=== PATIENT | female | born 1960 | race African-American/Black ===

== ENCOUNTER 2020-06-14 15:47 | Emergency (ER) | payer OTHER, SELFPAY ==
[2020-06-14] VITALS (8 sets, daily range): BP systolic 133–153; BP diastolic 82–103; PULSE 84; RESP 18; TEMP 37.2; O2SAT 96–99
--- NOTE | ~2020-06-14 | CT_ITS ---
EXAMINATION: CT abdomen pelvis wo con DATE: 06/14/2020 16:31 INDICATION: Right flank pain. TECHNIQUE: Computed tomography (CT) of the abdomen and pelvis was performed without intravenous contr ast. Automated exposure control and iterative reconstruction technique were employed. The dose-length product was 369.74 mGy-cm. COMPARISON: CT abdomen and pelvis 07/10/2019 FINDINGS: The visualized portions of the lung bases demonstrate minimal atelectasis. No pleural effus ion. The heart size is normal. No pericardial effusion. The liver, gallbladder, spleen, pancreas, and adrenal glands are normal. There are 3 stones in right kidney measuring up to 4 mm. There are 3 ston es in left kidney measuring up to 8 mm. There are no dilated loops of bowel. There is diverticulosis of the colon without evidence of diverticulitis. The appendix is normal. There are no dilated loops o f bowel. There are no pathologically enlarged lymph nodes. There is no free intraperitoneal fluid. Th ere is mild lumbar spondylosis. IMPRESSION: 1. Bilateral nonobstructing kidney stones. Reviewed, dictated and finalized at location A.
[2020-06-14 16:15] LABS: Basophils Percent Auto 0.4 % (0.2-1.2); Eosinophils Percent Auto 0.3 % (0-4.4); Hematocrit 37.6 % (37.0-47.0); Hemoglobin 12.5 g/dL (12.0-15.0); Immature Granulocyte Absolute 0.02 K/mm3 (0.00-0.031); Immature Granulocyte Percent A 0.3 % (0-0.5); Lymphocytes Absolute Auto 2.03 K/mm3 (0.9-3.2); Lymphocytes Percent Auto 29.5 % (18.3-44.2); Mean Corpuscular HGB Conc 33.2 g/dl (32-36); Mean Corpuscular Hemoglobin 23.9 pg (26-34); Mean Platelet Volume 11.6 fl (7.4-10.4); Monocytes Absolute Auto 0.5 K/mm3 (0.1-0.6); Monocytes Percent Auto 7.3 % (2.6-8.5); Neutrophils Absolute Auto 4.3 K/mm3 (1.3-6.7); Neutrophils Percent Auto 62.2 % (45.5-73.1); Platelet Count Result 240 k/mm3 (150-375); Red Blood Count 5.22 M/mm3 (4.2-5.4); Red Cell Distribution Width 17.1 % (11.5-14.5); White Blood Count 6.9 K/mm3 (4.5-10.0)
[2020-06-14 16:27] LABS: Alanine Aminotransferase 23 U/L (4-35); Albumin Level 4.6 g/dL (3.5-5.1); Alkaline Phosphatase 104 U/L (38-126); Anion Gap 6 mmol/L (8-16); Aspartate Amino Transferase 35 U/L (14-36); Bilirubin,Total 0.5 mg/dL (0.2-1.3); Blood Urea Nitrogen 15 mg/dL (7-17); Calcium 9.3 mg/dL (8.4-10.2); Carbon Dioxide 28 mmol/L (22-30); Chloride 104 mmol/L (98-107); Estimated Glomerular Filt Rate > 60; Glucose 92 mg/dL (65-105); Lipase 101 U/L (23-300); Potassium 3.9 mmol/L (3.4-5.0); Sodium 138 mmol/L (137-145)
[2020-06-14 16:29] LABS: Add Urine Microscopic? YES; Appearance Urine Clear (Clear); Bacteria Urine Trace /hpf; Bilirubin Urine Negative (Negative); Blood Urine Negative (Negative); Color Urine Straw (Yellow); Glucose Urine UA Negative (Negative); Ketones Urine Negative (Negative); Leukocyte Esterase Ur 1+ LEU/UL (Negative); Mucus Urine Rare /lpf; Nitrate Urine Negative (Negative); Protein Urine Negative (Negative); RBC Urine 0-2 /hpf (0-2); Specific Grav Ur 1.015 (1.001-1.035); Squamous Epithelial Cell Urine Moderate /hpf (Few); Urobilinogen Urine Negative mg/dL (<2.0)
[2020-06-14] MEDS: KETOROLAC 30 MG/ML VIAL (*BKC) IV PUSH (16:38)
[2020-06-14] MEDS: SODIUM CHLORIDE 0.9% IV 1,000 ML 999 ML IV CONT (16:38)
--- NOTE | 2020-06-14 16:47 | ED.GENADULT ---
HPI - General Adult General Chief complaint: Abdominal Pain Stated complaint: RIGHT FLANK PAIN Time Seen by Provider: 06/14/20 15:49 Source: RN notes reviewed History of Present Illness HPI narrative: Patient presents emergency room from home for right flank pain. Patient states pain began at approximately noon today. Pain is right flank and radiates in the right lower abdomen described as sharp and stabbing. Denies any fevers or chills vomiting diarrhea or any other symptoms. States she took no previous pain medication. States history of kidney stones Related Data Home Medications Medication Instructions Recorded Confirmed Adult Low Dose Aspirin 06/14/20 Vitamin D3 06/14/20 Allergies Allergy/AdvReac Type Severity Reaction Status Date / Time No Known Allergies Allergy Unverified 06/14/20 15:56 Review of Systems Review of Systems: Narrative: Gen.: Denies fevers or chills ENT: Denies congestion Respiratory: Denies shortness of breath or cough CV: Denies chest pain or palpitations GI: Denies abdominal pain nausea, emesis or diarrhea reports flank pain denies burning, urgency, frequency or hematuria Musculoskeletal: Denies back pain or muscle pain Neuro: Denies numbness, tingling, weakness or focal weakness Skin: Denies rash Except as documented, all other systems reviewed and negative [facility] Past Medical History Medical History (Updated 06/14/20 @ 17:51 by Blaise Jorge DO) Kidney stones Family History Family History (Updated 06/09/14 @ 07:13 by DOCTOR UNKNOWN) Mother Family history of arthritis Social History Social History Smoking status: Current every day smoker Alcohol intake: current Gender identity (if verbalized by the patient): Female Exam Narrative: Exam Narrative: APPEARANCE: No acute distress, nontoxic, resting in bed HEENT: Normocephalic, atraumatic, OMM RESPIRATORY: No respiratory distress, clear to auscultation bilaterally with no rhonchi wheezing or rales CARDIOVASCULAR: RRR s murmur ABDOMINAL: Soft, nondistended, tender to palpation in right lower quadrant right upper quadrant, no tenderness left or quadrant left lower quadrant, no rebound or guarding, right flank tenderness MUSCULOSKELETAl: Moves all extremities. No clubbing, cyanosis or edema. NEURO: Awake and alert. Following commands, speech normal, no focal deficits SKIN:: Warm, dry. Normal Color PSYCHIATRIC: Normal affect/mood Course Course Emergency Course: Patient states that they are feeling much better at this time. States abdominal pain has resolved. Repeat abdominal exam shows the patient's abdomen to be soft and nontender. Discussed with patient results of workup and diagnosis. Discussed need for follow-up with primary care physician, reasons to return to the emergency department in proper use of medication. Patient understands and agrees to current treatment plan Vital Signs Vital signs: Vital Signs Temperature 99.0 F 06/14/20 15:55 Pulse Rate 84 06/14/20 15:55 Respiratory Rate 18 06/14/20 15:55 Blood Pressure 150/103 H 06/14/20 15:55 Pulse Oximetry 96 06/14/20 15:55 Temperature 99.0 F 06/14/20 15:55 Pulse Rate 84 06/14/20 15:55 Respiratory Rate 18 06/14/20 15:55 Blood Pressure 133/82 06/14/20 17:16 Pulse Oximetry 98 06/14/20 17:17 Medical Decision Making MDM Narrative Medical decision making narrative: Patient's abdomen is soft without significant pain or signs of surgical abdomen on serial exams. Lab and x-ray evaluations are reviewed and patient is felt to be a reasonable candidate for outpatient management. Patient was instructed as to limitations of x-ray and laboratory evaluation and encouraged to return to ED or primary physician for repeat exam in 12 hours if continued or worsening pain Vital Signs Vital Signs: Vital Signs Temperature 99.0 F 06/14/20 15:55 Pulse Rate 84 06/14/20 15:55 Res
[2020-06-14] MEDS: NITROFURANTOIN MONOHYD MACROCR 100 MG CAP PO (17:59)
== END 2020-06-14 18:17 | disposition home or self-care (01) ==
PROVIDERS: Emergency Provider Emergency Medicine; PCP Internal Medicine
DX: N39.0 Urinary tract infection, site not specified (principal); N20.0 Calculus of kidney; Z87.442 Personal history of urinary calculi; F17.200 Nicotine dependence, unspecified, uncomplicated
CPT/HCPCS: 36415; 74176; 80053; 81001; 81025; 83690; 85025; 99284; A9270; J1885; J7030

== ENCOUNTER 2020-10-24 04:53 | Observation (INO) | payer OTHER, SELFPAY ==
[2020-10-24] VITALS (39 sets, daily range): BP systolic 120–155; BP diastolic 71–102; PULSE 52–94; RESP 12–29; TEMP 36.4–36.5; O2SAT 84–99; BMI 30.1
--- NOTE | ~2020-10-24 | CT_ITS ---
EXAMINATION: CTA chest DATE: 10/24/2020 06:31 INDICATION: Chest pain TECHNIQUE: Computed tomographic angiography (CTA) of the chest was performed with 100 mL Omnipque-350 intravenous contrast. Maximum intensity projection 3D-reconstructions of the aorta and other arterie s were constructed by the technologist on a separate workstation. The dose-length product (DLP) was 3 04.93 mGy-cm. Automated exposure control and iterative reconstruction technique were employed. COMPARISON: None. FINDINGS: The thoracic aorta is normal without aneurysm or dissection. No pulmonary embolism is ident ified. There is mild emphysema. There is mild dependent atelectasis. No pleural effusion or pneumotho rax is identified. No pathologically enlarged thoracic lymph nodes are identified. The heart size is normal. Triangular soft tissue density in the anterior mediastinum likely represents residual thymus. There are metallic soft tissue densities in the left posterior chest wall and left scapula. Nonobstr ucting stones of the kidneys measure up to 8 mm on the left. IMPRESSION: 1. No aortic dissection or aneurysm. 2. No pulmonary embolism. Reviewed, dictated and finalized at location A. ATTORNEY
--- NOTE | 2020-10-24 04:59 | ECG_ITS ---
Measurements Intervals [place] Rate: 66 P: 52 NM: 131 QRS: 17 QRSD: 85 T: 1 QT: 404 QTc: 425 Interpretive Statements SINUS RHYTHM BORDERLINE T WAVE ABNORMALITY- INFERIOR LEADS BORDERLINE ECG Electronically Signed On 10-24-2020 7:15:50 [employer] by Bolivar Cervantes D.O.
--- NOTE | 2020-10-24 05:09 | ED.CHESTPAIN ---
HPI - Chest Pain General Chief Complaint: Chest Pain <Lesly Valles MD - Last Filed: 10/24/20 23:35> Stated Complaint: cp <Lesly Valles MD - Last Filed: 10/24/20 23:35> Time Seen by Provider: 10/24/20 04:54 <Lesly Valles MD - Last Filed: 10/24/20 23:35> Source: patient <Lesly Valles MD - Last Filed: 10/24/20 23:35> Mode of arrival: EMS <Lesly Valles MD - Last Filed: 10/24/20 23:35> Limitations: no limitations <Lesly Valles MD - Last Filed: 10/24/20 23:35> History of Present Illness HPI narrative: This patient is a 60 year old female smoker who presents for evaluation of left chest pain. She reports this pain started suddenly at 2 am this morning. She describes pain has constant, sharp . Pain radiates to her left shoulder. PAin is worse with inspiration. She denies cough, nausea, vomiting, shortness of breath or fever. She denies similar pain. She was given aspirin 324 mg by EMS in route. <Lesly Valles MD - Last Filed: 10/24/20 23:35> Related Data Allergies/Adverse Reactions: Allergies Allergy/AdvReac Type Severity Reaction Status Date / Time No Known Allergies Allergy Unverified 06/14/20 15:56 <Lesly Valles MD - Last Filed: 10/24/20 23:35> Review of Systems Review of Systems: All systems reviewed & are unremarkable except as noted in HPI and below <Lesly Valles MD - Last Filed: 10/24/20 23:35> Cardiovascular: Cardiovascular: Reports chest pain and Reports radiating jaw, neck or arm pain <Lesly Valles MD - Last Filed: 10/24/20 23:35> Respiratory: Respiratory: Denies cough and Reports dyspnea <Lesly Valles MD - Last Filed: 10/24/20 23:35> Gastrointestinal: Gastrointestinal: Denies abdominal pain and Denies nausea <Lesly Valles MD - Last Filed: 10/24/20 23:35> PMFSH Past Medical History Medical History: Medical History (Updated 10/24/20 @ 09:45 by Jaron Kessler MD) Kidney stones <Lesly Valles MD - Last Filed: 10/24/20 23:35> Family History Family History: Family History Mother Family history of arthritis <Lesly Valles MD - Last Filed: 10/24/20 23:35> Social History Social History: Social History Smoking status: Current some day smoker Alcohol intake: never Substance use: never Substance use type: does not use Living arrangements: with family Gender identity (if verbalized by the patient): Female Spiritual care concerns: No <Lesly Valles MD - Last Filed: 10/24/20 23:35> Exam Const: General: alert <Lesly Valles MD - Last Filed: 10/24/20 23:35> Orientation/consciousness: patient oriented x3 <Lesly Valles MD - Last Filed: 10/24/20 23:35> Other: mild dstress due to pain <Lesly Valles MD - Last Filed: 10/24/20 23:35> HENMT: Head: normocephalic and atraumatic <Lesly Valles MD - Last Filed: 10/24/20 23:35> Face and sinus: face symmetric <Lesly Valles MD - Last Filed: 10/24/20 23:35> Mouth: Yes Normal oral and palatal mucosa present, Yes lip normal, Yes oropharynx normal and Yes moist mucous membranes <Lesly Valles MD - Last Filed: 10/24/20 23:35> Eyes: EOM: EOMs intact bilaterally <Lesly Valles MD - Last Filed: 10/24/20 23:35> Chest: Chest palpation & inspection: tenderness costochondral junction <Lesly Valles MD - Last Filed: 10/24/20 23:35> Resp: Effort & Inspection: normal respiratory effort and no retractions <Lesly Valles MD - Last Filed: 10/24/20 23:35> Auscultation: clear to auscultation bilaterally <Lesly Valles MD - Last Filed: 10/24/20 23:35> Cardio: Rate: regular rate <Lesly Valles MD - Last Filed: 10/24/20 23:35> Rhythm: regular rhythm <Lesly Valles MD - Last Filed: 10/24/20 23:35> Heart sounds: no murmurs <MD Radha Ibrahim L
[2020-10-24] MEDS: NITROGLYCERIN SL 0.4 MG TABLET SUBLINGUAL (05:21)
--- NOTE | 2020-10-24 05:22 | PC.NURSE ---
0520 CP 8,/10 BP: 155/100 0525 CP 8/10 BP: 144/91
--- NOTE | 2020-10-24 05:30 | PC.NURSE ---
0530. Pt. CP 02/10. BP 137/88. Pt. refusing third Nitro SL. at this time.
[2020-10-24 05:36] LABS: Basophils Absolute Auto 0.1 K/mm3 (0.0-0.1); Eosinophils Percent Auto 0.3 % (0-4.4); Hematocrit 38.8 % (37.0-47.0); Hemoglobin 13.1 g/dL (12.0-15.0); Immature Granulocyte Absolute 0.01 K/mm3 (0.00-0.031); Immature Granulocyte Percent A 0.2 % (0-0.5); Immature Platelet Fraction Pct 10.3 % (0.9-11.2); Lymphocytes Absolute Auto 1.93 K/mm3 (0.9-3.2); Lymphocytes Percent Auto 32.1 % (18.3-44.2); Mean Corpuscular HGB Conc 33.8 g/dl (32-36); Mean Corpuscular Hemoglobin 25.5 pg (26-34); Mean Corpuscular Volume 75.6 fl (80-100); Mean Platelet Volume 11.5 fl (7.4-10.4); Monocytes Absolute Auto 0.6 K/mm3 (0.1-0.6); Monocytes Percent Auto 10.5 % (2.6-8.5); Neutrophils Absolute Auto 3.4 K/mm3 (1.3-6.7); Neutrophils Percent Auto 55.9 % (45.5-73.1); Platelet Count Result 219 k/mm3 (150-375); Red Blood Count 5.13 M/mm3 (4.2-5.4); Red Cell Distribution Width 15.5 % (11.5-14.5)
[2020-10-24 05:43] LABS: Potassium 4.4 mmol/L (3.4-5.0)
[2020-10-24 05:46] LABS: INR 0.9; Prothrombin Time 13.2 Seconds (11.1-14.7)
[2020-10-24 05:47] LABS: Anion Gap 7 mmol/L (8-16); Blood Urea Nitrogen 23 mg/dL (7-17); Calcium 9.2 mg/dL (8.4-10.2); Carbon Dioxide 27 mmol/L (22-30); Chloride 107 mmol/L (98-107); Estimated Glomerular Filt Rate > 60; Glucose 96 mg/dL (65-105); Partial Thromboplastin Time 30.5 SECONDS (22.3-36.8); Sodium 141 mmol/L (137-145)
[2020-10-24 05:56] LABS: Troponin I < 0.012 ng/mL (0.000-0.034)
[2020-10-24 06:07] LABS: D Dimer 0.27 ug/mL (<0.48)
[2020-10-24] MEDS: ONDANSETRON INJ 4 MG/2 ML VIAL IV PUSH (06:08)
[2020-10-24] MEDS: MORPHINE SULFATE (*CRX) 4 MG/ML INJ IV PUSH (06:09)
[2020-10-24 08:47] LABS: Troponin I < 0.012 ng/mL (0.000-0.034)
--- NOTE | 2020-10-24 09:36 | EST_ITS ---
Patient Info Name: Yarelis Villareal Age: 60 years : 1960 Gender: Female Ht: 59 in Wt: 149 lbs BSA: 1.70 m2 Technical Quality: Good Exam Date: 10/24/2020 11:01 AM Exam Location: [facility] Patient Status: Inpatient Admit Date: 10/24/2020 Staff Ordering Physician: Jaron Hernadez MD (cammie/azra) Taxicab Driver: Brenden Hunter RDCS, RT Attending Provider: dr. hernadez Exercise Technologist: Yen Sanchez RDCS Exam Type: CA stress echo Study Info Indications R07.9 - Chest pain, unspecified Treadmill exercise stress echocardiogram is performed. Summary 1. Patient exercise for 6 minutes and 0 seconds on David protocol achieving 7 METs. Heart rate at rest was 58 bpm, increased to 152 at peak exercise which is 93% of max predicted heart rate. Blood pressure was 120/75 at rest, increased to 177/84 at peak exercise EKG at rest showed normal sinus rhythm. At peak exercise showed sinus tachycardia and no ST/T changes. Occasional PVCs noted at peak exercise. 2D echo at rest showed normal LV systolic function and no regional wall motion changes. At peak exercise LV function became hyperdynamic and LV cavity became smaller. No regional wall motion changes were noted Summary: Negative stress test with no evidence of ischemia by EKG and echocardiogram criteria Mild exercise impairment (6 minutes on David protocol) Rare PVCs noted at peak exercise, otherwise no significant arrhythmia. Protocol: David Stress ECG Details Stage: REST Duration (min): 8 min : 50 sec Speed (mph): 0.0 Grade (%): 0 HR (bpm): 61 SBP (mmHg): 120 DBP (mmHg): 75 METS: --- Stage: REST Duration (min): 12 min : 3 sec Speed (mph): 0.0 Grade (%): 0 HR (bpm): 76 SBP (mmHg): 120 DBP (mmHg): 75 METS: --- Stage: STAGE 1 Duration (min): 1 min : 0 sec Speed (mph): 1.7 Grade (%): 10 HR (bpm): 108 SBP (mmHg): 120 DBP (mmHg): 75 METS: --- Stage: STAGE 1 Duration (min): 2 min : 0 sec Speed (mph): 1.7 Grade (%): 10 HR (bpm): 124 SBP (mmHg): 120 DBP (mmHg): 75 METS: --- Stage: STAGE 1 Duration (min): 3 min : 0 sec Speed (mph): 1.7 Grade (%): 10 HR (bpm): 129 SBP (mmHg): 165 DBP (mmHg): 80 METS: --- Stage: STAGE 2 Duration (min): 1 min : 0 sec Speed (mph): 2.5 Grade (%): 12 HR (bpm): 141 SBP (mmHg): 165 DBP (mmHg): 80 METS: --- Stage: STAGE 2 Duration (min): 2 min : 0 sec Speed (mph): 2.5 Grade (%): 12 HR (bpm): 143 SBP (mmHg): 174 DBP (mmHg): 89 METS: --- Stage: STAGE 2 Duration (min): 3 min : 0 sec Speed (mph): 2.5 Grade (%): 12 HR (bpm): 149 SBP (mmHg): 174 DBP (mmHg): 89 METS: --- Stage: STAGE 3 Duration (min): 0 min : 1 sec Speed (mph): 0.0 Grade (%): 0 HR (bpm): 149 SBP (mmHg): 174 DBP (mmHg): 89 METS: --- Stage: RECOVERY Duration (min): 0 min : 58 sec Speed (mph): 0.0 Grade (%): 0 HR (bpm): 108 SBP (mmHg): 177 DBP (mmHg): 84 METS: -
--- NOTE | 2020-10-24 09:39 | PM.IMHP ---
H&P: HPI History of Present Illness Date/Time: 10/24/20 09:39 Chief Complaint: CHest pain Narrative: 60 y/o female with no significant past medical history except for tobacco abuse who presents with chest pain She woke up this am with left sided chest pain that feels like ache. She drove to work and by then her pain became more severe and radiated to her left arm so she decided to seek medical attention. She received nitro and morphine in ER and her pain resolved now. She denies dyspnea, orthopnea,dizziness, lightheadedness, nausea vomiting or diaphoresis. Her EKG shows normal sinus rhythm with no ST/T changes suggestive of ischemia. Trop negative X2. D Dimer is normal She has no prior cardiac history. She reports being seen by tongue trimmer long time ago for chest pain, was started on anti acids with no recurrence of pain since up until now. Mother alive with no heart disease. She smokes about half pack a day Review of Systems Review of Systems: All systems reviewed & are unremarkable except as noted in HPI and below Constitutional: Constitutional: Denies fatigue and Denies headache(s) Eyes: Eyes: Denies blurry vision ENT: Reports Normal hearing present and Denies headache(s) Cardiovascular: Cardiovascular: Denies chest pain, Denies diaphoresis, Denies pedal edema, Denies leg edema, Denies lightheadedness, Denies palpitations and Denies dyspnea Respiratory: Respiratory: Denies cough and Denies dyspnea Gastrointestinal: Gastrointestinal: Denies abdominal pain Musculoskeletal: Musculoskeletal: Denies back pain Neurologic: Reports Normal hearing present and Denies headache(s) Psychiatric: Psychiatric: Denies anxiety Endocrine: Endocrine: Denies fatigue and Denies palpitations [facility] Past Medical History Medical History (Updated 10/24/20 @ 09:45 by Jaron Kessler MD) Kidney stones Family History Family History (Updated 06/09/14 @ 07:13 by DOCTOR UNKNOWN) Mother Family history of arthritis Social History Social History Smoking status: Current every day smoker Alcohol intake: current Gender identity (if verbalized by the patient): Female Meds Home Medications and Allergies Home Medications Medication Instructions Recorded Confirmed Type Adult Low Dose Aspirin 06/14/20 History Vitamin D3 06/14/20 History ibuprofen [IBU] 600 mg PO Q6H PRN #20 tablet 06/14/20 Rx nitrofurantoin monohyd/m-cryst 100 mg PO Q12H 5 Days #10 cap 06/14/20 Rx [Macrobid] Allergies Allergy/AdvReac Type Severity Reaction Status Date / Time No Known Allergies Allergy Unverified 06/14/20 15:56 Vital Signs Vital Signs - 24 hr 10/24/20 04:53 10/24/20 04:58 10/24/20 04:59 Temperature 36.5 C Pulse Rate 93 68 Respiratory Rate 16 29 H Blood Pressure 145/99 H Pulse Oximetry 99 93 10/24/20 05:00 10/24/20 05:09 10/24/20 05:15 Temperature Pulse Rate 62 73 65 Respiratory Rate 20 21 H 17 Blood Pressure 145/102 H Pulse Oximetry 95 95 10/24/20 05:16 10/24/20 05:26 10/24/20 05:30 Temperature Pulse Rate 70 72 81 Respiratory Rate 21 H 18 15 Blood Pressure 155/100 H 144/91 H 137/88 Pulse Oximetry 97 96 94 10/24/20 05:31 10/24/20 05:32 10/24/20 05:45 Temperature Pulse Rate 81 92 65 Respiratory Rate 18 22 H 20 Blood Pressure 135/91 H 134/85 Pulse Oximetry 94 93 96 10/24/20 05:46 10/24/20 06:45 Temperature Pulse Rate 69 68 Respiratory Rate 18 25 H Blood Pressure 125/82 Pulse Oximetry 95 98 Exam Const: General: no acute distress Eyes: Sclera: sclerae normal Neck: Neck: no JVD Carotids: no bruits Resp: Effort & Inspection: normal respiratory effort Auscultation: clear to auscultation bilaterally Cardio: Rate: regular rate and not tachycardic Rhythm: regular rhythm Heart sounds: no gallops, no murmurs and no rubs GI: GI Palp: Yes Soft to palpation and No Tenderness to palpa
[2020-10-24 11:28] LABS: Troponin I < 0.012 ng/mL (0.000-0.034)
--- NOTE | 2020-10-24 11:28 | PM.DS ---
DS: Admitting Diagnosis Admitting Diagnosis Admitting Diagnosis: Chest pain DS: Discharge Diagnosis Discharge Diagnosis (1) Chest pain: Qualifiers: Chest pain type: unspecified Qualified Code(s): R07.9 - Chest pain, unspecified Code(s): R07.9 - Chest pain, unspecified Status: Acute Assessment and Plan: 60 y/o female with no significant past medical history except for tobacco abuse who presents with chest pain She woke up this am with left sided chest pain that feels like ache. She drove to work and by then her pain became more severe and radiated to her left arm so she decided to seek medical attention. She received nitro and morphine in ER and her pain resolved now. She denies dyspnea, orthopnea,dizziness, lightheadedness, nausea vomiting or diaphoresis. Her EKG shows normal sinus rhythm with no ST/T changes suggestive of ischemia. Trop negative X2. D Dimer is normal She smokes about half pack a day She ruled out for [place] so far with EKG and 2 negative troponin Pain has some anginal features (left sided radiates to the arm,nitro responsiveness) She has risk factors of age and tobacco abuse Will proceed with stress echocardiogram Stress echocardiogram was negative for ischemia (6 minutes on David protocol). Patient is stable for discharge. Will follow up in the office in 2 weeks (2) Tobacco abuse: Code(s): Z72.0 - Tobacco use Status: Acute Assessment and Plan: Smoking cessation counseling DS: Summary Hospital Course Hospital Course: 60 y/o female with no significant past medical history except for tobacco abuse who presents with chest pain Ruled out for [place] with negative trop and EKG Stress echocardiogram negative for ischemia Time Spent with Patient Time attestation: Total time spent providing and/or coordinating discharge services: Exam Const: General: no acute distress Eyes: Sclera: sclerae normal Neck: Neck: no JVD Carotids: no bruits Resp: Effort & Inspection: normal respiratory effort Auscultation: clear to auscultation bilaterally Cardio: Rate: regular rate and not tachycardic Rhythm: regular rhythm Heart sounds: no gallops, no murmurs and no rubs Skin: General skin exam: normal color Neuro: Cranial nerves: Yes Normal hearing present Speech: normal speech Extrem: General: normal to inspection and no edema Psych: Affect: normal affect DS: Data Data Completed and Pending Labs on day of discharge: Labs from last 24 hours 10/24/20 10/24/20 10/24/20 10:55 08:15 05:27 WBC RBC Hgb Hct MCV MCH MCHC RDW Plt Count MPV Immature Gran % (Auto) Neut % (Auto) Lymph % (Auto) [place] % (Auto) Eos % (Auto) Baso % (Auto) Lymph # (Auto) [place] # (Auto) Eos # (Auto) Baso # (Auto) Abs Immat Gran (auto) Absolute Neuts (auto) Absolute Nucleated RBC Nucleated RBC % % Immature Plt Fraction PT INR APTT D-Dimer Sodium 141 Potassium 4.4 Chloride 107 Carbon Dioxide 27 Anion Gap 7 L BUN 23 H Creatinine 0.80 Estim Creat Clear Calc Not Reportable Estimated GFR > 60 Glucose 96 Calcium 9.2 Troponin I Pending < 0.012 < 0.012 10/24/20 10/24/20 05:27 05:27 WBC 6.0 RBC 5.13 Hgb 13.1 Hct 38.8 MCV 75.6 L MCH 25.5 L MCHC 33.8 RDW 15.5 H Plt Count 219 MPV 11.5 H Immature Gran % (Auto) 0.2 Neut % (Auto) 55.9 Lymph % (Auto) 32.1 [place] % (Auto) 10.5 H Eos % (Auto) 0.3 Baso % (Auto) 1.0 Lymph # (Auto) 1.93 [place] # (Auto) 0.6 Eos # (Auto) 0.0 Baso # (Auto) 0.1 Abs Immat Gran (auto) 0.01 Absolute Neuts (auto) 3.4 Absolute Nucleated RBC 0.0 Nucleated RBC % 0.0 % Immature Plt Fraction 10.3 PT 13.2 INR 0.9 APTT 30.5 D-Dimer 0.27 Sodium Potassium Chloride Carbon Dioxide Anion Gap BUN Creatinine Estim Creat Clear Calc Estimated GFR Gluc
== END 2020-10-24 12:16 | disposition home or self-care (01) ==
LOC: ANHED 08:25 → ANHCPC 11:32
PROVIDERS: General Practice; Admitting Provider Specialist; Emergency Provider Emergency Medicine; PCP Internal Medicine; Visit Provider Internal Medicine
DX: R07.9 Chest pain, unspecified (principal); F17.200 Nicotine dependence, unspecified, uncomplicated
CPT/HCPCS: 36415; 71275; 80048; 84484; 85025; 85055; 85380; 85610; 85730; 93005; 93351; 96374; 96375; 99285; A9270; G0378; J2270; J2405; Q9967

== ENCOUNTER 2021-10-10 08:46 | Emergency (ER) | payer OTHER, SELFPAY ==
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
[2021-10-10 08:58] VITALS: BP 137/94; PULSE 98; RESP 16; TEMP 36.1; O2SAT 99
--- NOTE | 2021-10-10 13:31 | ED.GENADULT ---
HPI - General Adult General Chief complaint: Upper Respiratory Infection Stated complaint: UPPER RESP C/O Time Seen by Provider: 10/10/21 09:11 Source: patient Mode of arrival: ambulatory Limitations: no limitations History of Present Illness HPI narrative: Patient is a 61-year-old female who is vaccinated against Covid presented with chief complaint of headache cough and congestion that began on [place]. Patient reports that she had a rapid Covid test a few days ago which was negative but she believes she tested too early. Patient reports that she has been taking Tessalon Perles for cough which has helped. Patient reports that she does feel like her cough is deep, but she denies shortness of breath. Patient denies fevers, chills, nausea, vomiting or diarrhea. Patient denies chest pain. Patient reports she has been try to get her Covid booster but is not sure where to get it from. Related Data Allergies Allergy/AdvReac Type Severity Reaction Status Date / Time No Known Allergies Allergy Unverified 06/14/20 15:56 Review of Systems Review of Systems: CONSTITUTIONAL: Denies fever, chills, or sweats. EYES: Denies visual changes, redness, or discharge. ENT: Reports congestion denies rhinorrhea, sore throat, or otalgia. CARDIOVASCULAR: Denies chest pain, palpitations, or edema. RESPIRATORY: Reports cough denies dyspnea. GASTROINTESTINAL: Denies abdominal pain, nausea, vomiting, or diarrhea. GENITOURINARY: Denies dysuria or hematuria. SKIN: Denies rash or itching. MUSCULOSKELETAL: Denies back pain, joint pain, or myalgia. NEUROLOGIC: Reports headache denies numbness, dizziness, or weakness. PSYCHIATRIC: Denies anxiety or depression. [facility] Past Medical History Medical History (Updated 10/10/21 @ 11:08 by Tameka Castillo PA-C) Kidney stones Family History Family History Mother Family history of arthritis Social History Social History Smoking status: Current some day smoker Alcohol intake: never Substance use: never Substance use type: does not use Gender identity (if verbalized by the patient): Female Spiritual care concerns: No Exam Narrative: GENERAL: Well-appearing, well-nourished, and in no acute distress. Nontoxic in appearance HEAD: Normocephalic, atraumatic. EYES: PERRLA and EOMI. CHEST: Clear to auscultation. No respiratory distress. No wheezes rales or rhonchi. No tachypnea. Deep Cough noted during exam. HEART: Regular rate and rhythm. EXTREMITIES: Normal range of motion. No edema. SKIN: Warm, dry, no rash. NEURO: No focal deficits. Alert and oriented x3. PSYCH: Normal mood and affect. Course Vital Signs Vital signs: Vital Signs Temperature 97 F L 10/10/21 08:58 Pulse Rate 98 10/10/21 08:58 Respiratory Rate 16 10/10/21 08:58 Blood Pressure 137/94 H 10/10/21 08:58 Pulse Oximetry 99 10/10/21 08:58 Temperature 97 F L 10/10/21 08:58 Pulse Rate 98 10/10/21 08:58 Respiratory Rate 16 10/10/21 08:58 Blood Pressure 137/94 H 10/10/21 08:58 Pulse Oximetry 99 10/10/21 08:58 Medical Decision Making MDM Narrative Medical decision making narrative: X-rays negative for infiltrates. Influenza test negative. Patient PCR tested for Covid. Patient vitals are stable. Patient not hypoxic or toxic. Patient tested for Covid and given quarantine instructions and return to ER instructions. Differential Diagnosis Differential Diagnosis: Covid, influenza, pneumonia, viral illness Vital Signs Vital Signs: Vital Signs Temperature 97 F L 10/10/21 08:58 Pulse Rate 98 10/10/21 08:58 Respiratory Rate 16 10/10/21 08:58 Blood Pressure 137/94 H 10/10/21 08:58 Pulse Oximetry 99 10/10/21 08:58 Temperature 97 F L 10/10/21 08:58 Pulse Rate 98 10/10/21 08:58 Respiratory Rate 16 10/10/21 08:58 Blood Pressure 137/94 H 10/10/21 08:58 Pulse O
[2021-10-11 02:21] LABS: SARS-CoV-2 RNA PCR Negative
== END 2021-10-10 11:48 | disposition home or self-care (01) ==
PROVIDERS: Physician Assistant; Emergency Provider Emergency Medicine; PCP Internal Medicine
DX: R51.9 Headache, unspecified (principal); R05.9 Cough, unspecified; Z20.822 Contact with and (suspected) exposure to COVID-19; Z87.442 Personal history of urinary calculi; F17.200 Nicotine dependence, unspecified, uncomplicated
CPT/HCPCS: 71045; 87804; 99283; C9803; U0003; U0005

== ENCOUNTER 2021-11-09 08:51 | Emergency (ER) | payer OTHER, SELFPAY ==
--- NOTE | ~2021-11-09 | XR_ITS ---
XR lumbar spine 2-3V 11/09/2021 09:30 Indication: Chronic right lower back pain Procedure: 3 views lumbar spine Comparison: No prior studies for comparison. Findings: There is grade 1 degenerative spondylolisthesis at L4-5. There is mild facet hypertrophy at L4-5 and L5-S1. Vertebral body heights are maintained. Mild disc narrowing at L5-S1. Mild dextrocurv ature of the lumbar spine. There are left renal stones. No acute fracture or traumatic malalignment. Pedicles intact. Impression: 1: Mild lumbar spondylosis with dextrocurvature. 2: Left nephrolithiasis. Reviewed, dictated and finalized at location B. NTORY CONTROL COORDINATOR Impression: 1: Mild lumbar spondylosis with dextrocurvature. 2: Left nephrolithiasis.
[2021-11-09 08:55] VITALS: BP 135/104; PULSE 55; RESP 18; TEMP 36.7; O2SAT 100
[2021-11-09] MEDS: KETOROLAC 30 MG/ML VIAL (*BKC) IV PUSH (09:23)
[2021-11-09 09:47] VITALS: BP 152/104; PULSE 55; RESP 18; O2SAT 98
[2021-11-09 10:01] LABS: Add Urine Microscopic? YES; Appearance Urine Clear (Clear); Bilirubin Urine Negative (Negative); Blood Urine Negative (Negative); Color Urine Yellow (Yellow); Glucose Urine UA Negative (Negative); Ketones Urine Negative (Negative); Leukocyte Esterase Ur Negative LEU/UL (Negative); Mucus Urine Rare /lpf; Nitrate Urine Negative (Negative); Protein Urine Negative (Negative); RBC Urine 0-2 /hpf (0-2); Squamous Epithelial Cell Urine Occasional /hpf (Few); Urobilinogen Urine Negative mg/dL (<2.0); WBC Urine 0-3 /hpf
--- NOTE | 2021-11-09 10:37 | ED.BACK ---
HPI - Back Pain/Injury General Chief Complaint: Back Pain/Injury Stated Complaint: back pain Time Seen by Provider: 11/09/21 08:57 History of Present Illness HPI Narrative: Patient is a 61-year-old female with history of chronic back pain for the last year who presents ER with worsening back pain. Woke up this morning and any sort of bending and walking and movement caused her pain to worsen. No saddle anesthesia or lower extremity numbness/tingling. No physical weakness in the leg. No recent trauma. Received morphine by EMS which is improved the pain. Reports has history of stones and is not having any nausea or vomiting thinks this is different but was unsure. No dysuria or hematuria. Patient reports she has been fasting all week for scientology. Related Data Allergies Allergy/AdvReac Type Severity Reaction Status Date / Time No Known Allergies Allergy Unverified 06/14/20 15:56 Review of Systems Constitutional: Constitutional: Denies chills, Denies fever(s) and Denies weakness Gastrointestinal: Gastrointestinal: Denies abdominal pain, Denies nausea and Denies vomiting Musculoskeletal: Musculoskeletal: Reports back pain, Denies arthralgias and Denies joint swelling Neurologic: Denies focal weakness and Denies numbness PMFSH Past Medical History Medical History (Updated 11/09/21 @ 10:46 by Cal Gomez MD) Kidney stones Surgical History Surgical History (Updated 11/09/21 @ 10:42 by Cal Gomez MD) No pertinent past surgical history Family History Family History Mother Family history of arthritis Social History Social History Smoking status: Current some day smoker Alcohol intake: never Substance use: never Substance use type: does not use Gender identity (if verbalized by the patient): Female Spiritual care concerns: No Exam Narrative: GENERAL: Well-appearing, well-nourished, and in no acute distress. HEAD: Normocephalic, atraumatic. CHEST: Clear to auscultation. No respiratory distress. HEART: Regular rate and rhythm. Normal peripheral pulses. Back: Tenderness over the paraspinal musculature of the lumbar spine near L4 mild midline discomfort. No bruising or abrasion or swelling. No cellulitis. No thoracic spine tenderness. EXTREMITIES: Normal range of motion. No edema. SKIN: Warm, dry, no rash. NEURO: Alert and oriented x3. PSYCH: Normal mood and affect. Course Course Emergency Course: Pain significant improved with morphine and Toradol. Urine clean. No radicular symptoms or cauda equina symptoms. Discharge home with supportive therapy. Vital Signs Vital signs: Vital Signs Temperature 98.1 F 11/09/21 08:55 Pulse Rate 55 L 11/09/21 08:55 Respiratory Rate 18 11/09/21 08:55 Blood Pressure 135/104 H 11/09/21 08:55 Pulse Oximetry 100 11/09/21 08:55 Temperature 98.1 F 11/09/21 08:55 Pulse Rate 55 L 11/09/21 09:47 Respiratory Rate 18 11/09/21 09:47 Blood Pressure 152/104 H 11/09/21 09:47 Pulse Oximetry 98 11/09/21 09:47 MDM - Back Pain/Injury Lab Data Labs: Lab Results 11/09/21 Range/Units 09:20 Urine Color Yellow (Yellow) Urine Appearance Clear (Clear) Urine pH 6.0 (5.0-9.0) Ur Specific [place] 1.020 (1.001-1.035) Urine Protein Negative (Negative) mg/dL Urine Glucose (UA) Negative (Negative) mg/dL Urine Ketones Negative (Negative) mg/dL Ur Blood (Man) Negative (Negative) Urine Nitrate Negative (Negative) Urine Bilirubin Negative (Negative) Urine Urobilinogen Negative (<2.0) mg/dL Leukocyte Esterase Rfl Negative (Negative) HARSH/UL Urine RBC 0-2 (0-2) /hpf Urine WBC 0-3 /hpf Ur Squamous Epith Cells Occasional (Few) /hpf Urine Mucus Rare /lpf Imaging Data Radiologist's impression: ITS Impressions Lumbar Spine X-Ray 11/09/21 09:38 Impression: 1: Mild lumbar spo
[2021-11-09 11:05] VITALS: BP 146/88; PULSE 69; RESP 18; O2SAT 98
== END 2021-11-09 11:07 | disposition home or self-care (01) ==
PROVIDERS: Emergency Provider Emergency Medicine; PCP Internal Medicine
DX: M54.50 Low back pain, unspecified (principal); G89.29 Other chronic pain; F17.200 Nicotine dependence, unspecified, uncomplicated; N20.0 Calculus of kidney; Z87.442 Personal history of urinary calculi; M47.816 Spondylosis without myelopathy or radiculopathy, lumbar region
CPT/HCPCS: 72100; 81001; 96372; 99284; J1885

== ENCOUNTER 2021-12-13 09:35 | Emergency (ER) | payer OTHER, SELFPAY ==
--- NOTE | ~2021-12-13 | CT_ITS ---
EXAMINATION: CT abdomen pelvis w con EXAM DATE: 12/13/2021 10:39 INDICATION: abdominal pain and vomiting. TECHNIQUE: Spiral CT of the abdomen and pelvis was performed following intravenous injection of 100 m L Omnipaque 350. Axial, coronal and sagittal images of the abdomen and pelvis were reviewed. The do se-length product (DLP) for this examination was 326.41 mGy-cm. The exposure was tailored according to patient size (auto mA exposure control), and iterative reconstruction (ASIR) was used as additiona l dose reduction technique. Comparison is made to prior examination from 06/14/2020. FINDINGS: The right ureter wall is enhancing along with the renal pelvis and there is mild adjacent i nflammation. Pelvic calcifications appear unchanged compared to prior study and are probably phleboli ths, no obstructing stone identified. Probably upper urinary tract infection and possible early pyelo nephritis. There is a 5 mm right inferior calyceal stone and 10 and 4 mm left calyceal stones. The liver, spleen, adrenal glands and pancreas are unremarkable. Gallbladder is unremarkable. No bi liary obstruction. Fibroid uterus. The bladder is unremarkable. There is no retroperitoneal or p elvic lymphadenopathy. There is mild scattered arteriosclerotic disease. The appendix is normal. There is moderate sigmoid and descending colonic diverticulosis. There is no adjacent inflammatory change to suggest diverticulitis. The stomach and small bowel are unremarkable . There is expected amount of colonic stool. No free intraperitoneal gas. The heart is normal in size. There are no pericardial or pleural effusions. The lung bases are unremarkable. There are n o osteoblastic or osteolytic lesions identified. IMPRESSION: 1. Right-sided upper UTI and possible early pyelonephritis. 2. Bilateral calyceal stones. Reviewed, dictated and finalized at location B. EYOR MINE
[2021-12-13 09:36] VITALS: BP 159/99; PULSE 66; RESP 18; TEMP 36.2; O2SAT 99
--- NOTE | 2021-12-13 09:48 | ED.ABDPAIN ---
HPI - Abdominal Pain General Chief Complaint: Abdominal Pain Stated Complaint: abd pain Time Seen by Provider: 12/13/21 09:43 Source: patient Mode of arrival: ambulatory Limitations: no limitations History of Present Illness HPI narrative: 61 year old female presents today with complaints of abdominal pain that started abruptly this morning while she was at work. Patient states it is a cramping pain with some nausea and vomiting this am. Patient with hx of hernia repair and c-sections. Patient states she has a similar episode a few weeks ago. Pain was relieved after she threw up and had a BM. Patient deneis urinary symptoms, fever, chills, or diarrhea. Last BM 2 days ago. Related Data Allergies Allergy/AdvReac Type Severity Reaction Status Date / Time No Known Allergies Allergy Unverified 06/14/20 15:56 Review of Systems Review of Systems: CONSTITUTIONAL: Denies fever, chills, or sweats. EYES: Denies visual changes, redness, or discharge. ENT: Denies rhinorrhea, congestion, sore throat, or otalgia. CARDIOVASCULAR: Denies chest pain, palpitations, or edema. RESPIRATORY: Denies cough or dyspnea. GASTROINTESTINAL: Positive for abdominal pain, nausea, and vomiting x1. Denies diarrhea. GENITOURINARY: Denies dysuria or hematuria. SKIN: Denies rash or itching. MUSCULOSKELETAL: Denies back pain, joint pain, or myalgia. NEUROLOGIC: Denies headache, numbness, dizziness, or weakness. PSYCHIATRIC: Denies anxiety or depression. PMFSH Past Medical History Medical History (Updated 12/13/21 @ 11:42 by Yumiko Smith APRN) Kidney stones Surgical History Surgical History (Updated 12/13/21 @ 09:54 by Yumiko Smith APRN) No pertinent past surgical history Family History Family History Mother Family history of arthritis Social History Social History Smoking status: Current some day smoker Alcohol intake: never Substance use: never Substance use type: does not use Gender identity (if verbalized by the patient): Female Spiritual care concerns: No Exam Narrative: GENERAL: Well-appearing, well-nourished, and in no acute distress. HEAD: Normocephalic, atraumatic. EYES: PERRLA and EOMI. ENT: Nares clear, no rhinorrhea or epistaxis. Mucous membranes moist. Oropharynx without tonsillar hypertrophy exudate or other lesions. NECK: Supple. No adenopathy or masses. No carotid bruits or JVD CHEST: Clear to auscultation. No respiratory distress. No wheezes rales or rhonchi HEART: Regular rate and rhythm. No murmur heard. Normal peripheral pulses. ABDOMEN: Soft, nontender, nondistended, normal active bowel sounds. EXTREMITIES: Normal range of motion. No edema. SKIN: Warm, dry, no rash. NEURO: No focal deficits. Alert and oriented x3. PSYCH: Normal mood and affect. Course Course Emergency Course: HPI as noted. Patient states she is feeling better the pain is less and is intermittent. All results reviewed with patient. Patient is nontoxic, well-appearing. Patient to receive IV antibiotics and discharged home on p.o. antibiotics. With follow-up with primary. Patient in agreement with plan of care. Is aware to return with any new or worsening symptoms including fever, body aches, chills, or increase in pain. Vital Signs Vital signs: Vital Signs Temperature 36.2 C L 12/13/21 09:36 Pulse Rate 66 12/13/21 09:36 Respiratory Rate 18 12/13/21 09:36 Blood Pressure 159/99 H 12/13/21 09:36 Pulse Oximetry 99 12/13/21 09:36 Temperature 36.2 C L 12/13/21 09:36 Pulse Rate 66 12/13/21 09:36 Respiratory Rate 18 12/13/21 09:36 Blood Pressure 159/99 H 12/13/21 09:36 Pulse Oximetry 99 12/13/21 09:36 MDM - Abdominal Pain MDM Narrative Medical decision making narrative: CT shows upper urinary tract infection/pyelonephritis. Patient is well-appearing, nontoxic-appearing, vitals sta
[2021-12-13 10:08] LABS: Basophils Absolute Auto 0.1 K/mm3 (0.0-0.1); Basophils Percent Auto 0.9 % (0.2-1.2); Eosinophils Percent Auto 0.3 % (0-4.4); Hematocrit 35.1 % (37.0-47.0); Hemoglobin 11.7 g/dL (12.0-15.0); Immature Granulocyte Absolute 0.02 K/mm3 (0.00-0.031); Immature Granulocyte Percent A 0.3 % (0-0.5); Lymphocytes Absolute Auto 1.28 K/mm3 (0.9-3.2); Lymphocytes Percent Auto 19.2 % (18.3-44.2); Mean Corpuscular HGB Conc 33.3 g/dl (32-36); Mean Corpuscular Hemoglobin 25.3 pg (26-34); Mean Platelet Volume 10.9 fl (7.4-10.4); Monocytes Absolute Auto 0.4 K/mm3 (0.1-0.6); Monocytes Percent Auto 6.5 % (2.6-8.5); Neutrophils Absolute Auto 4.8 K/mm3 (1.3-6.7); Neutrophils Percent Auto 72.8 % (45.5-73.1); Platelet Count Result 234 k/mm3 (150-375); Red Blood Count 4.62 M/mm3 (4.2-5.4); Red Cell Distribution Width 15.7 % (11.5-14.5); White Blood Count 6.7 K/mm3 (4.5-10.0)
[2021-12-13] MEDS: SODIUM CHLORIDE 0.9% IV 1,000 ML 999 ML IV CONT (10:10)
[2021-12-13] MEDS: DICYCLOMINE HCL INJ 20 MG/2 ML VIAL IM (10:10)
[2021-12-13] MEDS: ONDANSETRON INJ 4 MG/2 ML VIAL IV PUSH (10:11)
[2021-12-13 10:13] LABS: Add Urine Microscopic? YES; Appearance Urine Cloudy (Clear); Bilirubin Urine Negative (Negative); Blood Urine 3+ (Negative); Color Urine Yellow (Yellow); Glucose Urine UA Negative (Negative); Ketones Urine Trace mg/dL (Negative); Leukocyte Esterase Ur Negative LEU/UL (Negative); Mucus Urine Rare /lpf; Nitrate Urine Negative (Negative); Protein Urine Negative (Negative); RBC Urine >75 /hpf (0-2); Specific Grav Ur 1.017 (1.001-1.035); Squamous Epithelial Cell Urine Rare /hpf (Few); Urobilinogen Urine Negative mg/dL (<2.0)
[2021-12-13 10:25] LABS: Alanine Aminotransferase 17 U/L (4-35); Albumin Level 4.3 g/dL (3.5-5.1); Alkaline Phosphatase 75 U/L (38-126); Anion Gap 5 mmol/L (8-16); Aspartate Amino Transferase 28 U/L (14-36); Bilirubin,Total 0.5 mg/dL (0.2-1.3); Blood Urea Nitrogen 15 mg/dL (7-17); Calcium 8.8 mg/dL (8.4-10.2); Carbon Dioxide 27 mmol/L (22-30); Chloride 108 mmol/L (98-107); Estimated Glomerular Filt Rate > 60; Glucose 102 mg/dL (65-110); Lipase 71 U/L (23-300); Potassium 3.8 mmol/L (3.4-5.0); Sodium 140 mmol/L (137-145)
[2021-12-13] MEDS: cefTRIAXone 2 GM in SODIUM CHLORIDE 0.9% IV 100 ML 200 ML IVPB (12:02)
--- NOTE | 2021-12-21 11:32 | PC.NURSE ---
LATE ENTRY This note is being entered to document information to the patient's record. The following information was omitted on [], by [stop time for rocephin 12/13/21 1300].
== END 2021-12-13 12:53 | disposition home or self-care (01) ==
PROVIDERS: Emergency Provider Nurse Practitioner Family; PCP Internal Medicine
DX: N39.0 Urinary tract infection, site not specified (principal); N20.0 Calculus of kidney; Z87.442 Personal history of urinary calculi
CPT/HCPCS: 36415; 74177; 80053; 81001; 83690; 85025; 96361; 96365; 96372; 96375; 99284; J0500; J0696; J2405; J7030; Q9967

== ENCOUNTER 2022-01-19 17:37 | Observation (INO) | payer OTHER, SELFPAY ==
[2022-01-19] VITALS (8 sets, daily range): BP systolic 127–151; BP diastolic 71–97; PULSE 74–102; RESP 16–20; TEMP 36.8–37.1; O2SAT 87–100; BMI 28.9
--- NOTE | ~2022-01-19 | CT_ITS ---
EXAMINATION: CT abdomen pelvis w con DATE: 01/19/2022 18:43 INDICATION: abd pain TECHNIQUE: Computed tomography (CT) of the abdomen and pelvis was performed with 100 mL Omnipaque-350 intravenous contrast. Automated exposure control and iterative reconstruction technique were employe d. The dose-length product was 518.19 mGy-cm. COMPARISON: 12/13/2021. FINDINGS: Lower thorax: Unremarkable. Liver: Normal. Biliary/Gallbladder: Gallbladder is normal. No bile duct dilation. Spleen: Normal. Pancreas: No mass or duct dilation. Adrenals:No mass. Kidneys: Moderate caliectasis and pelviectasis. Perinephric fluid and stranding. 10 mm stone at the l eft UPJ. Bilateral nonobstructive nephroliths. GI tract: No small or large bowel dilation. Normal appendix. Diverticulosis without evidence of diver ticulitis. Mesentery/Peritoneum: No ascites, mass, or free air. Retroperitoneum: No mass. Pelvis: Fibroid uterus. Normal bladder. Ovaries not visualized. Bones/Soft Tissues: Soft tissues and body wall unremarkable. Additional Findings: None. IMPRESSION: 10 mm stone lodged at the left UPJ, causing moderate obstructive uropathy. Reviewed, dictated and finalized at location K.
--- NOTE | ~2022-01-19 | XR_ITS ---
EXAMINATION: XR chest 1V portable EXAM DATE: 01/19/2022 21:50 INDICATION: Hypoxia. TECHNIQUE: Portable AP frontal chest x-ray was obtained. Comparison is made to prior examination from 10/10/2021. FINDINGS: Metallic scattered tiny foreign bodies projecting over left axilla. The lungs are clear. T here are no pleural effusions. Cardiac silhouette is prominent but magnified on this AP technique. There is no pneumothorax suspected. The bones and soft tissues are unremarkable. IMPRESSION: No acute cardiopulmonary findings. Reviewed, dictated and finalized at location A.
--- NOTE | ~2022-01-19 | XR_ITS ---
EXAMINATION: XR abdomen/kub 1V EXAM DATE: 01/20/2022 11:29 INDICATION: Post cystoscopy. TECHNIQUE: Frontal projection(s) of the abdomen for interpretation. Comparison is made to prior exami nation from 01/19/2022. FINDINGS: Interval placement of left-sided double-J ureteral stent overlying expected position. Ther e is bowel gas overlying the renal contour, difficult to confidently identify the sizable left UPJ st one. Possible smaller stone along the proximal aspect of the stent. Moderate amount of colonic stool and gas. Pelvic calcifications, phleboliths. IMPRESSION: Left ureteral stent in position. Moderate colonic stool. Reviewed, dictated and finalized at location A.
--- NOTE | ~2022-01-19 | XR_ITS ---
EXAMINATION: XR retrograde pyelo w/stent LT EXAM DATE: 01/20/2022 07:58 INDICATION: Left Stent/Retro. TECHNIQUE: Fluoroscopy used during XR retrograde pyelo w/stent LT performed by Dr. Michele ward MD, urologist. The radiologist Liborio Rivera M.D. dictating this report of the image(s) availabl e was not present for the procedure. Total fluoroscopic time of 20 seconds. The DAP for this proced ure was 0.2 mGym2. A total of 0.2 images sent to PACS from the exam. FINDINGS: Overlock Waistline Joiner image may demonstrate a 10 mm stone at the left UPJ. Left ureter was cannulated, inje cted. Mild left caliectasis. A double-J ureteral stent was placed. Correlate with procedure note. IMPRESSION: Mild left hydroureteronephrosis, stent in position. Reviewed, dictated and finalized at location A.
--- NOTE | ~2022-01-19 | XR_ITS ---
EXAM: XR abdomen/kub 1V HISTORY: L sided kidney stone, n/v, pt. in extreme distress from pain COMPARISON: CT abdomen and pelvis, same date. FINDINGS: Left UPJ stone remains in similar position. Similar degree of obstructive uropathy on the left. Additional nephroliths are obscured by contrast. Clear lung bases. Normal bowel gas pattern. IMPRESSION: 10-11 mm left UPJ stone causing moderate left obstructive uropathy. Reviewed, dictated and finalized at location K.
[2022-01-19 17:57] LABS: Basophils Absolute Auto 0.1 K/mm3 (0.0-0.1); Eosinophils Percent Auto 0.5 % (0-4.4); Hematocrit 37.1 % (37.0-47.0); Hemoglobin 12.2 g/dL (12.0-15.0); Immature Granulocyte Absolute 0.01 K/mm3 (0.00-0.031); Immature Granulocyte Percent A 0.1 % (0-0.5); Mean Corpuscular HGB Conc 32.9 g/dl (32-36); Mean Corpuscular Hemoglobin 25.2 pg (26-34); Mean Corpuscular Volume 76.7 fl (80-100); Monocytes Absolute Auto 0.7 K/mm3 (0.1-0.6); Monocytes Percent Auto 9.2 % (2.6-8.5); Neutrophils Absolute Auto 3.3 K/mm3 (1.3-6.7); Neutrophils Percent Auto 45.2 % (45.5-73.1); Platelet Count Result 216 k/mm3 (150-375); Red Blood Count 4.84 M/mm3 (4.2-5.4); Red Cell Distribution Width 15.5 % (11.5-14.5); White Blood Count 7.3 K/mm3 (4.5-10.0)
[2022-01-19] MEDS: MORPHINE SULFATE (*CRX) 4 MG/ML INJ IV PUSH ×2 (17:57→21:07)
[2022-01-19] MEDS: ONDANSETRON INJ 4 MG/2 ML VIAL IV PUSH (17:57)
[2022-01-19] MEDS: SODIUM CHLORIDE 0.9% IV 1,000 ML 999 ML IV CONT (17:57)
--- NOTE | 2022-01-19 18:00 | ED.ABDPAIN ---
HPI - Abdominal Pain General Chief Complaint: Abdominal Pain Stated Complaint: severe stomach pain Time Seen by Provider: 01/19/22 17:38 Source: RN notes reviewed History of Present Illness HPI narrative: Patient presents emergency department from home for abdominal pain. Patient states abdominal pain began approximately 1 week ago. The pain is located across the mid abdomen described as sharp and stabbing patient states that she has been throwing up at home and make herself throw up as she feels it helps with her pain she denies any fevers or chills chest pain shortness of breath diarrhea or any other symptoms. States she not take anything for the pain at home today Related Data Allergies Allergy/AdvReac Type Severity Reaction Status Date / Time No Known Allergies Allergy Verified 01/19/22 17:44 Review of Systems Review of Systems: Gen.: Denies fevers or chills ENT: Denies congestion Respiratory: Denies shortness of breath or cough CV: Denies chest pain or palpitations GI: See HPI Musculoskeletal: Denies back pain or muscle pain Neuro: Denies numbness, tingling, weakness or focal weakness Skin: Denies rash Except as documented, all other systems reviewed and negative [facility] Past Medical History Medical History Kidney stones Surgical History Surgical History (Updated 12/13/21 @ 09:54 by Yumiko Smith APRN) No pertinent past surgical history Family History Family History Mother Family history of arthritis Social History Social History Smoking status: Current some day smoker Alcohol intake: never Substance use: never Substance use type: does not use Gender identity (if verbalized by the patient): Female Spiritual care concerns: No Exam Narrative: APPEARANCE: No acute distress, nontoxic, resting in bed EYES: EOMI HEENT: Normocephalic, atraumatic, OMM RESPIRATORY: No respiratory distress Clear to auscultation bilaterally with no rhonchi wheezing or rales. CARDIOVASCULAR: Regular rate and rhythm without murmurs rubs or gallops. ABDOMINAL: Soft, nondistended diffusely tender to palpation no rebound or guarding MUSCULOSKELETAl: Moves all extremities. No clubbing, cyanosis or edema. NEURO: Awake and alert. Following commands, speech normal, no focal deficits SKIN:: Warm, dry. No rashes lesions or abrasions PSYCHIATRIC: Normal affect/mood, Course Course Emergency Course: Discussed with Dr. Castro agrees with consult agrees with plan for Rocephin n.p.o. for stent in a.m. Discussed Dr. Brar agrees with admission Patient was given Dilaudid she continued pain she did have some mild hypoxia following this and was placed on 2 L of oxygen Discussed with patient and family results of workup and diagnosis. Discussed need for admission. Patient and family understand and agree to current treatment plan Vital Signs Vital signs: Vital Signs Temperature 98.2 F 01/19/22 17:39 Pulse Rate 102 H 01/19/22 17:39 Respiratory Rate 20 01/19/22 17:39 Blood Pressure 151/97 H 01/19/22 17:39 Pulse Oximetry 95 01/19/22 17:39 Temperature 98.2 F 01/19/22 17:39 Pulse Rate 79 01/19/22 19:17 Respiratory Rate 16 01/19/22 19:17 Blood Pressure 127/76 01/19/22 19:17 Pulse Oximetry 98 01/19/22 19:38 MDM - Abdominal Pain Lab Data Result diagrams: 01/19/22 17:50 01/19/22 17:50 Labs: Lab Results 01/19/22 01/19/22 01/19/22 Range/Units 17:50 17:50 17:50 WBC 7.3 (4.5-10.0) K/mm3 RBC 4.84 (4.2-5.4) M/mm3 Hgb 12.2 (12.0-15.0) g/dL Hct 37.1 (37.0-47.0) % MCV 76.7 L (80-100) fl MCH 25.2 L (26-34) pg MCHC 32.9 (32-36) g/dl RDW 15.5 H (11.5-14.5) % Plt Count 216 (150-375) k/mm3 MPV 11.0 H (7.4-10.4) fl Immature Gran % (Auto) 0.1 (0-0.5) %
[2022-01-19 18:07] LABS: Alanine Aminotransferase 17 U/L (4-35); Albumin Level 4.4 g/dL (3.5-5.1); Alkaline Phosphatase 70 U/L (38-126); Anion Gap 5 mmol/L (8-16); Aspartate Amino Transferase 29 U/L (14-36); Bilirubin,Total 0.6 mg/dL (0.2-1.3); Blood Urea Nitrogen 18 mg/dL (7-17); Calcium 8.9 mg/dL (8.4-10.2); Carbon Dioxide 28 mmol/L (22-30); Chloride 109 mmol/L (98-107); Estimated Glomerular Filt Rate > 60; Glucose 112 mg/dL (65-110); Lipase 79 U/L (23-300); Potassium 3.7 mmol/L (3.4-5.0); Sodium 142 mmol/L (137-145)
[2022-01-19] MEDS: KETOROLAC 30 MG/ML VIAL (*BKC) IV PUSH (18:48)
[2022-01-19 19:10] LABS: Add Urine Microscopic? YES; Appearance Urine Clear (Clear); Bacteria Urine Trace /hpf; Bilirubin Urine Negative (Negative); Blood Urine 3+ (Negative); Color Urine Yellow (Yellow); Glucose Urine UA Negative (Negative); Ketones Urine Negative (Negative); Leukocyte Esterase Ur 2+ LEU/UL (Negative); Mucus Urine Rare /lpf; Nitrate Urine Negative (Negative); Protein Urine Negative (Negative); RBC Urine 21-50 /hpf (0-2); Specific Grav Ur 1.024 (1.001-1.035); Squamous Epithelial Cell Urine Moderate /hpf (Few); Urobilinogen Urine Negative mg/dL (<2.0)
--- NOTE | 2022-01-19 19:13 | PC.NURSE ---
Assumed care of pt at this time. Pt resting on stretcher per baseline. Pt and family updated on POC.
--- NOTE | 2022-01-19 19:53 | PM.IMHP ---
H&P: HPI History of Present Illness Date/Time: 01/19/22 19:53 Chief Complaint: Abdominal pain Narrative: 61-year-old female with a past medical history of hyperlipidemia, GERD and kidney stones who presented to the ER with 3 weeks of abdominal pain. The patient reports that she was initially having pain in her kidney area that she did not think much of. This pain was intermittent for the last 3 weeks. Over the last week her pain moved to her lower anterior abdomen and to her left lower flank. Has been accompanied by increased urinary frequency, urgency and episodes of urinary incontinence. She denies any hematuria. She denies any dysuria. The pain is colicky in nature and severe. Is worse with movement. Is accompanied by nausea. She felt so nauseated that she has been sticking her finger down her throat to vomit. She has had some blood-streaked emesis due to multiple episodes of vomiting. She also reported about a week ago having some left-sided rib pain and pain in her left arm that would be better with position changes. She does have significant symptoms of heartburn for the last couple of weeks but it was been associated with her nausea. She does have a history of chronic tobacco use. She denies history of COPD. She has had a intermittent cough for the last couple of months. She has had persistent nasal congestion and drainage from the last 3 months. She has been vaccinated against COVID-19 but has not received her booster due to her upper respiratory symptoms. She denies having any fevers or chills. The patient reports that she had an upper urinary tract infection last month. She was seen in the ER on 12/13/2021. She was placed on Cipro. Unfortunately the patient's urine culture did not reflux. She had greater than 75 wbc's with only 4-6 white cells in her urine. I suspect the patient likely had a kidney stone at that time. Review of Systems Review of Systems: 12 systems were reviewed with pertinent positives and negatives per HPI. Except as documented in the HPI, all other systems were reviewed and are negative. 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 She lives alone. She has 4 living children. She smokes about a half a pack of cigarettes per day currently but has smoked as much as 1 pack of cigarettes per day. The patient denied any alcohol use to me but had reported alcohol use to nursing staff. The amount is unknown. Primary care physician: Dr. Mcgarry Code status: Full code Smoking packs per day: 1 Smoking cigarettes per day: 20.0 Years smoked: 40 Smoking pack-years: 40.00 Smoking status: Current every day smoker Tobacco type: cigarettes Alcohol intake: current Substance use: never Substance use type: does not use Gender identity (if verbalized by the patient): Female Spiritual care concerns: No Meds Home Medications and Allergies Home Medications Medication Instructions Recorded Confirmed Type metoclopramide HCl 10 mg PO Q6H PRN #20 tablet 12/13/21 Rx alendronate mg PO 01/19/22 History Allergies Allergy/AdvReac Type Severity Reaction Status Date / Time No Known Allergies Allergy Verified 01/19/22 20:39 Vital Signs Vital Signs - 24 hr 01/19/22 17:39 01/19/22 19:17 01/19/22 19:37 Temperature 98.2 F Pulse Rate
--- NOTE | 2022-01-19 20:16 | PC.NURSE ---
this tech instructed by RN to obtain cultures. This tech attempted to draw from the patient two times and the patient's veins blew before anything was in the bottles. This tech notified RN and was instructed to hold off on attempting again as the patient is due to go upstairs. RN will notify the floor cultures still need drawn.
--- NOTE | 2022-01-19 20:25 | ADMGEN ---
This patient, Yarelis Villareal, was admitted to 2 Medical Room 261-01 @2024. Patient/family oriented to hospital policies and general routines including ID bracelet, bed and alarms, visiting hours, pain management, procedures, bathroom and other care routines, personal items, smoking policy, room service/diet, and visiting hours. Information on how to activate the Rapid Response Team has been discussed. Patient/Family are encouraged to report perceived risks to care and to ask questions if they do not understand what they are told or what they should do.
[2022-01-19] MEDS: SODIUM CHLORIDE 0.9% IV 1,000 ML 125 ML IV CONT (20:42)
--- NOTE | 2022-01-19 20:57 | PC.NURSE ---
Pt is does not know her home medications. She knows she takes a cholesterol pill but does not know the name of it. I asked he what pharmacy does she get her medications from. She stated, I use [facility] She did state that she gets her medicines free from the [facility] she works at. Lives home alone. Unable to reconcile her home medications at this time.
--- NOTE | 2022-01-19 21:22 | ECG_ITS ---
Measurements Intervals Webb Rate: 68 P: 50 GA: 146 QRS: 24 QRSD: 77 T: 3 QT: 399 QTc: 427 Interpretive Statements SINUS RHYTHM NONSPECIFIC T-WAVE ABNORMALITY COMPARED TO ECG 10/24/2020 05:00:45 T-WAVE ABNORMALITY NOW PRESENT Electronically Signed On 01-20-2022 6:58:13 CDT by Elaina Renner M.D.
[2022-01-19] MEDS: PANTOPRAZOLE SODIUM IV 40 MG VIAL IV PUSH (21:41)
[2022-01-19] MEDS: HYDROmorphone HCL INJ (*CRX) 1 MG/ML SYR 0.5 MG IV PUSH (23:55)
[2022-01-20] VITALS (11 sets, daily range): BP systolic 110–140; BP diastolic 65–91; PULSE 56–71; RESP 8–17; TEMP 36.6–36.8; O2SAT 92–100
[2022-01-20] MEDS: SODIUM CHLORIDE 0.9% IV 1,000 ML 125 ML IV CONT (04:02)
[2022-01-20] MEDS: HYDROmorphone HCL INJ (*CRX) 1 MG/ML SYR 0.5 MG IV PUSH ×2 (04:03→07:13)
[2022-01-20 05:27] LABS: Basophils Percent Auto 0.5 % (0.2-1.2); Eosinophils Percent Auto 0.3 % (0-4.4); Hematocrit 32.2 % (37.0-47.0); Hemoglobin 11.1 g/dL (12.0-15.0); Immature Granulocyte Absolute 0.01 K/mm3 (0.00-0.031); Immature Granulocyte Percent A 0.2 % (0-0.5); Lymphocytes Absolute Auto 1.97 K/mm3 (0.9-3.2); Lymphocytes Percent Auto 30.4 % (18.3-44.2); Mean Corpuscular HGB Conc 34.5 g/dl (32-36); Mean Corpuscular Hemoglobin 25.9 pg (26-34); Mean Corpuscular Volume 75.1 fl (80-100); Mean Platelet Volume 11.2 fl (7.4-10.4); Monocytes Percent Auto 15.1 % (2.6-8.5); Neutrophils Absolute Auto 3.5 K/mm3 (1.3-6.7); Neutrophils Percent Auto 53.5 % (45.5-73.1); Platelet Count Result 194 k/mm3 (150-375); Red Blood Count 4.29 M/mm3 (4.2-5.4); Red Cell Distribution Width 15.4 % (11.5-14.5); White Blood Count 6.5 K/mm3 (4.5-10.0)
[2022-01-20 05:38] LABS: Anion Gap 3 mmol/L (8-16); Blood Urea Nitrogen 13 mg/dL (7-17); Calcium 8.1 mg/dL (8.4-10.2); Carbon Dioxide 25 mmol/L (22-30); Chloride 111 mmol/L (98-107); Estimated Glomerular Filt Rate 51; Glucose 97 mg/dL (65-110); Potassium 3.9 mmol/L (3.4-5.0); Sodium 139 mmol/L (137-145)
--- NOTE | 2022-01-20 06:38 | WPDANESEPP ---
Anes - Eval Pre Procedure Date/Time: 01/20/22 06:38 Pre Op Diagnosis: Left Kidney Stone,Hydronephrosis,UTI Patient Data Age: 61 Gender: F Height: 1.5 m Weight: 65 kg Last Vital Signs Temp 36.6 C 01/20/22 04:30 Pulse 71 01/20/22 04:30 Resp 16 01/20/22 04:30 BP 124/65 01/20/22 04:30 Pulse Ox 93 01/20/22 04:30 Allergies Allergy/AdvReac Type Severity Reaction Status Date / Time No Known Allergies Allergy Verified 01/19/22 20:39 Home Medications Medication Instructions Recorded Confirmed Type metoclopramide HCl 10 mg PO Q6H PRN #20 tablet 12/13/21 Rx alendronate mg PO 01/19/22 History Laboratory Tests 01/19/22 01/19/22 01/19/22 17:50 17:50 17:50 WBC 7.3 K/mm3 K/mm3 (4.5-10.0) RBC 4.84 M/mm3 M/mm3 (4.2-5.4) Hgb 12.2 g/dL g/dL (12.0-15.0) Hct 37.1 % % (37.0-47.0) MCV 76.7 fl L fl (80-100) MCH 25.2 pg L pg (26-34) MCHC 32.9 g/dl g/dl (32-36) RDW 15.5 % H % (11.5-14.5) Plt Count 216 k/mm3 k/mm3 (150-375) MPV 11.0 fl H fl (7.4-10.4) Immature Gran % (Auto) 0.1 % % (0-0.5) Neut % (Auto) 45.2 % L % (45.5-73.1) Lymph % (Auto) 44.0 % % (18.3-44.2) [place] % (Auto) 9.2 % H % (2.6-8.5) Eos % (Auto) 0.5 % % (0-4.4) Baso % (Auto) 1.0 % % (0.2-1.2) Lymph # (Auto) 3.20 K/mm3 K/mm3 (0.9-3.2) [place] # (Auto) 0.7 K/mm3 H K/mm3 (0.1-0.6) Eos # (Auto) 0.0 K/mm3 K/mm3 (0-0.3) Baso # (Auto) 0.1 K/mm3 K/mm3 (0.0-0.1) Abs Immat Gran (auto) 0.01 K/mm3 K/mm3 (0.00-0.031) Absolute Neuts (auto) 3.3 K/mm3 K/mm3 (1.3-6.7) Absolute Nucleated RBC 0.0 K/mm3 K/mm3 (0.0-0.012) Nucleated RBC % 0.0 % % (0.0-0.2) Sodium 142 mmol/L mmol/L (137-145) Potassium 3.7 mmol/L mmol/L (3.4-5.0) Chloride 109 mmol/L H mmol/L (98-107) Carbon Dioxide 28 mmol/L mmol/L (22-30) Anion Gap 5 mmol/L L mmol/L (8-16) BUN 18 mg/dL H mg/dL (7-17) Creatinine 1.00 mg/dL mg/dL (0.7-1.0) Estim Creat Clear Calc Not Reportable Estimated GFR > 60 (59 - ) Glucose 112 mg/dL H mg/dL (65-110) Lactic Acid 1.0 mmol/L mmol/L (0.7-2.1) Calcium 8.9 mg/dL mg/dL (8.4-10.2) Total Bilirubin 0.6 mg/dL mg/dL (0.2-1.3) AST 29 U/L U/L (14-36) ALT 17 U/L U/L (4-35) Alkaline Phosphatase 70 U/L U/L (38-126) Total Protein 7.0 g/dL g/dL (6.3-8.2) Albumin 4.4 g/dL g/dL (3.5-5.1) Lipase 79 U/L U/L (23-300) Urine Color Urine Appearance Urine pH Ur Specific [place] Urine Protein Urine Glucose (UA) Urine Ketones Ur Blood (Man) Urine Nitrate Urine Bilirubin Urine Urobilinogen Leukocyte Esterase Rfl Urine RBC Urine WBC Ur Squamous Epith Cells Urine Bacteria Urine Mucus 01/19/22 01/20/22 01/20/22 18:52 04:49 04:49 WBC 6.5 K/mm3 K/mm3 (4.5-10.0) RBC 4.29 M/mm3 M/mm3 (4.2-5.4) Hgb 11.1 g/dL L g/dL (12.0-15.0) Hct 32.2 % L % (37.0-47.0) MCV 75.1 fl L fl (80-100) MCH 25.9 pg L pg (26-34) MCHC 34.5 g/dl g/dl (32-36) RDW 15.4 % H % (11.5-14.5) Plt Count 194 k/mm3 k/mm3 (150-375) MPV 11.2 fl H fl (7.4-10.4) Immature Gran % (Auto) 0.2 % % (0-0.5) Neut % (Auto) 53.5 % % (45.5-73.1) Lymph % (Auto) 30.4 % % (18.3-44.2) [place] % (Auto) 15.1 % H % (2.6-8.5) Eos % (Auto) 0.3 % % (0-4.4) Baso % (Auto) 0.5 % %
--- NOTE | 2022-01-20 07:15 | WPDURCON ---
Assessment and Plan Assessment and plan (1) Obstruction of left ureteropelvic junction due to stone: Code(s): N20.1 - Calculus of ureter Status: Acute Assessment and Plan: Proceed with cystoscopy left retrograde pyelogram left ureteral stent placement. Patient will require outpatient lithotripsy once over acute infection (2) UTI (urinary tract infection): Code(s): N39.0 - Urinary tract infection, site not specified Status: Acute Assessment and Plan: Await urine culture and treat appropriately. Urology Consult Note HPI Date Seen: 01/20/22 Time Seen: 07:15 Requesting Physician: Simin Brar DO Primary Care Provider: Nitin Mcgarry, Consult Narrative Reason for consult: 1 cm left UPJ calculus with hydronephrosis Narrative: Yarelis Villareal is a 61 year old female who presents to the emergency room with a 3 week history of intermittent left flank pain. Pain progressed to the point where she was unable to tolerate yesterday. She presented to the emergency room and underwent a CT scan which reveals a 1 cm left UPJ stone with moderate hydronephrosis. Patient was requiring quite a bit of narcotics was admitted for further management. Patient denied fevers. White count was 7.3 with a creatinine level of 1.0. Urinalysis was leukocyte esterase positive. 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 She lives alone. She has 4 living children. She smokes about a half a pack of cigarettes per day currently but has smoked as much as 1 pack of cigarettes per day. The patient denied any alcohol use to me but had reported alcohol use to nursing staff. The amount is unknown. Primary care physician: Dr. Mcgarry Code status: Full code Smoking packs per day: 1 Smoking cigarettes per day: 20.0 Years smoked: 40 Smoking pack-years: 40.00 Smoking status: Current every day smoker Tobacco type: cigarettes Alcohol intake: current Substance use: never Substance use type: does not use Gender identity (if verbalized by the patient): Female Spiritual care concerns: No Meds Home Medications and Allergies Home Medications Medication Instructions Recorded Confirmed Type metoclopramide HCl 10 mg PO Q6H PRN #20 tablet 12/13/21 Rx alendronate mg PO 01/19/22 History Allergies Allergy/AdvReac Type Severity Reaction Status Date / Time No Known Allergies Allergy Verified 01/19/22 20:39 Vital Signs Vital Signs - 24 hr 01/19/22 17:39 01/19/22 19:17 01/19/22 19:37 Temperature 36.8 C Pulse Rate 102 H 79 Respiratory Rate 20 16 Blood Pressure 151/97 H 127/76 Pulse Oximetry 95 100 87 L 01/19/22 19:38 01/19/22 20:00 01/19/22 20:20 Temperature Pulse Rate 74 Respiratory Rate 16 Blood Pressure 132/80 Pulse Oximetry 98 94 98 01/19/22 20:32 01/19/22 20:33 01/20/22 04:30 Temperature 37.1 C 37.1 C 36.6 C Pulse Rate 83 83 71 Respiratory Rate 17 17 16 Blood Pressure 129/71 129/71 124/65 Pulse Oximetry 93 93 93 Exam Const: General: cooperative Resp: Effort & Inspection: normal respiratory effort Cardio: Rate: regular rate Results Labs CBC & Chem 7
--- NOTE | 2022-01-20 07:18 | WPDHPUPDATE1 ---
History and Physical Update Update Date/Time: 01/20/22 07:18 History and Physical has been reviewed, including an updated exam of the patient. There are NO changes in the patient's condition. Risks, benefits, and alternatives have been discussed and questions answered. Patient agrees to proceed with procedure. Proceed with cystoscopy, left retrograde pyelogram, left ureteral stent placement
--- NOTE | 2022-01-20 07:28 | WPDANESEPPF ---
Anes - Initial Pre Proc Eval Procedure: Operation Date: 01/20/22 07:30 Proposed Procedures p Cysto, RPG, Stone Ext, Stent Placement - Michele Castro MD Date/Time: 01/20/22 07:28 Surgeon: Simin Brar DO Pre Op Diagnosis: Left Kidney Stone,Hydronephrosis,UTI Patient Data Age: 61 Gender: F Height: 1.5 m Weight: 65 kg Last Vital Signs Temp 36.6 C 01/20/22 04:30 Pulse 71 01/20/22 04:30 Resp 16 01/20/22 04:30 BP 124/65 01/20/22 04:30 Pulse Ox 93 01/20/22 04:30 Allergies Allergy/AdvReac Type Severity Reaction Status Date / Time No Known Allergies Allergy Verified 01/19/22 20:39 Home Medications Medication Instructions Recorded Confirmed Type metoclopramide HCl 10 mg PO Q6H PRN #20 tablet 12/13/21 Rx alendronate mg PO 01/19/22 History Laboratory Tests 01/19/22 01/19/22 01/19/22 17:50 17:50 17:50 WBC 7.3 K/mm3 K/mm3 (4.5-10.0) RBC 4.84 M/mm3 M/mm3 (4.2-5.4) Hgb 12.2 g/dL g/dL (12.0-15.0) Hct 37.1 % % (37.0-47.0) MCV 76.7 fl L fl (80-100) MCH 25.2 pg L pg (26-34) MCHC 32.9 g/dl g/dl (32-36) RDW 15.5 % H % (11.5-14.5) Plt Count 216 k/mm3 k/mm3 (150-375) MPV 11.0 fl H fl (7.4-10.4) Immature Gran % (Auto) 0.1 % % (0-0.5) Neut % (Auto) 45.2 % L % (45.5-73.1) Lymph % (Auto) 44.0 % % (18.3-44.2) [place] % (Auto) 9.2 % H % (2.6-8.5) Eos % (Auto) 0.5 % % (0-4.4) Baso % (Auto) 1.0 % % (0.2-1.2) Lymph # (Auto) 3.20 K/mm3 K/mm3 (0.9-3.2) [place] # (Auto) 0.7 K/mm3 H K/mm3 (0.1-0.6) Eos # (Auto) 0.0 K/mm3 K/mm3 (0-0.3) Baso # (Auto) 0.1 K/mm3 K/mm3 (0.0-0.1) Abs Immat Gran (auto) 0.01 K/mm3 K/mm3 (0.00-0.031) Absolute Neuts (auto) 3.3 K/mm3 K/mm3 (1.3-6.7) Absolute Nucleated RBC 0.0 K/mm3 K/mm3 (0.0-0.012) Nucleated RBC % 0.0 % % (0.0-0.2) Sodium 142 mmol/L mmol/L (137-145) Potassium 3.7 mmol/L mmol/L (3.4-5.0) Chloride 109 mmol/L H mmol/L (98-107) Carbon Dioxide 28 mmol/L mmol/L (22-30) Anion Gap 5 mmol/L L mmol/L (8-16) BUN 18 mg/dL H mg/dL (7-17) Creatinine 1.00 mg/dL mg/dL (0.7-1.0) Estim Creat Clear Calc Not Reportable Estimated GFR > 60 (59 - ) Glucose 112 mg/dL H mg/dL (65-110) Lactic Acid 1.0 mmol/L mmol/L (0.7-2.1) Calcium 8.9 mg/dL mg/dL (8.4-10.2) Total Bilirubin 0.6 mg/dL mg/dL (0.2-1.3) AST 29 U/L U/L (14-36) ALT 17 U/L U/L (4-35) Alkaline Phosphatase 70 U/L U/L (38-126) Total Protein 7.0 g/dL g/dL (6.3-8.2) Albumin 4.4 g/dL g/dL (3.5-5.1) Lipase 79 U/L U/L (23-300) Urine Color Urine Appearance Urine pH Ur Specific [place] Urine Protein Urine Glucose (UA) Urine Ketones Ur Blood (Man) Urine Nitrate Urine Bilirubin Urine Urobilinogen Leukocyte Esterase Rfl Urine RBC Urine WBC Ur Squamous Epith Cells Urine Bacteria Urine Mucus 01/19/22 01/20/22 01/20/22 18:52 04:49 04:49 WBC 6.5 K/mm3 K/mm3 (4.5-10.0) RBC 4.29 M/mm3 M/mm3 (4.2-5.4) Hgb 11.1 g/dL L g/dL (12.0-15.0) Hct 32.2 % L % (37.0-47.0) MCV 75.1 fl L fl (80-100) MCH 25.9 pg L pg (26-34) MCHC 34.5 g/dl g/dl (32-36) RDW 15.4 % H % (11.5-14.5) Plt Count 194 k/mm3 k/mm3 (150-375) MPV 11.2 fl H fl (7.4-10.4) Immature Gran % (Auto) 0.2 % % (0-0.5) Neut % (Auto) 53.5 % %
[2022-01-20] MEDS: LIDOCAINE HCL 2% GEL UROJET 10 ML PKG MUCOUS MEM (07:45)
--- NOTE | 2022-01-20 07:53 | W.PM.PROC2 ---
Procedure Note - Detailed Date of Procedure 01/20/22 Pre-op Diagnosis Left Kidney Stone,Hydronephrosis,UTI Post-op Diagnosis Same Procedure Performed Cystoscopy, left retrograde pyelogram, left ureteral stent placement 6 [place] contour Surgeon Michele Castro MD Anesthesia General Description of Procedure Patient is taken the operative suite correctly identified. Once anesthesia was obtained she was placed in dorsal lithotomy position and prepped and draped usual sterile fashion. Nineteen [place] scope was inserted in the bladder. There were no tumors noted. Left ureteral orifice was cannulated with a guidewire. [place] was inserted and with this stone was pushed back into the kidney. Pyelogram was then performed to confirm placement of the stent. Six [place] contour stent was placed with the proximal end coiled in the renal pelvis and the distal in the bladder. Bladder was drained. 2% viscous lidocaine was inserted urethra patient is taken recovery stable condition. Will plan on lithotripsy of the stone later point time when she gets over her acute infection Urine Output 600 Drains Yes Packing No Pathology None sent Complications No immediate complications Condition Stable Disposition PACU
[2022-01-20] MEDS: LACTATED RINGERS 1,000 ML 30 ML IV CONT (07:55)
--- NOTE | 2022-01-20 07:55 | WPDUROPN2 ---
Progress Note: A&P Assessment and Plan (1) Kidney stone on left side: Code(s): N20.0 - Calculus of kidney Status: Acute Assessment and Plan: Left ureteral stent placed this morning. From a urologic standpoint if patient is tolerating pain and diet she can be discharged home. Will plan on outpatient lithotripsy in the next week or 2. Patient is to call office for further recommendations and appointment time Subjective Subjective Date/Time Seen: 01/20/22 07:55 Principal diagnosis: Obstructing left UPJ calculus. Interval history: Patient is status post cystoscopy, left retrograde pyelogram left ureteral stent placement. Objective Data Vital Signs Vital Signs: Vital Signs - 24 hr 01/19/22 17:39 01/19/22 19:17 01/19/22 19:37 Temperature 36.8 C Pulse Rate 102 H 79 Respiratory Rate 20 16 Blood Pressure 151/97 H 127/76 Pulse Oximetry 95 100 87 L 01/19/22 19:38 01/19/22 20:00 01/19/22 20:20 Temperature Pulse Rate 74 Respiratory Rate 16 Blood Pressure 132/80 Pulse Oximetry 98 94 98 01/19/22 20:32 01/19/22 20:33 01/20/22 04:30 Temperature 37.1 C 37.1 C 36.6 C Pulse Rate 83 83 71 Respiratory Rate 17 17 16 Blood Pressure 129/71 129/71 124/65 Pulse Oximetry 93 93 93 01/20/22 07:20 Temperature Pulse Rate Respiratory Rate Blood Pressure Pulse Oximetry 95 Intake/Output Intake/Output: Intake & Output 01/17/22 01/18/22 01/19/22 01/20/22 23:59 23:59 23:59 23:59 Intake Total 1250 1300 Output Total 400 1200 Balance 850 100 Meds/Results Medications: Active Medications Generic Name Dose Route Start Last Admin Trade Name Freq PRN Reason Stop Dose Admin Hydrocodone Bitart/Acetaminophen 1 tab 01/19/22 21:17 Hydrocodone/Acetaminophen (*Crx) 5-325 Mg Tablet PO Q4H PRN Pain Rated 4-6 Hydromorphone HCl 0.5 mg 01/19/22 21:17 01/20/22 07:13 Hydromorphone Hcl Inj (*Crx) 1 Mg/Ml Syr IV PUSH 0.5 mg Q3H PRN Administration Pain Rated 7-10 Ceftriaxone Sodium/Dextrose 1 gm in 50 mls @ 100 mls/hr 01/20/22 18:00 Rocephin 1 Gm/D5w 50 Ml IVPB Q24H [facility] Sodium Chloride 1,000 mls @ 125 mls/hr 01/19/22 19:40 01/20/22 04:02 Normal Saline Iv IV CONT 125 mls/hr .Q8H KASSIE Administration Ondansetron HCl 4 mg 01/19/22 19:40 Ondansetron Inj 4 Mg/2 Ml Vial IV PUSH Q4H PRN Nausea Pantoprazole Sodium 40 mg 01/20/22 09:00 Pantoprazole Sodium Iv 40 Mg Vial IV PUSH QAM [facility] Radiology Results: ITS Impressions Abdomen/Pelvis CT 01/19/22 18:48 IMPRESSION: 10 mm stone lodged at the left UPJ, causing moderate obstructive uropathy. Abdomen X-Ray 01/19/22 20:19 IMPRESSION: 10-11 mm left UPJ stone causing moderate left obstructive uropathy. Chest X-Ray 01/20/22 07:49 IMPRESSION: No acute cardiopulmonary findings. Labs Labs: Laboratory Results - last 24 hr 01/19/22 01/19/22 01/19/22 17:50 17:50 17:50 WBC 7.3 RBC 4.84 Hgb 12.2 Hct 37.1 MCV 76.7 L MCH 25.2 L MCHC 32.9 RDW 15.5 H Plt Count 216 MPV 11.0 H Immature Gran % (Auto) 0.1 Neut % (Auto) 45.2 L Lymph % (Auto) 44.0 Iron % (Auto) 9.2 H Eos % (Auto) 0.5 Baso % (Auto) 1.0 Lymph # (Auto) 3.20 Iron # (Auto) 0.7 H Eos # (Auto) 0.0 Baso # (Auto) 0.1 Abs Immat Gran (auto) 0.01 Absolute Neuts (auto) 3.3 Absolute Nucleated RBC 0.0 Nucleated RBC % 0.0 Sodium 142 Potassium 3.7 Chloride 109 H Carbon Dioxide 28 Anion Gap 5 L BUN 18 H Creatinine 1.00 Estim Creat Clear Calc Not Reportable Estimated GFR > 60 Glucose 112 H Lactic Acid 1.0 Calcium 8.9 Total Bilirubin 0.6 AST 29 ALT 17 Alkaline Phosphatase 70 Total Protein 7.0 Albumin 4.4 Lipase 79 Urine Color Urine Appearance Urine pH Ur Specific [place] Urine Protein Urine Glucose (UA) Urine Ketones Ur Blo
[2022-01-20] MEDS: PANTOPRAZOLE SODIUM IV 40 MG VIAL IV PUSH (09:13)
--- NOTE | 2022-01-20 10:11 | PM.DS ---
DS: Admitting Diagnosis Discharge Date January 20, 2022 Admitting Diagnosis Urolithiasis with UTI DS: Discharge Diagnosis Discharge Diagnosis (1) Obstruction of left ureteropelvic junction due to stone: Code(s): N20.1 - Calculus of ureter Status: Acute Assessment and Plan: Status post stent placement. Feeling much better, pain managed. Patient wants to go home. Oral antibiotics on discharge, follow up with Urology (2) Bacteriuria with pyuria: Code(s): R82.71 - Bacteriuria; R82.81 - Pyuria Status: Acute Assessment and Plan: Antibiotics on discharge for 7 days. (3) Hypoxia: Code(s): R09.02 - Hypoxemia Status: Acute Assessment and Plan: Resolved -not an issue on this hospitalization (4) Chest pain: Qualifiers: Chest pain type: unspecified Qualified Code(s): R07.9 - Chest pain, unspecified Code(s): R07.9 - Chest pain, unspecified Status: Acute Assessment and Plan: Resolved -not an issue on this hospitalization (5) GERD (gastroesophageal reflux disease): Code(s): K21.9 - Gastro-esophageal reflux disease without esophagitis Status: Acute Assessment and Plan: No issues DS: Summary Hospital Course Hospital Course: See plan and diagnoses Time Spent with Patient Time attestation: Total time spent providing and/or coordinating discharge services: Greater than 30 min Exam Narrative: PHYSICAL EXAM: WEIGHT 63.9 kg BMI 28.5 General: Restless writhing around in bed, height weight proportionate, appears older than stated age HEENT: Fair dentition, mucous membranes are moist, no oral pharyngeal erythema, no scleral icterus, pupils are equal and react Respiratory: Clear to auscultation bilaterally, no increased work of breathing Cardiovascular: Regular rate, regular rhythm, no murmur, 2+ bilateral radial pedal pulses Gastrointestinal: Right lower flank tenderness is reproducible to percussion, no CVA tenderness, no reproducible anterior abdominal tenderness to palpation, midline abdominal scar noted, abdomen is soft, nondistended, normoactive bowel sounds Skin: No pallor, non jaundice Musculoskeletal: No clubbing, cyanosis or edema Neurological: Alert and oriented, speech is clear, no facial asymmetry Psychiatric: Anxious, irritable, cooperative : Deferred Hematologic/lymphatic: No anterior cervical lymphadenopathy, no petechiae, no active bleeding DS: Data Data Completed and Pending Labs on day of discharge: Labs from last 24 hours 01/20/22 01/20/22 01/19/22 04:49 04:49 18:52 WBC 6.5 RBC 4.29 Hgb 11.1 L Hct 32.2 L MCV 75.1 L MCH 25.9 L MCHC 34.5 RDW 15.4 H Plt Count 194 MPV 11.2 H Immature Gran % (Auto) 0.2 Neut % (Auto) 53.5 Lymph % (Auto) 30.4 [place] % (Auto) 15.1 H Eos % (Auto) 0.3 Baso % (Auto) 0.5 Lymph # (Auto) 1.97 [place] # (Auto) 1.0 H Eos # (Auto) 0.0 Baso # (Auto) 0.0 Abs Immat Gran (auto) 0.01 Absolute Neuts (auto) 3.5 Absolute Nucleated RBC 0.0 Nucleated RBC % 0.0 Sodium 139 Potassium 3.9 Chloride 111 H Carbon Dioxide 25 Anion Gap 3 L BUN 13 D Creatinine 1.30 H Estim Creat Clear Calc Not Reportable Estimated GFR 51 L Glucose 97 Lactic Acid Calcium 8.1 L Total Bilirubin AST ALT Alkaline Phosphatase Total Protein Albumin Lipase Urine Color Yellow Urine Appearance Clear Urine pH 7.0 Ur Specific [place] 1.024 Urine Protein Negative Urine Glucose (UA) Negative Urine Ketones Negative Ur Blood (Man) 3+ H Urine Nitrate Negative Urine Bilirubin Negative Urine Urobilinogen Negative Leukocyte Esterase Rfl 2+ H Urine RBC 21-50 H Urine WBC 10-15 H Ur Squamous Epith Cells Moderate H Urine Bacteria Trace Urine Mucus Rare 01/19/22 01/19/22 01/19/22 17:50 17:50 17:50 WBC 7.3 RBC 4.84 Hgb 12.
== END 2022-01-20 13:00 | disposition home or self-care (01) ==
LOC: ANHED 19:48 → ANH2MED 01-20 10:11
PROVIDERS: Urology; Admitting Provider Internal Medicine; Emergency Provider Emergency Medicine; PCP Internal Medicine; Visit Provider Chiropractor
PROC: (CPT 52352; principal; 2022-01-20 07:30)
DX: N13.2 Hydronephrosis with renal and ureteral calculous obstruction (principal); N39.0 Urinary tract infection, site not specified; R09.02 Hypoxemia; R07.9 Chest pain, unspecified; E78.5 Hyperlipidemia, unspecified; K21.9 Gastro-esophageal reflux disease without esophagitis; M81.0 Age-related osteoporosis without current pathological fracture; L30.9 Dermatitis, unspecified; F17.210 Nicotine dependence, cigarettes, uncomplicated
CPT/HCPCS: 52332; 36415; 51701; 71045; 74018; 74177; 74420; 80048; 80053; 81001; 81025; 83605; 83690; 85025; 87040; 87086; 93005; 96361; 96365; 96374; 96375; 96376; 99285; A9270; C1758; C1769; C2617; C9113; G0378; J0696; J1100; J1170; J1885; J2270; J2405; J2704; J7030; J7120; Q9966; Q9967

== ENCOUNTER 2022-01-24 09:35 | Outpatient (CLI) | payer OTHER, SELFPAY ==
--- NOTE | ~2022-01-24 | CT_ITS ---
EXAMINATION: CT abdomen pelvis wo con DATE: 01/24/2022 10:06 INDICATION: Renal stone TECHNIQUE: Computed tomography (CT) of the abdomen and pelvis was performed without intravenous contr ast. The dose-length product (DLP) was 174.98 mGy-cm. Automated exposure control and iterative recons truction technique were employed. COMPARISON: 01/19/2022 FINDINGS: Minimal dependent atelectasis is present in the lung bases. The heart size is normal. The l iver, spleen, pancreas, gallbladder, and adrenal glands are normal. A left internal ureteral stent piper s been inserted into expected position. There is a 10 mm stone left ureteropelvic junction adjacent t o the coiled upper portion of the stent. There is a 4 mm nonobstructing stone of the left kidney. The re is a 5 mm nonobstructing stone of the right kidney. No pathologically enlarged abdominal or pelvic lymph nodes are identified. There is no free intraperitoneal gas or evidence of bowel obstruction. T here is a small fat-containing umbilical hernia. IMPRESSION: 1. Left internal ureteral stent inserted into expected position with persistent 10 mm stone at the le ft ureteropelvic junction. 2. Bilateral nephrolithiasis. Reviewed, dictated and finalized at location A. IMPRESSION: 1. Left internal ureteral stent inserted into expected position with persistent 10 mm stone at the left ureteropelvic junction. 2. Bilateral nephrolithiasis.
--- NOTE | ~2022-01-24 | XR_ITS ---
EXAMINATION: XR abdomen/kub 1V INDICATION: Left kidney stone TECHNIQUE: Supine views of the abdomen were obtained on 2 radiographs. COMPARISON: 01/20/2022 FINDINGS: A left internal ureteral stent is in expected position. A 10 mm stone is seen adjacent to t he proximal coiled aspect of the stent. A 4 mm stone is noted in the right kidney. Bowel contents obs cure visualization of additional stone seen on today's CT. There are phleboliths of the pelvis. There are no dilated loops of bowel. Mild osteoarthritis is noted in the hips. IMPRESSION: 1. Left internal ureteral stent in expected position with 10 mm stone adjacent to the proximal aspect of the stent at the ureteropelvic junction. 2. Right nephrolithiasis. Reviewed, dictated and finalized at location A.
== END 2022-01-24 09:36 | disposition home or self-care (01) ==
LOC: ANHIMG 09:36
PROVIDERS: PCP Internal Medicine; Visit Provider Urology
DX: N20.0 Calculus of kidney (principal); Z96.0 Presence of urogenital implants
CPT/HCPCS: 74018; 74176

== ENCOUNTER 2022-02-01 01:15 | Day surgery (SDC) | payer OTHER, SELFPAY ==
[2022-01-25 09:10] VITALS: BMI 28.5
--- NOTE | 2022-01-25 09:21 | PC.NURSE ---
Report to the Outpatient Waiting Room, entrance under the green pavilion located off [facility], at time 0730 on date 02/01/22. OR Time: 0930. - You and your visitor will be asked a series of questions to screen for COVID 19 for your protection. - A mask is required within the hospital. One visitor will be allowed to accompany the patient into the hospital. Patients visitor will be instructed to remain with patient at all times or leave the building. We will allow the visitor to come back to the postoperative area when patient is ready. Preoperative COVID Testing Requirements: No COVID Test needed if: (proof is required; if not received patient will have Rapid Test prior to entry) - Patient has received COVID Vaccine at least 14 days prior to procedure date or - Patient has positive COVID test result within last 90 days of surgery date. COVID Test needed if above criteria is not met Patients may have clear liquids (water, carbonated beverages, clear teas, apple juice) until 3 hours prior to surgery with a maximum of 20 ounces. - No food from midnight until time of surgery Take the following medications with a SIP of water the morning of surgery: ANTIBIOTIC Medications to discontinue per physician: VITAMINS/SUPPLEMENTS Date to take last dose: 01/28/22 STOP ASPIRIN 01/[address] SHEPHERD Please no make-up, nail sa[place], hairspray, perfume, deodorant, or body powder the day of surgery. No jewelry (including any body piercings) or valuables the day of surgery, leave them at home. Please take a shower or bath the night before, or the morning of, surgery with an antibacterial soap. Wear comfortable, loose fitting clothing. - Jewelry must be removed prior to entering the operating room. Rings and piercings that are not removed may be cut off. - The hospital will not accept responsibility for valuables. - Please leave all valuables, including medications, at home the day of surgery. If you are going home after surgery, a licensed pile driver operator must drive you home. - NO public transportation without another adult. - We recommend that an adult stay with you for 24 hours following discharge. - We also recommend that you do not drive, make important decision, drink alcoholic beverages, or take any drugs that were not prescribed by your health care provider for at least 24 hours after your discharge time. Follow any additional instructions given to you from your surgeon. Telephone instructions given to FRANSISCO BAUTISTA and asked if any additional questions and then verbalized understanding. Patient advised to call surgeon office or pre surgery nurse liaison [phone] if any additional questions.
--- NOTE | 2022-01-31 13:34 | WPDANESEPPF ---
Anes - Initial Pre Proc Eval Procedure: Operation Date: 02/01/22 08:30 Proposed Procedures p Left Renal / Ureteral Extracorporeal Shock Wave Lithotripsy - Michele Castro MD s Possible Left Ureteroscopy - Michele Castro MD s Possible Holmium Laser Procedure - Michele Castro MD Date/Time: 01/31/22 13:34 Surgeon: Michele Castro MD Pre Op Diagnosis: Left Renal Kidney Stone Patient Data Age: 61 Gender: F Height: 1.5 m Weight: 63.96 kg Allergies Allergy/AdvReac Type Severity Reaction Status Date / Time No Known Allergies Allergy Verified 01/25/22 09:07 Home Medications Medication Instructions Recorded Confirmed Type alendronate 70 mg PO WEEKLY 01/19/22 01/25/22 History cefdinir 300 mg PO Q12H 7 Days #14 cap 01/20/22 01/25/22 Rx aspirin [Baby Aspirin] 81 mg PO DAILY 01/25/22 01/25/22 History cholecalciferol (vitamin D3) 125 mcg PO DAILY 01/25/22 01/25/22 History [Vitamin D3] Patient hx anesthesia problems: none Family hx anesthesia problems: none Results Review: All pre-operative results and documents have been reviewed as part of the pre-operative evaluation. [facility] Past Medical History Medical History (Updated 01/31/22 @ 13:34 by Ryan Martino DO) Eczema Hyperlipidemia Kidney stones Normal cardiac stress test PASCUAL (obstructive sleep apnea) undiagnosed Osteoporosis Tobacco abuse Surgical History Surgical History (System 01/22/22 @ 11:08 by Hamzah Del Rio) History of section History of colonoscopy with polypectomy (02/2018) History of ventral hernia repair (11/2015) Family History Family History Mother Family history of arthritis Social History Social History (System 01/22/22 @ 11:08 by Hamzah Del Rio) Social History: 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 She lives alone. She has 4 living children. She smokes about a half a pack of cigarettes per day currently but has smoked as much as 1 pack of cigarettes per day. The patient denied any alcohol use to me but had reported alcohol use to nursing staff. The amount is unknown. Primary care physician: Dr. Mcgarry Code status: Full code Smoking packs per day: 0.75 Smoking cigarettes per day: 15.0 Years smoked: 25 Smoking pack-years: 18.75 Smoking status: Current every day smoker Tobacco type: cigarettes Alcohol intake: former Substance use: current Substance use type: marijuana Living arrangements: with roommate(s) Gender identity (if verbalized by the patient): Female Spiritual care concerns: No Anes - Eval Final PreProcedure Day of Procedure 01/31/22 13:34 Patient weight: overweight Heart: regular rate and rhythm Lungs: clear to auscultation and normal air movement Airway: Mallampati scale class II Neurological: alert and oriented Last oral intake: >/= 8 hours ASA classification: III Emergent: no Anesthetic plan: proceed Anesthesia type and monitoring: general LMA and standard monitoring Results Review: All pre-operative results and documents have been reviewed as part of the pre-operative evaluation. Informed Consent: The patient's anesthetic plan and its attendant risks and benefits were discussed with the patient/family/POA. Questions were solicited and answers provided to the satisfaction of the patient/family/POA.
[2022-02-01] VITALS (8 sets, daily range): BP systolic 114–132; BP diastolic 69–85; PULSE 64–86; RESP 12–16; TEMP 36–36.5; O2SAT 93–100
--- NOTE | ~2022-02-01 | XR_ITS ---
EXAMINATION: XR abdomen/kub 1V EXAM DATE: 02/01/2022 06:11 INDICATION: ESWL TECHNIQUE: Frontal projection(s) of the abdomen for interpretation. Comparison is made to prior exami nation from 01/24/2022. FINDINGS: Sizable left renal pelvic stone again identified in the proximal ureteral stent. Multiple d ensities projecting over the pelvis, likely phleboliths. There is 4 mm right inferior calyceal stone. Left superior calyceal 5 mm stone seen on CT not well-visualized due to bowel gas. Nonobstructive maryana wel gas pattern. There are no osseous abnormalities identified. IMPRESSION: Bilateral nephrolithiasis. Stent in position. Reviewed, dictated and finalized at location A.
[2022-02-01] MEDS: LACTATED RINGERS 1,000 ML 30 ML IV CONT ×2 (07:00→09:50)
--- NOTE | 2022-02-01 07:28 | WPDHPUPDATE1 ---
History and Physical Update Update Date/Time: 02/01/22 07:28 History and Physical has been reviewed, including an updated exam of the patient. There are NO changes in the patient's condition. Risks, benefits, and alternatives have been discussed and questions answered. Patient agrees to proceed with procedure. Proceed with left renal eswl
[2022-02-01 07:41] LABS: Prothrombin Time 13.1 Seconds (11.1-14.7)
[2022-02-01 07:42] LABS: Partial Thromboplastin Time 33.9 SECONDS (22.3-36.8)
[2022-02-01] MEDS: ceFAZolin 2 GM/D5W 50 ML 2 GM/50 ML BAG IVPB (08:40)
--- NOTE | 2022-02-01 09:08 | W.PM.PROC2 ---
Procedure Note - Detailed Date of Procedure 02/01/22 Pre-op Diagnosis Left Renal Kidney Stone Post-op Diagnosis Same Procedure Performed Lithotripsy of left renal calculus Surgeon Michele Castro MD Anesthesia General Description of Procedure Patient is taken to the operative suite and correctly identified. Once anesthesia was obtained the stone was localized in both planes. Two thousand five hundred shocks were given the stone. There appeared to be good fragmentation. Patient is taken recovery stable condition. She will follow up in approximately a week's time with a KUB and possible stent removal Drains Yes Packing No Pathology None sent Complications No immediate complications Condition Stable Disposition PACU
[2022-02-01] MEDS: fentaNYL CITRATE INJ (*CRX) 100 MCG/2 ML VIAL 25 MCG IV PUSH ×4 (09:48→10:12)
[2022-02-01] MEDS: ONDANSETRON INJ 4 MG/2 ML VIAL IV PUSH (09:48)
[2022-02-01] MEDS: oxyCODONE HCL (*CRX) 5 MG TAB IR PO (11:05)
== END 2022-02-01 11:35 | disposition home or self-care (01) ==
PROVIDERS: PCP Internal Medicine; Visit Provider Urology
PROC: (CPT 50590; principal; 2022-02-01 08:30)
DX: N20.0 Calculus of kidney (principal); E78.5 Hyperlipidemia, unspecified; G47.33 Obstructive sleep apnea (adult) (pediatric); M81.0 Age-related osteoporosis without current pathological fracture; F17.210 Nicotine dependence, cigarettes, uncomplicated; F12.90 Cannabis use, unspecified, uncomplicated
CPT/HCPCS: 50590; 36415; 74018; 85610; 85730; A9270; J0690; J1100; J2405; J2704; J3010; J7030; J7120

== ENCOUNTER 2022-02-14 12:18 | Outpatient (CLI) | payer OTHER, SELFPAY ==
--- NOTE | ~2022-02-14 | XR_ITS ---
EXAMINATION: XR abdomen/kub 1V INDICATION: History of renal stones and stent placement TECHNIQUE: Supine views of the abdomen were obtained on 2 radiographs. COMPARISON: 02/01/2022 FINDINGS: A left internal ureteral stent is in expected position. The previously described stone proj ecting in the left renal pelvis is no longer evident. There appears to be a small stone fragment eneida g the distal aspect of the left internal ureteral stent. A stable stone is noted in the lower pole of the right kidney. There are multiple phleboliths of the pelvis. IMPRESSION: 1. Interval lithotripsy of the previously described left kidney stone with likely small stone fragmen t seen along the distal aspect of the left internal ureteral stent. 2. Right nephrolithiasis. Reviewed, dictated and finalized at location B. IMPRESSION: 1. Interval lithotripsy of the previously described left kidney stone with like ly small stone fragment seen along the distal aspect of the left internal urete ral stent. 2. Right nephrolithiasis.
== END 2022-02-14 12:19 | disposition home or self-care (01) ==
PROVIDERS: PCP Internal Medicine; Visit Provider Urology
DX: N20.0 Calculus of kidney (principal)
CPT/HCPCS: 74018

== ENCOUNTER 2022-04-21 04:21 | Emergency (ER) | payer OTHER, SELFPAY ==
--- NOTE | ~2022-04-21 | CT_ITS ---
EXAMINATION: CT abdomen pelvis wo con DATE: 04/21/2022 04:50 INDICATION: 2 days of right flank pain. Nephrolithiasis. TECHNIQUE: Computed tomography (CT) of the abdomen and pelvis was performed without intravenous contr ast. Automated exposure control and iterative reconstruction technique were employed. The dose-length product was 161.68 mGy-cm. COMPARISON: None FINDINGS: Lung bases are clear. Heart size is normal. No pericardial or pleural effusion. Couple tiny hepatic a nd splenic calcifications consistent with old granulomatous disease. Gallbladder and bilateral adrena l glands are normal. Bilateral nephrolithiasis with 2 stones in the right kidney measuring up to 4 mm and 3 stones in the left kidney measuring up to 3 mm. No stones seen along the ureters and no hydron ephrosis. Normal appendix. There is moderate colonic diverticulosis with a sigmoid predominance. The re is no adjacent inflammatory change to suggest diverticulitis. No bowel obstruction. Tiny fat-conta ining umbilical hernia. Bladder, anteverted uterus and bilateral adnexa are unremarkable. Multiple ph leboliths in the pelvis. No free intraperitoneal gas or fluid. No pathologically enlarged abdominal o r pelvic lymphadenopathy. Mild lumbar spondylosis with 102 mm anterolisthesis L4 on L5 and associated severe bilateral facet osteoarthritis. IMPRESSION: 1. Bilateral nonobstructing nephrolithiasis. 2. Normal appendix. No acute intra-abdominal/pelvic process. 3. Diverticulosis. Reviewed, dictated and finalized at location A.
[2022-04-21 04:22] VITALS: BP 133/84; PULSE 89; RESP 20; TEMP 36.3; O2SAT 100
--- NOTE | 2022-04-21 04:32 | ED.BACK ---
HPI - Back Pain/Injury General Chief Complaint: Back Pain/Injury <Cody Silverio MD - Last Filed: 04/21/22 19:21> Stated Complaint: Right flank pain <Cody Silverio MD - Last Filed: 04/21/22 19:21> Time Seen by Provider: 04/21/22 04:28 <Cody Silverio MD - Last Filed: 04/21/22 19:21> Source: patient <Cody Silverio MD - Last Filed: 04/21/22 19:21> History of Present Illness HPI Narrative: Patient presents with right flank pain. For symptoms started proximally 2 days ago have waxed and waned in intensity however tonight they were more severe so she came to the ER for evaluation. Pain is crampy, constant, radiates to her abdomen and everything makes her pain worse. Patient has prior history of stone requiring lithotripsy and stent last episode was in January she recovered well and then had issues since until this event. Reports this feels like her prior stones denies any urinary symptoms focal numbness or weakness. <Cody Silverio MD - Last Filed: 04/21/22 19:21> Related Data Home Medications: Home Medications Medication Instructions Recorded Confirmed alendronate 70 mg tablet 70 mg PO WEEKLY 01/19/22 02/01/22 aspirin 81 mg chewable tablet 81 mg PO DAILY 01/25/22 02/01/22 cholecalciferol (vitamin D3) 125 125 mcg PO DAILY 01/25/22 02/01/22 mcg (5,000 unit) tablet (Vitamin D3) estradiol 0.01% (0.1 mg/gram) applic vaginal 04/21/22 vaginal cream <Cody Silverio MD - Last Filed: 04/21/22 19:21> Allergies/Adverse Reactions: Allergies Allergy/AdvReac Type Severity Reaction Status Date / Time No Known Allergies Allergy Verified 04/21/22 04:58 <Cody Silverio MD - Last Filed: 04/21/22 19:21> Review of Systems Review of Systems: CONSTITUTIONAL: Denies fever, chills, or sweats. EYES: Denies visual changes, redness, or discharge. ENT: Denies rhinorrhea, congestion, sore throat, or otalgia. CARDIOVASCULAR: Denies chest pain, palpitations, or edema. RESPIRATORY: Denies cough or dyspnea. GASTROINTESTINAL: Denies nausea, vomiting, or diarrhea. GENITOURINARY: Denies dysuria or hematuria. SKIN: Denies rash or itching. MUSCULOSKELETAL: Denies joint pain, or myalgia. NEUROLOGIC: Denies headache, numbness, dizziness, or weakness. PSYCHIATRIC: Denies anxiety or depression. <Cody Silverio MD - Last Filed: 04/21/22 19:21> All systems reviewed & are unremarkable except as noted in HPI and below <Cody Silverio MD - Last Filed: 04/21/22 19:21> PMFSH Past Medical History Medical History: Medical History Eczema Hyperlipidemia Kidney stones Normal cardiac stress test PASCUAL (obstructive sleep apnea) undiagnosed Osteoporosis Tobacco abuse <Cody Silverio MD - Last Filed: 04/21/22 19:21> Surgical History Surgical History: Surgical History History of section History of colonoscopy with polypectomy (02/2018) History of ventral hernia repair (11/2015) <Cody Silverio MD - Last Filed: 04/21/22 19:21> Family History Family History: Family History Mother Family history of arthritis <Cody Silverio MD - Last Filed: 04/21/22 19:21> Social History Social History: Social History Social History: 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 She has 4 living children. She smokes about a half a pack of cigarettes per day currently but has smoked as much as 1 pack of cigarettes per day. The patient denied any alcohol use to me but had reported alcohol use to nursing staff. The amount is unknown. Primary care physician: Dr. Mcgarry Code status: Full code Smoking packs per day: 0.75 Smoking cigarettes per day: 15.0 Years smoked: 25 Smoking pack-years: 18.75 Smoki
[2022-04-21 04:41] LABS: Basophils Percent Auto 0.6 % (0.2-1.2); Eosinophils Percent Auto 0.6 % (0-4.4); Hematocrit 36.3 % (37.0-47.0); Hemoglobin 11.9 g/dL (12.0-15.0); Immature Granulocyte Absolute 0.01 K/mm3 (0.00-0.031); Immature Granulocyte Percent A 0.2 % (0-0.5); Lymphocytes Percent Auto 31.6 % (18.3-44.2); Mean Corpuscular HGB Conc 32.8 g/dl (32-36); Mean Corpuscular Hemoglobin 24.6 pg (26-34); Mean Corpuscular Volume 75.2 fl (80-100); Mean Platelet Volume 10.6 fl (7.4-10.4); Monocytes Absolute Auto 0.7 K/mm3 (0.1-0.6); Monocytes Percent Auto 10.2 % (2.6-8.5); Neutrophils Absolute Auto 3.8 K/mm3 (1.3-6.7); Neutrophils Percent Auto 56.8 % (45.5-73.1); Platelet Count Result 205 k/mm3 (150-375); Red Blood Count 4.83 M/mm3 (4.2-5.4); Red Cell Distribution Width 15.9 % (11.5-14.5); White Blood Count 6.6 K/mm3 (4.5-10.0)
[2022-04-21] MEDS: MORPHINE SULFATE (*CRX) 4 MG/ML INJ IV PUSH (04:50)
[2022-04-21] MEDS: SODIUM CHLORIDE 0.9% IV 1,000 ML 999 ML IV CONT (04:50)
[2022-04-21 04:52] LABS: Alanine Aminotransferase 19 U/L (6-35); Albumin Level 4.2 g/dL (3.5-5.1); Alkaline Phosphatase 79 U/L (38-126); Anion Gap 3 mmol/L (8-16); Aspartate Amino Transferase 22 U/L (14-36); Bilirubin,Total 0.4 mg/dL (0.2-1.3); Blood Urea Nitrogen 16 mg/dL (7-17); Calcium 8.7 mg/dL (8.4-10.2); Carbon Dioxide 26 mmol/L (22-30); Chloride 110 mmol/L (98-107); Estimated Glomerular Filt Rate > 60; Glucose 107 mg/dL (65-110); Sodium 139 mmol/L (137-145)
[2022-04-21 04:57] VITALS: BP 132/87; PULSE 73; RESP 16; O2SAT 94
[2022-04-21 06:01] VITALS: BP 128/79; RESP 18; O2SAT 95
[2022-04-21 06:05] LABS: Appearance Urine Clear (Clear); Bilirubin Urine Negative (Negative); Blood Urine Negative (Negative); Color Urine Yellow (Yellow); Glucose Urine UA Negative (Negative); Ketones Urine Negative (Negative); Leukocyte Esterase Ur Negative LEU/UL (Negative); Nitrate Urine Negative (Negative); Protein Urine Negative (Negative); Urobilinogen Urine 0.2 mg/dL (<2.0)
[2022-04-21 06:06] LABS: Add Urine Microscopic? NO
[2022-04-21 07:01] VITALS: BP 124/81
[2022-04-21] MEDS: MORPHINE SULFATE (*CRX) 2 MG/ML INJ 4 MG (07:43)
[2022-04-21 08:01] VITALS: BP 122/76
== END 2022-04-21 08:43 | disposition home or self-care (01) ==
PROVIDERS: Emergency Medicine; Emergency Provider Emergency Medicine; PCP Internal Medicine
DX: M54.50 Low back pain, unspecified (principal); M62.830 Muscle spasm of back; E78.5 Hyperlipidemia, unspecified; M81.0 Age-related osteoporosis without current pathological fracture; F17.210 Nicotine dependence, cigarettes, uncomplicated; Z87.442 Personal history of urinary calculi; N20.0 Calculus of kidney; K57.90 Diverticulosis of intestine, part unspecified, without perforation or abscess without bleeding
CPT/HCPCS: 36415; 74176; 80053; 81003; 85025; 96361; 96374; 96375; 96376; 99284; J0131; J2270; J7030

== ENCOUNTER 2022-07-22 10:11 | Outpatient (CLI) | payer OTHER, SELFPAY ==
--- NOTE | ~2022-07-22 | XR_ITS ---
EXAM: XR hip RT 2V w AP pelvis DATE: 07/22/2022 10:28 HISTORY: worsening PAIN IN RT HIP JOINT; no injury . COMPARISON: None available. FINDINGS: Normal mineralization. No fracture or dislocation. No lytic or blastic lesion. Degenerativ e changes in the lower lumbar spine. Mild bilateral superior hip joint space narrowing. Multiple pelv ic phleboliths. No erosion or periosteal change. Soft tissues within normal limits. IMPRESSION: Mild bilateral hip osteoarthritis. Reviewed, dictated and finalized at location K.
== END 2022-07-22 10:12 | disposition home or self-care (01) ==
PROVIDERS: PCP Internal Medicine; Visit Provider Internal Medicine
DX: Z78.0 Asymptomatic menopausal state (principal); M16.0 Bilateral primary osteoarthritis of hip
CPT/HCPCS: 73502

== ENCOUNTER 2022-09-25 12:35 | Outpatient (CLI) | payer OTHER, SELFPAY ==
--- NOTE | ~2022-09-25 | DEXA_ITS ---
Bone Density Report Name: FRANSISCO BAUTISTA Age: 62 Sex: Female Ethnicity: Black Date of : 1960 Indication: postmenopausal; screening for osteoporosis; Referring Provider: LISSETTE, MARLYS Starr Study: Bone densitometry was performed. Exam Date: September 25, 2022 Accession number: [id number] Bone Density: Region BMD T-score Z-score Classification AP Spine(L1-L4) 0.700 -3.2 -2.5 Osteoporosis Femoral Neck (Left) 0.654 -1.8 -1.0 Osteopenia Total Hip (Left) 0.792 -1.2 -0.8 Osteopenia Femoral Neck (Right) 0.703 -1.3 -0.7 Osteopenia Total Hip (Right) 0.800 -1.2 -0.7 Osteopenia Total Hip Mean 0.796 -1.2 -0.8 Osteopenia World Health Organization criteria for BMD impression classify patients as: Normal (T-score at or above -1.0), Osteopenia (T-score between -1.0 and -2.5), or Osteoporosis (T-score at or below -2.5). 10-year Fracture Risk: FRAX not reported because: Some T-score for Spine Total or Hip Total or Femoral Neck at or below -2.5 Clinical Information Provided by Patient: Smokes Has used the following medications: Vitamin D Patient maximum height was 59 Menopause Age: 57 No regular weight bearing exercise Does not regularly consume dairy products Onset of menses at age 13 Number of children 5 Impression: The patient has osteoporosis, based on the Total Spine T-score. The patient has risk factors, including: smoking. Discussion: HIGH RISK OF FRACTURE. BONE DENSITY IS UNDESIRABLY LOW AT ONE OR MORE SKELETAL SITES, CONSISTENT WITH OSTEOPOROSIS. ALSO, BONE DENSITY IS LOWER THAN EXPECTED FOR AGE AND SEX AT ONE OR MORE SKELETAL SITES; RECOMMEND A DILIGENT SEARCH FOR SECONDARY CAUSES OF BONE LOSS. This patient's lowest T-score meets the World Health Organization's (WHO) criteria for osteoporosis at one or more sites (T-score -2.5 or below). In untreated patients, the risk of osteoporotic fracture increases approximately two-fold for each 1.0 SD decrease in T-score. Low bone density is not the only risk factor for fracture; also consider factors such as patient's age, frailty or poor health, risk of falling, risk of injury, previous osteoporotic fracture, family history of osteoporosis, cigarette smoking, low body weight, etc. Not everyone with low bone mineral density has osteoporosis; osteomalacia and other metabolic bone disorders should also be considered. Patients who have osteoporosis should be evaluated for specific diseases and conditions (secondary causes) that may cause or contribute to bone loss. The [place] Association [employer] Clinical Endocrinologists (AACE) and National Osteoporosis Foundation (NOF) recommend pharmacologic intervention for all postmenopausal women whose T-score is in this range. Also, this patient's bone mineral density is below the range considered normal for healthy age
== END 2022-09-25 12:36 | disposition home or self-care (01) ==
LOC: ANHIMG 12:36
PROVIDERS: PCP Internal Medicine; Visit Provider Internal Medicine
DX: M25.551 Pain in right hip (principal); Z78.0 Asymptomatic menopausal state; M85.852 Other specified disorders of bone density and structure, left thigh; M85.851 Other specified disorders of bone density and structure, right thigh
CPT/HCPCS: 77080

== ENCOUNTER 2022-10-15 08:25 | Emergency (ER) | payer OTHER, SELFPAY ==
[2022-10-15 08:29] VITALS: BP 125/88; PULSE 102; RESP 18; TEMP 36.3; O2SAT 100
[2022-10-15 09:04] LABS: Add Urine Microscopic? YES; Appearance Urine Clear (Clear); Bilirubin Urine Negative (Negative); Blood Urine Negative (Negative); Color Urine Yellow (Yellow); Glucose Urine UA Negative (Negative); Ketones Urine 2+ mg/dL (Negative); Leukocyte Esterase Ur Negative LEU/UL (Negative); Nitrate Urine Negative (Negative); Protein Urine Negative (Negative); Specific Grav Ur 1.025 (1.001-1.035); Urobilinogen Urine 0.2 mg/dL (<2.0)
[2022-10-15 10:00] LABS: Mucus Urine Few /lpf; RBC Urine 0-2 /hpf (0-2); Squamous Epithelial Cell Urine Moderate /hpf (Few); WBC Urine 0-3 /hpf
--- NOTE | 2022-10-15 10:54 | PC.NURSE ---
doesn't want to wait; advised of risks including . Voiced understanding. Skin and breathing wnl.
== END 2022-10-15 10:54 | disposition left against medical advice (07) ==
PROVIDERS: Emergency Provider Emergency Medicine; PCP Internal Medicine
DX: R10.32 Left lower quadrant pain (principal)
CPT/HCPCS: 81001; 99199

== ENCOUNTER 2022-10-16 07:42 | Emergency (ER) | payer OTHER, SELFPAY ==
--- NOTE | ~2022-10-16 | CT_ITS ---
EXAMINATION: CT abdomen pelvis w con DATE: 10/16/2022 09:53 INDICATION: Right lower quadrant abdominal pain for 3 days TECHNIQUE: Computed tomography (CT) of the abdomen and pelvis was performed with 100 CC Omnipaque 350 intravenous contrast. Automated exposure control and iterative reconstruction technique were employe d. Exam dose: 263.89 mGy-cm total exam DLP. COMPARISON: 04/21/2022 CT abdomen pelvis FINDINGS: The lung bases are clear. Normal heart size. No pericardial or pleural effusion. Small sliding hiatal hernia. The liver, spleen, pancreas, adrenal glands, gallbladder, bile ducts and pancreatic duct and adrenal glands are unremarkable. Approximately 9 mm upper pole right renal cyst. 5 mm upper pole right renal cyst. Approximately 4.8 nonobstructing right renal calculus. 5.8 mm nonobstructing left renal calculus. No ureteral calculus or hydroureteronephrosis is detected. The urinary bladder is unremarkable. Approximately 2.4 cm right-sided uterine fibroid. The uterus, adnexal areas and urinary bladder are o therwise unremarkable. Normal caliber of the abdominal aorta. No intraperitoneal or retroperitoneal or pelvic mass lesion or adenopathy or ascites. Normal appendix. There are numerous diverticula of the sigmoid and descending colon and to a lesser extent ascending c olon; no evidence of diverticulitis. There is thickening of the wall and mucosal enhancement of the distal and terminal ileum, suggesting infectious or inflammatory ileitis, possible regional enteritis. No bowel obstruction or intraperiton eal free air is detected Small fat-containing umbilical hernia. Included skeletal structures are unremarkable. IMPRESSION: Bowel wall thickening and mucosal enhancement of the distal and terminal ileum, suggesti ng infectious or inflammatory process. Regional enteritis (Crohn's disease) is a consideration Normal appendix Small sliding hiatal hernia Bilateral nonobstructive nephrolithiasis Right renal cysts Reviewed, dictated and finalized at [facility]. Reviewed, dictated and finalized at [facility]. D CHEF IMPRESSION: Bowel wall thickening and mucosal enhancement of the distal and te rminal ileum, suggesting infectious or inflammatory process. Regional enteritis (Crohn's disease) is a consideration Normal appendix Small sliding hiatal hernia Bilateral nonobstructive nephrolithiasis Right renal cysts
[2022-10-16 07:42] VITALS: BP 141/58; PULSE 113; RESP 18; TEMP 36.6; O2SAT 96
[2022-10-16 08:29] LABS: Basophils Percent Auto 0.7 % (0.2-1.2); Eosinophils Percent Auto 0.7 % (0-4.4); Hematocrit 37.4 % (37.0-47.0); Hemoglobin 12.4 g/dL (12.0-15.0); Immature Granulocyte Absolute 0.01 K/mm3 (0.00-0.031); Immature Granulocyte Percent A 0.2 % (0-0.5); Lymphocytes Absolute Auto 1.88 K/mm3 (0.9-3.2); Lymphocytes Percent Auto 34.4 % (18.3-44.2); Mean Corpuscular HGB Conc 33.2 g/dl (32-36); Mean Corpuscular Hemoglobin 25.5 pg (26-34); Mean Platelet Volume 11.5 fl (7.4-10.4); Monocytes Percent Auto 18.1 % (2.6-8.5); Neutrophils Absolute Auto 2.5 K/mm3 (1.3-6.7); Neutrophils Percent Auto 45.9 % (45.5-73.1); Platelet Count Result 208 k/mm3 (150-375); Red Blood Count 4.86 M/mm3 (4.2-5.4); Red Cell Distribution Width 15.8 % (11.5-14.5); White Blood Count 5.5 K/mm3 (4.5-10.0)
[2022-10-16 08:30] LABS: Alanine Aminotransferase 24 U/L (6-35); Albumin Level 4.3 g/dL (3.5-5.1); Alkaline Phosphatase 76 U/L (38-126); Anion Gap 7 mmol/L (8-16); Aspartate Amino Transferase 31 U/L (14-36); Bilirubin,Total 0.9 mg/dL (0.2-1.3); Blood Urea Nitrogen 13 mg/dL (7-17); Calcium 8.4 mg/dL (8.4-10.2); Carbon Dioxide 26 mmol/L (22-30); Chloride 107 mmol/L (98-107); Estimated CRCL calculation 51 ml/min; Estimated Glomerular Filt Rate > 60; Glucose 121 mg/dL (65-110); Lipase 56 U/L (23-300); Potassium 3.9 mmol/L (3.4-5.0); Sodium 140 mmol/L (137-145)
[2022-10-16] MEDS: MORPHINE SULFATE (*CRX) 4 MG/ML INJ IV PUSH (10:20)
[2022-10-16] MEDS: SODIUM CHLORIDE 0.9% IV 1,000 ML 999 ML IV CONT (10:21)
[2022-10-16 10:26] VITALS: BP 119/77; PULSE 67; RESP 18; O2SAT 100
[2022-10-16 10:34] LABS: Add Urine Microscopic? YES; Appearance Urine Clear (Clear); Bilirubin Urine Negative (Negative); Blood Urine Negative (Negative); Color Urine Yellow (Yellow); Glucose Urine UA Negative (Negative); Ketones Urine Trace mg/dL (Negative); Leukocyte Esterase Ur Negative LEU/UL (Negative); Nitrate Urine Negative (Negative); Protein Urine Negative (Negative); Specific Grav Ur 1.025 (1.001-1.035); Urobilinogen Urine 0.2 mg/dL (<2.0); pH Urine 5.5 (5.0-9.0)
[2022-10-16 10:46] LABS: Bacteria Urine Trace /hpf; Mucus Urine Few /lpf; RBC Urine 0-2 /hpf (0-2); Squamous Epithelial Cell Urine Occasional /hpf (Few); WBC Urine 0-3 /hpf
--- NOTE | 2022-10-16 13:23 | ED.ABDPAIN ---
HPI - Abdominal Pain General Chief Complaint: Abdominal Pain Stated Complaint: abd pain Time Seen by Provider: 10/16/22 07:51 History of Present Illness HPI narrative: Patient is a 62-year-old female who presents ER with abdominal pain for the last 2 to 3 days. Its been diffuse and cramping but localized in the right lower quadrant today. Associate with diarrhea. No nausea or vomiting. Has not found any alleviating factors. Related Data Home Medications Medication Instructions Recorded Confirmed alendronate 70 mg tablet 70 mg PO WEEKLY 01/19/22 02/01/22 aspirin 81 mg chewable tablet 81 mg PO DAILY 01/25/22 02/01/22 cholecalciferol (vitamin D3) 125 125 mcg PO DAILY 01/25/22 02/01/22 mcg (5,000 unit) tablet (Vitamin D3) estradiol 0.01% (0.1 mg/gram) applic vaginal 04/21/22 vaginal cream Allergies Allergy/AdvReac Type Severity Reaction Status Date / Time No Known Allergies Allergy Verified 10/16/22 07:47 Review of Systems Review of Systems: All systems reviewed & are unremarkable except as noted in HPI and below Constitutional: Constitutional: Denies chills, Denies fatigue and Denies fever(s) ENT: Denies nasal congestion and Denies sore throat Cardiovascular: Cardiovascular: Denies chest pain and Denies rapid heart rate Respiratory: Respiratory: Reports no additional respiratory complaints Gastrointestinal: Gastrointestinal: Reports abdominal pain, Reports diarrhea, Denies nausea and Denies vomiting PMFSH Past Medical History Medical History Eczema Hyperlipidemia Kidney stones Normal cardiac stress test PASCUAL (obstructive sleep apnea) undiagnosed Osteoporosis Tobacco abuse Surgical History Surgical History History of section History of colonoscopy with polypectomy (02/2018) History of ventral hernia repair (11/2015) Family History Family History Mother Family history of arthritis Social History Social History Social History: 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 She has 4 living children. She smokes about a half a pack of cigarettes per day currently but has smoked as much as 1 pack of cigarettes per day. The patient denied any alcohol use to me but had reported alcohol use to nursing staff. The amount is unknown. Primary care physician: Dr. Mcgarry Code status: Full code Smoking packs per day: 0.75 Smoking cigarettes per day: 15.0 Years smoked: 25 Smoking pack-years: 18.75 Smoking status: Current every day smoker Tobacco type: cigarettes Alcohol intake: former Substance use: current Substance use type: marijuana Gender identity (if verbalized by the patient): Female Sexual Orientation (if Verbalized by the Patient): Straight or Heterosexual Spiritual care concerns: No Exam Narrative: GENERAL: Uncomfortable-appearing, well-nourished, and in no acute distress. HEAD: Normocephalic, atraumatic. EYES: PERRL and EOMI. ENT: Mucous membranes moist. CHEST: Clear to auscultation. No respiratory distress. HEART: Tachycardic and regular. Normal peripheral pulses. ABDOMEN: Soft, TTP RLQ with guarding, nondistended. EXTREMITIES: Normal range of motion. No edema. SKIN: Warm, dry, no rash. NEURO: Alert and oriented x3. PSYCH: Normal mood and affect. Course Course Emergency Course: Patient resting comfortably. Pain improved after morphine. Informed of lab results and imaging results. Patient will be discharged with supportive medication. Patient felt to have viral enteritis causing her symptoms. Patient has no history of inflammatory bowel disease. Vital Signs Vital signs: Vital Signs Temperature 97.8 F 10/16/22 07:42 Pulse Rate 113 H 10/16/22 07:42 Respiratory Rate 18
[2022-10-16 14:14] VITALS: BP 126/85; PULSE 74; RESP 14; O2SAT 98
== END 2022-10-16 14:15 | disposition home or self-care (01) ==
PROVIDERS: Emergency Provider Emergency Medicine; PCP Internal Medicine
DX: K52.9 Noninfective gastroenteritis and colitis, unspecified (principal); E78.5 Hyperlipidemia, unspecified; G47.33 Obstructive sleep apnea (adult) (pediatric); M81.0 Age-related osteoporosis without current pathological fracture; F17.210 Nicotine dependence, cigarettes, uncomplicated; Z87.442 Personal history of urinary calculi; Z79.82 Long term (current) use of aspirin; K44.9 Diaphragmatic hernia without obstruction or gangrene; N20.0 Calculus of kidney; N28.1 Cyst of kidney, acquired
CPT/HCPCS: 36415; 74177; 80053; 81001; 83690; 85025; 96361; 96374; 99284; J2270; J7030; Q9967

== ENCOUNTER 2022-10-24 14:39 | Outpatient (CLI) | payer OTHER, SELFPAY ==
--- NOTE | ~2022-10-24 | MM_ITS ---
EXAMINATION: MM screening eduardo BI w stew HISTORY: Screening TECHNIQUE: Craniocaudal and mediolateral oblique 3-D tomosynthesis images were obtained and synthetic 2-D images were generated. CAD analysis was submitted and interpreted. COMPARISON: 08/16/2016 BREAST PARENCHYMAL COMPOSITION: There are scattered areas of fibroglandular density. FINDINGS: There are new clustered indeterminate calcifications in the upper inner quadrant of the rig ht breast anteriorly. The left breast is stable without evidence for malignancy. IMPRESSION: 1. New clustered indeterminate right breast calcifications upper inner quadrant anteriorly. 2. Magnification views are recommended. BI-RADS Category 0: Incomplete: Needs additional imaging evaluation. Reviewed, dictated and finalized at location [facility]. 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
== END 2022-10-24 14:40 | disposition home or self-care (01) ==
PROVIDERS: PCP Internal Medicine; Visit Provider Nurse Practitioner Family
DX: Z12.31 Encounter for screening mammogram for malignant neoplasm of breast (principal); R92.8 Other abnormal and inconclusive findings on diagnostic imaging of breast
CPT/HCPCS: 77063; 77067

== ENCOUNTER 2022-11-14 12:17 | Outpatient (CLI) | payer OTHER, SELFPAY ==
--- NOTE | ~2022-11-14 | MMUS_ITS ---
EXAMINATION: MM diagnostic eduardo RT w stew, US breast RT limited HISTORY: Follow-up right breast calcifications TECHNIQUE: Additional 3-D tomosynthesis images of the right breast were performed and synthetic 2-D i mages were generated. CAD analysis was submitted and interpreted. High resolution Limited right breas t ultrasound was performed. COMPARISON: 10/24/2022 BREAST PARENCHYMAL COMPOSITION: Breast composed of scattered areas of fibroglandular density FINDINGS: MAMMOGRAPHIC FINDINGS: There are punctate monomorphic calcifications in the upper inner quadrant of the right breast. No nanda picious masses or architectural distortion. ULTRASOUND: Limited right breast ultrasound: Normal heterogeneous echotexture without focal solid or cystic mass. IMPRESSION: 1. No evidence for malignancy in the right breast. Benign findings. 2. Routine yearly screening mammogram and regular clinical breast examination are recommended. BI-RADS Category 2: Benign finding(s). Reviewed, dictated and finalized at location [facility]. 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 No evidence for malignancy in the right breast. Benign findings. 2. Routine yearly screening mammogram and regular clinical breast examination a re recommended. BI-RADS Category 2: Benign finding(s).
== END 2022-11-14 12:18 | disposition home or self-care (01) ==
PROVIDERS: PCP Internal Medicine; Visit Provider Nurse Practitioner Family
DX: R92.8 Other abnormal and inconclusive findings on diagnostic imaging of breast (principal)
CPT/HCPCS: 76642; 77061; 77065; G0279

== ENCOUNTER 2023-03-26 08:00 | Outpatient (CLI) | payer OTHER, SELFPAY ==
--- NOTE | ~2023-03-26 | MR_ITS ---
EXAMINATION: MR lumbar spine wo con DATE: 03/27/2023 09:02 INDICATION: Low back pain. TECHNIQUE: Magnetic resonance imaging (MRI) of the lumbar spine was performed without intravenous con trast. Sequences included sagittal T2-weighted FSE, sagittal T2-weighted FS FSE, sagittal T1-weighted FSE, and axial T2-weighted FSE. COMPARISON: None FINDINGS: There is 3 mm anterolisthesis of L4 on L5. Vertebral body heights are normal. There is mild ly decreased disc height at L4-L5. The distal spinal cord signal intensity is normal. The conus medul gladis is at T12-L1. The following disc levels are specifically discussed: L1-L2: The disc does not extend beyond the endplate margin. There is no facet joint osteoarthritis. T here is no neural foraminal stenosis. There is no central canal stenosis. L2-L3: The disc does not extend beyond the endplate margin. There is no facet joint osteoarthritis. T here is no neural foraminal stenosis. There is no central canal stenosis. L3-L4: The disc does not extend beyond the endplate margin. There is moderate bilateral facet joint o steoarthritis. There is no neural foraminal stenosis. There is no central canal stenosis. L4-L5: The disc does not extend beyond the endplate margin. There is severe bilateral facet joint ost eoarthritis. There is mild left neural foraminal stenosis. There is no central canal stenosis. L5-S1: There is a central protrusion. There is moderate bilateral facet joint osteoarthritis. There i s mild bilateral neural foraminal stenosis. There is mild central canal stenosis. IMPRESSION: 1. Mild lumbar spondylosis. Reviewed, dictated and finalized at [facility]. IMPRESSION: 1. Mild lumbar spondylosis.
--- NOTE | ~2023-03-26 | CT_ITS ---
EXAMINATION: CT lung screening DATE: 03/26/2023 22:30 INDICATION: History of tobacco dependence TECHNIQUE: Computed tomography (CT) of the chest was performed without intravenous contrast. The dose -length product was 49.43 mGy-cm. Automated exposure control and iterative reconstruction technique w ere employed. COMPARISON: CT dated 10/24/2020 FINDINGS: No significant pleural or pericardial effusion. No thoracic lymphadenopathy. Heart size nor mal. No endobronchial lesions. No pneumothorax. No focal airspace consolidation. Calcified granuloma left upper lobe. Calcified mediastinal lymph nodes, consistent with chronic granulomatous disease. No endobronchial lesions. No pneumothorax. Dependent atelectasis. Mild thoracic spondylosis. No acute o sseous abnormality. IMPRESSION: 1. Lung-RADS category 1: Negative. Continue annual screening with noncontrast low-dose chest CT in 12 months. Reviewed, dictated and finalized at location [facility]. IMPRESSION: 1. Lung-RADS category 1: Negative. Continue annual screening with noncontrast l ow-dose chest CT in 12 months.
== END 2023-03-26 08:01 | disposition home or self-care (01) ==
LOC: ANHIMG 21:13
PROVIDERS: PCP Internal Medicine; Visit Provider Internal Medicine
DX: Z12.2 Encounter for screening for malignant neoplasm of respiratory organs (principal); Z87.891 Personal history of nicotine dependence; M47.896 Other spondylosis, lumbar region
CPT/HCPCS: 36415; 71271; 72148; 80053; 80061; 85025

== ENCOUNTER 2023-03-26 16:49 | Outpatient (CLI) | payer OTHER, SELFPAY ==
[2023-03-27 12:41] LABS: Alanine Aminotransferase 22 U/L (6-35); Albumin Level 4.2 g/dL (3.5-5.1); Alkaline Phosphatase 68 U/L (38-126); Anion Gap 6 mmol/L (8-16); Aspartate Amino Transferase 27 U/L (14-36); Bilirubin,Total 0.6 mg/dL (0.2-1.3); Blood Urea Nitrogen 17 mg/dL (7-17); Calcium 8.8 mg/dL (8.4-10.2); Carbon Dioxide 30 mmol/L (22-30); Chloride 105 mmol/L (98-107); Cholesterol 153 mg/dL (0-200); Estimated Glomerular Filt Rate > 60; Glucose 78 mg/dL (65-110); HDL Direct 61 mg/dL; LDL Cholesterol Direct 66 mg/dL; Potassium 3.8 mmol/L (3.4-5.0); Sodium 141 mmol/L (137-145); Triglycerides 116 mg/dL (<150)
[2023-03-27 12:42] LABS: Anisocytosis 1+ (NORMAL); Basophils Absolute Auto 0.1 K/mm3 (0.0-0.1); Basophils Percent Auto 0.9 % (0.2-1.2); Eosinophils Absolute Auto 0.1 K/mm3 (0-0.3); Hematocrit 34.8 % (37.0-47.0); Hemoglobin 11.7 g/dL (12.0-15.0); Immature Granulocyte Absolute 0.01 K/mm3 (0.00-0.031); Immature Granulocyte Percent A 0.2 % (0-0.5); Lymphocytes Absolute Auto 2.46 K/mm3 (0.9-3.2); Lymphocytes Percent Auto 42.7 % (18.3-44.2); Mean Corpuscular HGB Conc 33.6 g/dl (32-36); Mean Corpuscular Hemoglobin 24.9 pg (26-34); Mean Platelet Volume 10.9 fl (7.4-10.4); Monocytes Absolute Auto 0.6 K/mm3 (0.1-0.6); Monocytes Percent Auto 10.8 % (2.6-8.5); Neutrophils Absolute Auto 2.6 K/mm3 (1.3-6.7); Neutrophils Percent Auto 44.4 % (45.5-73.1); Platelet Count Result 237 k/mm3 (150-375); Platelet Estimate Adequate (Adequate); Red Cell Distribution Width 16.2 % (11.5-14.5); Schistocytes None Seen (NORMAL); White Blood Count 5.8 K/mm3 (4.5-10.0)
== END 2023-03-26 16:50 | disposition home or self-care (01) ==
LOC: ANHLAB 16:51
PROVIDERS: PCP Internal Medicine; Visit Provider Internal Medicine
DX: K21.9 Gastro-esophageal reflux disease without esophagitis (principal); E78.5 Hyperlipidemia, unspecified
CPT/HCPCS: 36415; 80053; 80061; 85025

== ENCOUNTER 2023-08-01 08:01 | Emergency (ER) | payer OTHER, SELFPAY ==
--- NOTE | ~2023-08-01 | US_ITS ---
US venous doppler LE RT DATE: 08/01/2023 09:13 INDICATION: Right leg injury one week ago. Right lower extremity pain. TECHNIQUE: Real-time and color flow imaging and Doppler analysis of the veins of the right lower extr emity COMPARISON: None FINDINGS: The right greater saphenous vein is patent. There is spontaneous and phasic flow and normal augmentation and color flow signal and normal compression of the deep veins of the right lower extre mity. IMPRESSION: Negative examination Reviewed, dictated and finalized at [facility]. Reviewed, dictated and finalized at [facility]. IMPRESSION: Negative examination
--- NOTE | ~2023-08-01 | XR_ITS ---
XR tibia fibula RT 2V DATE: 08/01/2023 08:59 INDICATION: Anterior mid to lower swelling TECHNIQUE: AP and lateral views COMPARISON: None FINDINGS: No fracture or dislocation, periosteal reaction or bone destruction. Normal alignment at th e knee and ankle joints. No radiopaque soft tissue foreign body or subcutaneous emphysema. IMPRESSION: Negative Reviewed, dictated and finalized at [facility]. IMPRESSION: Negative
--- NOTE | 2023-08-01 08:49 | ED.GENADULT ---
HPI - General Adult General Chief complaint: Extremity Injury, Lower Stated complaint: right leg injury Time Seen by Provider: 08/01/23 08:26 History of Present Illness HPI narrative: 63-year-old female present to the emergency department for evaluation of an injury to her right leg. Patient states last week she was carrying a box and dropped it on the medial aspect of her right lower leg. Patient states since then she has had increased right lower leg swelling ecchymosis and discomfort. Patient states symptoms are not resolving. Upon arrival to the ED patient does have ecchymosis of the right lower leg with a hematoma. Patient also has ecchymosis down into the foot. Patient takes aspirin but denies being on any other blood thinners. Related Data Home Medications Medication Instructions Recorded Confirmed alendronate 70 mg tablet 70 mg PO WEEKLY 01/19/22 02/01/22 aspirin 81 mg chewable tablet 81 mg PO DAILY 01/25/22 02/01/22 cholecalciferol (vitamin D3) 125 125 mcg PO DAILY 01/25/22 02/01/22 mcg (5,000 unit) tablet (Vitamin D3) estradiol 0.01% (0.1 mg/gram) applic vaginal 04/21/22 vaginal cream Allergies Allergy/AdvReac Type Severity Reaction Status Date / Time No Known Allergies Allergy Verified 10/16/22 07:47 Review of Systems Review of Systems: All systems reviewed & are unremarkable except as noted in HPI and below PMFSH Past Medical History Medical History Eczema Hyperlipidemia Kidney stones Normal cardiac stress test PASCUAL (obstructive sleep apnea) undiagnosed Osteoporosis Tobacco abuse Surgical History Surgical History History of section History of colonoscopy with polypectomy (02/2018) History of ventral hernia repair (11/2015) Family History Family History Mother Family history of arthritis Social History Social History Social History: 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 She lives alone. She has 4 living children. She smokes about a half a pack of cigarettes per day currently but has smoked as much as 1 pack of cigarettes per day. The patient denied any alcohol use to me but had reported alcohol use to nursing staff. The amount is unknown. Primary care physician: Dr. Mcgarry Code status: Full code Smoking packs per day: 0.75 Smoking cigarettes per day: 15.0 Years smoked: 25 Smoking pack-years: 18.75 Smoking status: Current every day smoker Tobacco type: cigarettes Alcohol intake: former Substance use: current Substance use type: marijuana Living arrangements: with roommate(s) Gender identity (if verbalized by the patient): Female Sexual Orientation (if Verbalized by the Patient): Straight or Heterosexual Spiritual care concerns: No Exam Narrative: APPEARANCE: Well appearing, no pain, no distress, well-nourished. HEAD: normocephalic, atraumatic. EYES: PERRLA/EOMI, conjunctivae clear. NOSE: Normal no drainage NECK: Supple. No adenopathy, no masses. RESPIRATORY: Airway patent, respirations nonlabored. Clear to auscultation bilaterally, no rales, rhonchi, wheezing. CARDIOVASCULAR: Regular rate and rhythm without murmurs rubs or gallops. ABDOMINAL: Soft, nontender, nondistended, normal bowel sounds MUSCULOSKELETAL: Ecchymosis initiating and mid right tristan tracking down to the foot. No tenderness to palpation of knee ankle or foot. Patient does have tenderness to tib-fib. NEURO: Alert. Cranial nerves II through XII intact. Good gait. Good coordination SKIN: Warm, dry. Normal Color Course Course Emergency Course: 63-year-old female presented the emergency department for evaluation of right leg swelling and discomfort after an injury. X-rays were negative for acute fractures. Ultrasound w
[2023-08-01 10:06] VITALS: BP 130/90; PULSE 65; RESP 18; TEMP 36.6; O2SAT 100
[2023-08-01 10:07] VITALS: BP 132/89; PULSE 60; RESP 18; O2SAT 100
== END 2023-08-01 10:08 | disposition home or self-care (01) ==
PROVIDERS: Emergency Provider Emergency Medicine; PCP Internal Medicine
DX: S80.11XA Contusion of right lower leg, initial encounter (principal); M79.89 Other specified soft tissue disorders; W20.8XXA Other cause of strike by thrown, projected or falling object, initial encounter; E78.5 Hyperlipidemia, unspecified; G47.33 Obstructive sleep apnea (adult) (pediatric); M81.0 Age-related osteoporosis without current pathological fracture; F17.210 Nicotine dependence, cigarettes, uncomplicated; F12.90 Cannabis use, unspecified, uncomplicated; Z79.82 Long term (current) use of aspirin
CPT/HCPCS: 73590; 93971; 99284

== ENCOUNTER 2023-08-26 05:28 | Emergency (ER) | payer OTHER, SELFPAY ==
[2023-08-26] VITALS (23 sets, daily range): BP systolic 125–144; BP diastolic 74–95; PULSE 54–94; RESP 10–18; TEMP 36.6; O2SAT 99–100
--- NOTE | ~2023-08-26 | CT_ITS ---
CT of the Abdomen and Pelvis: Indication: Abdominal pain Technique: 2.5 mm axial scans were obtained through the abdomen and pelvis following intravenous adm inistration of 100 cc of Omnipaque 350. Dose reduction technique was used on this scan by utilizing a utomated exposure control and iterative reconstruction technique. The dose-length product (DLP) was 3 24.27 mGy-cm. COMPARISON: 10/16/2022 Findings: Scans through the lung bases are unremarkable. The liver, spleen, pancreas, gallbladder, and adrenal glands are within normal limits. Bilateral nono bstructing renal stones are present, measuring up to 5 and 6 mm in maximum diameter. No evidence of a ortic aneurysm. No lymphadenopathy. No bowel obstruction. Possible mild wall thickening of the distal ileum, similar to prior exam. There is no evidence to suggest acute appendicitis. Sigmoid diverticulosis noted. Images through the pelvis were performed. Urinary bladder unremarkable. Probable small uterine fibroi ds present. No other adnexal mass seen. No ascites. Impression: Possible mild wall thickening of distal ileum, similar to prior exam. Correlate for infectious/inflam matory enteritis. Bilateral nonobstructing nephrolithiasis. Small uterine fibroids. Reviewed, dictated and finalized at [facility]. CHANGER Impression: Possible mild wall thickening of distal ileum, similar to prior exam. Correlate for infectious/inflammatory enteritis. Bilateral nonobstructing nephrolithiasis. Small uterine fibroids.
[2023-08-26] MEDS: ONDANSETRON INJ 4 MG/2 ML VIAL IV PUSH (06:59)
[2023-08-26] MEDS: MORPHINE SULFATE (*CRX) 4 MG/ML INJ IV PUSH (07:00)
[2023-08-26 07:08] LABS: Basophils Percent Auto 0.7 % (0.2-1.2); Eosinophils Percent Auto 0.7 % (0-4.4); Hematocrit 34.7 % (37.0-47.0); Hemoglobin 11.7 g/dL (12.0-15.0); Immature Granulocyte Absolute 0.01 K/mm3 (0.00-0.031); Immature Granulocyte Percent A 0.2 % (0-0.5); Lymphocytes Absolute Auto 1.72 K/mm3 (0.9-3.2); Lymphocytes Percent Auto 37.8 % (18.3-44.2); Mean Corpuscular HGB Conc 33.7 g/dl (32-36); Mean Corpuscular Hemoglobin 25.8 pg (26-34); Mean Corpuscular Volume 76.4 fl (80-100); Mean Platelet Volume 10.9 fl (7.4-10.4); Monocytes Absolute Auto 0.8 K/mm3 (0.1-0.6); Monocytes Percent Auto 16.7 % (2.6-8.5); Neutrophils Percent Auto 43.9 % (45.5-73.1); Platelet Count Result 202 k/mm3 (150-375); Red Blood Count 4.54 M/mm3 (4.2-5.4); Red Cell Distribution Width 15.2 % (11.5-14.5); White Blood Count 4.6 K/mm3 (4.5-10.0)
[2023-08-26 07:16] LABS: Alanine Aminotransferase 17 U/L (6-35); Albumin Level 4.1 g/dL (3.5-5.1); Alkaline Phosphatase 64 U/L (38-126); Anion Gap 10 mmol/L (8-16); Aspartate Amino Transferase 24 U/L (14-36); Bilirubin,Total 0.8 mg/dL (0.2-1.3); Blood Urea Nitrogen 13 mg/dL (7-17); Calcium 8.9 mg/dL (8.4-10.2); Carbon Dioxide 25 mmol/L (22-30); Chloride 105 mmol/L (98-107); Estimated Glomerular Filt Rate > 60; Glucose 92 mg/dL (65-110); Lipase 107 U/L (23-300); Sodium 140 mmol/L (137-145)
--- NOTE | 2023-08-26 07:53 | ED.ABDPAIN ---
HPI - Abdominal Pain General Chief Complaint: Abdominal Pain Stated Complaint: abd pain Time Seen by Provider: 08/26/23 07:05 Source: patient Limitations: no limitations History of Present Illness HPI narrative: Patient is a 63-year-old female present to the emergency department complaining of abdominal pain. Patient states the pain started gradually on Friday and has been progressively getting worse, comes and goes, has not noticed anything bring on the pain or making it go away, seems to be getting more frequent as the days go on, describes it as a cramping pain, nonradiating. Patient is to history of this pain in the remote past but does not know what was going on at that time. Patient denies nausea, vomiting, fever, diarrhea, melena, dysuria, hematuria, urinary frequency, urinary urgency. Patient denies any recent injuries or recent illness. Patient has tried [id number] analgesics without any significant relief of the pain. Related Data Home Medications Medication Instructions Recorded Confirmed alendronate 70 mg tablet 70 mg PO WEEKLY 01/19/22 02/01/22 aspirin 81 mg chewable tablet 81 mg PO DAILY 01/25/22 02/01/22 cholecalciferol (vitamin D3) 125 125 mcg PO DAILY 01/25/22 02/01/22 mcg (5,000 unit) tablet (Vitamin D3) estradiol 0.01% (0.1 mg/gram) applic vaginal 04/21/22 vaginal cream Allergies Allergy/AdvReac Type Severity Reaction Status Date / Time No Known Allergies Allergy Verified 08/26/23 05:33 Review of Systems Review of Systems: A 10 system review of systems was completed on the patient and is negative except for what is stated in the HPI. Nursing and ancillary documentation was reviewed. 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 She lives alone. She has 4 living children. She smokes about a half a pack of cigarettes per day currently but has smoked as much as 1 pack of cigarettes per day. The patient denied any alcohol use to me but had reported alcohol use to nursing staff. The amount is unknown. Primary care physician: Dr. Mcgarry Code status: Full code Smoking packs per day: 0.75 Smoking cigarettes per day: 15.0 Years smoked: 25 Smoking pack-years: 18.75 Smoking status: Current every day smoker Tobacco type: cigarettes Alcohol intake: former Substance use: current Substance use type: marijuana Living arrangements: with roommate(s) Gender identity (if verbalized by the patient): Female Sexual Orientation (if Verbalized by the Patient): Straight or Heterosexual Spiritual care concerns: No Comments At time of signature, I have reviewed and agree with nursing past medical, surgical, social and family history unless otherwise noted. Please see the nursing chart for further information. There is no relevant family history pertinent to the presenting complaint. Exam Narrative: CONST: No acute distress. Well nourished. HENMT: Head is normocephalic and atraumatic. Moist mucous membranes. No posterior oropharynx erythema. EYES: No conjunctival icterus, injection, or pallor. PERRL. NECK: No meningeal signs. RESP: Able to speak in full sentences. Normal respiratory effort. CTAB. CARDIO: Regular rate. Regular rhythm. 2+ DP and radial pulses bilaterally. GI: Non
[2023-08-26] MEDS: SODIUM CHLORIDE 0.9% IV 1,000 ML 999 ML IV CONT (08:33)
[2023-08-26 08:49] LABS: Lactic Acid Reflex 0.6 mmol/L (0.7-2.0)
[2023-08-26 09:30] LABS: Appearance Urine Clear (Clear); Bilirubin Urine Negative (Negative); Blood Urine Negative (Negative); Color Urine Yellow (Yellow); Glucose Urine UA Negative (Negative); Ketones Urine Negative (Negative); Leukocyte Esterase Ur Negative LEU/UL (Negative); Nitrate Urine Negative (Negative); Protein Urine Negative (Negative)
[2023-08-26 09:39] LABS: Specific Grav Ur 1.073 (1.001-1.035)
[2023-08-26 09:41] LABS: Add Urine Microscopic? NO
[2023-08-26] MEDS: HYDROcodone/acetaminophen (*CRX) 5-325 MG TABLET 1 TAB PO (10:35)
== END 2023-08-26 10:45 | disposition home or self-care (01) ==
PROVIDERS: Emergency Medicine; Emergency Provider Student in an Organized Health Care Education/Training Program; PCP Internal Medicine
DX: K52.9 Noninfective gastroenteritis and colitis, unspecified (principal); E78.5 Hyperlipidemia, unspecified; F17.210 Nicotine dependence, cigarettes, uncomplicated
CPT/HCPCS: 36415; 74177; 80053; 81003; 83605; 83690; 85025; 96361; 96374; 96375; 99284; A9270; J2270; J2405; J7030; Q9967

== ENCOUNTER 2023-10-17 07:59 | Outpatient (CLI) | payer OTHER, SELFPAY ==
--- NOTE | 2023-10-17 | EST_ITS ---
Patient Info Name: Yarelis Villareal Age: 63 years : 1960 Gender: Female Ht: 59 in Wt: 142 lbs BSA: 1.66 m2 Exam Date: 10/17/2023 8:59 AM Exam Location: Echo Lab Patient Status: Outpatient Admit Date: 10/17/2023 Staff Ordering Physician: Syed, Bambi Coates APRN Rehabilitation Consultant: Yenni Rob RDCS Attending Provider: SANJUANITA JULIAN DO Referring Physician: Syed ELDER; Exercise Technologist: Yen Sanchez RDCS Exercise Physician: Sanjuanita Julian DO Exam Type: CA stress echo Study Info Indications R07.9 - Chest pain, unspecified R06.00 - Dyspnea, unspecified Summary 1. 1. Negative David exercise stress test for ischemic ST changes by ECG criteria. 2. 2. Reduced functional capacity, achieving 7 METs of workload. 3. 3. Appropriate HR response to exercise. 4. 4. Appropriate HR recovery at 1 minute post exercise. 5. 5. Negative stress echocardiogram for ischemia by wall motion analysis. 6. 6. Patient informed of the above results. Stress Echo Findings Left Ventricle Appropriate increase in LV endocardial thickening with systole. Appropriate augmentation of contractility with systole. No wall motion abnormality. Left Ventricle Normal LV systolic function, no wall motion abnormality. Protocol: David Stress ECG Details Stage: REST Duration (min): 0 min : 46 sec Speed (mph): 0.0 Grade (%): 0 HR (bpm): 62 SBP (mmHg): 120 DBP (mmHg): 90 METS: --- Stage: REST Duration (min): 20 min : 22 sec Speed (mph): 1.0 Grade (%): 0 HR (bpm): 73 SBP (mmHg): 120 DBP (mmHg): 90 METS: --- Stage: STAGE 1 Duration (min): 1 min : 0 sec Speed (mph): 1.7 Grade (%): 10 HR (bpm): 104 SBP (mmHg): 120 DBP (mmHg): 90 METS: --- Stage: STAGE 1 Duration (min): 2 min : 0 sec Speed (mph): 1.7 Grade (%): 10 HR (bpm): 111 SBP (mmHg): 120 DBP (mmHg): 90 METS: --- Stage: STAGE 1 Duration (min): 3 min : 0 sec Speed (mph): 1.7 Grade (%): 10 HR (bpm): 113 SBP (mmHg): 168 DBP (mmHg): 88 METS: --- Stage: STAGE 2 Duration (min): 1 min : 0 sec Speed (mph): 2.5 Grade (%): 12 HR (bpm): 129 SBP (mmHg): 168 DBP (mmHg): 88 METS: --- Stage: STAGE 2 Duration (min): 1 min : 58 sec Speed (mph): 0.0 Grade (%): 0 HR (bpm): 135 SBP (mmHg): 168 DBP (mmHg): 88 METS: --- Stage: RECOVERY Duration (min): 0 min : 1 sec Speed (mph): 0.0 Grade (%): 0 HR (bpm): 135 SBP (mmHg): 168 DBP (mmHg): 88 METS: --- Stage: RECOVERY Duration (min): 1 min : 1 sec Speed (mph): 0.0 Grade (%): 0 HR (bpm): 91 SBP (mmHg): 168 DBP (mmHg): 88 METS: --- Stage: RECOVERY Duration (min): 2 min : 1 sec Speed (mph): 0.0 Grade (%): 0 HR (bpm): 75 SBP (mmHg): 166 DBP (mmHg): 80 METS: --- Stage: RECOVERY Duration (min): 3 min : 1 sec Speed (mph): 0.0 Grade (%): 0 HR (bpm): 78 SBP (mmHg): 159 DBP (mmHg): 87 METS: --- Stage: RECOVERY Duration (min): 4 min : 1 sec Speed (mph):
--- NOTE | 2023-10-17 15:35 | WPDPFTINT ---
PFT Procedure Performed PFT Procedure Performed Plethysmography (Lung Vol) Diffusing Cap (DLCO) Flow Vol Loop Spirometry w/o Bronchodil PFT Interpretation This is a pulmonary function test with spirometry, plethysmography and diffusing capacity. The test was performed and results interpreted in accordance with the 2019 and 2005 ATS/ERS Task Force guidelines respectively using the Global Lung Function Initiative-2012 reference equations. Patient demonstrated good effort and cooperation. Reproducibility criteria were met. The quality of the spirometry maneuver was Grade A. Findings: Spirometry: The contour the inspiratory and expiratory flow tracing are normal. The FVC is 2.18 L, 97% predicted. The FEV1 is 1.75 L, 97% predicted. The FEV1: FVC ratio is 80%. Plethysmography: The total lung capacity is 3.47 L, 92% predicted. The functional residual capacity is 1.77, 82% predicted. The residual volume is 1.29 L, 79% predicted. Diffusing capacity: The diffusing capacity unadjusted for hemoglobin and carboxyhemoglobin is 13.2, 68% predicted. The diffusing capacity adjusted for alveolar volume is 4.35, 93% predicted. Impression: The spirometry is normal without evidence of an obstructive abnormality. The lung volumes are normal. The diffusing capacity is normal. There are no prior studies for comparison
== END 2023-10-17 08:00 | disposition home or self-care (01) ==
PROVIDERS: Visit Provider Nurse Practitioner Adult Health
DX: R06.00 Dyspnea, unspecified (principal); Z72.0 Tobacco use
CPT/HCPCS: 93351; 94375; 94726; 94729

== ENCOUNTER 2023-10-26 08:02 | Emergency (ER) | payer OTHER, SELFPAY ==
--- NOTE | ~2023-10-26 | CT_ITS ---
EXAMINATION: CT abdomen pelvis w con INDICATION: Lower abdominal pain TECHNIQUE: Computed tomographic images of the abdomen and pelvis were obtained after the administrati on of 100 cc of Omnipaque 350 intravenous contrast. The dose-length product (DLP) was 343.54 mGy-cm. Automated exposure control and iterative reconstruction technique were employed. COMPARISON: 08/26/2023 FINDINGS: Minimal dependent atelectasis is present in the lung bases. The heart size is normal. The l iver, spleen, pancreas, gallbladder, and adrenal glands are normal. 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 There is a 6 mm nonobstructing stone of the right kidney. There is a 6 mm nonobstr ucting stone of the left kidney. No stones are identified in the ureters or bladder. No hydronephrosi s or hydroureter. There are phleboliths of the pelvis. No pathologically enlarged abdominal or pelvic lymph nodes are identified. No free intraperitoneal gas or evidence of bowel obstruction. There is c olonic diverticulosis. There is fat stranding surrounding a diverticulum of the sigmoid colon. No abs cess or perforation are identified. The appendix is normal. There is mild lumbar spondylosis. There i s a tiny umbilical hernia containing fat. IMPRESSION: 1. Uncomplicated sigmoid diverticulitis. 2. Bilateral nephrolithiasis. Reviewed, dictated and finalized at location F. STYLIST
[2023-10-26 08:03] VITALS: BP 139/85; PULSE 87; RESP 18; TEMP 37; O2SAT 100
[2023-10-26 08:16] VITALS: BP 98/75; PULSE 84; RESP 20; O2SAT 100
--- NOTE | 2023-10-26 08:31 | ED.ABDPAIN ---
HPI - Abdominal Pain General Chief Complaint: Abdominal Pain Stated Complaint: abd pain Time Seen by Provider: 10/26/23 08:06 History of Present Illness HPI narrative: 63-year-old female presenting to the emergency department for evaluation of lower abdominal pain. Patient reports the pain started last night. Patient denies any associated nausea or vomiting. Patient denies any change in bowel habits. Patient denies any pain with urination. Patient states she does have a prior history of kidney stones but states this does not feel similar to her previous kidney stones. Patient states she has had pain like this previously and was evaluated but does not remember the diagnosis. Related Data Home Medications Medication Instructions Recorded Confirmed alendronate 70 mg tablet 70 mg PO WEEKLY 01/19/22 02/01/22 aspirin 81 mg chewable tablet 81 mg PO DAILY 01/25/22 02/01/22 cholecalciferol (vitamin D3) 125 125 mcg PO DAILY 01/25/22 02/01/22 mcg (5,000 unit) tablet (Vitamin D3) estradiol 0.01% (0.1 mg/gram) applic vaginal 04/21/22 vaginal cream Allergies Allergy/AdvReac Type Severity Reaction Status Date / Time No Known Allergies Allergy Verified 10/26/23 08:17 Review of Systems Review of Systems: All systems reviewed & are unremarkable except as noted in HPI and below PMFSH Past Medical History Medical History Eczema Hyperlipidemia Kidney stones Normal cardiac stress test PASCUAL (obstructive sleep apnea) undiagnosed Osteoporosis Tobacco abuse Surgical History Surgical History History of section History of colonoscopy with polypectomy (02/2018) History of ventral hernia repair (11/2015) Family History Family History Mother Family history of arthritis Social History Social History Social History: 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 She lives alone. She has 4 living children. She smokes about a half a pack of cigarettes per day currently but has smoked as much as 1 pack of cigarettes per day. The patient denied any alcohol use to me but had reported alcohol use to nursing staff. The amount is unknown. Primary care physician: Dr. Mcgarry Code status: Full code Smoking packs per day: 0.75 Smoking cigarettes per day: 15.0 Years smoked: 25 Smoking pack-years: 18.75 Smoking status: Current every day smoker Tobacco type: cigarettes Alcohol intake: former Substance use: current Substance use type: marijuana Living arrangements: with roommate(s) Gender identity (if verbalized by the patient): Female Sexual Orientation (if Verbalized by the Patient): Straight or Heterosexual Spiritual care concerns: No Exam Narrative: APPEARANCE: Well appearing, no pain, no distress, well-nourished. HEAD: normocephalic, atraumatic. EYES: PERRLA/EOMI, conjunctivae clear. NOSE: Normal no drainage EARS:TMS clear with good light reflex. THROAT: Pharynx clear, no exudate. NECK: Supple. No adenopathy, no masses. RESPIRATORY: Airway patent, respirations nonlabored. Clear to auscultation bilaterally, no rales, rhonchi, wheezing. CARDIOVASCULAR: Regular rate and rhythm without murmurs rubs or gallops. ABDOMINAL: Some suprapubic and right upper quadrant tenderness to palpation, no CVA tenderness to palpation, no right upper quadrant tenderness. MUSCULOSKELETAL: Moves all extremities. Strength/ROM intact, No edema, No calf tenderness. NEURO: Alert. Cranial nerves II through XII intact. Grossly intact SKIN: Warm, dry. Normal Color Course Course Emergency Course: 63-year-old female present to the emergency department for evaluation of lower abdominal pain. Patient is afebrile with no leukocytosis and a stable hemoglobin. No acute abnorma
[2023-10-26] MEDS: HYDROmorphone HCL INJ (*CRX) 1 MG/ML SYR 0.5 MG IV PUSH (08:37)
[2023-10-26 08:42] LABS: Basophils Percent Auto 0.5 % (0.2-1.2); Eosinophils Percent Auto 0.1 % (0-4.4); Hemoglobin 12.5 g/dL (12.0-15.0); Immature Granulocyte Absolute 0.01 K/mm3 (0.00-0.031); Immature Granulocyte Percent A 0.1 % (0-0.5); Lymphocytes Absolute Auto 1.77 K/mm3 (0.9-3.2); Lymphocytes Percent Auto 22.3 % (18.3-44.2); Mean Corpuscular HGB Conc 33.8 g/dl (32-36); Mean Corpuscular Hemoglobin 25.4 pg (26-34); Mean Corpuscular Volume 75.1 fl (80-100); Mean Platelet Volume 11.6 fl (7.4-10.4); Monocytes Absolute Auto 0.9 K/mm3 (0.1-0.6); Monocytes Percent Auto 11.4 % (2.6-8.5); Neutrophils Absolute Auto 5.2 K/mm3 (1.3-6.7); Neutrophils Percent Auto 65.6 % (45.5-73.1); Platelet Count Result 203 k/mm3 (150-375); Red Blood Count 4.93 M/mm3 (4.2-5.4); Red Cell Distribution Width 14.9 % (11.5-14.5)
[2023-10-26 08:55] LABS: Lactic Acid Reflex 1.2 mmol/L (0.7-2.0)
[2023-10-26 08:56] LABS: Alanine Aminotransferase 18 U/L (6-35); Albumin Level 4.3 g/dL (3.5-5.1); Alkaline Phosphatase 83 U/L (38-126); Anion Gap 7 mmol/L (8-16); Aspartate Amino Transferase 24 U/L (14-36); Bilirubin,Total 1.1 mg/dL (0.2-1.3); Blood Urea Nitrogen 11 mg/dL (7-17); Calcium 9.3 mg/dL (8.4-10.2); Carbon Dioxide 29 mmol/L (22-30); Chloride 104 mmol/L (98-107); Estimated Glomerular Filt Rate > 60; Glucose 101 mg/dL (65-110); Lipase 48 U/L (23-300); Potassium 3.7 mmol/L (3.4-5.0); Sodium 140 mmol/L (137-145)
[2023-10-26 09:08] LABS: Appearance Urine Clear (Clear); Bacteria Urine None Seen /hpf; Bilirubin Urine Negative (Negative); Blood Urine 2+ (Negative); Color Urine Yellow (Yellow); Glucose Urine UA Negative (Negative); Ketones Urine Trace mg/dL (Negative); Leukocyte Esterase Ur 1+ LEU/UL (Negative); Need Manual Microscopic Reviewed; Nitrate Urine Negative (Negative); Non Pathogenic Casts 0-2; Protein Urine Negative (Negative); RBC Urine 21-50 /hpf (0-2); Squamous Epithelial Cell Urine Occasional /hpf (Few); Urobilinogen Urine 0.2 mg/dL (<2.0); WBC Urine 0-5 /hpf; pH Urine 5.5 (5.0-9.0)
[2023-10-26 09:09] LABS: Add Urine Microscopic? YES
[2023-10-26 09:48] LABS: INR 1.1; Partial Thromboplastin Time 33.7 SECONDS (22.3-36.8); Prothrombin Time 14.6 Seconds (11.1-14.7)
[2023-10-26 10:44] VITALS: BP 116/76; PULSE 89; RESP 20; O2SAT 98
[2023-10-26] MEDS: AMOXICILLIN/CLAVULANATE K 875-125 MG TAB 1 TABLET PO (10:46)
== END 2023-10-26 10:56 | disposition home or self-care (01) ==
PROVIDERS: Emergency Provider Emergency Medicine
DX: K57.32 Diverticulitis of large intestine without perforation or abscess without bleeding (principal); E78.5 Hyperlipidemia, unspecified; M81.0 Age-related osteoporosis without current pathological fracture; F17.210 Nicotine dependence, cigarettes, uncomplicated; Z87.442 Personal history of urinary calculi; N20.0 Calculus of kidney
CPT/HCPCS: 36415; 74177; 80053; 81001; 83605; 83690; 85025; 85610; 85730; 96374; 99284; A9270; J1170; Q9967

== ENCOUNTER 2024-02-04 07:55 | Emergency (ER) | payer OTHER, SELFPAY ==
--- NOTE | ~2024-02-04 | US_ITS ---
EXAMINATION:US venous doppler LE RT INDICATION:Right lower extremity pain TECHNIQUE: Multiple grayscale, color flow and Doppler images of the right lower extremity deep venous systems were obtained and reviewed. COMPARISON:08/01/2023 FINDINGS: The common femoral, superficial femoral and popliteal veins demonstrate normal respiratory variation, augmentation and compressibility. Color flow is also seen within the posterior tibial, pe roneal, greater saphenous and profunda veins. IMPRESSION: 1: No lower extremity deep venous thrombosis. Reviewed, dictated and finalized at location B.
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
[2024-02-04 07:55] VITALS: BP 142/90; PULSE 64; RESP 16; TEMP 36.4; O2SAT 99
--- NOTE | 2024-02-04 10:05 | ED.EXTPRO ---
HPI - Extremity Problem General Chief complaint: Extremity Problem,Nontraumatic Stated complaint: arm pain Time Seen by Provider: 02/04/24 10:03 Source: patient Mode of arrival: ambulatory Limitations: no limitations History of Present Illness HPI Narrative: 63-year-old female presents with complaint of left arm pain that started at approximately 4:30 a.m. this morning. She points to her mid humerus. Denies any chest pain. Denies any elbow or shoulder pain. She does have a mammogram scheduled for tomorrow and was going to come and be seen for this as well as her right foot/calf pain but decided to come today. Appointment in February with her PCP Asya. she will occasionally take 800 mg p.r.n. of ibuprofen for her arthritis ( unknown if rheumatoid arthritis or osteoarthritis) but did not do so today. she is right-hand dominant and works in a [employer] where she does performed repetitive arm with her right hand, but denies any such movements with her left. No known trauma. Related Data Home Medications Medication Instructions Recorded Confirmed alendronate 70 mg tablet 70 mg PO WEEKLY 01/19/22 02/01/22 aspirin 81 mg chewable tablet 81 mg PO DAILY 01/25/22 02/01/22 cholecalciferol (vitamin D3) 125 125 mcg PO DAILY 01/25/22 02/01/22 mcg (5,000 unit) tablet (Vitamin D3) estradiol 0.01% (0.1 mg/gram) applic vaginal 04/21/22 vaginal cream Allergies Allergy/AdvReac Type Severity Reaction Status Date / Time No Known Allergies Allergy Verified 10/26/23 08:17 [facility] Past Medical History Medical History (Updated 02/05/24 @ 06:23 by Emerita Hurt MD) Arthritis Eczema Hyperlipidemia Kidney stones Normal cardiac stress test PASCUAL (obstructive sleep apnea) undiagnosed Osteoporosis Tobacco abuse Surgical History Surgical History History of section History of colonoscopy with polypectomy (02/2018) History of ventral hernia repair (11/2015) Family History Family History Mother Family history of arthritis Social History Social History (Updated 02/05/24 @ 06:23 by Emerita Hurt MD) Social History: She works at a [employer]. She lives alone. She has 4 living children. She smokes about a half a pack of cigarettes per day currently but has smoked as much as 1 pack of cigarettes per day. The patient denied any alcohol use to me but had reported alcohol use to nursing staff. The amount is unknown. Primary care physician: Dr. Mcgarry Code status: Full code Smoking packs per day: 0.75 Smoking cigarettes per day: 15.0 Years smoked: 25 Smoking pack-years: 18.75 Smoking status: Current every day smoker Tobacco type: cigarettes Alcohol intake: former Substance use: current Substance use type: marijuana Living arrangements: with roommate(s) Gender identity (if verbalized by the patient): Female Sexual Orientation (if Verbalized by the Patient): Straight or Heterosexual Spiritual care concerns: No Exam Narrative: GENERAL: Well-appearing, well-nourished, and in no acute distress. HEAD: Normocephalic, atraumatic. EYES: Non injected, non icteric ENT: Nares clear, no rhinorrhea or epistaxis. NECK: Supple. CHEST: Speaking in full sentences. No respiratory distress. HEART: Regular rate and rhythm. . ABDOMEN: Soft, nondistended. EXTREMITIES: Normal range of motion. No edema. 5/5 strength with elbow flexion extension bilaterally, shoulder abduction. patient is able to demonstrate pronation and supination of forearms with arms extended and flexed. No tenderness to palpation of shoulder girdle. Tenderness to palpation at left mid humerus, particularly along triceps. No ecchymosis or swelling. SKIN: Warm, dry, no rash. NEURO: No focal deficits. Alert and oriented x3. PSYCH: Normal mood and affect. Course Vital Signs Vital signs: Vital Signs
[2024-02-04] MEDS: ACETAMINOPHEN 500 MG TABLET 1000 MG PO (10:43)
[2024-02-04 11:30] VITALS: BP 131/82; PULSE 68; RESP 16; O2SAT 100
[2024-02-04 11:35] LABS: CRP < 0.5 mg/dL (<1.0)
[2024-02-04 11:59] LABS: Erythrocyte Sedimentation Rate 15 mm/hr (0-20)
[2024-02-04 12:40] VITALS: BP 141/94; PULSE 60; RESP 16; O2SAT 100
== END 2024-02-04 13:25 | disposition home or self-care (01) ==
PROVIDERS: Emergency Provider Student in an Organized Health Care Education/Training Program
DX: M79.622 Pain in left upper arm (principal); M79.661 Pain in right lower leg; E78.5 Hyperlipidemia, unspecified; M19.90 Unspecified osteoarthritis, unspecified site; M81.0 Age-related osteoporosis without current pathological fracture; F17.210 Nicotine dependence, cigarettes, uncomplicated; Z87.442 Personal history of urinary calculi; Z79.82 Long term (current) use of aspirin
CPT/HCPCS: 36415; 73060; 85652; 86140; 93971; 99284; A9270

== ENCOUNTER 2024-02-05 09:28 | Outpatient (CLI) | payer OTHER, SELFPAY ==
--- NOTE | ~2024-02-05 | MM_ITS ---
EXAMINATION: MM screening eduardo BI w stew HISTORY: Screening mammogram TECHNIQUE: Craniocaudal and mediolateral oblique 3-D tomosynthesis images were obtained and synthetic 2-D images were generated. CAD analysis was submitted and interpreted. COMPARISON: November 2022 diagnostic right mammogram and limited right breast ultrasound examination October 24, 2022, August 24, 2021 bilateral screening mammogram examinations BREAST PARENCHYMAL COMPOSITION: There are scattered areas of fibroglandular density. Okay I think it FINDINGS: There is no evidence of suspicious mass, calcification, or architectural distortion to sugg est malignancy in either breast. There has been no suspicious interval change. IMPRESSION: 1. No mammographic evidence of malignancy. 2. Recommend routine screening mammography in one year. BIRADS Category 1: Negative Reviewed, dictated and finalized at location C.
== END 2024-02-05 09:29 | disposition home or self-care (01) ==
LOC: ANHIMG 09:30
PROVIDERS: PCP Internal Medicine; Visit Provider Nurse Practitioner Adult Health
DX: Z12.31 Encounter for screening mammogram for malignant neoplasm of breast (principal)
CPT/HCPCS: 77063; 77067

== ENCOUNTER 2024-04-02 23:47 | Emergency (ER) | payer OTHER, SELFPAY ==
--- NOTE | ~2024-04-02 | CT_ITS ---
EXAMINATION: CT abdomen pelvis w con DATE: 04/03/2024 02:02 INDICATION: Lower abdominal pain for one day TECHNIQUE: Computed tomography (CT) of the abdomen and pelvis was performed with 100 CC Omnipaque 350 intravenous contrast. Automated exposure control and iterative reconstruction technique were employe d. Exam dose: 286.95 mGy-cm total exam DLP. COMPARISON: 10/26/2023 CT abdomen pelvis 10/16/2022 CT abdomen pelvis 12/26/2021 CT abdomen pelvis FINDINGS: The lung bases are clear infiltrate or consolidation. No pericardial or pleural effusion. H eart size is within normal limits. No gallbladder wall thickening or pericholecystic fluid or fat stranding. No bile duct or pancreatic duct dilatation. No hepatic, splenic, pancreatic, adrenal space-occupying mass lesion. Small angiomyolipoma of the medial upper pole of the right kidney. Nonspecific approximately 6 x 9 mm hypoenhancing lesion of the upper aspect of the right kidney, not severely change since 12/13/2021, likely a benign cyst. 6 mm nonobstructing lower pole right renal calculus. 6.9 mm nonobstructing mid left renal calculus. No ureteral calculus or hydroureteronephrosis. The urinary bladder is relatively evacuated, unremarka ble. Probable fibroid uterus. There is thickening of the wall of the sigmoid colon and adjacent fat stranding. There are multiple d iverticula of the sigmoid colon. Mild uncomplicated acute sigmoid diverticulitis is suspected. No bowel obstruction or intraperitoneal free air is evident. Small fat-containing umbilical hernia. No intraperitoneal or retroperitoneal or pelvic mass lesion or adenopathy or ascites. There is minima l apical scarring calcification of the abdominal aorta no abdominal aortic aneurysm. Grade 1 anterolisthesis at L4-5 due to degenerative change at the apophyseal joints. No suspicious osteolytic or osteoblastic lesion is noted. IMPRESSION: Acute sigmoid diverticulitis without evidence of abscess Bilateral nonobstructive nephrolithiasis Small right renal angiomyolipoma Stable upper pole probable right renal subcentimeter cyst Reviewed, dictated and finalized at Location A. Reviewed, dictated and finalized at location A.
[2024-04-02 23:54] VITALS: BP 122/85; PULSE 88; RESP 20; TEMP 36.6; O2SAT 99
[2024-04-03 01:28] VITALS: BP 142/98; PULSE 66; RESP 19; O2SAT 98
--- NOTE | 2024-04-03 01:37 | ED.ABDPAIN ---
HPI - Abdominal Pain General Chief Complaint: Abdominal Pain Stated Complaint: Lower abd pain Time Seen by Provider: 04/03/24 01:29 History of Present Illness HPI narrative: 63-year-old female with a history of GERD and kidney stone presents to the emergency department for lower abdominal pain that started One day ago. Patient is reporting pain to his suprapubic region. she is endorsing urinary frequency and urgency as well as dysuria. She denies hematuria, fever, nausea or vomiting, flank pain. Last bowel movement was 2 days ago and normal. She does state that she has been having some intermittent diarrhea. Related Data Home Medications Medication Instructions Recorded Confirmed alendronate 70 mg tablet 70 mg PO WEEKLY 01/19/22 02/01/22 aspirin 81 mg chewable tablet 81 mg PO DAILY 01/25/22 02/01/22 cholecalciferol (vitamin D3) 125 125 mcg PO DAILY 01/25/22 02/01/22 mcg (5,000 unit) tablet (Vitamin D3) estradiol 0.01% (0.1 mg/gram) applic vaginal 04/21/22 vaginal cream Allergies Allergy/AdvReac Type Severity Reaction Status Date / Time No Known Allergies Allergy Verified 04/02/24 23:58 Review of Systems Review of Systems: CONSTITUTIONAL: Denies fever, chills, or sweats. EYES: Denies visual changes, redness, or discharge. ENT: Denies rhinorrhea, congestion, sore throat, or otalgia. CARDIOVASCULAR: Denies chest pain, palpitations, or edema. RESPIRATORY: Denies cough or dyspnea. GASTROINTESTINAL: See HPI GENITOURINARY: Denies dysuria or hematuria. SKIN: Denies rash or itching. MUSCULOSKELETAL: Denies back pain, joint pain, or myalgia. NEUROLOGIC: Denies headache, numbness, or weakness. PSYCHIATRIC: Denies anxiety or depression. [facility] Past Medical History Medical History Arthritis Eczema Hyperlipidemia Kidney stones Normal cardiac stress test PASCUAL (obstructive sleep apnea) undiagnosed Osteoporosis Tobacco abuse Surgical History Surgical History History of section History of colonoscopy with polypectomy (02/2018) History of ventral hernia repair (11/2015) Family History Family History Mother Family history of arthritis Social History Social History Social History: She works at a [employer]. She lives alone. She has 4 living children. She smokes about a half a pack of cigarettes per day currently but has smoked as much as 1 pack of cigarettes per day. The patient denied any alcohol use to me but had reported alcohol use to nursing staff. The amount is unknown. Primary care physician: Dr. Mcgarry Code status: Full code Smoking packs per day: 0.75 Smoking cigarettes per day: 15.0 Years smoked: 25 Smoking pack-years: 18.75 Smoking status: Current every day smoker Tobacco type: cigarettes Alcohol intake: former Substance use: current Substance use type: marijuana Living arrangements: with roommate(s) Gender identity (if verbalized by the patient): Female Sexual Orientation (if Verbalized by the Patient): Straight or Heterosexual Spiritual care concerns: No Exam Narrative: GENERAL: Tearful, nontoxic, appears uncomfortable HEAD: Normocephalic, atraumatic. EYES: PERRLA and EOMI. ENT: Nares clear, no rhinorrhea or epistaxis. Mucous membranes moist. NECK: Supple. CHEST: Clear to auscultation. No respiratory distress. HEART: Regular rate and rhythm. No murmur heard. Normal peripheral pulses. ABDOMEN: normoactive bowel sounds. Abdomen soft with tenderness in the suprapubic region without guarding, rebound or rigidity. No CVA tenderness. EXTREMITIES: Normal range of motion. No edema. SKIN: Warm, dry, no rash. NEURO: No focal deficits. Alert and oriented x3 Course Vital Signs Vital signs: Vital Si
[2024-04-03 01:40] LABS: Basophils Percent Auto 0.5 % (0.2-1.2); Eosinophils Percent Auto 0.3 % (0-4.4); Hematocrit 34.3 % (37.0-47.0); Hemoglobin 11.6 g/dL (12.0-15.0); Immature Granulocyte Absolute 0.01 K/mm3 (0.00-0.031); Immature Granulocyte Percent A 0.1 % (0-0.5); Lymphocytes Percent Auto 15.2 % (18.3-44.2); Mean Corpuscular HGB Conc 33.8 g/dl (32-36); Mean Corpuscular Hemoglobin 25.3 pg (26-34); Mean Corpuscular Volume 74.7 fl (80-100); Mean Platelet Volume 11.7 fl (7.4-10.4); Monocytes Absolute Auto 0.8 K/mm3 (0.1-0.6); Monocytes Percent Auto 10.5 % (2.6-8.5); Neutrophils Absolute Auto 5.8 K/mm3 (1.3-6.7); Neutrophils Percent Auto 73.4 % (45.5-73.1); Platelet Count Result 222 k/mm3 (150-375); Red Blood Count 4.59 M/mm3 (4.2-5.4); Red Cell Distribution Width 15.6 % (11.5-14.5); White Blood Count 7.9 K/mm3 (4.5-10.0)
[2024-04-03] MEDS: MORPHINE SULFATE (*CRX) 4 MG/ML INJ IV PUSH (01:44)
[2024-04-03 01:50] LABS: Alanine Aminotransferase 18 U/L (6-35); Albumin Level 4.3 g/dL (3.5-5.1); Alkaline Phosphatase 71 U/L (38-126); Anion Gap 5 mmol/L (4-12); Aspartate Amino Transferase 24 U/L (14-36); Bilirubin,Total 0.9 mg/dL (0.2-1.3); Blood Urea Nitrogen 18 mg/dL (7-17); Calcium 9.2 mg/dL (8.4-10.2); Carbon Dioxide 26 mmol/L (22-30); Chloride 110 mmol/L (98-107); Estimated Glomerular Filt Rate > 60; Glucose 97 mg/dL (65-110); Lipase 68 U/L (23-300); Potassium 3.7 mmol/L (3.4-5.0); Sodium 141 mmol/L (137-145)
[2024-04-03 01:54] LABS: Appearance Urine Cloudy (Clear); Bacteria Urine None Seen /hpf; Bilirubin Urine Negative (Negative); Blood Urine Negative (Negative); Color Urine Yellow (Yellow); Glucose Urine UA Negative (Negative); Ketones Urine Negative (Negative); Leukocyte Esterase Ur 1+ LEU/UL (Negative); Need Manual Microscopic Reviewed; Nitrate Urine Negative (Negative); Non Pathogenic Casts 0-2; Protein Urine Negative (Negative); RBC Urine 0-2 /hpf (0-2); Specific Grav Ur 1.023 (1.001-1.035); Squamous Epithelial Cell Urine None Seen /hpf (Few); WBC Urine 0-5 /hpf (0-3); pH Urine 6.5 (5.0-9.0)
[2024-04-03 01:57] LABS: Lactic Acid Reflex 0.5 mmol/L (0.7-2.0)
[2024-04-03 02:01] LABS: Add Urine Microscopic? YES
[2024-04-03] MEDS: metroNIDAZOLE 500 MG TABLET PO (02:49)
[2024-04-03] MEDS: CIPROFLOXACIN 500 MG TAB PO (02:49)
== END 2024-04-03 02:54 | disposition home or self-care (01) ==
PROVIDERS: Emergency Medicine; Emergency Provider Physician Assistant
DX: K57.32 Diverticulitis of large intestine without perforation or abscess without bleeding (principal); E78.5 Hyperlipidemia, unspecified; G47.33 Obstructive sleep apnea (adult) (pediatric); K21.9 Gastro-esophageal reflux disease without esophagitis; M19.90 Unspecified osteoarthritis, unspecified site; M81.0 Age-related osteoporosis without current pathological fracture; F17.210 Nicotine dependence, cigarettes, uncomplicated; Z87.442 Personal history of urinary calculi; Z86.010 Personal history of colon polyps; N20.0 Calculus of kidney; D17.71 Benign lipomatous neoplasm of kidney
CPT/HCPCS: 36415; 74177; 80053; 81001; 83605; 83690; 85025; 96374; 99284; A9270; J2270; Q9967

== ENCOUNTER 2024-04-06 08:52 | Outpatient (CLI) | payer OTHER, SELFPAY ==
--- NOTE | ~2024-04-06 | US_ITS ---
EXAMINATION: US arterial duplex LE DATE: 04/06/2024 11:16 INDICATION: Lower limb pain TECHNIQUE: Multiple grayscale and Doppler ultrasound images of the abdomen were obtained. COMPARISON: None FINDINGS: Right lower limb: Triphasic waveforms with brisk systolic upstrokes in the right external iliac, common femoral, profun da femoral, superficial femoral, popliteal, posterior tibial and peroneal arteries and biphasic wavef orms with brisk systolic upstrokes at the right anterior tibial artery. 4.4 x 3.7 x 1.1 cm anechoic B nuvia's cyst at the right popliteal fossa. Left lower limb: Triphasic waveforms with brisk systolic upstrokes in the left external iliac, common femoral, profund a femoral and superficial femoral arteries and biphasic waveforms with brisk systolic upstrokes in th e left popliteal, posterior tibial, peroneal and anterior tibial arteries. IMPRESSION: 1. No significant arterial occlusive disease in either lower limb with triphasic and distal biphasic arterial waveforms with brisk systolic upstrokes throughout both lower limbs. 2. Moderate-sized Dixon's cyst at the right popliteal fossa. Reviewed, dictated and finalized at location B. IMPRESSION: 1. No significant arterial occlusive disease in either lower limb with triphasi c and distal biphasic arterial waveforms with brisk systolic upstrokes througho ut both lower limbs. 2. Moderate-sized Dixon's cyst at the right popliteal fossa.
--- NOTE | ~2024-04-06 | US_ITS ---
EXAMINATION: US arterial ankle brachial ind DATE: 04/06/2024 11:02 INDICATION: Lower leg pain TECHNIQUE: Segmental pressures and plethysmographic and Doppler waveforms of the brachial and lower e xtremity arteries were obtained. COMPARISON: None. FINDINGS: Right and left brachial artery pressures of 147 mm Hg and 151 mm Hg, respectively, are concordant (no rmal difference <= 30 mmHg). The right ankle-brachial index (CHAPARRITA) is 1.10 (normal >= 0.9-1.0). The right great toe-brachial index (TBI) is 0.77 (normal >= 0.65). Arterial Doppler waveforms are biphasic with brisk systolic upstrokes at both right posterior tibial and dorsalis pedis arteries. The left CHAPARRITA is 1.12. The left TBI is 0.77. Arterial Doppler waveforms are triphasic with brisk systo lic upstrokes at both left posterior tibial and dorsalis pedis arteries. IMPRESSION: 1. No significant arterial occlusive disease with normal bilateral ABIs and TBIs. Reviewed, dictated and finalized at location B. IMPRESSION: 1. No significant arterial occlusive disease with normal bilateral ABIs and TBI s.
== END 2024-04-06 08:53 | disposition home or self-care (01) ==
PROVIDERS: PCP Internal Medicine; Visit Provider Internal Medicine
DX: M79.606 Pain in leg, unspecified (principal); M71.21 Synovial cyst of popliteal space [Baker], right knee
CPT/HCPCS: 93922; 93925

== ENCOUNTER 2024-09-21 04:46 | Emergency (ER) | payer OTHER, SELFPAY ==
--- NOTE | ~2024-09-21 | XR_ITS ---
XR chest 1V portable Ordering provider: Yomaira Bazan MD History: 64 years Female with . chest pain . Comparison: None. FINDINGS: MEDIASTINUM: The cardiac silhouette is not enlarged. LUNGS: No infiltrates, effusions or pneumothorax. OTHER: No free air under the diaphragm. IMPRESSION: No acute cardiopulmonary pathology. Reviewed, dictated and finalized at location A. [facility]
--- NOTE | ~2024-09-21 | CT_ITS ---
CTA chest PE protocol Ordering provider: Yomaira Bazan MD History: 64 years Female with . chest pain, DANE, RLE swelling . Comparison: None. Technique: CT angiogram chest was performed following timed intravenous injection of contrast. Thin s lice axial images and reformatted coronal images were obtained. Three dimensional reformatted images of the chest were also obtained using a [employer] workstation. . Automated exposure control and iterati ve reconstruction technique were employed. The dose-length product was 165.63 mGy-cm. 100 mL Omnipaque 350 was given IV. Findings: PULMONARY ARTERIES: No pulmonary embolus. VISUALIZED THORACIC INLET: Normal. MEDIASTINUM: Aorta/coronary arteries: The thoracic aorta is normal. Heart/other: The heart is not enlarged. Lymph nodes: No mediastinal or hilar adenopathy. Mediastinal calcified lymph nodes are noted. LUNGS: No pulmonary nodules or masses. No infiltrates or effusions. No pneumothorax. Dependent atelectatic c hanges. VISUALIZED UPPER ABDOMEN: the visualized upper abdomen is normal. MUSCULOSKELETAL: Soft tissues: The superficial soft tissues are normal. Bones: Normal spine. IMPRESSION: 1. No pulmonary embolism. 2. No acute cardiopulmonary pathology. Reviewed, dictated and finalized at location A. [facility]INGER
--- NOTE | 2024-09-21 05:00 | ECG_ITS ---
Test Date: 2024-09-21 05:00:15 Measurements Intervals [place] Rate: 67 P: 21 [place]: 142 QRS: 34 QRSD: 72 T: 30 QT: 395 QTc: 418 Interpretive Statements SINUS RHYTHM POSSIBLE LEFT ATRIAL ENLARGEMENT [-0.1mV P WAVE IN V1/V2] NONSPECIFIC T-WAVE ABNORMALITY No previous ECG available for comparison Electronically Signed On 09-22-2024 18:45:51 [employer] by Christian Jacinto
--- NOTE | 2024-09-21 10:12 | ECG_ITS ---
Test Date: 2024-09-21 10:18:57 Measurements Intervals [place] Rate: 73 P: 46 [place]: 141 QRS: 42 QRSD: 73 T: 40 QT: 433 QTc: 480 Interpretive Statements SINUS RHYTHM POSSIBLE LEFT ATRIAL ENLARGEMENT [-0.1mV P-WAVE IN V1/V2] No previous ECG available for comparison Electronically Signed On 09-21-2024 14:59:05 EMERGENCY ROOM RN by Claus Dye M.D.
[2024-09-21 10:20] VITALS: BP 131/89; PULSE 57; PULSE 59; RESP 16; TEMP 36.4; O2SAT 100
[2024-09-21 10:43] LABS: Basophils Percent Auto 1.1 % (0.2-1.2); Eosinophils Percent Auto 0.5 % (0-4.4); Hematocrit 35.2 % (37.0-47.0); Hemoglobin 11.9 g/dL (12.0-15.0); Lymphocytes Absolute Auto 1.71 K/mm3 (0.9-3.2); Mean Corpuscular HGB Conc 33.8 g/dl (32-36); Mean Corpuscular Hemoglobin 25.5 pg (26-34); Mean Corpuscular Volume 75.4 fl (80-100); Mean Platelet Volume 12.2 fl (7.4-10.4); Monocytes Absolute Auto 0.4 K/mm3 (0.1-0.6); Monocytes Percent Auto 11.1 % (2.6-8.5); Neutrophils Absolute Auto 1.6 K/mm3 (1.3-6.7); Neutrophils Percent Auto 42.3 % (45.5-73.1); Platelet Count Result 200 k/mm3 (150-375); Red Blood Count 4.67 M/mm3 (4.2-5.4); Red Cell Distribution Width 15.7 % (11.5-14.5); White Blood Count 3.8 K/mm3 (4.5-10.0)
[2024-09-21] MEDS: MORPHINE SULFATE (*CRX) 4 MG/ML INJ IV PUSH (11:07)
[2024-09-21 11:12] LABS: Troponin I < 0.012 ng/mL (0.000-0.034)
[2024-09-21 11:21] LABS: Alanine Aminotransferase 20 U/L (6-35); Albumin Level 4.2 g/dL (3.5-5.1); Alkaline Phosphatase 79 U/L (38-126); Anion Gap 1 mmol/L (4-12); Aspartate Amino Transferase 30 U/L (14-36); Bilirubin,Total 0.9 mg/dL (0.2-1.3); Blood Urea Nitrogen 13 mg/dL (7-17); Calcium 9.1 mg/dL (8.4-10.2); Carbon Dioxide 28 mmol/L (22-30); Chloride 109 mmol/L (98-107); Estimated Glomerular Filt Rate > 60; Glucose 101 mg/dL (65-110); Potassium 3.6 mmol/L (3.4-5.0); Sodium 138 mmol/L (137-145)
[2024-09-21 11:35] LABS: Troponin I < 0.012 ng/mL (0.000-0.034)
--- NOTE | 2024-09-21 17:21 | ED.CHESTPAIN ---
HPI - Chest Pain General Chief Complaint: Chest Pain Stated Complaint: abd pain Time Seen by Provider: 09/21/24 10:35 History of Present Illness HPI narrative: patient presenting here his chest pain, has never had symptoms like this before, has been ongoing for about a day, slight shortness of breath associated, no nausea vomiting, no radiation of pain, no focal numbness or weakness Related Data Home Medications ?Medication ?Instructions ?Recorded ?Confirmed ?Last Taken ?Type alendronate 70 mg tablet 70 mg PO WEEKLY 01/19/22 02/01/22 Unknown History aspirin 81 mg chewable tablet 81 mg PO DAILY 01/25/22 02/01/22 01/25/22 History cholecalciferol (vitamin D3) 125 125 mcg PO DAILY 01/25/22 02/01/22 Unknown History mcg (5,000 unit) tablet (Vitamin D3) estradiol 0.01% (0.1 mg/gram) applic vaginal 04/21/22 Unknown History vaginal cream Allergies Allergy/AdvReac Type Severity Reaction Status Date / Time No Known Allergies Allergy Verified 09/21/24 10:23 Review of Systems Review of Systems: All systems reviewed & are unremarkable except as noted in HPI and below PMFSH Past Medical History Medical History Arthritis Eczema Hyperlipidemia Kidney stones Normal cardiac stress test PASCUAL (obstructive sleep apnea) undiagnosed Osteoporosis Tobacco abuse Surgical History Surgical History History of section History of colonoscopy with polypectomy (02/2018) History of ventral hernia repair (11/2015) Family History Family History Mother Family history of arthritis Social History Social History Social History: She works at a [employer]. She lives alone. She has 4 living children. She smokes about a half a pack of cigarettes per day currently but has smoked as much as 1 pack of cigarettes per day. The patient denied any alcohol use to me but had reported alcohol use to nursing staff. The amount is unknown. Primary care physician: Dr. Mcgarry Code status: Full code Smoking packs per day: 0.75 Smoking cigarettes per day: 15.0 Years smoked: 25 Smoking pack-years: 18.75 Smoking status: Current every day smoker Tobacco type: cigarettes Alcohol intake: former Substance use: current Substance use type: marijuana Living arrangements: with roommate(s) Gender identity (if verbalized by the patient): Female Sexual Orientation (if Verbalized by the Patient): Straight or Heterosexual Spiritual care concerns: No Exam Narrative: EXAMINATION OF ORGAN SYSTEMS/BODY AREAS: Constitutional: Vital signs per nursing GENERAL:[No acute distress, non-toxic appearing.] HEAD: Normal with no signs of head trauma. EYES: EOMI, conjunctiva normal ENT: Hearing grossly intact LUNGS: Nonlabored breathing. clear to auscultation bilaterally HEART: [Regular rate and rhythm] ABD: [Soft], [nontender to palpation] EXT: Normal range of motion SKIN: [No rashes or lesions.] NEURO: [Alert and oriented x 3. No gross focal sensory or strength deficits.] PSYCH: Normal affect Course Vital Signs Vital signs: Vital Signs Temperature 97.5 F L 09/21/24 10:20 Pulse Rate 59 L 09/21/24 10:20 Respiratory Rate 16 09/21/24 10:20 Blood Pressure 131/89 09/21/24 10:20 Pulse Oximetry 100 09/21/24 10:20 Oxygen Delivery Room Air 09/21/24 10:20 Temperature 97.5 F L 09/21/24 10:20 Pulse Rate 57 L 09/21/24 10:20 Respiratory Rate 16 09/21/24 10:20 Blood Pressure 131/89 09/21/24 10:20 Pulse Oximetry 100 09/21/24 10:20 Oxygen Delivery Room Air 09/21/24 10:20 MDM - Chest Pain MDM Narrative Medical decision making narrative: ED COURSE AND MEDICAL DECISION MAKINF presenting with chest pain. EKG done in triage negative for acute ischemic changes. Cardiac workup is initiated. EKG: Performed in triage and interpreted by me. Normal sinus rhythm. Rate 73. Normal axis. AL normal. QRS duration normal. QTc normal. No pathologic Q waves. No ST segment elevation or depression to suggest acute ischemia. No RV strain pattern. HEART score is with no acute ischemic changes on EKG and negative troponin making ACS unlikely. Negative CTA for PE, dissection. On repeat evaluation just prior to discharge, the patient is no acute distress. Chest pain completely resolved. I had a long discussion with the patient and with shared decision making, she is comfortable with outpatient management. She was given clear return instructions by myself in person as well as on discharge paperwork. Lab Data 09/21/24 05:15 09/21/24 10:48 Labs: Lab Results 09/21/24 09/21/24 09/21/24 Range/Units 05:05 05:15 10:48 WBC 3.8 L (4.5-10.0) K/mm3 RBC 4.67 (4.2-5.4) M/mm3 Hgb 11.9 L (12.0-15.0) g/dL Hct 35.2 L (37.0-47.0) % MCV 75.4 L (80-100) fl MCH 25.5 L (26-34) pg MCHC 33.8 (32-36) g/dl RDW 15.7 H (11.5-14.5) % Plt Count 200 (150-375) k/mm3 MPV 12.2 H (7.4-10.4) fl Immature Gran % (Auto) 0.0 (0-0.5) % Neut % (Auto) 42.3 L (45.5-73.1) % Lymph % (Auto) 45.0 H (18.3-44.2) % [place] % (Auto) 11.1 H (2.6-8.5) % Eos % (Auto) 0.5 (0-4.4) % Baso % (Auto) 1.1 (0.2-1.2) % Lymph # (Auto) 1.71 (0.9-3.2) K/mm3 [place] # (Auto) 0.4 (0.1-0.6) K/mm3 Eos # (Auto) 0.0 (0-0.3) K/mm3 Baso # (Auto) 0.0 (0.0-0.1) K/mm3 Abs Immat Gran (auto) 0.00 (0.00-0.031) K/mm3 Absolute Neuts (auto) 1.6 (1.3-6.7) K/mm3 Absolute Nucleated RBC 0.000 (0.0-0.012) K/mm3 Nucleated RBC % 0.0 (0.0-0.2) % Sodium 138 (137-145) mmol/L Potassium 3.6 (3.4-5.0) mmol/L Chloride 109 H (98-107) mmol/L Carbon Dioxide 28 (22-30) mmol/L Anion Gap 1 L (4-12) mmol/L BUN 13 D (7-17) mg/dL Creatinine 0.70 (0.7-1.0) mg/dL Estim Creat Clear Calc Not Reportable Estimated GFR > 60 (59 - ) Glucose 101 (65-110) mg/dL Calcium 9.1 (8.4-10.2) mg/dL Total Bilirubin 0.9 (0.2-1.3) mg/dL AST 30 (14-36) U/L ALT 20 (6-35) U/L Alkaline Phosphatase 79 (38-126) U/L Troponin I < 0.012 < 0.012 (0.000-0.034) ng/mL Total Protein 7.0 (6.3-8.2) g/dL Albumin 4.2 (3.5-5.1) g/dL Discharge Plan Discharge Clinical Impression: Chest pain Patient Disposition: Home, Self-Care Condition: Stable Instructions: Chest Pain (ED) Additional Instructions: Please follow-up with a hospital corpsman and a primary care doctor. Come back to the ER immediately if you start having chest pain or shortness of breath or anything else concerning. Patient Language: Vietnamese Prescriptions: No Action alendronate 70 mg tablet 70 mg PO WEEKLY Patient Comments: PT TAKES ON FRIDAY estradiol 0.01 % (0.1 mg/gram) cream VAGINAL naproxen 500 mg tablet,delayed release (DR/EC) 500 mg PO BID PRN (Reason: pain) Qty: 20 0RF cyclobenzaprine 7.5 mg tablet 7.5 mg PO TID Qty: 20 0RF acetaminophen 500 mg tablet 500 mg PO Q6H PRN (Reason: pain) Qty: 30 0RF ciprofloxacin HCl 500 mg tablet 500 mg PO Q12H 10 Days Qty: 20 0RF metronidazole 500 mg tablet 500 mg PO Q12H Qty: 20 0RF hydrocodone-acetaminophen 5-325 mg tablet 1 tablet PO Q8H PRN (Reason: pain) Qty: 10 0RF cholecalciferol (vitamin D3) [Vitamin D3] 125 mcg (5,000 unit) Tablet 125 mcg PO DAILY aspirin 81 mg Tablet,Chewable 81 mg PO DAILY dicyclomine 20 mg tablet 20 mg PO QID Qty: 20 0RF ondansetron 4 mg tablet,disintegrating 4 mg PO Q6H PRN (Reason: nausea and vomiting) Qty: 10 0RF amoxicillin-pot clavulanate 875-125 mg tablet 1 tablet PO Q12H Qty: 14 0RF acetaminophen 500 mg capsule 1,000 mg PO Q6H PRN (Reason: pain) Qty: 20 0RF Follow-up/Referrals: Claus Dye MD [Physician] - 3 Days Ever Osorio MD [Physician] - 3 Days UNKNOWN,DOCTOR [Primary Care Provider] - Stand Alone Forms: Work/School Release IP
== END 2024-09-21 12:59 | disposition home or self-care (01) ==
PROVIDERS: Emergency Provider Emergency Medicine
DX: R07.9 Chest pain, unspecified (principal); Z79.82 Long term (current) use of aspirin; E78.5 Hyperlipidemia, unspecified; M81.0 Age-related osteoporosis without current pathological fracture; F17.210 Nicotine dependence, cigarettes, uncomplicated
CPT/HCPCS: 36415; 71045; 71275; 80053; 84484; 85025; 93005; 96374; 99284; J2270; Q9967

== ENCOUNTER 2024-11-05 01:10 | Day surgery (SDC) | payer OTHER, SELFPAY ==
[2024-10-29 08:46] VITALS: BMI 28.9
--- OUTSIDE RECORDS SUMMARY | 2024-11-05 06:28 | XMS_ITS | Data Portability ---
Author Organization [facility] Address [address] [place] [address] Care Team Providers Care Training And Development Head Name Role Phone MARLYS MCLAUGHLIN Primary Care Provider Assessment No assessment recorded. Plan of Treatment Reminders Order Date Submit Date Provider Last Modified By Organization Details Last Modified Time Details Appointments None recorded. Lab None recorded. Referral None recorded. Procedures None recorded. Surgeries None recorded. Imaging None recorded. Medication Orders metronidazo le 0.75 % (37.5 mg/5 gram) vaginal gel 2023 024 [facility], [address] [place] [address], [address], 4 10:31:47 Valtrex 1 gram tablet 2023 024 Formerly [facility], [address] [place] [address], [address], 4 09:36:21 Patient TargetsNo targets recorded. Patient InstructionsNo instructions recorded. Reason for Referral None Reported. Results Created Date Observation Date Name Description Value Unit Range Abnormal Flag Note LastModifiedBy Organization Detail LastModifiedTime 10/24/1910/24/2023 CT/GC ([facility]) , SWAB chlamydia trachomatis, PCR Negati ve negati ve Not Available [facility] (Lab) [address], [place], [address], 10/27/2023 09:32:40 10/24/19 24 10/24/2023 CT/GC ([facility]) , SWAB neisseria gonorrhoeae, PCR Negati ve negati ve Not Available [facility] (Lab) [address], [place], [address], 10/27/2023 09:32:40 10/24/19 24 10/24/2023 VAGIN ITIS/ VAGIN OSIS, DNA PROBE nathan sp. detection, direct probe Negati ve negati ve Not Available [facility] (Lab) [address], [place], [address], 10/27/2023 09:32:41 10/24/19 24 10/24/2023 VAGIN ITIS/ VAGIN OSIS, DNA PROBE gardnerella vag. detection, direct probe Negati ve negati ve Not Available [facility] (Lab) [address], [place], [address], 10/27/2023 09:32:41 10/24/19 24 10/24/2023 VAGIN ITIS/ VAGIN OSIS, DNA PROBE trichomonas vag. detection, direct probe Negati ve negati ve Not Available [facility] (Lab) [address], [place], [address], 10/27/2023 09:32:41 11/21/19 24 11/21/2023 CULTU RE: AEROB IC/AN AEROB IC result report SEE RESULT S BELOW abnormal Test: Cultu re: Aerob ic/An aerob ic Speci men Sourc e: Vulva Speci men Type: Micro biolo gy Speci men Speci men Date: 024 10:32 AM Resul t Date: 2023 11:53 AM Resul t Statu s: Final resul t Abnor mal: Yes Eugenio snyderg Lab: [facility] [address] [facility] [address] Tel: CULTU RE ----- ----- ----- --- Light Growt h 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 The anaer obic porti on of this cultu re has been credi marta. STAIN ----- ----- ----- --- Moder ate Gram negat halima rods seen Few Gram posit halima cocci seen SUSCE PTIBI LITY ----- ----- ----- --- Pseud omona s aerug inosa METHO D MARISA ----- ----- ----- ----- --- ----- ----- ----- ----- ----- AZTRE ONAM <=4 ug/mL Susce ptibl e CEFEP APRIL <=2 ug/mL Susce ptibl e CEFTA ZIDIM E 4 ug/mL Susce ptibl e CIPRO FLOXA JEFFERSON <=0.2 5 ug/mL Susce ptibl e MEROP ENEM <=1 ug/mL Susce ptibl e PIPER ACILL IN/TA ZOBAC WEST <=8 ug/mL Susce ptibl e Not Available [facility] (Lab) [address], [place], [address], 11/25/2023 18:05:08 11/21/19 24 11/21/2023 HERPE S SUBTY PE(HS V1/HS V2) RT-PC R, ONESW AB herpes subtype (hsv-1, hsv-2) PCR Negati ve (HSV-1 ,HSV-2 ) Swab- 1 Vulva HSV-1 :Nega tive HSV-2 :Nega tive. Not Available [facility] (Lab) [address], [place], [address], 12/02/2023 15:03:26 Result Notes None recorded. Procedures Surgical History Date Name Laterality Status Provider Name and Address Organization Details Recorded Time 9 hernia repair completed [facility] 10/24/2023 09:56:06 8 section completed [facility] 10/24/2023 09:56:33 3 section completed [facility] 10/24/2023 09:56:38 1 section completed [facility] 10/24/2023 09:56:27 9 section completed [facility] 10/24/2023 09:56:23 7 section completed [facility] 10/24/2023 09:56:18 Imaging Results None recorded. Procedure Notes None recorded. Medical Equipment None Reported. Allergies No known drug allergies Medications Name Sig Start Date Stop Date Status Note LastModified by Organization Details LastModified Time nicotine 14 mg/24 hr daily transdermal patch APPLY 1 PATCH TOPICALLY TO SKIN EVERY 24 HOURS DIRECTED 10/24 completed Not Available Not Available Not Available clindamycin HCl 300 mg capsule TAKE 1 CAPSULE BY MOUTH TWICE DAILY FOR 7 DAYS 10/24 completed Not Available Not Available Not Available ibuprofen 800 mg tablet TAKE 1 TABLET BY MOUTH THREE TIMES DAILY NEEDED 11/21 completed Not Available Not Available Not Available valacyclovi r 1 gram tablet TAKE 1 TABLET BY MOUTH EVERY 12 HOURS FOR 7 DAYS active Not Available Not Available No t Available metronidazo le 0.75 % (37.5 mg/5 gram) vaginal gel Insert 1 applicato rful every day by vaginal route at bedtime for 5 days. 10/24 completed Not Available Not Available Not Available alendronate 70 mg tablet active Not Available Not Available Not Available metronidazo le 500 mg tablet TAKE 1 TABLET BY MOUTH EVERY 12 HOURS FOR 7 DAYS 11/21 completed Not Available Not Available Not Available ciprofloxac in 500 mg tablet Take 1 tablet every 24 hours by oral route for 7 days. active Not Available Not Available No t Available pantoprazol e 40 mg tablet,jamari yed release TAKE 1 TABLET BY MOUTH ONCE DAILY NEEDED active Not Available Not Available No t Available nicotine 21 mg/24 hr daily transdermal patch APPLY 1 PATCH TOPICALLY TO SKIN EVERY 24 HOURS DIRECTED 10/24 completed Not Available Not Available Not Available diclofenac sodium 75 mg tablet,jamari yed release TAKE 1 TABLET BY MOUTH TWICE DAILY 10/24 completed Not Available Not Available Not Available estradiol 0.01% (0.1 mg/gram) vaginal cream INSERT ONE GRAM VAGINALLY THREE TIMES PER WEEK 10/24 completed Not Available Not Available Not Available amoxicillin 875 mg-potassiu m clavulanate 125 mg tablet TAKE 1 TABLET BY MOUTH EVERY 12 HOURS 11/21 completed Not Available Not Available Not Available cyclobenzap rine 5 mg tablet TAKE 1 TABLET BY MOUTH THREE TIMES DAILY 10/24 completed Not Available Not Available Not Available Pain Reliever (acetaminop hen) 500 mg tablet TAKE 1 TABLET BY MOUTH EVERY 6 HOURS NEEDED FOR PAIN 11/21 completed Not Available Not Available Not Available ibuprofen active Not Available Not Grisel ilable Not Available Tylenol active Not Available Not Avail able Not Available Vitals Date Recorded Body height Body mass index (BMI) Body weight Systolic blood pressure Diastolic blood pressure Provider Name and Address Organization Details Last Updated DateTime 10/24/2023 146.69 cm 29.7 kg/m2 74000.52 g 130 mm[Hg] 85 mm[Hg] Chandrika Mccord [facility] 09:44:30 Date Recorded Body height Body mass index (BMI) Body weight Systolic blood pressure Diastolic blood pressure Provider Name and Address Organization Details Last Updated DateTime 11/21/2023 146.69 cm 29.8 kg/m2 10129.68 g 128 mm[Hg] 85 mm[Hg] Cat Tom [facility] 09:15:45 Social History Question Answer Notes LastModified by Organizat ion Details LastModified Time Tobacco Smoking Status Current Every Day Smoker Chandrika Mccord [facility] 10/24/2023 09:55:11 What Is Your Level Of Alcohol Consumption? Occasional [email or web address] Information not available 10/24/2023 Are You Blind Or Do You Have Difficulty Seeing? No [email or web address] Information not available 10/24/2023 What Is Your Level Of Caffeine Consumption? Moderate [email or web address] Information not available 10/24/2023 In The 14 Days Before Symptom Onset, Have You Had Close Contact With A Laboratory-confir med COVID-19 While That Case Was Ill? No [email or web address] Information not available 10/24/2023 In The 14 Days Before Symptom Onset, Have You Had Close Contact With A Person Who Is Under Investigation For COVID-19 While That Person Was Ill? No [email or web address] Information not available 10/24/2023 Have You Been To An Area Known To Be High Risk For COVID-19? No [email or web address] Information not available 10/24/2023 Are You Deaf Or Do You Have Serious Difficulty Hearing? No [email or web address] Information not available 10/24/2023 What Type Of Diet Are You Following? REGULAR [email or web address] Information not available 10/24/2023 Have You Ever Been Counseled For Unhealthy Alcohol Use? No [email or web address] Information not available 10/24/2023 Do You Use Your Seat Belt Or Car Seat Routinely? Yes [email or web address] Information not available 10/24/2023 Do You Have Smoke And Carbon Monoxide Detectors In Your Home? Yes [email or web address] Information not available 10/24/2023 Do You Feel Stressed (tense, Restless, Nervous, Or Anxious, Or Unable To Sleep At Night)? [id number] Information not available 10/24/2023 Do You Use Any Illicit Or Recreational Drugs? No [email or web address] Information not available 10/24/2023 Do You Use Sunscreen Routinely? Yes [email or web address] Information not available 10/24/2023 Has Tobacco Cessation Counseling Been Provided? No [email or web address] Information not available 10/24/2023 Do You Or Have You Ever Used Any Other Forms Of Tobacco Or Nicotine? No [email or web address] Information not available 10/24/2023 Sex: Unknown Functional Status Question Answer Note LastModified by Organizat ion Details LastModified Time Do you have difficulty walking or climbing stairs? No [email or web address] Information not available 10/24/2023 Are you able to walk? YESWOREST [email or web address] Information not available 10/24/2023 Are you able to care for yourself? Yes [email or web address] Information not available 10/24/2023 Do you have difficulty dressing or bathing? No [email or web address] Information not available 10/24/2023 What is your exercise level? Occasional [email or web address] Information not available 10/24/2023 Mental Status None recorded. Family History Relationship Description Onset Age of this Age Resolved Age Notes LastModified by Organization Details LastModified Time Mother Olga gleason [email or web address] Not available 10/24 09:54:45 Medical History Condition Response Allergies (Food, seasonal, environmental ) N Other N Drug/Latex Allergies/Reactions N Breast Cancer N Blood Transfusion N Lung Disease N Dermatologic Disorders N Defects or Inherited Disease N Breast Problem N Gestational Diabetes N Hematologic disorders N Anesthesia Complications N History of STI Y Deep Vein Thrombosis N Polycystic ovary syndrome N Anxiety Disorder N Autoimmune disease N Arthritis N Polyps N Infertility N History of abnormal pap N Acid Reflux (GERD) N Cancer N Varicosities N Stroke N Neurologic/Epilepsy N Endometriosis N High Cholesterol Y Headaches N Fibromyalgia N Kidney Disease N Heart Problems N Thyroid Problems N Kidney or Bladder Problems N GI Problems Y Eating Disorder N Anemia N Art (IVF or FET) N Psychiatric Illness N Ovarian Cancer N Diabetes N Pulmonary (TB, Asthma) N Hepatitis/Liver Disease N No Past Medical History N Eczema N Urinary Tract Infection N Abuse/Domestic Violence N Asthma N Trauma/Violence N Depression/ depression N Heart Disease N Pre-Eclampsia N Hypertension N Osteoporosis Y Thrombophilias N Gynecological History Statement/Question Response Date of Last Mammogram Date of LMP 10/13/2016 STIs/STDs Y Date of DEXA bone scan Date of Last Pap Smear Current Control Method Menopause LMP Approximate Obstetrics History GPAL:G 5 P 5 0 0 5 Type Value Full Term 5 Living 5 Total 5 Past Encounters Encounter ID Performer Location Encounter Start Date Encounter Closed Date Diagnosis/Indication Diagnosis SNOMED-CT Code Diagnosis ICD10 Code Diagnosis Note [id number] KYA Tom Kennedy [address] [address] 10/24/2023 08:58:09 10/24/2023 10:36:34 Vaginitis 95796406 N76.0 Detailed health hx reviewed and obtainedva ginitis/ST I panel sentvulvar care guidelines discussed (d/c use of vaginal soaps/prod ucts, water/fing ers to cleanse the vulva)safe sexual practices discussedr x sent BV, r/b/a reviewedwi ll update pt with results when available Time spent in visit is a total of 30 mins with at least 50% of visit consisting of counseling and review of plan of care. 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 No IC with symptoms/a ctive outbreak, condoms use encourage otherwisec all the office with any future outbreak for valtrex rxreturn to clinic if symptoms persistWWE due 09/2024 Time spent in visit is a total of 25 mins with at least 50% of visit consisting of counseling and review of plan of care. Health Concerns Section Related Observation LastModified by Organization Detai ls LastModified Time None Recorded Concern Status LastModified by Organization Details LastModified Time None Recorded Advance Directives Directive None Recorded Payers Encounter Date Sequence Insurance Name Policy Number Policy Cortes Covered Member ID Cortes Member ID Guarantor Name 10/24/2023 1 [employer] (PPO) [facility] [id number] [facility] 11/21/2023 1 [employer]PPO) [facility] [id number] [facility] Notes Date Note Type Note Provider Name and Address Organization Details Recorded Time 10/24/2023 text/html 63yo [id number] ents for evaluation of vaginal discharge and itchingsymptoms present x 1 weekdiagnosed with chlamydia 4-6 weeks, tx at her PCP office. No longer with partner, has not had IC since tx.thick/white discharge. No odors. Some mild itching. Using vagisil to cleanse. last pap 09/2023 - normal per ptpostmenopausal since 2017mammogram scheduled for 03/05colonoscopy less than 5 yrs agobone scan 1-2 years ago - on alendronate KYA Tom [address], [place], [address], [facility] 10/24/2023 10:17:54 11/21/2023 text/html 63yo [id number] ents for evaluation of vulvar lesionssymptoms started about 1 week agoblister like lesions, very painful for the first few days. Leaked fluid a few days agosymptoms seems to be resolvinglast SA a few months agoneg discharge/itching/odo rsneg pelvic pain KYA Tom [address], [place], [address], [facility] 11/21/2023 09:45:26 OBGyn Episode Ob Episode Information Episode Created Date Number of Fetuses Patient Bloodtype Patient rh Status Prepregnancy Weight lbs Domestic Partner Domestic Partner Phone Father Name Application Support Administrator Status 10/24/19 24 1 CLOSED Fetus Data First Name Last Name Admitted to NICU Weight (g) Sex Living Outcome Pediatric Complications Fetus ID Race Codes Race Delivery Type 3175.14 4 M Full Term [id number] Repeat Moses Calculation Initial Moses Date Initial Exam Date Initial Exam Provider Initial Ultrasound Date Last Menstrual Period Date Ultra Sound Weeks Gestation 0 Eighteen To Twenty Week Moses Update Ultra Sound Date Fundal Height At Umbil Quickening Date Ultra Sound Latest Weeks Gestation Final Moses Confirmed By Final Moses Confirmed Date Final Moses Date Ultra Sound Latest Days Gestation 0 0 Menstrual History Last Menstrual Date Menses Monthly On Bcp Conception Prior Menses Frequency Hcg Plus Date Menarche Onset Age Delivery Information Delivery Date Delivery Type Labor Anesthesia Weeks Gestation Incision Type Labor Labor Length Hrs Delivered By Post Complications Tubal Sterilization Discharge Date Comments 3 40 Discharge Information Feeding Method Contraceptive Method Maternal HG B and HCT Levels Ob Episode Information Episode Created Date Number of Fetuses Patient Bloodtype Patient rh Status Prepregnancy Weight lbs Domestic Partner Domestic Partner Phone Father Name Application Support Administrator Status 10/24/19 24 1 CLOSED Fetus Data First Name Last Name Admitted to NICU Weight (g) Sex Living Outcome Pediatric Complications Fetus ID Race Codes Race Delivery Type 3175.14 4 M Full Term [id number] Repeat Moses Calculation Initial Moses Date Initial Exam Date Initial Exam Provider Initial Ultrasound Date Last Menstrual Period Date Ultra Sound Weeks Gestation 0 Eighteen To Twenty Week Moses Update Ultra Sound Date Fundal Height At Umbil Quickening Date Ultra Sound Latest Weeks Gestation Final Moses Confirmed By Final Moses Confirmed Date Final Moses Date Ultra Sound Latest Days Gestation 0 0 Menstrual History Last Menstrual Date Menses Monthly On Bcp Conception Prior Menses Frequency Hcg Plus Date Menarche Onset Age Delivery Information Delivery Date Delivery Type Labor Anesthesia Weeks Gestation Incision Type Labor Labor Length Hrs Delivered By Post Complications Tubal Sterilization Discharge Date Comments 8 40 Discharge Information Feeding Method Contraceptive Method Maternal HG B and HCT Levels Ob Episode Information Episode Created Date Number of Fetuses Patient Bloodtype Patient rh Status Prepregnancy Weight lbs Domestic Partner Domestic Partner Phone Father Name Application Support Administrator Status 10/24/19 24 1 CLOSED Fetus Data First Name Last Name Admitted to NICU Weight (g) Sex Living Outcome Pediatric Complications Fetus ID Race Codes Race Delivery Type 3175.14 4 F Full Term [id number] Primary Moses Calculation Initial Moses Date Initial Exam Date Initial Exam Provider Initial Ultrasound Date Last Menstrual Period Date Ultra Sound Weeks Gestation 0 Eighteen To Twenty Week Moses Update Ultra Sound Date Fundal Height At Umbil Quickening Date Ultra Sound Latest Weeks Gestation Final Moses Confirmed By Final Moses Confirmed Date Final Moses Date Ultra Sound Latest Days Gestation 0 0 Menstrual History Last Menstrual Date Menses Monthly On Bcp Conception Prior Menses Frequency Hcg Plus Date Menarche Onset Age Delivery Information Delivery Date Delivery Type Labor Anesthesia Weeks Gestation Incision Type Labor Labor Length Hrs Delivered By Post Complications Tubal Sterilization Discharge Date Comments 7 40 Discharge Information Feeding Method Contraceptive Method Maternal HG B and HCT Levels Ob Episode Information Episode Created Date Number of Fetuses Patient Bloodtype Patient rh Status Prepregnancy Weight lbs Domestic Partner Domestic Partner Phone Father Name Application Support Administrator Status 10/24/19 24 1 CLOSED Fetus Data First Name Last Name Admitted to NICU Weight (g) Sex Living Outcome Pediatric Complications Fetus ID Race Codes Race Delivery Type 3175.14 4 F Full Term 15178 Repeat Moses Calculation Initial Moses Date Initial Exam Date Initial Exam Provider Initial Ultrasound Date Last Menstrual Period Date Ultra Sound Weeks Gestation 0 Eighteen To Twenty Week Moses Update Ultra Sound Date Fundal Height At Umbil Quickening Date Ultra Sound Latest Weeks Gestation Final Moses Confirmed By Final Moses Confirmed Date Final Moses Date Ultra Sound Latest Days Gestation 0 0 Menstrual History Last Menstrual Date Menses Monthly On Bcp Conception Prior Menses Frequency Hcg Plus Date Menarche Onset Age Delivery Information Delivery Date Delivery Type Labor Anesthesia Weeks Gestation Incision Type Labor Labor Length Hrs Delivered By Post Complications Tubal Sterilization Discharge Date Comments 1 40 Discharge Information Feeding Method Contraceptive Method Maternal HG B and HCT Levels Ob Episode Information Episode Created Date Number of Fetuses Patient Bloodtype Patient rh Status Prepregnancy Weight lbs Domestic Partner Domestic Partner Phone Father Name Application Support Administrator Status 10/24/19 24 1 CLOSED Fetus Data First Name Last Name Admitted to NICU Weight (g) Sex Living Outcome Pediatric Complications Fetus ID Race Codes Race Delivery Type 3175.14 4 M Full Term [id number] Repeat Moses Calculation Initial Moses Date Initial Exam Date Initial Exam Provider Initial Ultrasound Date Last Menstrual Period Date Ultra Sound Weeks Gestation 0 Eighteen To Twenty Week Moses Update Ultra Sound Date Fundal Height At Umbil Quickening Date Ultra Sound Latest Weeks Gestation Final Moses Confirmed By Final Moses Confirmed Date Final Moses Date Ultra Sound Latest Days Gestation 0 0 Menstrual History Last Menstrual Date Menses Monthly On Bcp Conception Prior Menses Frequency Hcg Plus Date Menarche Onset Age Delivery Information Delivery Date Delivery Type Labor Anesthesia Weeks Gestation Incision Type Labor Labor Length Hrs Delivered By Post Complications Tubal Sterilization Discharge Date Comments 9 40 Discharge Information Feeding Method Contraceptive Method Maternal HG B and HCT Levels
--- OUTSIDE RECORDS SUMMARY | 2024-11-05 06:28 | XMS_ITS | Data Portability ---
Author Organization [place] [facility], Main Office Address [address] [place] [address] Care Team Providers Care Photographic Press Screwmaker Name Role Phone MARLYS MCGARRY Primary Care Provider [phone] MARLYS MCGARRY Referring Provider [phone] Assessment Encounter Date Assessment Date Assessment LastModified by Organization Details LastModified Time 05/11/2024 05/11/2024 63-year-old female presents for evaluation of her right knee. She reports pain and swelling in the back for knee for the past 3-4 months, as well as pain in her thigh and calf. She denies any acute injury, reports her pain as 10/10. She previously got ultrasounds of her leg without any significant findings. She has not had any other treatments. Review of systems per patient questionnaire Physical exam: She has tenderness throughout her knee and entire leg, from the posterior thigh over the hamstrings down to the calf. She reports a burning sensation as well, negative straight leg raise. She has diffuse tenderness around the knee, range of motion 0-130. Stable ligaments. X-rays were reviewed, demonstrating no acute bony abnormality, preserved joint space We will begin with a course of conservative management with physical therapy anti-inflammator ies, especially considering she is locating her symptoms to the muscles. We will see her back in 6-8 weeks if she does not have any improvement, at that point we can obtain an MRI to assess the structures of the knee. She is in agreement with the plan. [email or web address] Not available 05/12/2024 00:09:15 Plan of Treatment Reminders Order Date Submit Date Provider Last Modified By Organization Details Last Modified Time Details Appointments None recorded. Lab CBC w/ auto diff [address] (Lab), [address] [place], [address], 3 08:22:57 lipid panel, serum [address] (Lab), [address] [place], [address], 3 08:22:57 CMP, serum or plasma [address] (Lab), [address] [place], [address], 3 08:22:57 Referral orthopedic surgeon referral 2023 024 [email or web address] Jus Ledezma MD, [address] [place], [address], 4 08:17:41 physical therapist referral - eval and treat 2023 024 [email or web address] Not available 4 15:43:36 Procedures colonoscopy screening (PROC) 2023 024 [email or web address] Bryant Graham MD, [address], [place], [address], 4 08:37:56 Surgeries None recorded. Imaging LDCT, chest, for lung cancer screening - auth approved [id number] 2022 023 [facility], [address], [place], [address], 3 18:13:39 MRI, lumbar spine, w/o contrast - No auth required per [place]. 03/14/20232022 023 [facility], [address], [place], [address], 3 09:09:48 US, duplex, arterial, lower extremity, complete - no auth required WITH CHAPARRITA 2023 024 [facility], [address] [facility], [place], [address], 4 18:25:24 XR, knee, 3 view 2023 024 [facility] [place], [facility], [place], [address], 4 08:35:39 Medication Orders pantoprazol e 40 mg tablet,jamari yed release [address] [facility], [address] [place] [address], [address], 4 15:15:55 ibuprofen 800 mg tablet 2023 024 [facility], [address] [place] [address], [address], 4 12:42:57 pantoprazol e 40 mg tablet,jamari yed release [address] [facility], [address] [place] [address], [address], 4 15:15:55 Mobic 15 mg tablet [email or web address] [facility], [address] [place] [address], [address], 4 00:19:35 Patient TargetsNo targets recorded. Patient Instructions Encounter Date Encounter Id Patient Instructions Last Modified By Organization Details Last Modified Time 02/19/2024 [id number] risk assessment* Not availabl e 02/19/2024 17:01:41 INFLUENZA VACCIN E Recommended today, but patient declined TD/TDAP Recommended today, patient declined Ordered Patient will get at local pharmacy/health department PNEUMONIA VACCINE Ordered Recommend ed today, patient declined Patient will get at local pharmacy/health department Recomm ended at age 67 SHINGLES Ordered Recommend ed today, patient declined Patient will get at local pharmacy/health department MAMMOGRAM: Last Mammogram __ DEXA SCAN CERVICAL SCREENING/PELVIC EXAMINATION COLORECTAL SCREENING: Last Colonoscopy DEPRESSION SCREENING Negative BMI Overweight continue your current weight loss efforts try to lose 5% of your body weight try to lose 10% of your body weight NUTRITION PHYSICAL ACTIVITY VISION ALCOHOL USE No alcohol use Occasional/So cial Use TOBACCO USE former smoker current tobacco use LUNG CANCER SCREENING SEXUALLY ACTIVE HEPATITIS C SCREENING Not indicated GLUCOSE SCREENING LIPID SCREENING [email or web address] Not available 02/19/2024 15:48:29 Reason for Referral Orthopedic Surgeon Referral for Pain in right lower limb Referring Physician: Marlys Mcgarry, Internal Medicine, Encounter Date: 04/27/2024 Physical Therapist Referral for Pain of right knee joint eval and treat Referring Physician: Jus Ledezma, Orthopedic Surgery, Encounter Date: 05/11/2024 Results Created Date Observation Date Name Description Value Unit Range Abnormal Flag Note LastModifiedBy Organization Detail LastModifiedTime 03/27/20 23 03/26/2023 LDCT, chest , for lung cance r scree victor m No observ ation record ed. [address], [place], [address], 03/28/2023 11:23:50 03/28/20 23 03/26/2023 MRI, lumba r spine , w/o contr ast No observ ation record ed. [address], [place], [address], 03/28/2023 11:23:50 08/01/20 23 08/01/2023 LDXR, tibia + fibul a, 2 view No observ ation record ed. Not Available 2022 13:07:26 08/01/20 23 08/01/2023 US, fedele x, venou s, upper extre mity No observ ation record ed. Not Available 2022 13:07:27 08/27/20 23 08/26/2023 CT, abdom en + pelvi s, w/ contr ast No observ ation record ed. Not Available 2022 09:38:59 02/06/20 24 02/05/2024 MAMMO , scree victor m, digit al, bilat eral No observ ation record ed. BARCODE Not Available 2023 16:40:30 05/03/20 24 04/06/2024 US, duple x, arter ial, lower extre mity, compl ete No observ ation record ed. [facility] [address], [place], [address], 05/03/2024 18:25:24 05/11/20 24 XR, knee, 3 view No observ ation record ed. [email or web address] [facility] [address], [place], [address], 05/11/2024 15:24:57 Result Notes None recorded. Problems Name Problem SNOMED Code Status Onset Date Resolution Date Notes Provider Name and Address Organization Details Recorded Time Pain in lower limb 29023799 Completed 202107/09/2022 Not Available [facility] 3 05:58:41 Celluliti s 768063957 Completed 202107/09/2022 Not Available [facility] 3 05:58:41 Mammograp hy abnormal 925292498 Active 2022 Not Available [facility] 4 12:48:49 Abdominal pain 25934087 Completed 202107/09/2022 Not Available [facility] 3 05:58:41 Gastroeso phageal reflux disease 407488713 Active 2018 Not Available [facility] 4 12:48:49 Low back pain 253926302 Active 2021 Not Available [facility] 4 12:48:49 Pain in right arm 360346030 Completed 202107/09/2022 Not Available [facility] 3 05:58:41 Pain in right lower limb 539528897 Completed 202107/09/2022 Marlys Mcgarry MD [address], [facility] [address], [place], [address] , [facility] 4 14:27:20 Retinal hemorrhag e 47797547 Completed 202010/16/2022 Not Available [facility] 3 05:58:41 Tendernes s in popliteal fossa 136693234 Completed 202107/09/2022 Not Available [facility] 3 05:58:42 Pain in right hip joint 18453507293 9102 Completed 202107/09/2022 Not Available [facility] 3 05:58:42 Osteoarth ritis 894589989 Active 2022 Not Available [facility] 4 12:48:49 Hyperlipi demia 15044173 Active 2022 Not Available [facility] 4 12:48:49 Osteoporo sis 37363963 Active 2019 Not Available [facility] 4 12:48:49 Smoker 99656112 Active 2022 Not Available [facility] 4 12:48:49 Fatigue 11939819 Active 2021 Not Available [facility] 4 12:48:49 Conjuncti vitis 0304571 Completed 202107/09/2022 Not Available [facility] 3 05:58:42 Pain in lower limb 86328737 Active 2023 Marlys Mcgarry MD [address], [facility] [address], [place], [address] , [facility] 4 15:39:16 Pain in lower limb 91845916 Active 2023 Linette Albarado LPN null, [place] - [facility] 4 15:43:52 Diverticu litis 994236813 Active 2023 Marlys Mcgarry MD [address], [address], [place], [address] , [place] [facility] 4 14:26:27 Pain in right lower limb 710116478 Active 2023 Marlys Mcgarry MD [address], [address], [place], [address] , [place] [facility] 4 14:27:20 Synovial cyst of right knee 21919014928 9104 Active 2023 Marlys Mcgarry MD [address], [address], [place], [address] , [place] [facility] 4 14:51:10 Pain of right knee joint 16150278836 4100 Active 2023 Bambi Yu, Valerie null, [place] [facility] 4 15:17:11 Problem Notes None recorded. Procedures Surgical History Date Name Laterality Status Provider Name and Address Organization Details Recorded Time completed Not Available [facility] 0 12/11/2022 05:53:22 completed Not Available [facility] 0 12/11/2022 05:53:22 completed Not Available [facility] 0 12/11/2022 05:53:22 Hernia Repair completed Not Available [facility] 12/11/2022 05:53:22 completed Not Available [facility] 0 12/11/2022 05:53:22 completed Not Available [facility] 0 12/11/2022 05:53:22 Imaging Results Imaging Date Name Status LastModified by Organiz [email or web address] Details LastModified Time 03/26/2023 LDCT, chest, for lung cancer screening completed [address], [address], 03/28/2023 11:23:50 03/26/2023 MRI, lumbar spine, w/o contrast completed [address], [address], 03/28/2023 11:23:50 08/01/2023 LDXR, tibia + fibula, 2 view completed Information not available 08/06/2023 13:07:26 08/01/2023 US, duplex, venous, upper extremity completed Information not available 08/06/2023 13:07:27 08/26/2023 CT, abdomen + pelvis, w/ contrast completed Information not available 08/28/2023 09:38:59 02/05/2024 MAMMO, screening, digital, bilateral completed BAR[facility] Information not available 02/06/2024 16:40:30 04/06/2024 US, duplex, arterial, lower extremity, complete completed BARCODE [facility] [address] [facility], [place], [address], 05/03/2024 18:25:24 05/11/2024 XR, knee, 3 view completed [email or web address] [facility] [address], [place], [address], 05/11/2024 15:24:57 Procedure Notes None recorded. Medical Equipment None Reported. Allergies No known drug allergies Medications Name Sig Start Date Stop Date Status Note LastModified by Organization Details LastModified Time cyclobenzap rine 10 mg tablet TAKE 1 TABLET BY MOUTH THREE TIMES DAILY 10/21 completed Not Available Not Available Not Available naproxen 375 mg tablet Take 1 tablet twice a day by oral route. active Not Available Not Available No t Available nicotine 14 mg/24 hr daily transdermal patch APPLY 1 PATCH TOPICALLY TO SKIN EVERY 24 HOURS DIRECTED 05/11 completed Not Available Not Available Not Available clindamycin HCl 300 mg capsule TAKE 1 CAPSULE BY MOUTH TWICE DAILY FOR 7 DAYS 05/11 completed Not Available Not Available Not Available Vitamin C 500 mg tablet TAKE 1 TABLET BY MOUTH ONCE DAILY active Not Available Not Available No t Available trazodone 50 mg tablet TAKE 1 TABLET BY MOUTH AT BEDTIME NEEDED 09/14 completed Not Available Not Available Not Available ibuprofen 800 mg tablet TAKE 1 TABLET BY MOUTH THREE TIMES DAILY NEEDED active Not Available Not Available No t Available fluconazole 150 mg tablet Take 1 tablet every day by oral route. 12/16 completed Not Available Not Available Not Available benzonatate 200 mg capsule TAKE 1 CAPSULE BY MOUTH THREE TIMES DAILY FOR 7 DAYS active Not Available Not Available No t Available valacyclovi r 1 gram tablet TAKE 1 TABLET BY MOUTH EVERY 12 HOURS FOR 7 DAYS 05/11 completed Not Available Not Available Not Available hydrocodone 5 mg-acetamin ophen 325 mg tablet active Not Available Not Available No t Available meloxicam 15 mg tablet TAKE 1 TABLET BY MOUTH ONCE DAILY active Not Available Not Available No t Available alendronate 70 mg tablet TAKE 1 TABLET ONCE A WEEK active Not Available Not Available No t Available metronidazo le 500 mg tablet TAKE 1 TABLET BY MOUTH EVERY 12 HOURS FOR 7 DAYS 05/11 completed Not Available Not Available Not Available ciprofloxac in 500 mg tablet TAKE 1 TABLET BY MOUTH EVERY 24 HOURS FOR 7 DAYS 05/11 completed Not Available Not Available Not Available sulfamethox azole 800 mg-trimetho prim 160 mg tablet TAKE 1 TABLET BY MOUTH TWICE DAILY 10/21 completed Not Available Not Available Not Available peg-electro lyte solution 420 gram oral solution 12/14 completed Not Available Not Available Not Available aspirin 81 mg tablet,jamari yed release Take 1 tablet every day by oral route. 2017 active Not Available Not Available Not Avai lable tramadol 50 mg tablet TAKE 1 TABLET BY MOUTH EVERY 6 HOURS NEEDED 10/21 completed Not Available Not Available Not Available triamcinolo ne acetonide 0.1 % topical cream 01/30 completed Not Available Not Available Not Available TobraDex 0.3 %-0.1 % eye ointment 01/30 completed Not Available Not Available Not Available hydrocortis one 2.5 % topical cream with perineal applicator APPLY A THIN LAYER TO THE AFFECTED AREA(S) BY TOPICAL ROUTE 2-4 TIMESDAIL Y 01/09 completed Not Available Not Available Not Available tamsulosin 0.4 mg capsule 12/16 completed Not Available Not Available Not Available dicyclomine 20 mg tablet TAKE 1 TABLET BY MOUTH 4 TIMES DAILY 10/21 completed Not Available Not Available Not Available cephalexin 500 mg capsule TAKE 1 CAPSULE BY MOUTH EVERY 6 HOURS active Not Available Not Available No t Available pantoprazol e 40 mg tablet,jamari yed release TAKE 1 TABLET BY MOUTH ONCE DAILY NEEDED 05/11 completed Not Available Not Available Not Available nystatin 100,000 unit/gram topical cream 01/30 completed Not Available Not Available Not Available clotrimazol e-betametha sone 1 %-0.05 % topical cream 01/30 completed Not Available Not Available Not Available nicotine 21 mg/24 hr daily transdermal patch APPLY 1 PATCH TOPICALLY TO SKIN EVERY 24 HOURS DIRECTED active Not Available Not Available No t Available raloxifene 60 mg tablet 01/30 completed Not Available Not Available Not Available diclofenac sodium 75 mg tablet,jamari yed release TAKE 1 TABLET TWICE A DAY 05/11 completed Not Available Not Available Not Available clindamycin 2 % vaginal cream APPLY 1 APPLICATO RFUL VAGINALLY ONCE DAILY AT BEDTIME FOR 7 DAYS active Not Available Not Available No t Available alprazolam 2 mg tablet 12/16 completed Not Available Not Available Not Available ibuprofen 600 mg tablet TAKE 1 TABLET BY MOUTH EVERY 6 HOURS NEEDED FOR PAIN 11/20 completed Not Available Not Available Not Available oxycodone-a cetaminophe n 7.5 mg-325 mg tablet 12/16 completed Not Available Not Available Not Available estradiol 0.01% (0.1 mg/gram) vaginal cream INSERT 1 GRAM VAGINALLY THREE TIMES PER WEEK. active Not Available Not Available No t Available cefdinir 300 mg capsule TAKE 1 CAPSULE BY MOUTH EVERY 12 HOURS FOR 7 DAYS 10/21 completed Not Available Not Available Not Available fluticasone propionate 50 mcg/actuati on nasal spray,suspe nsion 01/30 completed Not Available Not Available Not Available naproxen 500 mg tablet TAKE 1 TABLET BY MOUTH TWICE DAILY NEEDED FOR PAIN 10/21 completed Not Available Not Available Not Available mometasone 0.1 % topical cream APPLY A THIN LAYER TO THE AFFECTED AREA(S) BY TOPICAL ROUTE ONCE DAILY 12/16 completed Not Available Not Available Not Available metoclopram smita 10 mg tablet TAKE 1 TABLET BY MOUTH EVERY 6 HOURS NEEDED FOR NAUSEA OR VOMITING 10/21 completed Not Available Not Available Not Available amoxicillin 875 mg-potassiu m clavulanate 125 mg tablet TAKE 1 TABLET BY MOUTH EVERY 12 HOURS 05/11 completed Not Available Not Available Not Available tobramycin 0.3 %-dexametha sone 0.1 % eye drops,suspe nsion INSTILL 1 DROP INTO AFFECTED EYE(S) BY OPHTHALMI C ROUTE EVERY 6 HOURS 10/21 completed Not Available Not Available Not Available cyclobenzap rine 5 mg tablet Take 1 tablet 3 times a day by oral route. 05/11 completed Not Available Not Available Not Available Pain Reliever (acetaminop hen) 500 mg tablet TAKE 1 TABLET BY MOUTH EVERY 6 HOURS NEEDED FOR PAIN 05/11 completed Not Available Not Available Not Available tinidazole 500 mg tablet TAKE ALL 4 TABS BY MOUTH 1 TIME DOSE 05/11 completed Not Available Not Available Not Available nitrofurant oin monohydrate /macrocryst als 100 mg capsule TAKE 1 CAPSULE BY MOUTH EVERY 12 HOURS FOR 5 DAYS MUST ADMINISTE R WITH A MEAL FOOD 11/17 completed Not Available Not Available Not Available rosuvastati n Once a day 2021 active Not Available Not Available Not Avai lable Chantix Continuing Month Box 1 mg tablet 01/30 completed Not Available Not Available Not Available Multi Vitamin 2017 active Not Available Not Available Not Avai lable Caltrate 01/09 completed Not Available Not Available Not Available ID NOW COVID-19 Test Kit TEST DIRECTED 11/17 completed Not Available Not Available Not Available Vitals Date Recorded Body height Body mass index (BMI) Body weight Body temperature Heart rate Oxygen saturation Oxygen saturation in Arterial blood by Pulse oximetry Systolic blood pressure Diastolic blood pressure Provider Name and Address Organization Details Last Updated DateTime 3 149.86 cm 8.6 kg/m2 99237.3 9 g 97.9 [degF] 80 /min 95 % 95 % 118 mm[Hg] 78 mm[Hg] Sue Lou MA [place] [facility] [employer] 3 12:29:32 Date Recorded Body height Body mass index (BMI) Body weight Body temperature Heart rate Oxygen saturation Oxygen saturation in Arterial blood by Pulse oximetry Systolic blood pressure Diastolic blood pressure Provider Name and Address Organization Details Last Updated DateTime 4 149.86 cm 8.9 kg/m2 61739.0 6 g 97.3 [degF] 72 /min 99 % 99 % 122 mm[Hg] 78 mm[Hg] Eleanor turcios [facility] [employer] [facility] [employer] [facility] 4 12:22:50 Date Recorded Body height Body mass index (BMI) Body weight Body temperature Heart rate Oxygen saturation Oxygen saturation in Arterial blood by Pulse oximetry Systolic blood pressure Diastolic blood pressure Provider Name and Address Organization Details Last Updated DateTime 4 149.86 cm 28.8 kg/m2 87405.6 3 g 98.6 [degF] 59 /min 99 % 99 % 120 mm[Hg] 72 mm[Hg] Chayo Pierre, [facility] [employer] [facility] [employer] [facility] 4 15:21:08 Date Recorded Body height Body mass index (BMI) Body weight Body temperature Heart rate Oxygen saturation Oxygen saturation in Arterial blood by Pulse oximetry Systolic blood pressure Diastolic blood pressure Provider Name and Address Organization Details Last Updated DateTime 4 149.86 cm 28.3 kg/m2 50088.9 3 g 97 [degF] 80 /min 96 % 96 % 136 mm[Hg] 80 mm[Hg] Eleanor turcios [facility] [employer] [facility] [employer] [facility] 4 14:05:50 Date Recorded Body height Body mass index (BMI) Body weight Provider Name and Address Organization Details Last Updated DateTime 05/11/2024 149.86 cm 28.1 kg/m2 62691.34 g [facility] [employer] [facility] [employer] [facility] 05/11/2024 15:13:40 Social History Question Answer Notes LastModified by Organizat ion Details LastModified Time Tobacco Smoking Status Current Every Day Smoker Not Available [facility] 12/11/2022 05:53:19 What Is Your Level Of Alcohol Consumption? Occasional [id number] Information not available 12/11/2022 What Is Your Level Of Caffeine Consumption? Moderate [id number] Information not available 12/11/2022 How Much Tobacco Do You Chew? None [id number] Information not available 12/11/2022 What Type Of Diet Are You Following? REGULAR [id number] Information not available 12/11/2022 Which Illicit Or Recreational Drugs Have You Used? None [id number] Information not available 12/11/2022 Do You Or Have You Ever Used E-cigarettes Or Vape? Never Used Electronic Cigarettes [id number] Information not available 12/11/2022 What Was The Date Of Your Most Recent Tobacco Screening? 05/11/2024 Information not available 05/11/2024 At What Age Did You Start Smoking Tobacco? 19 [id number] Information not available 12/11/2022 Do You Or Have You Ever Used Smokeless Tobacco? Never Used Smokeless Tobacco [id number] Information not available 12/11/2022 How Much Tobacco Do You Smoke? 0.25 PPD [id number] Information not available 12/11/2022 Sex: Unknown Functional Status Question Answer Note LastModified by Organizat ion Details LastModified Time What is your exercise level? None [id number] Information not available 12/11/2022 Mental Status None recorded. Family History Relationship Description Onset Age of this Age Resolved Age Notes LastModified by Organization Details LastModified Time Maternal Aunt Essential hypertension [id number] Not available 12/11/2022 05:53:24 Medical History No medical history recorded. Gynecological HistoryNo gynecological history recorded. Obstetrics History GPAL:G 0 P 0 0 0 0 Immunizations Vaccine Type Date Status Note Provider Nam e and Address Organization Details Recorded Time COVID-19, mRNA, LNP-S, PF, 30 mcg/0.3 mL dose 03/23/2021 completed Not Available [facility] 4 12:48:49 COVID-19, mRNA, LNP-S, PF, 30 mcg/0.3 mL dose 03/02/2021 completed Not Available [facility] 4 12:48:49 Past Encounters Encounter ID Performer Location Encounter Start Date Encounter Closed Date Diagnosis/Indication Diagnosis SNOMED-CT Code Diagnosis ICD10 Code Diagnosis Note [id number] [facility] [address] [facility] [place] [address] 09/14/2021 00:00:00 09/14/2021 13:05:55 [id number] [facility] [address] [facility] [place] [address] 11/20/2021 00:00:00 11/20/2021 16:03:58 [id number] [facility] [address] [facility] [place] [address] 01/03/2022 00:00:00 01/03/2022 16:44:08 [id number] [facility] [address] [place] [address] 01/14/2022 00:00:00 01/14/2022 14:56:57 [id number] [facility] [address] [place] [address] 05/15/2022 00:00:00 05/15/2022 16:59:33 [id number] [facility] [address] [address] 2022 00:00:00 2022 14:15:23 [id number] [facility] [address] [place] [address] 07/08/2022 00:00:00 07/08/2022 16:10:02 [id number] [facility] [address] [place] [address] 08/09/2022 00:00:00 08/09/2022 15:31:08 [id number] [facility] [address] [place] [address] 10/21/2022 00:00:00 10/21/2022 09:47:06 [id number] Marlys Mcgarry MD [facility] [address] [place] [address] 02/10/2023 11:37:04 02/10/2023 12:28:10 Low back pain 348688154 M54.50 [id number] Marlys Mcgarry MD [facility] [address] [place] [address]. [place] [address] 03/14/2023 12:16:27 03/14/2023 12:50:16 Gastroesophageal reflux disease 431059549 K21.9 meds prn only Low back pain 240509884 M54.50 meds prn, getting worse, has radiculopa thy symptoms, needs more w/u, may need PT Osteoporosis [id number] M8 1.0 on meds, Osteoarthritis [id number] M19.90 ibuprofen prn Adult heal th examination [id number] Z00.00 Colonoscop y- 02/27/2018 Mammogram- 08/2021 ([facility]), getting it this weekDexa- 10/03FLU- Does not getCOVID- 03/02/21, 03/23/21 Smoker [id number] F17.200 advised to quit, Hyperlipidemia [id number] E78.5 under control [id number] Marlys Mcgarry MD [facility] [place] [facility] [address] [facility] [place] [address] 11/07/2023 12:15:33 11/07/2023 12:53:29 Low back pain [id number] M54.50 stretching exercises demo given, heat Gastroesop hageal reflux disease [id number] K21.9 meds prn [id number] Marlys Mcgarry MD [facility] Internal Med [id number] [facility] [place] [address] 02/19/2024 15:15:22 02/19/2024 15:46:21 Adult health examination [id number] Z00.00 Colonoscop y- 02/27/2018 , due but wants to waitMammog cathryn- 08/2021 ([facility]), getting it this weekDexa- 10/03FLU- Does not getCOVID- 03/02/21, 03/23/21 Depression screening 171 435921 Z13.31 Pain in lower limb 77329 006 M79.606 on asa, advise dto quit smoking [id number] Marlys Mcgarry MD [facility] [place] [address] [facility] [place] [address] 04/27/2024 14:01:51 04/27/2024 14:51:03 Diverticulitis 146198314 K57.92 improved Screening for malignant neoplasm of colon 177873376 Z12.11 in 6 weeks Pain in ri ght lower limb 889895168 M79.604 no arterial disease but has Bakers cyst Synovial c yst of right knee [id number] 33023 M71.21 [id number] Jus Ledezma MD [facility] [address] [place] [address] 05/11/2024 14:46:27 05/11/2024 16:05:25 Pain of right knee joint [id number] 90736 M25.561 Health Concerns Section Related Observation LastModified by Organization Detai ls LastModified Time None Recorded Concern Status LastModified by Organization Details LastModified Time None Recorded Advance Directives Directive None Recorded Payers Encounter Date Sequence Insurance Name Policy Number Policy Cortes Covered Member ID Cortes Member ID Guarantor Name 03/14/2023 1 [employer] Yarelis Biju Villareal [id number] [place] Biju Villareal 11/07/2023 1 [employer] [facility] [id number] [place] B[place] Villareal 02/19/2024 1 [employer] [facility] [id number] [facility] 04/27/2024 1 [employer] [facility] [id number] [facility] 05/11/2024 1 [employer] [facility] [id number] [facility] Notes Date Note Type Note Provider Name and Address Organization Details Recorded Time 03/14/2023 text/html here today for r outine f/u,H/o renal stones, had surgery and stent in the pasthyperlipidemia -High cholesterol- gets a medication from work pharmacy , [employer] , rosuvastatinGERD- pantoprazole helpsInsomnia- Has trouble falling asleep and staying asleep. was prescribed trazodone in the past but never took it. She has a Hx of drug abuse and does not want anything she has to depend on.Smoker- advised to quit, smokes 5 cig a day but used to smoke a lot, smoking for 40 yrs Osteoporosis- stopped taking alendronate 2020, now restarted, dexa 10/03Back pain/Arthritis- ibuprofen prnh/o drug abuse in the past Back pain, has been going on for about 3 months and is not radiating down her legs, both sides,no numbness or tingling, pain is getting worseno urine complaint'sh/o left renal stones but pain is different Marlys Mcgarry MD [address], [place], [address], [employer] [facility] 03/14/2023 12:48:05 11/07/2023 text/html Pt is here today C/o right leg pain. Has been going on for about 1 month, starts from the thigh and goes up,no knee painno injury or fallHas been using Ibuprofen, also been Doing stretches MRI LS spine 09/04 showed arthritis Went to the ER had a colon infection a couple weeks ago, was treated with ABX. Feeling better. Was at [place], CT scan abd reviewed Marlys Mcgarry MD [address], [place], [address], [employer] 11/07/2023 12:43:31 02/19/2024 text/html She is here toda y for Right leg pain. Pain in the thigh, some times started from the calf and goes up to the thigh. Also having a numbness in her foot that comes and goes. No known injury. Ibuprofen 800 mg helps the pain but does not want to take it daily she stands all day at work. she had back pain before, MRI 09.04 showed arthritis, pain has improved. Went to the ER for left arm pains was thinking she was having a heart attack (work up was negative per pt) and they did an ultra sound that was Negative for DVT (went to [place] 2 weeks ago- no records in chart) Marlys Mcgarry MD [address], [place], [address], [employer] [facility] [employer] 02/19/2024 17:01:44 04/27/2024 text/html Pt is here today for a follow up from the ER. Record reviwed She went on 04/03 for abdominal pain, Had a CT and was diag with diverticulitis. Was given ABX and now is needing an order for a colonoscopy. she had abd pain and has improved.she has no more symptoms, bm is nl, no blood in the stools. Also pt C/o right leg pain, states she had the bilateral doppler back on 04/06.Pain on walking as well on sitting.Pain starts from the foot and goes up to the thigh, feels like numbness and tingling. Marlys Mcgarry MD [address] [facility] [address], [place], [address], [facility] [employer] [facility] 04/27/2024 14:54:12 OBGyn Episode No OBEpisode recorded.
[2024-11-05 06:49] VITALS: BMI 27.6
[2024-11-05 06:53] VITALS: BP 150/93; PULSE 64; RESP 20; TEMP 35.5; O2SAT 100
[2024-11-05] MEDS: LACTATED RINGERS 1,000 ML 150 ML IV CONT (07:03)
--- NOTE | 2024-11-05 07:05 | P.PNAN_ITS ---
Anes - Initial Pre Proc Eval Procedure: Operation Date: 11/05/24 08:00 Proposed Procedures p Screening Colonoscopy - Flip Whitney MD Date/Time: 11/05/24 07:05 Surgeon: Flip Whitney MD Pre Op Diagnosis: screening malignant neoplasm colon Patient Data Age: 64 Gender: F Height: 1.5 m Weight: 62.2 kg Last Vital Signs Temp 96 F L 11/05/24 06:53 Pulse 64 11/05/24 06:53 Resp 20 11/05/24 06:53 BP 150/93 H 11/05/24 06:53 Pulse Ox 100 11/05/24 06:53 O2 Del Method Room Air 11/05/24 06:53 Allergies Allergy/AdvReac Type Severity Reaction Status Date / Time No Known Allergies Allergy Verified 11/05/24 06:47 Home Medications ?Medication ?Instructions ?Recorded ?Confirmed ?Type alendronate 70 mg tablet 70 mg PO WEEKLY 01/19/22 11/05/24 History aspirin 81 mg chewable tablet 81 mg PO DAILY 01/25/22 11/05/24 History cholecalciferol (vitamin D3) 125 125 mcg PO DAILY 01/25/22 11/05/24 History mcg (5,000 unit) tablet (Vitamin D3) estradiol 0.01% (0.1 mg/gram) 0.25 appful vaginal .COMPLEX as 04/21/22 10/29/24 History vaginal cream directed ascorbic acid (vitamin C) 500 mg 500 mg PO DAILY 10/29/24 11/05/24 History capsule ergocalciferol (vitamin D2) 400 75 mcg PO DAILY 10/29/24 11/05/24 History unit capsule ezetimibe 10 mg-rosuvastatin 20 mg 1 tablet PO DAILY 10/29/24 11/05/24 History tablet meloxicam 7.5 mg tablet 7.5 mg PO BID PRN pain 10/29/24 11/05/24 History multivitamin (Daily Multi-Vitamin 1 tablet PO DAILY 10/29/24 11/05/24 History tablet) pantoprazole 40 mg tablet,delayed 40 mg PO DAILY 10/29/24 11/05/24 History release potassium 99 mg tablet 99 mg PO DAILY 10/29/24 11/05/24 History Patient hx anesthesia problems: none Family hx anesthesia problems: none Results Review: All pre-operative results and documents have been reviewed as part of the pre- operative evaluation. [facility] Past Medical History Medical History Arthritis PASCUAL (obstructive sleep apnea) undiagnosed Hyperlipidemia Osteoporosis Eczema Normal cardiac stress test Tobacco abuse Kidney stones Surgical History Surgical History History of colonoscopy with polypectomy (02/2018) History of section History of ventral hernia repair (11/2015) Family History Family History Mother Family history of arthritis Social History Social History Social History: She works at a [employer]. She lives alone. She has 4 living children. She smokes about a half a pack of cigarettes per day currently but has smoked as much as 1 pack of cigarettes per day. The patient denied any alcohol use to me but had reported alcohol use to nursing staff. The amount is unknown. Primary care physician: Dr. Mcgarry Code status: Full code Smoking packs per day: 0.75 Smoking cigarettes per day: 15.0 Years smoked: 25 Smoking pack-years: 18.75 Smoking status: Current every day smoker Tobacco type: cigarettes Alcohol intake: current Drinks per week: 5 Substance use: current Substance use type: marijuana Living arrangements: alone Gender identity (if verbalized by the patient): Female Sexual Orientation (if Verbalized by the Patient): Straight or Heterosexual Spiritual care concerns: No Anes - Eval Final PreProcedure Day of Procedure 11/05/24 07:05 Patient weight: overweight Heart: regular rate and rhythm Lungs: normal air movement Airway: Mallampati scale and special considerations (Edentulous. ) Neurological: alert and oriented Last oral intake: >/= 8 hours ASA classification: III Emergent: no Anesthetic plan: proceed Anesthesia type and monitoring: general GIVS and standard monitoring Results Review: All pre-operative results and documents have been reviewed as part of the pre- operative evaluation. Smoker, 3/4 ppd, smoked at 4 am, suspect PASCUAL, hyperlipidemia. Informed Consent: The patient's anesthetic plan and its attendant risks and benefits were discussed with the patient/family/POA. Questions were solicited and answers provided to the satisfaction of the patient/family/POA.
--- NOTE | 2024-11-05 07:44 | PM.HPGS ---
History of Present Illness History of Present Illness Consent: Risks, benefits, and alternatives have been discussed and questions answered. Patient agrees to proceed with procedure. Chief complaint: screening malignant neoplasm colon Narrative: Yarelis Villareal is a 64 year old female with colon polyp 5 years ago, also recently with abdominal cramping. Review of Systems Review of Systems: All systems reviewed & are unremarkable except as noted in HPI and below PMFSH Past Medical History Medical History (Updated 11/05/24 @ 07:45 by Flip Whitney MD) Colon polyp Arthritis PASCUAL (obstructive sleep apnea) undiagnosed Hyperlipidemia Osteoporosis Eczema Normal cardiac stress test Tobacco abuse Kidney stones Surgical History Surgical History History of colonoscopy with polypectomy (02/2018) History of section History of ventral hernia repair (11/2015) Family History Family History Mother Family history of arthritis Social History Social History Social History: She works at a [employer]. She lives alone. She has 4 living children. She smokes about a half a pack of cigarettes per day currently but has smoked as much as 1 pack of cigarettes per day. The patient denied any alcohol use to me but had reported alcohol use to nursing staff. The amount is unknown. Primary care physician: Dr. Mcgarry Code status: Full code Smoking packs per day: 0.75 Smoking cigarettes per day: 15.0 Years smoked: 25 Smoking pack-years: 18.75 Smoking status: Current every day smoker Tobacco type: cigarettes Alcohol intake: current Drinks per week: 5 Substance use: current Substance use type: marijuana Living arrangements: alone Gender identity (if verbalized by the patient): Female Sexual Orientation (if Verbalized by the Patient): Straight or Heterosexual Spiritual care concerns: No Meds Home Medications and Allergies Home Medications ?Medication ?Instructions ?Recorded ?Confirmed ?Type alendronate 70 mg tablet 70 mg PO WEEKLY 01/19/22 11/05/24 History aspirin 81 mg chewable tablet 81 mg PO DAILY 01/25/22 11/05/24 History cholecalciferol (vitamin D3) 125 125 mcg PO DAILY 01/25/22 11/05/24 History mcg (5,000 unit) tablet (Vitamin D3) estradiol 0.01% (0.1 mg/gram) 0.25 appful vaginal .COMPLEX as 04/21/22 10/29/24 History vaginal cream directed ascorbic acid (vitamin C) 500 mg 500 mg PO DAILY 10/29/24 11/05/24 History capsule ergocalciferol (vitamin D2) 400 75 mcg PO DAILY 10/29/24 11/05/24 History unit capsule ezetimibe 10 mg-rosuvastatin 20 mg 1 tablet PO DAILY 10/29/24 11/05/24 History tablet meloxicam 7.5 mg tablet 7.5 mg PO BID PRN pain 10/29/24 11/05/24 History multivitamin (Daily Multi-Vitamin 1 tablet PO DAILY 10/29/24 11/05/24 History tablet) pantoprazole 40 mg tablet,delayed 40 mg PO DAILY 10/29/24 11/05/24 History release potassium 99 mg tablet 99 mg PO DAILY 10/29/24 11/05/24 History Allergies Allergy/AdvReac Type Severity Reaction Status Date / Time No Known Allergies Allergy Verified 11/05/24 06:47 Vital Signs Vital Signs - 24 hr 11/05/24 06:53 Temperature 96 F L Pulse Rate 64 Respiratory Rate 20 Blood Pressure 150/93 H Pulse Oximetry 100 Oxygen Delivery Room Air Exam Const: General: comfortable and no acute distress HENMT: Face/Nose/Sinus: Normal nares present Eyes: General: appearance normal, both eyes and all related structures Neck: Neck: no JVD Resp: Auscultation: clear to auscultation bilaterally Cardio: Rate: regular rate Rhythm: regular rhythm GI: Inspection: non-distended GI Palp: Yes Soft to palpation Skin: General skin exam: normal color Neuro: Speech: normal speech Extrem: General: normal to inspection Psych: Mental Status: mental status grossly normal Assessment and Plan Assessment and plan (1) Colon polyp: Code(s): K63.5 - Polyp of colon Status: Acute Assessment and Plan: colonoscopy
[2024-11-05 08:05] VITALS: BP 110/72; PULSE 80; RESP 14; O2SAT 97
[2024-11-05 08:15] VITALS: BP 118/77; PULSE 71; RESP 17; O2SAT 99
[2024-11-05 08:25] VITALS: BP 133/82; PULSE 79; RESP 20; O2SAT 99
[2024-11-05] MEDS: DICYCLOMINE HCL 10 MG CAPSULE PO (08:34)
[2024-11-05 08:35] VITALS: BP 116/85; PULSE 77; RESP 20; O2SAT 99
[2024-11-05 08:46] VITALS: BP 131/84; PULSE 70; RESP 20; O2SAT 99
--- NOTE | 2024-11-05 08:50 | SUR.PHASEII ---
Dr. Palomares reevaluated patient after she had taken the Bentyl. Patient stated she was feeling much better. Pain at a one.
== END 2024-11-05 09:00 | disposition home or self-care (01) ==
PROVIDERS: Visit Provider Internal Medicine Gastroenterology
PROC: 0DJD8ZZ Inspection of Lower Intestinal Tract, Via Natural or Artificial Opening Endoscopic (ICD-10-PCS; CPT 45378; principal; 2024-11-05 08:00)
DX: Z12.11 Encounter for screening for malignant neoplasm of colon (principal); K64.8 Other hemorrhoids; K57.30 Diverticulosis of large intestine without perforation or abscess without bleeding; E78.5 Hyperlipidemia, unspecified; M81.0 Age-related osteoporosis without current pathological fracture; G47.33 Obstructive sleep apnea (adult) (pediatric); F17.210 Nicotine dependence, cigarettes, uncomplicated; F12.90 Cannabis use, unspecified, uncomplicated; Z79.83 Long term (current) use of bisphosphonates; Z79.82 Long term (current) use of aspirin; Z98.890 Other specified postprocedural states; Z86.0100 Personal history of colon polyps, unspecified; Z87.442 Personal history of urinary calculi
CPT/HCPCS: 45378; A9270; J2003; J2704; J7120

== ENCOUNTER 2025-02-02 09:15 | Outpatient (CLI) | payer OTHER, SELFPAY ==
--- OUTSIDE RECORDS SUMMARY | 2025-02-02 10:09 | XMS_ITS | Clinical Summary ---
Author Organization [facility] [employer] [place] Address [address] [place] [address] Care Team Providers Care Director Of Partnerships Name Role Phone Mitali Guzman MD Primary Care Provider [phone] Allergies No known active allergies Medications MULTIVIT,CALC,WA NS/IRON/FOLIC (ONE-A-DAY WOMENS FORMULA ORAL) Take by mouth daily. Active cholecalciferol, Vitamin D3, 125 mcg (5,000 unit) Capsule Take by mouth. 11/02/19 21 Active POTASSIUM CITRATE ORAL POTASSIUM CITRATE CAPSULE 11/02/19 21 Active ascorbic acid, vitamin C, (Vitamin C) 500 mg tabletIndication s:Low ferritin level Take 1 Tablet (500 mg) by mouth daily. 60 Tablet 07/30/20 22 Active estradioL (ESTRACE) 0.01% (0.1 mg/g) vaginal creamIndications :Atrophic vaginitis Insert one gram vaginally three times per week. 42.5 Gram 08/19/20 24 Active rosuvastatin (CRESTOR) 20 mg tabletIndication s:Elevated LDL cholesterol level Take 1 Tablet (20 mg) by mouth daily. 90 Tablet 10/19/19 25 Active alendronate (FOSAMAX) 70 mg tabletIndication s:Age-related osteoporosis without current pathological fracture Take 70 mg by mouth every 7 days. empty stomach before other meds,with 8oz of water, stay upright 30 min Active fluticasone propionate (FLONASE) 50 mcg/spray [place], Suspension nasal inhalerIndicatio ns:Nasal congestion Administer 2 Sprays in each nostril daily. 16 Gram 12/14/19 25 Active gabapentin (NEURONTIN) 100 mg capsuleIndicatio ns:Pain of right lower extremity Take 1 Capsule (100 mg) by mouth see administration instructions. 270 Capsule 12/18/19 25 Active pantoprazole (PROTONIX) 40 mg Tablet, Delayed Release (E.C.)Indication s:Gastroesophage al reflux disease, unspecified whether esophagitis present Take 1 Tablet (40 mg) by mouth daily. 30 Tablet 2 12/18/19 25 Active Active Problems Problem Noted Date Diagnosed Date Nephrolithiasis 07/16/2024 Menopausal syndrome 01/26/2021 Retinal hemorrhage 11/17/2020 Osteoporosis 05/31/2020 Elevated LDL cholesterol level 09/24/2019 Fibrocystic disease of breast 07/23/2019 Atrophic vaginitis 07/23/2019 Gastroesophageal reflux disease 02/12/2019 Tobacco use 04/20/2018 Resolved Problems Problem Noted Date Diagnosed Date Resolved Date Candidiasis 01/26/2021 10/10/2023 Bacterial vaginosis 07/23/2019 02/17/20 24 Chronic obstructive lung disease 07/23/2019 04/09/2021 Problematic vaginal discharge 07/23/2019 02/17/2024 Constipation 08/18/2017 02/17/2024 Fatigue 08/18/2017 02/17/2024 Dysmenorrhea 07/21/2017 10/10/2023 Cough 07/26/2016 10/10/2023 Tobacco dependence syndrome 07/26/2016 02/17/2024 Encounters Date Type Department Care Team Description 01/11/2025 External Device Data ST[facility] ABSTRACTION Provider, Abstract 12/29/2024 External Device Data ST[facility] ABSTRACTION Provider, Abstract 12/22/2024 External Device Data [facility] ABSTRACTION Provider, Abstract 12/21/2024 External Device Data [facility] ABSTRACTION Provider, Abstract 12/20/2024 External Device Data ST[facility] ABSTRACTION Provider, Abstract 12/18/2024 External Device Data STL ABSTRACTION Provider, Abstract 12/18/2024 External Device Data STL ABSTRACTION Provider, Abstract 12/17/2024 8:00 AM REPORTING PROCESS CONSULTANT Office Visit [facility] [employer] [address] [place] [address] Mitali Guzman MD Pain of right lower extremity (Primary Dx); Gastroesophageal reflux disease, unspecified whether esophagitis present; Age-related osteoporosis without current pathological fracture 12/17/2024 Telephone [facility] [place] [address] [place] [place] [phone] Mitali Guzman MD Gabapentin 12/15/2024 External Device Data STL ABSTRACTION Provider, Abstract 12/13/2024 1:00 PM REPORTING PROCESS CONSULTANT Office Visit [facility] [employer] [place] [address] [place] [address] Bambi Lynch ANP Nasal congestion (Primary Dx); Acute cough; Generalized body aches 12/01/2024 External Device Data ST[facility] ABSTRACTION Provider, Abstract 11/04/2024 External Device Data [facility] ABSTRACTION Provider, Abstract from Last 3 Months Immunizations Immunization Administration Dates Next Due (ADACEL/BOOSTRIX)(10 YR UP) TDAP VACCINE, 0.5ML, IM 10/13/2016 (PFIZER)(12 YR UP) COVID-19 VACCINE - EMERGENCY USE AUTHORIZATION, MRNA, [id number](PF) 30 MCG/0.3 ML IM SUSP 03/23/2021,03/02/2021 (SHINGRIX)(50 YRS UP) ZOSTER VACCINE RECOMBINANT, 0.5 ML, IM 10/01/2019,07/23/2019 Family History Medical History Relation Name Comments No Known Problems Brother 1 No Known Problems Brother 2 No Known Problems Brother 3 No Known Problems Daughter 1 No Known Problems Daughter 2 Unknown Father Unknown Maternal Grandfather Unknown Maternal Grandmother Arthritis-rheumatoid Mother Unknown Paternal Grandfather Unknown Paternal Grandmother No Known Problems Sister 1 No Known Problems Sister 2 No Known Problems Son 2 No Known Problems Son 3 Relation Name Status Comments Brother 1 Alive Brother 2 Alive Brother 3 Alive Daughter 1 Alive Daughter 2 Alive Father Maternal Grandfather Maternal Grandmother Mother Alive Paternal Grandfather Paternal Grandmother Sister 1 Alive Sister 2 Alive Son 1 Son 2 Alive Son 3 Alive Social History Tobacco Use Types Packs/Day Years Used Date Smoking Tobacco: Every Day Cigarettes Smokeless Tobacco: Never Tobacco Cessation:Ready to Q uit: Not Asked; Counseling Given: Not Answered Alcohol Use Standard Drinks/Week Comments Yes 0 (1 standard drink = 0.6 oz pur e alcohol) occasional Comments No Sex and Gender Information Value Date Recorded Sex Assigned at Not on file Legal Sex Female 10:30 AM CDT Gender Identity Not on file Sexual Orientation Not on file Occupation Industry Job Start Date Job End Date Not on file Not on file Not on file Not on file Last Filed Vital Signs Vital Sign Reading Time Taken Comments Blood Pressure 126/84 12/17/2024 7:48 AM REPORTING PROCESS CONSULTANT Pulse 72 12/17/2024 7:48 AM REPORTING PROCESS CONSULTANT Temperature 37.1 C (98.8 F) 12/13/2024 12:52 PM REPORTING PROCESS CONSULTANT Respiratory Rate 18 12/17/2024 7:48 AM REPORTING PROCESS CONSULTANT Oxygen Saturation 95% 12/17/2024 7:48 AM REPORTING PROCESS CONSULTANT Inhaled Oxygen Concentration - - Weight 62.2 kg (137 lb 3.2 oz) 12/17/2024 7:48 A M REPORTING PROCESS CONSULTANT Height 149.9 cm (4' 11 ) 12/17/2024 7:48 AM REPORTING PROCESS CONSULTANT Body Mass Index 27.71 12/17/2024 7:48 AM REPORTING PROCESS CONSULTANT Plan of Treatment Upcoming Encounters Date Type Department Care Team (Late st Contact Info) Description 02/21/2025 7:40 AM CDT Office Visit [facility] [employer] [place] [address] [place] [address] Health Maintenance Due Date Last Done Comments HPV/Cotest (21-29) 1983 HPV/Cotest (30-65) 1992 FIT-DNA Q 3 years 2007 Flex Sig/CT Colonography Q 5 years 2007 FIT/FOBT Q 1 year 07/29/2020 07/29/2019 RSV VACCINE (60+ or ) (1 - Risk 60-74 years 1-dose series) 2022 COVID-19 Vaccine (3 - 2023-2 5 season) 2024 03/23/2021, 03/02/2021 Preventative Visit- Commercial 10/13/2024 07/16/2024 , 09/16/2016 BREAST CANCER SCREENING 02/04/2025 02/05/20 24, 11/14/2022, 10/24/2022, Additional history exists Pre-Diabetes and Diabetes Screening 07/25/2025 07/25/2022 CERVICAL CANCER SCREENING 01/11/2026 PAP SMEAR 01/11/2026 01/11/2023 (Prev iously completed), 07/29/2019, 09/16/2016, Additional history exists DTAP/TDAP/TD VACCINES (2 - T d or Tdap) 10/13/2026 10/13/2016 COLORECTAL SCREENING 03/13/2028 03/13/2018 (Previously completed) Colorectal Cancer Screening 03/13/2028 ZOSTER VACCINE Completed 10/01/2019, 07/23/2019 INFLUENZA VACCINE Completed 07/16/2024, , 07/20/2021 Procedures Procedure Name Priority Date/Time Associated Diagnosis Comments POC INFLUENZA A/B AND COVID-19 ANTIGENS Routine 12/13/2024 1:36 PM REPORTING PROCESS CONSULTANT Acute cough Generalized body aches MAMMO 3D SALIMA SCREEN BILAT W OR WO CAD Routine 02/05/2024 Encounter for screening mammogram for breast cancer HEMOGLOBIN A1C Routine 07/25/2022 8:02 AM CDT Encounter for routine adult health examination without abnormal findings CERV/VAG CYTO SCREEN PAP W/O HPV Routine 07/29/2019 7:56 AM CDT Screening for cervical cancer POC OCCULT BLOOD 1 CARD Routine 07/29/2019 7:54 AM CDT Rectal bleeding from Last 3 Months or Most Recently Relevant to Health Maintenance Results * POC INFLUENZA A/B AND COVID-19 ANTIGENS (12/13/2024 1:36 PM REPORTING PROCESS CONSULTANT) INFLUENZA A AG POC Not Detected Not Detected [facility] [place] INFLUENZA B AG POC Not Detected Not Detected [facility] [place] COVID-19 ANTIGEN POC Presumptively Negative Presumptively Negative [facility] [place] INTERNAL K[place] QC POC Pass Pass [facility] [place] KIT LOT NUMBER POC [id number] [facility] [place] EXP DATE POC 05/30/25 [facility] [place] Upper Respiratory 12/13/2024 1:36 PM REPORTING PROCESS CONSULTANT Bambi Lynch ANP POINT OF CARE TESTING Final Result T [facility]# [id number] [address] [place] [address] * MAMMO 3D SALIMA SCREEN BILAT W OR WO CAD (02/05/2024) Anatomical Region Laterality Modality Breast Bilateral Mammography Bambi Lynch ANP MAMMO ORDERABLES Final Resul t * HEMOGLOBIN A1C (07/25/2022 8:02 AM CDT) HEMOGLOBIN A1C 5.1 <5.7 % of total Hgb [facility] Comment: For the purpose of screening for the presence of diabetes: <5.7% Consistent with the absence of diabetes 5.7-6.4% Consistent with increased risk for diabetes (prediabetes) > or =6.5% Consistent with diabetes This assay result is consistent with a decreased risk of diabetes. Currently, no consensus exists regarding use of hemoglobin A1c for diagnosis of diabetes in children. According to [place] Diabetes Association (ADA) guidelines, hemoglobin A1c <7.0% represents optimal control in non- diabetic patients. Different metrics may apply to specific patient populations. Standards of Medical Care in Diabetes(ADA). ESTIMATED AVERAGE GLUCOSE (MG/DL) 100 mg/dL [facility] ESTIMATED AVERAGE GLUCOSE (MMOL/L) 5.5 mmol/L [facility] Comment: Test Performed at: [facility] [address] [place] [address] Noel Davidson D.O., MPH Blood 07/25/2022 8:02 AM CDT 07/26/2022 4:24 AM CDT Verenice Selby MECHANIC SENIOR CHEMISTRY ORDERABLES F inal Result [facility] [phone] [facility] [address] [facility] [place] [address] * CERV/VAG CYTO SCREEN PAP W/O HPV (07/29/2019 7:56 AM CDT) DIAGNOSIS (PAP): Comment [facility] Comment:NEGATIVE FOR INTRAEP ITHELIAL LESION OR MALIGNANCY. ADEQUACY: Comment [facility] Comment: Satisfactory for evaluation. Endocervical and/or squamous metaplastic cells (endocervical component) are present. CLINICIAN PROVIDED ICD10 Comment [facility] Comment:Z12.4 PERFORMED BY (PAP): Comment [facility] Comment:Chandrika Rhodes, Cyto technologist (ASCP) RESULT (PAP): . [facility] SEE NOTE (PAP): Comment [facility] Comment: The Pap smear is a screening test designed to aid in the detection of premalignant and malignant conditions of the uterine cervix. It is not a diagnostic procedure and should not be used as the sole means of detecting cervical cancer. Both false-positive and false-negative reports do occur. CYTOLOGY DEVELOPMENT TECHNICAL LEAD METHODOLOGY Comment [facility] Comment: This liquid based ThinPrep(R) pap test was screened with the use of an image guided system. Genital SWAB OF ENDOCERVIX / Unknown 07/29/2019 7:56 AM CDT 07/29/2019 Narrative [facility] - 08/02/2019 2:35 PM CDT Performed at: [address] [place] [id number] [employer]visor [employer]aning: Dea Cristina MD, Phone: [phone] Specimen Comment: No. of containers..01 ThinPrep Vial Yumiko Brooke NP PATHOLOGY/CYTOLOGY LINA FAY Final Result [facility] [phone] * (ABNORMAL) POC OCCULT BLOOD 1 CARD (07/29/2019 7:54 AM CDT) OCCULT BLOOD 1 CARD POC Positive(A ) Negative [facility] [place] K[place] QC Pass Pass [facility] [place] CARD LOT NUMBER POC [id number] [facility] [place] CARD EXPIRATION DATE POC 12/2019 [facility] [place] DEVELOPER LOT NUMBER POC [id number] [facility] [place] EX[place] DATE POC 02/2020 [facility] Stool STOOL SPECIMEN / Unknown 07/29/2019 7:54 AM CDT us Yumiko Brooke FRAMEMAN POINT OF CARE TESTING F inal Result [facility] CLIA# [id number] [address] [place] [address] from Last 3 Months or Most Recently Relevant to Health Maintenance Insurance [employer] Care Teams Director Of Partnerships Relationship Specialty Start Date End Date Mitali Guzman MD [address] [place] [address] PCP - General Internal Medicine 07/29/24
--- OUTSIDE RECORDS SUMMARY | 2025-02-02 10:09 | XMS_ITS | CONTINUITY OF CARE DOCUMENT ---
Author Name daly, daly Address Unknown Organization [facility] Address [address] [place] [address] Phone [phone] Care Team Providers Care Information Analyst Name Role Phone Jenaro Hirsch MD Unavailable Nitin Mcgarry MD Unavailable [phone] Nitin Mcgarry MD Unavailable PROBLEMS Condition Status Date Provider Notes Chest pain-type to be determined active Nida Stephens MD Tobacco abuse active Mynor Stephens MD Wheezing active Mynor Stephens MD Cough active Mynor Stephens MD ENCOUNTERS Date Type Provider Location Encounter Diag nosis - In-person encounter Office Visit Jenaro Hirsch MD [place] [facility] - In-person encounter Office Visit Mynor Stephens MD [place] [facility] Tobacco abuse - In-person encounter Office Visit Mynor Stephens MD [place] [facility] Chest pain-type to be determinedTobacco abuseWheezingCough VITAL SIGNS Date Observation Value Provider Body Mass Index (Ratio) 29.49 kg/m2 Keith Hirsch MD blood pressure, cuff size regular Ke rri Yara blood pressure, diastolic 70 mm[Hg] Ke rri Malikuenenfphylliser blood pressure, systolic 110 mm[Hg] Ker ri Shivamelder oxygen saturation, oximetry 99 % Estee Alexandreer respiratory rate E&M 16 /min Estee rinconeldkatherine pulse rate 84 /min Estee Duenas lder weight E&M 146 [lb_av] Estee Duenas lder height E&M 59 [in_i] Estee Duenas lder blood pressure, diastolic 80 mm[Hg] Freddy [facility] blood pressure, systolic 120 mm[Hg] Evelyn Langleyst [facility] pulse rate 84 /min Estee Duenas er oxygen saturation, oximetry 97 % Estee Langleyst [facility] respiratory rate E&M 16 /min Estee rinconst [facility] Body Mass Index (Ratio) 29.69 kg/m2 [facility] weight E&M 147 [lb_av] Estee Duenas er blood pressure, diastolic 70 mm[Hg] Lauren tidwellBeccaalfredo Root blood pressure, systolic 122 mm[Hg] Perla Root pulse rate 84 /min Marily estevez oxygen saturation, oximetry 95 % Marily Root respiratory rate E&M 16 /min Jose Root Body Mass Index (Ratio) 30.09 kg/m2 Melissa Root weight E&M 149 [lb_av] Marily estevez height E&M 59 [in_i] Marily estevez ALLERGIES No Known Drug Allergies RESULTS Date Observation Value Provider Reference Range Interpretation Location free thyroxine index 6.4 ??g/dL [facility] 4.4 - 11.4 triiodothyronine uptake 1.2 TBI [facility] 0.8 - 1.3 thyroxine, serum, total 7.7 ??G/DL [facility] 4.5 - 11.7 thyroid stimulating hormone, serum 1.440 ??IU/ML [facility] 0.270 - 4.200 anion gap, serum 10.6 [facility] - albumin/globulin ratio, serum 2.5 g/dL [facility] 1.1 - 2.5 globulin, serum 2.5 [facility] 2.3 - 3.8 urea nitrogen/creatinine ratio, serum 21.1 [facility] - Estimated Glomerular Filtration Rate (calc) 69.3 (?) [facility] 59.0 - chloride, serum 102.4 mmol/L [facility] 98.0 - 107.0 potassium, serum 4.2 mmol/L [facility] 3.5 - 5.1 sodium, serum 142.0 mmol/L [facility] 136.0 - 145.0 creatinine, serum 0.9 mg/dL [facility] 0.5 - 1.0 carbon dioxide, venous blood 29.0 mmol/L [facility] 22.0 - 29.0 albumin, serum 4.0 g/dL [facility] 3.5 - 5.2 calcium, serum 9.6 mg/dL [facility] 8.6 - 10.2 aspartate aminotransferase (SGOT), serum 17.0 1/L [facility] 0.0 - 32.0 alkaline phosphatase, serum 84.0 1/L [facility] 40.0 - 130.0 alanine aminotransferase (SGPT), serum 14.0 1/L [facility] 0.0 - 33.0 protein, total, serum 6.5 g/dL [facility] 6.6 - 8.7 Low bilirubin, serum, total 0.3 mg/dL [facility] 0.0 - 1.2 urea nitrogen, blood 19.0 mg/dL [facility] 6.0 - 20.0 blood glucose, random 91.0 mg/dL [facility] 74.0 - 99.0 red blood cell distribution width, size density 40.8 fL [facility] - immature granulocytes, percentage of total cells, blood 0.1 % [facility] - nucleated red blood cells as percent of blood leukocytes 0.0 % [facility] - red blood cell (erythrocyte) count, per high power field 0.0 10*3/UL [facility] eosinophils as percent of blood leukocytes 0.4 % [facility] - neutrophils as percent of blood leukocytes 45.9 % [facility] - Absolute Neutrophils 3.1 CELLS/UL [facility] 1.5 - 7.8 basophils as percent of blood leukocytes 0.7 % [facility] - Absolute Basophils 0.1 CELLS/UL [facility] 0.0 - 0.2 monocytes as percent of blood leukocytes 9.3 % [facility] - Absolute Monocytes 0.6 CELLS/UL [facility] 0.2 - 1.0 lymphocytes as percent of blood leukocytes 43.6 % [facility] - Absolute Lymphocytes 3.0 CELLS/UL [facility] 0.9 - 3.9 mean platelet volume 12.0 (?) [facility] - platelet count 234.0 THOUSAND/UL [facility] 100.0 - 400.0 mean corpuscular hemoglobin concentration, RBC 33.8 G/DL [facility] 31.0 - 38.0 mean corpuscular hemoglobin, RBC 25.8 pg [facility] 25.0 - 35.0 mean corpuscular volume, RBC 76.4 fL [facility] 75.0 - 100.0 hematocrit, blood 37.0 % [facility] 35.0 - 55.0 hemoglobin, blood 12.5 g/dL [facility] 11.5 - 16.5 erythrocyte count, whole blood 4.8 MILLION/UL [facility] 3.5 - 5.5 activated partial thromboplastin time 30.6 SECONDS [facility] 23.0 - 33.0 prothrombin time (patient) 10.1 s [facility] 9.0 - 11.5 international normalized ratio (INR) 0.9 [facility] 0.9 - 1.1 HISTORY OF MEDICATION USE Medication Status Instructions Dates Provider Indications Com ments [facility] NICOTINE PATCH 24 HOUR active as directed Estee Livingston POTASSIUM CITRATE CAPSULE active once a day Estee Livingston VITAMIN D3 125 MCG (5000 UT) ORAL CAPSULE active ONE TAB BY MOUTH DAILY Estee Livingston ASPIRIN 81 81 MG ORAL TABLET DELAYED RELEASE active One Tab By Mouth Daily Estee Livingston MULTIVITAMINS ORAL CAPSULE active ONE TAB. DAILY Estee Livingston CHANTIX CONTINUING MONTH HWOARD 1 MG ORAL TABLET completed One pack. Take as directed - Estee Livingston CHANTIX STARTING MONTH HOWARD 0.5 MG X 11 & 1 MG X 42 ORAL TABLET completed One Pack. Take as directed. - Estee Livingston PROTONIX 40 MG ORAL TABLET DELAYED RELEASE completed ONE TABLET DAILY - Estee Livingston METOPROLOL TARTRATE 25 MG ORAL TABLET completed half tablet twice daily - Estee Livingston CITRACAL MAXIMUM TABLET completed once daily - Estee Livingston RALOXIFENE HCL 60 MG ORAL TABLET completed once daily - Estee Livingston SOCIAL HISTORY Date Observation Value Provider number of grandchildren Jenaro Hirsch MD U loli Hirsch MD alcohol use, average drinks per day social Jenaro Hirsch MD alcohol use yes Jenaro Hirsch MD smoking/tobacco cess ation, patient education and counseling yes Jenaro Hirsch MD social history E&M S moking History: P lane currently smokes every day. Jenaro Hirsch MD social history reviewed E&M revi ewed - no changes required Jenaro Hirsch MD number of years as a smoker 25 a Estee Ganaristeo smoking history, tot al pack/day 3-4 cigs a day Estee Yara cigarette use yes Estee Ganlea manuel smoking status Current every day smoker Nancy eisenberg Yara social history reviewed E&M revi ewed - no changes required Mynor Stephens MD alcohol use, average drinks per day social Estee Yara smoking/tobacco cess ation, patient education and counseling yes Estee Yara alcohol use yes Estee Henrique restrepo number of years as a smoker 20 a Estee Ganaristeo smoking history, tot al pack/day 0.5 Estee Yara cigarette use yes Estee Gangermandeidra kaleb smoking status Current every day smoker Nancy eisenberg Yara social history E&M Smoking Histo ry: P lane currently smokes every day. P lane has been counseled to quit. Mynor Stephens MD social history reviewed E&M revi ewed - no changes required Mynor Stephens MD smoking/tobacco cess ation, patient education and counseling yes Mynor Stephens MD number of years as a smoker 20 a Marily Root smoking history, tot al pack/day 0.5 Marily Root cigarette use yes Marily munoz smoking status Current every day smoker M Angela Root FAMILY HISTORY Family Member Condition First Degree Blood Relative No Known Fam rené History INSURANCE PROVIDERS Payer name Policy type / Coverage type [facility] ID [facility] Commercial insurance co elizabeth [id number] ADVANCE DIRECTIVES Name Date DISCUSSED - NO DECISION MADE TREATMENT PLAN Date Name Performer Cardiology Follow up :The Patient was reencouraged to stop smoking. Jenaro Hirsch MD Cardiology Follow up :Had a negative stress echo. We will continue to monitor her. She was instructed to reach out to us if her symptoms reoccur but if not we will see her in 6 months Jenaro Hirsch MD Cardiology Follow up :Benefits of smoking cessation have been reviewed. Tray Gibbs Cardiology Follow up :She still has chest pain. Her stress echo showed no evidence of ischemia. Tray Colónberg Cardiology:Orders: S NOMED-CT: [id number] Current Medications Documented ([id number]) F VC - 75823 (57929) F RC - 42440 (55997) D LCO - 55869 (31615) Mynor Stephens MD Cardiology:Orders: S NOMED-CT: [id number] Current Medications Documented ([id number]) F VC - 35766 (99935) F RC - 84079 (98266) D LCO - 90299 (41318) Mynor Stephens MD Cardiology:Orders: E KG (CPT-88599) S TR - Echo (CPT-16963) Mynor Stephens MD Date Name LIPID PANEL PARTIAL THROMBOPLAST IN TIME, ACTIVATED PROTHROMBIN TIME WIT H INR THYROID PANEL WITH T SH, 3RD GENERATION CBC (INCLUDES DIFF/P LT) COMPREHENSIVE METABO LIC PANEL W/EGFR STR - Echo DLCO - 90578 FRC - 08582 FVC - 28553 HISTORY OF PROCEDURES Procedure Date Procedure Name Provider Procedure Notes S chanelus SNOMED-CT: 574934332 Smoking Cessation Counseling Mynor Stephens MD completed EKG Mynor candelario MD completed SNOMED-CT: 504105317248316 Current Medications Documented Mynor Stephens MD completed BLOOD COUNT HEMOGLOBIN Mynor shah MD completed FVC - 18768 Mynor candelario MD completed FRC - 10813 Mynor candelario MD completed DLCO - 35690 Mynor candelario MD completed EKG Mynor candelario MD completed SNOMED-CT: 008162251926475 Current Medications Documented Mynor Stephens MD completed
--- OUTSIDE RECORDS SUMMARY | 2025-02-02 10:09 | XMS_ITS | Data Portability ---
Author Organization [place] [facility] [place], Main Office Address [address] [place] [address] Care Team Providers Care Meter Setter Name Role Phone MARLYS MCGARRY Primary Care Provider [phone] MARLYS MCGARRY Referring Provider Assessment Encounter Date Assessment Date Assessment LastModified [...] Lab CBC w/ auto diff [address] (Lab), [address] [facility], [place], [address], 3 08:22:57 lipid panel, serum [address] (Lab), [address] [place], [address], 3 08:22:57 CMP, serum or plasma [address] (Lab), [address] [facility], [place], [address], 3 08:22:57 Referral physical therapist referral - eval and treat 2023 024 [email or web address] Not available 4 15:43:36 orthopedic surgeon referral 2023 024 [email or web address] Jus Ledezma MD, [address] [facility], [place], [address], 4 08:17:41 Procedures colonoscopy screening (PROC) 2023 024 [email or web address] Bryant Graham MD, [address] [facility] [address], [place], [address], 4 08:37:56 Surgeries None recorded. Imaging XR, knee, 3 view 2023 [address] [facility], [address], [place], [address], 4 08:35:39 US, duplex, arterial, lower extremity, complete - no auth required WITH CHAPARRITA 2023 024 [facility], [address], [place], [address], 4 18:25:24 LDCT, chest, for lung cancer screening - auth approved [id number] 2022 023 [facility], [address], [place], [address], 3 18:13:39 MRI, lumbar spine, w/o contrast - No auth required per [place]. 03/14/20232022 023 [facility], [address], [place], [address], 3 09:09:48 Medication Orders Mobic 15 mg tablet [address] [facility], [address] [place] [address], [address], 4 00:19:35 ibuprofen 800 mg tablet 2023 024 [facility], [address] [place] [address], [address], 4 12:42:57 pantoprazol e 40 mg tablet,jamari yed release [address] [facility], [address] [place] [address], [address], 4 15:15:55 pantoprazol e 40 mg tablet,jamari yed release [address] [facility], [address] [place] [address], [address], 4 15:15:55 Patient TargetsNo targets recorded. Patient Instructions Encounter Date Encounter Id Patient Instructions Last Modified By Organization Details Last Modified Time 02/19/2024 [id number] risk assessment* Not availabl e 02/19/2024 17:01:41 [...] local pharmacy/health department MAMMOGRAM: Last Mammogram __ No screening necessary patient is up to date DEXA SCAN CERVICAL SCREENING/PELVIC EXAMINATION COLORECTAL SCREENING: Last Colonoscopy DEPRESSION SCREENING Negative BMI Overweight continue your current weight loss efforts try to lose 5% of your body weight try to lose 10% of your body weight NUTRITION PHYSICAL ACTIVITY Need more exercise/physical activity VISION ALCOHOL USE No alcohol use Occasional/So cial Use TOBACCO USE former smoker current tobacco use LUNG CANCER SCREENING SEXUALLY ACTIVE HEPATITIS C SCREENING Not indicated GLUCOSE SCREENING LIPID SCREENING [email or web address] Not available 02/19/2024 15:48:29 Reason for Referral Orthopedic Surgeon Referral for Pain in right lower limb Referring Physician: Marlys Mcgarry, Internal Medicine, Encounter Date: 04/27/2024 Physical Therapist Referral for Pain of right knee joint eval and treat Referring Physician: Jus Ledezma, Orthopedic Surgery, Encounter Date: 05/11/2024 Results Created Date Observation Date Name Description Value Unit Range Abnormal Flag Note LastModifiedBy Organization Detail LastModifiedTime 03/27/2003/26/2023 LDCT, chest , for lung cance r scree victor m No observ ation record ed. [address], [place], [address], 03/28/2023 11:23:50 03/28/20 23 03/26/2023 MRI, lumba r spine , w/o contr ast No observ ation record ed. [address], [place], [address], 03/28/2023 11:23:50 08/01/20 23 08/01/2023 LDXR, tibia + fibul a, 2 view No observ ation record ed. Not Available 2022 13:07:26 08/01/20 23 08/01/2023 US, ronn x, venou s, upper extre mity No [...] compl ete No observ ation record ed. [facility] [address], [place], [address], 05/03/2024 18:25:24 05/11/20 24 XR, knee, 3 view No observ ation record ed. [email or web address] [facility] [address], [place], [address], 05/11/2024 15:24:57 Result Notes None recorded. Problems Name Problem SNOMED Code Status Onset Date Resolution Date Notes Provider Name and Address Organization Details Recorded Time Pain in lower limb 47026687 Completed 202107/09/2022 Not Available [facility] 3 05:58:41 Celluliti s 820412246 Completed 202107/09/2022 Not Available [facility] 3 05:58:41 Mammograp hy abnormal 784232668 Active 2022 Not Available [facility] 4 12:48:49 Abdominal pain 99476936 Completed 202107/09/2022 Not Available [facility] 3 05:58:41 Gastroeso phageal reflux disease 392154758 Active 2018 Not Available [facility] 4 12:48:49 Low back pain 546107590 Active 2021 Not Available [facility] 4 12:48:49 Pain in right arm 785158035 Completed 202107/09/2022 Not Available [facility] 3 05:58:41 Pain in right lower limb 856571174 Completed 202107/09/2022 Marlys Mcgarry MD [address] [facility], [facility] [address], [place], [address] , [employer] [facility] [employer] 4 14:27:20 Retinal hemorrhag e 90344762 Completed 202010/16/2022 Not Available [facility] 3 05:58:41 Tendernes s in popliteal fossa 591696826 Completed 202107/09/2022 Not Available [facility] 3 05:58:42 Pain in right hip joint 42985419128 9102 Completed 202107/09/2022 Not Available [facility] 3 05:58:42 Osteoarth ritis 146171901 Active 2022 Not Available [facility] 4 12:48:49 Hyperlipi demia 67094477 Active 2022 Not Available [facility] 4 12:48:49 Osteoporo sis 07355888 Active 2019 Not Available [facility] 4 12:48:49 Smoker 45185035 Active 2022 Not Available [facility] 4 12:48:49 Fatigue 52697837 Active 2021 Not Available [facility] 4 12:48:49 Conjuncti vitis 2444035 Completed 202107/09/2022 Not Available [facility] 3 05:58:42 Pain in lower limb 36780004 Active 2023 Marlys Mcgarry MD [address], [facility] [address], [place], [address] , [employer] 4 15:39:16 Pain in lower limb 94438464 Active 2023 Linette Albarado LPN null, [employer] [facility] [employer] 4 15:43:52 Diverticu litis 115742084 Active 2023 Marlys Mcgarry MD [address], [address], [place], [address] , [facility] [employer] [facility] [employer] [facility] 4 14:26:27 Pain in right lower limb 052946653 Active 2023 Marlys Mcgarry MD [address], [address], [place], [address] , [employer] [facility] [employer] [facility] 4 14:27:20 Synovial cyst of right knee 78871952939 9104 Active 2023 Marlys Mcgarry MD [address], [address], [place], [address] , [employer] [facility] [employer] [facility] 4 14:51:10 Pain of right knee joint 07448210304 4100 Active 2023 MARINA Hudson null, [place] [employer] [facility] [employer] [facility] 4 15:17:11 Problem Notes None recorded. Procedures Surgical History Date Name Laterality Status Provider Name and Address Organization Details Recorded Time completed Not Available [facility] 0 12/11/2022 05:53:22 completed Not Available [facility] 0 12/11/2022 05:53:22 completed Not Available [facility] 0 12/11/2022 05:53:22 Hernia Repair completed Not Available [facility] 12/11/2022 05:53:22 completed Not Available [facility] 0 12/11/2022 05:53:22 completed Not Available [facility] 0 12/11/2022 05:53:22 Imaging Results Imaging Date Name Status LastModified by [facility] Details LastModified Time 03/26/2023 LDCT, chest, for lung cancer screening completed [address], [address], 03/28/2023 11:23:50 03/26/2023 MRI, lumbar spine, w/o contrast completed [address], [address], 03/28/2023 11:23:50 08/01/2023 LDXR, tibia + fibula, 2 view [email or web address] Information not available 08/06/2023 13:07:26 08/01/2023 US, duplex, venous, upper extremity completed Information not available 08/06/2023 13:07:27 08/26/2023 CT, abdomen + pelvis, w/ contrast completed [email or web address] Information not available 08/28/2023 09:38:59 02/05/2024 MAMMO, screening, digital, bilateral completed [facility] Information not available 02/06/2024 16:40:30 04/06/2024 US, duplex, arterial, lower extremity, complete completed [facility] [address] [facility] [address] [facility], [place], [address], 05/03/2024 18:25:24 05/11/2024 XR, knee, 3 view completed [email or web address] [facility] [address], [place], [address], 05/11/2024 15:24:57 Procedure Notes None recorded. Medical [...] Updated DateTime 3 149.86 cm 8.6 kg/m2 45475.3 9 g 97.9 [degF] 80 /min 95 % 95 % 118 mm[Hg] 78 mm[Hg] Sue Lou MA [place] [employer] [facility] 3 12:29:32 Date Recorded Body height Body mass index (BMI) Body weight Body temperature Heart rate Oxygen saturation Oxygen saturation in Arterial blood by Pulse oximetry Systolic blood pressure Diastolic blood pressure Provider Name and Address Organization Details Last Updated DateTime 4 149.86 cm 8.9 kg/m2 68909.0 6 g 97.3 [degF] 72 /min 99 % 99 % 122 mm[Hg] 78 mm[Hg] Eleanor turicos [facility] [employer] [facility] [employer] [facility] 4 12:22:50 Date Recorded Body height Body mass index (BMI) Body weight Body temperature Heart rate Oxygen saturation Oxygen saturation in Arterial blood by Pulse oximetry Systolic blood pressure Diastolic blood pressure Provider Name and Address Organization Details Last Updated DateTime 4 149.86 cm 28.8 kg/m2 55954.6 3 g 98.6 [degF] 59 /min 99 % 99 % 120 mm[Hg] 72 mm[Hg] Chayo Pierre [facility] [employer] [facility] [employer] [facility] 4 15:21:08 Date Recorded Body height Body mass index (BMI) Body weight Body temperature Heart rate Oxygen saturation Oxygen saturation in Arterial blood by Pulse oximetry Systolic blood pressure Diastolic blood pressure Provider Name and Address Organization Details Last Updated DateTime 4 149.86 cm 28.3 kg/m2 62849.9 3 g 97 [degF] 80 /min 96 % 96 % 136 mm[Hg] 80 mm[Hg] Eleanor turcios [facility] [employer] [facility] [employer] [facility] 4 14:05:50 Date Recorded Body height Body mass index (BMI) Body weight Pain severity - 0-10 verbal numeric rating [Score] - Reported Provider Name and Address Organization Details Last Updated DateTime 05/11/2024 149.86 cm 28.1 kg/m2 72545.34 g 10 Bambi Yu [facility] [employer] [facility] [employer] [facility] 05/11/2024 15:13:49 Social History Question Answer Notes LastModified by Organizat ion Details LastModified Time Tobacco Smoking Status Current Every Day Smoker Not Available [facility] 12/11/2022 05:53:19 What Is Your Level Of Alcohol Consumption? Occasional [id number] Information not available 12/11/2022 What Is Your Level Of Caffeine Consumption? Moderate [id number] Information not available 12/11/2022 How Much Tobacco Do You Chew? None [id number] Information not available 12/11/2022 What Type Of Diet Are You Following? REGULAR [id number] Information not available 12/11/2022 Which Illicit Or Recreational Drugs Have You Used? None [id number] Information not available 12/11/2022 Do You Or Have You Ever Used E-cigarettes Or Vape? Never Used Electronic Cigarettes [id number] Information not available 12/11/2022 What Was The Date Of Your Most Recent Tobacco Screening? 05/11/2024 [email or web address] Information not available 05/11/2024 At What Age Did You Start Smoking Tobacco? 19 [id number] Information not available 12/11/2022 Do You Or Have You Ever Used Smokeless Tobacco? Never Used Smokeless Tobacco MIGRATION.[id number] Information not available 12/11/2022 How Much Tobacco Do You Smoke? 0.25 PPD MIGRATION.[id number] Information not available 12/11/2022 Sex: Unknown Functional Status Question Answer Note LastModified by Organizat ion Details LastModified Time What is your exercise level? None [id number] Information not available 12/11/2022 Mental Status None recorded. Family History Relationship Description Onset Age of this Age Resolved Age Notes LastModified by Organization Details LastModified Time Maternal Aunt Essential hypertension [id number] Not available 12/11/2022 05:53:24 Medical History No [...] SNOMED-CT Code Diagnosis ICD10 Code Diagnosis Note [id number] [facility] [address] [place] [address] 09/14/2021 00:00:00 09/14/2021 13:05:55 [id number] [facility] [address] [place] [address] 11/20/2021 00:00:00 11/20/2021 16:03:58 [id number] [facility] [address] [place] [address] 01/03/2022 00:00:00 01/03/2022 16:44:08 [id number] [facility] [address] [place] [address] 01/14/2022 00:00:00 01/14/2022 14:56:57 [id number] [facility] [id number] [facility] [address] 05/15/2022 00:00:00 05/15/2022 16:59:33 [id number] [facility] [address] [facility] [address] 2022 00:00:00 2022 14:15:23 [id number] [facility] [address] [place] [address]. [place] [address] 07/08/2022 00:00:00 07/08/2022 16:10:02 [id number] [facility] [address] [place] [address] 08/09/2022 00:00:00 08/09/2022 15:31:08 [id number] [facility] [address] [facility] [address] 10/21/2022 00:00:00 10/21/2022 09:47:06 [id number] Marlys Mcgarry MD [facility] [address] [place] [address] 02/10/2023 11:37:04 02/10/2023 12:28:10 Low back pain 595009698 M54.50 [id number] Marlys Mcgarry MD [facility] [address] [facility] [address] 03/14/2023 12:16:27 03/14/2023 12:50:16 Gastroesophageal reflux disease 811082965 K21.9 meds prn only Low back pain 221300269 M54.50 meds prn, getting worse, has radiculopa thy symptoms, needs more w/u, may need PT Osteoporosis 26281753 M8 1.0 on meds, Osteoarthritis 852569124 M19.90 ibuprofen prn Adult heal th examination 279600130 Z00.00 Colonoscop y- 02/27/2018 [facility]ammogram- [facility] getting it this weekDexa- 10/03FLU- Does not getCOVID- 03/02/21, 03/23/21 Smoker 30113029 F17.200 advised to quit, Hyperlipidemia 27038321 E78.5 under control [id number] Marlys Mcgarry MD [facility] [address] [place] [address] 11/07/2023 12:15:33 11/07/2023 12:53:29 Low back pain 399402854 M54.50 stretching exercises demo given, heat Gastroesop hageal reflux disease 300088131 K21.9 meds prn [id number] Marlys Mcgarry MD [facility] Internal [address] [place] [address] 02/19/2024 15:15:22 02/19/2024 15:46:21 Adult health examination 110496622 Z00.00 Colonoscop y- 02/27/2018 , due but wants to waitMammog cathryn- 08/2021 ([facility]), getting it this weekDexa- 10/03FLU- Does not getCOVID- 03/02/21, 03/23/21 Depression screening 171 889106 Z13.31 Pain in lower limb 59682 006 M79.606 on asa, advise dto quit smoking [id number] Marlys Mcgarry MD [facility] [address] [place] [address] 04/27/2024 14:01:51 04/27/2024 14:51:03 Diverticulitis 956872875 K57.92 improved Screening for malignant neoplasm of colon 484817473 Z12.11 in 6 weeks Pain in ri ght lower limb 932524781 M79.604 no arterial disease but has Bakers cyst Synovial c yst of right knee 6267611844 64263 M71.21 [id number] Jus Ledezma MD [facility] [place] [address] [place] [address] 05/11/2024 14:46:27 05/11/2024 16:05:25 Pain of right knee joint 7235364985 75739 M25.561 Health Concerns Section Related Observation LastModified by Organization Detai ls LastModified Time None Recorded Concern Status LastModified by Organization Details LastModified Time None Recorded Advance Directives Directive None Recorded Payers Encounter Date Sequence Insurance Name Policy Number Policy Cortes Covered Member ID Cortes Member ID Guarantor Name 03/14/2023 1 [employer] Yarelis Biju Villareal [id number] [place] [employer] 11/07/2023 1 [employer] Yarelis Biju Villareal [id number] [place] [employer] 02/19/2024 1 [employer] [facility] [id number] [facility] 04/27/2024 1 [employer] [facility] [id number] [facility] 05/11/2024 1 [employer] [facility] [employer] [id number] [facility] Notes Date Note Type Note Provider Name and Address Organization Details Recorded Time 03/14/2023 text/html here today for r outine f/u,H/o renal stones, had surgery and stent in the pasthyperlipidemia -High cholesterol- gets a medication from work pharmacy , [employer] , rosuvastatinGERD- pantoprazole helpsInsomnia- Has trouble falling [...] is different Marlys Mcgarry MD [address], [facility] [address], [place], [address], [employer] 03/14/2023 12:48:05 11/07/2023 text/html Pt is here [...] treated with ABX. Feeling better. Was at [place], CT scan abd reviewed Marlys Mcgarry MD [address], [facility] [address], [place], [address], [employer] 11/07/2023 12:43:31 02/19/2024 text/html She is here [...] that was Negative for DVT (went to [place] 2 weeks ago- no records in chart) Marlys Mcgarry MD [address], [facility] [address], [place], [address], [employer] 02/19/2024 17:01:44 04/27/2024 text/html Pt is here [...] like numbness and tingling. Marlys Mcgarry MD [address] [place] [address], [address] [address], [place], [address], [place] [facility] 04/27/2024 14:54:12 OBGyn Episode No OBEpisode recorded.
--- OUTSIDE RECORDS SUMMARY | 2025-02-02 10:09 | XMS_ITS | Data Portability ---
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 Plan of Treatment Reminders Order Date Submit Date Provider Last Modified By Organization Details Last Modified Time Details Appointments None recorded. Lab SARS CoV 2 RNA (COVID-19 ), QL, videotape recording engineer-PCR, respirato ry specimen - [place] 2019 020 [facility] (Lab), [facility] [place], [address], 0 20:24:51 pap, IG + HPV, cervical 2015 016 DBA_PATCH_2 [id number] [facility], [address] [place] [address], [address], [place], [address], 6 04:32:56 bacterial vaginosis + vaginitis panel, vaginal 2015 016 DBA_PATCH_2 [id number] [facility], [address] [place] [address], [address], [place], [address], 6 04:32:42 HSV (1+2) DNA, qual, PCR, unspecifi ed specimen 2015 016 DBA_PATCH_2 [id number] [facility], [address] [place] [address], [address], [place], [address], 6 04:32:32 culture, vaginal/r ectal, streptoco ccus group B 2015 016 DBA_PATCH_2 [id number] [facility], [address], [address], [place], [address], 6 04:32:56 urinalysi s, dipstick 2015 016 DBA_PATCH_2 [id number] In-Office Order, Internal Use Only DO Not Attach Compendium DO Not Attach Compendium, Do Not Delete/merge, [id number] 6 04:33:00 urinalysi s, dipstick 2014 015 [email or web address] In-Office Order, Internal Use Only DO Not Attach Compendium DO Not Attach Compendium, Do Not Delete/merge, [id number] 5 22:30:03 pap, IG + HPV, cervical 2014 015 JEREMY [facility], [address], [address], [place], [address], 5 06:08:29 HSV (1+2) DNA, qual, PCR, unspecifi ed specimen 2014 015 JEREMY [facility], [address], [address], [place], [address], 5 06:17:45 bacterial vaginosis + vaginitis panel, vaginal 2014 015 JEREMY [facility], [address], [address], [place], [address], 5 06:17:44 culture, vaginal/r ectal, streptoco ccus group B 2014 015 JEREMY [facility], [address], [address], [place], [address], 5 06:17:46 Referral None recorded. Procedures None recorded. Surgeries None recorded. Imaging MAMMO, screening , bilateral 2015 016 DBA_PATCH_2 [id number] [facility], [address], [address], [address], 6 04:33:00 mammogram , screening 2014 015 [email or web address] Not available 5 10:27:07 Medication Orders Brisdelle 7.5 mg capsule 2015 016 DBA_PATCH_2 [id number] [facility] [address], [address], 6 04:32:42 raloxifen e 60 mg tablet 2015 016 DBA_PATCH_[address] [id number] [facility] [address], [address], 6 04:32:39 Caltrate plus D 600 mg (carbonat e)-20 mcg (800 unit) chewable tablet 2015 016 DBA_PATCH_2 [id number] [facility] [address], [address], 6 04:32:15 ibuprofen 400 mg tablet 2014 015 [facility] [address], [address], 5 17:47:27 Pepcid 20 mg tablet 2014 015 [facility] [address], [address], 5 17:47:27 Premarin 0.625 mg/gram vaginal cream 2014 015 emanuel [facility] [address] In [facility], [address] [place] [address], [address], 5 18:59:29 Evista 60 mg tablet 2014 015 emanuel [facility] [address] In [facility], [address] [place] [address], [address], 5 18:59:29 Caltrate plus D 600 mg (carbonat e)-20 mcg (800 unit) chewable tablet 2014 015 emanuel [facility] [address], [address], 5 18:59:29 Flagyl 500 mg tablet 2014 015 emanuel [facility] [address], [address], 5 22:30:03 Patient TargetsNo targets recorded. Patient Instructions Encounter Date Encounter Id Patient Instructions Last Modified By Organization Details Last Modified Time 11/22/2014 [id number] atrophic vaginitis: care instructions [facility] Not available 11/22/2014 18:59:29 fibrocystic breast changes: care instructions [facility] Not available 11/22/2014 18:59:29 06/29/2015 [id number] deciding about using medicines to quit smoking [facility] Not available 06/29/2015 17:47:27 Quitting Tobacco: Care Instructions [facility] Not available 06/29/2015 17:47:27 chronic obstructive pulmonary disease (COPD): care instructions [facility] Not available 06/29/2015 17:47:27 learning about copd and how to prevent lung infections si Not available 06/29/2015 17:47:27 She shall go to ER if she has any concern, she is so instructed, she understood and agreed., and she shall quit the cigarettes smoking. [email or web address] Not available 06/29/2015 17:41:16 09/16/2016 [id number] mammogram: about this test [facility] Not available 09/16/2016 15:06:33 chronic obstructive pulmonary disease (COPD): care instructions Not available 09/16/2016 16:41:11 learning about copd and how to prevent lung infections Not available 09/16/2016 16:41:11 03/01/2020 [id number] Reviewed the following recommendations: -Stay home and separate from others as much as possible. -Monitor your symptoms and seek medical attention for trouble breathing, persistent chest pain, confusion, or bluish lips or face. -Wear a mask if you must be around other people. -Wash your hands often for 20 seconds with soap and water and clean high-touch surfaces daily [email or web address] Not available 03/01/2020 15:35:09 Reason for Referral None Reported. Results Created Date Observation Date Name Description Value Unit Range Abnormal Flag Note LastModifiedBy Organization Detail LastModifiedTime 09/16/20 16 09/16/2016 urina lysis , dipst ick Leukocytes Trace Not Available In-Offi ce Order Internal Use Only DO Not Attach Compendium DO Not Attach Compendium, Do Not Delete/merge, [id number] 09/16/2016 14:55:40 09/16/20 16 09/16/2016 urina lysis , dipst ick Nitrite negati ve Not Available In-Office Order Internal Use Only DO Not Attach Compendium DO Not Attach Compendium, Do Not Delete/merge, [id number] 09/16/2016 14:55:40 09/16/20 16 09/16/2016 urina lysis , dipst ick Urobilinogen .2 Not Available In-Of fice Order Internal Use Only DO Not Attach Compendium DO Not Attach Compendium, Do Not Delete/merge, [id number] 09/16/2016 14:55:40 09/16/20 16 09/16/2016 urina lysis , dipst ick Protein Negati ve Not Available In-Office Order Internal Use Only DO Not Attach Compendium DO Not Attach Compendium, Do Not Delete/merge, [id number] 09/16/2016 14:55:40 09/16/20 16 09/16/2016 urina lysis , dipst ick pH 6.0 Not Available In-Office Order Internal Use Only DO Not Attach Compendium DO Not Attach Compendium, Do Not Delete/merge, [id number] 09/16/2016 14:55:40 09/16/20 16 09/16/2016 urina lysis , dipst ick Blood Non-He molyze d: Trace Not Available In-Office Order Internal Use Only DO Not Attach Compendium DO Not Attach Compendium, Do Not Delete/merge, [id number] 09/16/2016 14:55:40 09/16/20 16 09/16/2016 urina lysis , dipst ick Specific [place] 1.025 Not Available In-Off ice Order Internal Use Only DO Not Attach Compendium DO Not Attach Compendium, Do Not Delete/merge, [id number] 09/16/2016 14:55:40 09/16/20 16 09/16/2016 urina lysis , dipst ick Ketone Negati ve Not Available In-Office Order Internal Use Only DO Not Attach Compendium DO Not Attach Compendium, Do Not Delete/merge, [id number] 09/16/2016 14:55:40 09/16/20 16 09/16/2016 urina lysis , dipst ick Bilirubin Negati ve Not Available In-Office Order Internal Use Only DO Not Attach Compendium DO Not Attach Compendium, Do Not Delete/merge, [id number] 09/16/2016 14:55:40 09/16/20 16 09/16/2016 urina lysis , dipst ick Glucose Negati ve Not Available In-Office Order Internal Use Only DO Not Attach Compendium DO Not Attach Compendium, Do Not Delete/merge, [id number] 09/16/2016 14:55:40 11/22/19 15 11/22/2014 urina lysis , dipst ick Leukocytes Negati ve Not Available In-Office Order Internal Use Only DO Not Attach Compendium DO Not Attach Compendium, Do Not Delete/merge, [id number] 11/22/2014 12:42:15 11/22/19 15 11/22/2014 urina lysis , dipst ick Nitrite negati ve Not Available In-Office Order Internal Use Only DO Not Attach Compendium DO Not Attach Compendium, Do Not Delete/merge, [id number] 11/22/2014 12:42:15 11/22/19 15 11/22/2014 urina lysis , dipst ick Urobilinogen .2 Not Available In-Of fice Order Internal Use Only DO Not Attach Compendium DO Not Attach Compendium, Do Not Delete/merge, 11/22/2014 12:42:15 11/22/1911/22/2014 urina lysis , dipst ick Protein Negati ve Not Available In-Office Order Internal Use Only DO Not Attach Compendium DO Not Attach Compendium, Do Not Delete/merge, 11/22/2014 12:42:15 11/22/1911/22/2014 urina lysis , dipst ick pH 7.5 Not Available In-Office Order Internal Use Only DO Not Attach Compendium DO Not Attach Compendium, Do Not Delete/merge, 11/22/2014 12:42:15 11/22/1911/22/2014 urina lysis , dipst ick Blood Negati ve Not Available In-Office Order Internal Use Only DO Not Attach Compendium DO Not Attach Compendium, Do Not Delete/merge, 11/22/2014 12:42:15 11/22/1911/22/2014 urina lysis , dipst ick Specific [place] 1.020 Not Available In-Off ice Order Internal Use Only DO Not Attach Compendium DO Not Attach Compendium, Do Not Delete/merge, 11/22/2014 12:42:15 11/22/1911/22/2014 urina lysis , dipst ick Ketone Negati ve Not Available In-Office Order Internal Use Only DO Not Attach Compendium DO Not Attach Compendium, Do Not Delete/merge, 11/22/2014 12:42:15 11/22/1911/22/2014 urina lysis , dipst ick Bilirubin Negati ve Not Available In-Office Order Internal Use Only DO Not Attach Compendium DO Not Attach Compendium, Do Not Delete/merge, 11/22/2014 12:42:15 11/22/1911/22/2014 urina lysis , dipst ick Glucose Negati ve Not Available In-Office Order Internal Use Only DO Not Attach Compendium DO Not Attach Compendium, Do Not Delete/merge, 11/22/2014 12:42:15 11/22/1911/24/2014 bacte rial vagin osis + vagin itis panel , vagin al trich vag by COLIN NEGATI VE negati ve Not Available [facility] ([facility]) [address] [place], [address], 11/25/2014 06:17:44 11/22/19 15 11/24/2014 bacte rial vagin osis + vagin itis panel , vagin al chlamydia trachomatis, COLIN NEGATI VE negati ve Not Available [facility] ([facility]) [address] [place], [address], 11/25/2014 06:17:44 11/22/19 15 11/24/2014 bacte rial vagin osis + vagin itis panel , vagin al neisseria gonorrhoeae, COLIN NEGATI VE negati ve Not Available [facility] ([facility]) [address] [place], [address], 11/25/2014 06:17:44 11/22/19 15 11/25/2014 bacte rial vagin osis + vagin itis panel , vagin al atopobium vaginae HIGH - 2 score abnormal Not Available [facility] ([facility]) [address] [place], [address], 11/25/2014 06:17:44 11/22/19 15 11/25/2014 bacte rial vagin osis + vagin itis panel , vagin al bvab 2 HIGH - 2 score abnormal Not Available [facility] ([facility]) [address] [place], [address], 11/25/2014 06:17:44 11/22/1911/25/2014 bacte rial vagin osis + vagin itis panel , vagin al megasphaera 1 LOW - 0 score CALCU LATE TOTAL SCORE BY HASEEB Blair THE 3 INDIV IDUAL BACTE RIAL VAGIN OSIS (BV) MARKE R SCORE S TOGET HER. TOTAL SCORE IS INTER PRETE D FOLLO WS: . TOTAL SCORE 0-1: INDIC ATES THE ABSEN CE OF BV. TOTAL SCORE 2: INDET ERMIN ATE FOR BV. ADDIT IONAL CLINI CORA DATA SHOUL D BE EVALU ATED TO ESTAB JACKELYN A DIAGN OSIS. TOTAL SCORE 3-6: INDIC ATES THE PRESE NCE OF BV. . THIS TEST WAS DEVEL OPED AND ITS PERFO RMANC E NUNU CTERI STICS DETER MINED BY [email or web address]. IT HAS NOT BEEN CLEAR ED OR APPRO CE BY THE FOOD AND DRUG ADMIN ISTRA TION. THE FDA HAS DETER MINED THAT SUCH CLEAR ANCE OR APPRO JEFFERSON IS NOT NECES DANE. Not Available [facility] ([facility]) [address] [place], [address], 11/25/2014 06:17:44 11/22/1911/25/2014 bacte rial vagin osis + vagin itis panel , vagin al nathan albicans, COLIN POSITI VE negati ve abnormal Not Available [facility] ([facility]) [address] [place], [address], 11/25/2014 06:17:44 11/22/1911/25/2014 bacte rial vagin osis + vagin itis panel , vagin al nathan glabrata, COLIN NEGATI VE negati ve THIS TEST WAS DEVEL OPED AND ITS PERFO RMANC E NUNU CTERI STICS DETER MINED BY [employer]. IT HAS NOT BEEN CLEAR ED OR APPRO CE BY THE FOOD AND DRUG ADMIN ISTRA TION. THE FDA HAS DETER MINED THAT SUCH CLEAR ANCE OR APPRO JEFFERSON IS NOT NECES DANE. Not Available [facility] ([facility]) [address] [place], [address], 11/25/2014 06:17:44 11/22/1911/24/2014 HSV (1+2) DNA, qual, PCR, unspe cifie d speci men hsv 1 COLIN NEGATI VE negati ve Not Available [facility] ([facility]) [address] [place], [address], 11/25/2014 06:17:45 11/22/1911/24/2014 HSV (1+2) DNA, qual, PCR, unspe cifie d speci men hsv 2 COLIN NEGATI VE negati ve Not Available [facility] ([facility]) [address] [facility], [place], [address], 11/25/2014 06:17:45 11/22/19 15 11/24/2014 cultu re, vagin al/re ctal, strep tococ cus group B strep gp B COLIN NEGATI VE negati ve PENIC ILLIN G, AMPIC ILLIN , OR CEFAZ VERONICA ARE INDIC ATED FOR INTRA PARTU M PROPH YLAXI S OF PERIN ATAL GROUP B STREP (GBS) COLON IZATI ON. REFLE X SUSCE PTIBI LITY TESTI NG SHOUL D BE PERFO RMED PRIOR TO USE OF CLIND AMYCI N ONLY ON GBS ISOLA MARIA INES FROM PENIC ILLIN -NIKKY RGIC WOMEN WHO ARE CONSI DERED A HIGH RISK FOR ANAPH YLAXI S. TREAT MENT WITH VANCO MYCIN WITHO UT ADDIT IONAL TESTI NG IS WARRA NTED IF RESIS TANCE TO CLIND AMYCI N IS NOTED . (CDC GUIDE LINES , MMWR, NOV2009) Not Available [facility] ([facility]) [address] [facility], [place], [address], 11/25/2014 06:17:46 11/22/19 15 11/25/2014 pap, IG + HPV, cervi cora diagnosis: COMMEN T NEGAT CRIS FOR INTRA EPITH ELIAL LESIO N AND DENIS HARDEN . FUNGA L ORGAN ISMS MORPH OLOGI CODY CONSI STENT WITH LYLE DA SPECI ES ARE PRESE NT. Not Available [facility] ([facility]) [address] [facility], [place], [address], 11/26/2014 06:08:29 11/22/1911/25/2014 pap, IG + HPV, cervi cora specimen adequacy: COMMEN T SATIS FACTO RY FOR EVALU ATION . ENDOC ERVIC AL AND/O R SQUAM OUS METAP LASTI C CELLS (ENDO CERVI CORA COMPO NENT) ARE PRESE NT. Not Available [facility] ([facility]) [address] [facility], [place], [address], 11/26/2014 06:08:29 11/22/19 15 11/25/2014 pap, IG + HPV, cervi cora clinician provided ICD9: FIGUEROA Smith 041.9 ; BACTE RIAL INFEC TION, UNSPE CIFIE D, IN CONDI TIONS CLASS IFIED ELSEW HERE AND OF UNSPE CIFIE D SITE Not Available [facility] ([facility]) [address] [facility], [place], [address], 11/26/2014 06:08:29 11/22/19 15 11/25/2014 pap, IG + HPV, cervi cora performed by: FIGUEROA Nye, DANIEL Smith (ASCP ) Not Available [facility] ([facility]) [address] [place], [address], 11/26/2014 06:08:29 11/22/1911/25/2014 pap, IG + HPV, cervi cora . . Not Available [facility] ([facility]) [address] [place], [address], 11/26/2014 06:08:29 11/22/1911/25/2014 pap, IG + HPV, cervi cora note: FIGUEROA Smith THE PAP SMEAR IS A SCREE VICTOR M TEST DESIG BIA TO AID IN THE DETEC TION OF DEEPAK LIGNA NT AND MALIG NANT CONDI TIONS OF THE UTERI NE CERVI X. IT IS NOT A DIAGN OSTIC PROCE DURE AND SHOUL D NOT BE USED THE SOLE MEANS OF DETEC TING CERVI CORA CANCE R. BOTH FALSE -POSI TIVE AND FALSE -NEGA TIVE REPOR TS DO OCCUR . . Not Available [facility] ([facility]) [address] [place], [address], 11/26/2014 06:08:29 11/22/19 15 11/25/2014 pap, IG + HPV, cervi cora test methodology: COMMEN T THIS LIQUI D BASED THINP REP(R ) PAP TEST WAS JEAN THOMAS WITH THE USE OF AN IMAGE GUIDE Rochelle Avila Not Available [facility] ([facility]) [address] [place], [address], 11/26/2014 06:08:29 11/22/19 15 11/25/2014 pap, IG + HPV, cervi cora HPV aptima NEGATI VE negati ve THIS TEST DETEC TS FOURT EEN HIGH- RISK HPV TYPES (16/1 8/31/ 33/35 /39/4 5/ 51/52 /56/5 8/59/ 66/68 ) WITHO UT FORTUNATOE TAZ ATCAT . Not Available [facility] ([facility]) [address] [place], [address], 11/26/2014 06:08:29 09/16/20 16 09/18/2016 bacte rial vagin osis + vagin itis panel , vagin al trich vag by COLIN NEGATI VE negati ve Not Available [facility] ([facility]) [address] [place], [address], 09/19/2016 14:13:41 09/16/20 16 09/18/2016 bacte rial vagin osis + vagin itis panel , vagin al chlamydia trachomatis, COLIN NEGATI VE negati ve Not Available [facility] ([facility]) [address] [place], [address], 09/19/2016 14:13:41 09/16/20 16 09/18/2016 bacte rial vagin osis + vagin itis panel , vagin al neisseria gonorrhoeae, COLIN NEGATI VE negati ve Not Available [facility] ([facility]) [address] [place], [address], 09/19/2016 14:13:41 09/16/20 16 09/19/2016 bacte rial vagin osis + vagin itis panel , vagin al atopobium vaginae MODERA TE - 1 score Not Available [facility] ([facility]) [address] [facility], [place], [address], 09/19/2016 14:13:41 09/16/20 16 09/19/2016 bacte rial vagin osis + vagin itis panel , vagin al bvab 2 LOW - 0 score Not Available [facility] ([facility]) [address] [facility], [place], [address], 09/19/2016 14:13:41 09/16/20 16 09/19/2016 bacte rial vagin osis + vagin itis panel , vagin al megasphaera 1 LOW - 0 score CALCU LATE TOTAL SCORE BY HASEEB Blair THE 3 INDIV IDUAL BACTE RIAL VAGIN OSIS (BV) MARKE R SCORE S TOGET HER. TOTAL SCORE IS INTER PRETE D FOLLO WS: TOTAL SCORE 0-1: INDIC ATES THE ABSEN CE OF BV. TOTAL SCORE 2: INDET ERMIN ATE FOR BV. ADDIT IONAL CLINI CORA DATA SHOUL D BE EVALU ATED TO ESTAB JACKELYN A DIAGN OSIS. TOTAL SCORE 3-6: INDIC ATES THE PRESE NCE OF BV. THIS TEST WAS DEVEL OPED AND ITS PERFO RMANC E NUNU CTERI STICS DETER MINED BY [facility]. IT HAS NOT BEEN CLEAR ED OR APPRO CE BY THE FOOD AND DRUG ADMIN ISTRA TION. THE FDA HAS DETER MINED THAT SUCH CLEAR ANCE OR APPRO JEFFERSON IS NOT NECES DANE. Not Available [facility] ([facility]) [address] [facility], [place], [address], 09/19/2016 14:13:41 09/16/20 16 09/19/2016 bacte rial vagin osis + vagin itis panel , vagin al nathan albicans, COLIN NEGATI VE negati ve Not Available [facility] ([facility]) [address] [facility], [place], [address], 09/19/2016 14:13:41 09/16/20 16 09/19/2016 bacte rial vagin osis + vagin itis panel , vagin al nathan glabrata, COLIN NEGATI VE negati ve THIS TEST WAS DEVDAVID RENEE AND ITS PERFO EMILIA E NUNU OSUNA STICS DETER MINED BY [facility]. IT HAS NOT BEEN CLEAR ED OR APPRO CE BY THE FOOD AND DRUG ADMIN ISTRA TION. THE FDA HAS DETER MINED THAT SUCH CLEAR ANCE OR APPRO JEFFERSON IS NOT NECJOSEPH VELA. Not Available [facility] ([facility]) [address] [place], [address], 09/19/2016 14:13:41 09/16/20 16 09/19/2016 HSV (1+2) DNA, qual, PCR, unspe cifie d speci men hsv 1 COLIN NEGATI VE negati ve Not Available [facility] ([facility]) [address] [place], [address], 09/19/2016 14:13:42 09/16/20 16 09/19/2016 HSV (1+2) DNA, qual, PCR, unspe cifie d speci men hsv 2 COLIN NEGATI VE negati ve Not Available [facility] ([facility]) [address] [place], [address], 09/19/2016 14:13:42 09/16/20 16 09/18/2016 cultu re, vagin al/re ctal, strep tococ cus group B strep gp B COLIN POSITI VE negati ve abnormal CENTE RS FOR DISEA SE CONTR OL AND PREVE NTION (CDC) AND AMERI CAN CONGR ESS OF OBSTE TRICI ANS AND GYNEC OLOGI STS (ACOG ) GUIDE LINES FOR PREVE NTION OF PERIN ATAL GROUP B STREP TOCOC CORA (GBS) DISEA SE SPECI FY CO-CO LLECT ION OF A VAGIN AL AND RECTA L SWAB SPECI MEN TO MAXIM IZE SENSI TIVIT Y OF GBS DETEC TION. PER THE CDC AND ACOG, SWABB ING BOTH THE LOWER VAGIN A AND RECTU M SUBST ANTIA LLY INCRE ASES THE YIELD OF DETEC TION NEETU RED WITH SAMPL ING THE VAGIN A ALONE . PENIC ILLIN G, AMPIC ILLIN , OR CEFAZ VERONICA ARE INDIC ATED FOR INTRA PARTU M PROPH YLAXI S OF PERIN ATAL GBS COLON IZATI ON. REFLE X SUSCE PTIBI LITY TESTI NG SHOUL D BE PERFO RMED PRIOR TO USE OF CLIND AMYCI N ONLY ON GBS ISOLA MARIA INES FROM PENIC ILLIN -NIKKY RGIC WOMEN WHO ARE CONSI DERED A HIGH RISK FOR ANAPH YLAXI S. TREAT MENT WITH VANCO MYCIN WITHO UT ADDIT IONAL TESTI NG IS WARRA NTED IF RESIS TANCE TO CLIND AMYCI N IS NOTED . Not Available [facility] ([facility]) [address] [facility], [place], [address], 09/19/2016 14:13:42 03/01/20 20 03/01/2020 SARS CoV 2 RNA (COVI D-19) , QL, videotape recording engineer-P CR, respi rator y speci men sars - cov - 2 PCR NEGATI VE mL Not Available [facility] (Lab) [address] [place], [address], 03/02/2020 20:24:51 03/01/20 20 03/01/2020 SARS CoV 2 RNA (COVI D-19) , QL, videotape recording engineer-P CR, respi rator y speci men covidcom1 COMME NTS: This assay is desig bia to detec t the RdRp and N genes of SARS- CoV-2 using nucle ic acid ampli ficat ion. A negat cris resul t does not precl ude the possi bilit y of 2019- nCoV infec tion since the adequ acy of sampl e colle ction and/o r low viral burde n may resul t in the prese nce of viral nucle ic acids level s below the franky tical sensi tivit y of this test metho d. Not Available [facility] (Lab) [address] [place], [address], 03/02/2020 20:24:51 03/01/20 20 03/01/2020 SARS CoV 2 RNA (COVI D-19) , QL, videotape recording engineer-P CR, respi rator y speci men covidcom2 Posit cris resul ts are indic ative of the prese nce of SARS- CoV-2 RNA and do not rule out bacte rial infec tion or co-in fecti on with other virus es. Not Available [facility] (Lab) [address] [place], [address], 03/02/2020 20:24:51 03/01/20 20 03/01/2020 SARS CoV 2 RNA (COVI D-19) , QL, videotape recording engineer-P CR, respi rator y speci men covidcom3 Test resul ts shoul d be used along with other clini cora obser vatio ns, patie nt histo ry, epide miolo gical infor matio n and labor atory data in [facility] the diagn osis. Not Available [facility] (Lab) [address] [facility], [place], [address], 03/02/2020 20:24:51 03/01/20 20 03/01/2020 SARS CoV 2 RNA (COVI D-19) , QL, videotape recording engineer-P CR, respi rator y speci men covidcom4 This test has recei ce FDA Emerg ency Use Autho rizat ion and has been verif ied by [facility] . This test is only autho rized for the durat ion of the decla ratio n and the circu mstan mellisa that exist to justi fy the autho rizat ion of the emerg ency use of in vitro diagn ostic tests for the detec tion of SARS- CoV-2 virus and/o r diagn osis of COVID -19 infec tion under secti on 564 (b) (1) of the Act. 11 U.S.C . 360bb b-3 (b) (1), unles s the autho rizat ion is termi nated or revok ed soone r. Not Available [facility] (Lab) [address] [facility], [place], [address], 03/02/2020 20:24:51 03/01/20 20 03/01/2020 SARS CoV 2 RNA (COVI D-19) , QL, videotape recording engineer-P CR, respi rator y speci men covidcom5 [facility] is certi fied under CLIA- 88 as quali fied to perfo rm high compl exity testi tone. This testi ng was perfo rmed in the [facility] [place] [address] (CLIA Licen se #[id number], CAP #[id number], AU-ID #[id number]). Not Available [facility] (Lab) [address] [place], [address], 03/02/2020 20:24:51 03/01/20 20 03/01/2020 SARS CoV 2 RNA (COVI D-19) , QL, videotape recording engineer-P CR, respi rator y speci men covidcom6 Facts heet for healt hcare provi ders: https ://ww Baeta.Spinback .gov/ media /1362 56/do wnloa d Facts heet for patie nts: https ://HackerHAND.Spinback .gov/ media /1362 57/do wnloa d Not Available [facility] (Lab) [address] [place], [address], 03/02/2020 20:24:51 09/12/20 16 11/12/2012 MAMMO , scree victor m, digit al, bilat eral No observ ation record ed. [email or web address] Not Available 2015 13:13:31 09/12/20 16 11/18/2013 MAMMO , scree victor m, digit al, bilat eral No observ ation record ed. [email or web address] Not Available 2015 13:14:30 Result Notes None recorded. Problems Name Problem SNOMED Code Status Onset Date Resolution Date Notes Provider Name and Address Organization Details Recorded Time Bacterial vaginosis [id number] Active Raymond flores [place] - SIF 5 06:40:02 Vaginal discharge problem 690390402 Active Raymond flores, [place] - [place] 5 18:59:28 Menopausal syndrome 086428460 Carisa flores, [facility] 5 18:59:28 Fibrocystic disease of breast 63111966 Carisa flores, [facility] 5 18:59:28 Atrophic vaginitis 97528952 Carisa flores, [facility] 5 18:59:28 Candidiasis 13046792 Carisa flores, [facility] 5 19:26:31 Non-cardiac chest pain 257854738 Active Zen Jean MA null, [facility] 5 17:44:10 Chronic obstructive pulmonary disease 06440664 Active Zen Jean MA null, [facility] 5 17:44:10 Tobacco dependence syndrome 49880101 Active Zen Jean MA null, [facility] 5 17:44:10 Problem Notes None recorded. Procedures Surgical History Date Name Laterality Status Provider Name and Address Organization Details Recorded Time 5 Date of Last Pap Smear completed Melissa Mena ARI [facility] 09/16/2016 14:28:46 3 Most Recent Mammogram completed Melissa Mena ARI [facility] 11/22/2014 12:42:15 Tubal Ligation completed Melissa Mena ARI [facility] 09/16/2016 14:27:50 Hernia Repair completed Melissa Mena ARI [facility] 09/16/2016 14:51:08 Imaging Results Imaging Date Name Status LastModified by Organiz ation Details LastModified Time 11/12/2012 MAMMO, screening, digital, bilateral completed Information not available 09/13/2016 13:13:31 11/18/2013 MAMMO, screening, digital, bilateral completed Information not available 09/13/2016 13:14:30 Procedure Notes None recorded. Medical Equipment None Reported. Allergies No known drug allergies Medications Name Sig Start Date Stop Date Status Note LastModified by Organization Details LastModified Time trazodone 50 mg tablet active Not Available Not Available Not Available fluconazole 150 mg tablet Take 1 tablet by oral route. active Not Available Not Available No t Available hydrocodone 5 mg-acetaminophe n 325 mg tablet active Not Available Not Availa ble Not Available metronidazole 500 mg tablet Take 1 tablet twice a day by oral route for 7 days. active Not Available Not Available No t Available hydrocortisone 2.5 % topical cream with perineal applicator active Not Available Not Available N ot Available tamsulosin 0.4 mg capsule active Not Available Not Available N ot Available pantoprazole 40 mg tablet,delayed release active Not Available Not Available Not Available ibuprofen 400 mg tablet Take 1 tablet 3 times a day by oral route with meals for 5 days. active Not Available Not Available No t Available raloxifene 60 mg tablet TAKE 1 TABLET DAILY active Not Available Not Available No t Available mometasone 0.1 % topical ointment active Not Available Not Available Not Available alprazolam 2 mg tablet active Not Available Not Available Not Available Pepcid 20 mg tablet Take 1 tablet twice a day by oral route for 7 days. 2014 active Not Available Not Available Not Avai lable oxycodone-aceta minophen 7.5 mg-325 mg tablet active Not Available Not Available Not Available Paxil 10 mg tablet Take 1 tablet every day by oral route. 2015 active Not Available Not Available Not Avai lable mometasone 0.1 % topical cream active Not Available Not Availa ble Not Available metoclopramide 10 mg tablet active Not Available Not Available Not Available Premarin 0.625 mg/gram vaginal cream Insert 1 g twice a week by vaginal route. 2014 active Not Available Not Available Not Avai lable metoprolol tartrate 25 mg tablet active Not Available Not Available Not Available Chantix Starting Month Box 0.5 mg (11)-1 mg (42) tablets in dose pack active Not Available Not Available Not Available Brisdelle 7.5 mg capsule Take 1 capsule every day by oral route. 2015 active Not Available Not Available Not Avai lable Caltrate plus D 600 mg (carbonate)-20 mcg (800 unit) chewable tablet Take 1 tablet twice a day by oral route. 2015 active Not Available Not Available Not Avai lable Vitals Date Recorded Body weight Oxygen saturation Oxygen saturation in Arterial blood by Pulse oximetry Body height Body temperature Heart rate Body mass index (BMI) Systolic blood pressure Diastolic blood pressure Provider Name and Address Organization Details Last Updated DateTime 5 98313.3 0128 g 100 % 100 % 149.86 cm 98 [degF] 76 /min 29.1 kg/m2 98 mm[Hg] 70 mm[Hg] Zen Jean MA [facility] 5 17:30:30 Date Recorded Body weight Body height Body mass index (BMI) Systolic blood pressure Diastolic blood pressure Provider Name and Address Organization Details Last Updated DateTime 11/22/2014 54040.30 128 g 149.86 cm 29.1 kg/m2 114 mm[Hg] 84 mm[Hg] Melissa Mena MA [facility] 5 12:42:15 Date Recorded Body height Body weight Body mass index (BMI) Systolic blood pressure Diastolic blood pressure Provider Name and Address Organization Details Last Updated DateTime 09/16/2016 152.4 cm 37343.26 g 29.1 kg/m2 100 mm[Hg] 82 mm[Hg] Melissa Mena MA [facility] 6 15:01:34 Social History Question Answer Notes LastModified by Organizat ion Details LastModified Time Tobacco Smoking Status Current Every Day Smoker Melissa Mena MA null, [facility] 11/22/2014 12:44:12 Do You Have An Advance Directive? No Information not available 09/16/2016 What Is Your Level Of Alcohol Consumption? Moderate Information not available 09/16/2016 What Is Your Level Of Caffeine Consumption? Heavy Information not available 09/16/2016 How Much Tobacco Do You Chew? None Information not available 09/16/2016 Are You Currently Employed? Yes Information not available 09/16/2016 What Type Of Diet Are You Following? REGULAR Information not available 09/16/2016 Which Illicit Or Recreational Drugs Have You Used? None Information not available 09/16/2016 Education 12 Information no t available 09/16/2016 What Is Your Occupation? [employer] Information not available 09/16/2016 Live Alone Or With Others? Alone Information not available 09/16/2016 How Many Children Do You Have? 5 Information not available 09/16/2016 Performs Monthly Self-breast Exam? No Information no t available 09/16/2016 Do You Use Protection During Sex? No Information not available 09/16/2016 What Is Your Relationship Status? Information not available 09/16/2016 Seat Belts Used Routinely Yes Information not available 09/16/2016 Are You Sexually Active? Yes Information not available 09/16/2016 At What Age Did You Start Smoking Tobacco? 29 Information not available 09/16/2016 How Much Tobacco Do You Smoke? 0.25 PPD Information not available 09/16/2016 General Stress Level Low Information not available 09/16/2016 Do You Use Sunscreen Routinely? No Information not available 09/16/2016 How Many Years Have You Smoked Tobacco? 20 Information not available 11/22/2014 Sex: Unknown Functional Status Question Answer Note LastModified by Organization D etails LastModified Time What is your exercise level? None Information not available 09/16/2016 Mental Status None recorded. Family History Nothing Reported Notes:kidney stone 2010 Medical History No medical history recorded. Gynecological History Statement/Question Response Abnormal Pap N On BCP's at Conception? N HPV Vaccine N Most Recent Mammogram 11/12/2012 Current Control Method Tubal Ligat ion Age at First Child 17 If Post Menopausal, Age at Menopause 54 Sexually Active? Y Menses Monthly No Date of Last Pap Smear 11/22/2014 Sexual Problems? 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) [address] [place] [address] 11/22/2014 11:54:50 11/22/2014 13:16:45 Bacterial vaginosis 341414773 -Flagyl 500mg BID x 7d -Advise against douching, limit number of sexual partners, encourage safe sex practices, ie condom use -Education regarding BV signs and symptoms Vaginal di scharge problem 647458427 Menopausal syndrome 870814053 Fibrocysti c disease of breast 93097457 Atrophic vaginitis 63867117 [id number] Rossana sparks Seth (Adult Med) [address] [place] [address] 06/29/2015 16:15:09 06/29/2015 18:06:28 Non-cardiac chest pain 950237523 Chronic ob structive pulmonary disease 36697074 Tobacco de pendence syndrome 17818696 Postmenopausal state 39504563 [id number] Raymond Montes De Oca Seth (P[employer] TAB [employer]ER) [address] [place] [address] 09/16/2016 13:58:06 09/18/2016 11:43:09 Gynecologic examination 41678334 Z01.419 Screening mammography 24 026655 Z12.31 Menopausal syndrome 1237 04142 N95.9 Chronic ob structive pulmonary disease 13568213 J44.9 [id number] KUNAL FLORES [address] [place] [address] 03/01/2020 15:26:50 03/02/2020 07:48:02 Viral screening 344010218 Z11.59 Health Concerns Section Related Observation LastModified by Organization Detai ls LastModified Time None Recorded Concern Status LastModified by Organization Details LastModified Time None Recorded Advance Directives Directive N: Payers Encounter Date Sequence Insurance Name Policy Number Policy Cortes Covered Member ID Cortes Member ID Guarantor Name 11/22/2014 1 [facility] [id number] [facility] [id number] [facility] 06/29/2015 1 [facility] [id number] [facility] [id number] [facility] 09/16/2016 1 [id number] [facility] [id number] [facility] 03/01/2020 1 [facility] [id number] [facility] [id number] [facility] Notes Date Note Type Note Provider Name and Address Organization Details Recorded Time 06/29/2015 text/html Front chest wall pain in leaning forwards and turning around and localized for 2 days , no radiation ,no shortness of breath, no exertional dyspnea, or nocturnal shortness of breathing., a cigarettes smoker. [employer] [place] - SIF 06/29/2015 17:44:12 09/16/2016 text/html Annual GYNReport ed bypatient.Menstrual cycle:Normal menses Urinary symptoms:No hematuria; No incontinence Vulva:No genital lesion Vagina:Normal vaginal discharge Breast:No breast pain; No breast lump; No nipple discharge Sexual complaints:No sexual complaints; No pain during intercourse; Normal libido Menopausal Symptoms:No menopausal symptoms; Normal vaginal lubrication Psychological symptoms:No depression; No anxiety; No PMDD Raymond Montes De Oca sandra [facility] 09/16/2016 15:59:45 03/01/2020 text/html COVID ScreeningReported bypatient.Onset/Durati on of fever:no fever Associated Symptoms:no cough; no shortness of breath ComorbiditiesCOPDCOVID -19 Symptoms February 2020Reported bypatient.COVID-19 Signs and Symptomscough resolved; fever resolved; shortness of breath resolved; chills resolved; repeated shaking with chills resolved; muscle pain resolved; headache resolved; sore throat resolved; loss of taste or smell resolved; vomiting or diarrhea resolved; fatigue resolved; anorexia resolved Associated Symptoms:no sputum production; no wheezing; no runny nose; no vomiting; no diarrhea; no body aches; no nausea; no change in mental status; no hypotension; no tachycardia pt denies any symptoms but wants screening BAMBI ROTHMAN NP Attn: Accounting,[address] [place], [address], [facility] 03/01/2020 15:35:38 OBGyn Episode Ob Episode Information Episode Created Date Number of Fetuses Patient Bloodtype Patient rh Status Prepregnancy Weight lbs Domestic Partner Domestic Partner Phone Father Name Horse Riding Coach Or Instructor Status 09/16/20 16 1 CLOSED Fetus Data First Name Last Name Admitted to NICU Weight (g) Sex Living Outcome Pediatric Complications Fetus ID Race Codes Race Delivery Type F Full Term 09[address] Moses Calculation Initial Moses Date Initial Exam [...] Complications Tubal Sterilization Discharge Date Comments 1 General 40 false Discharge Information Feeding Method Contraceptive Method Maternal HG B and HCT Levels Ob Episode Information Episode Created Date Number of Fetuses Patient Bloodtype Patient rh Status Prepregnancy Weight lbs Domestic Partner Domestic Partner Phone Father Name Horse Riding Coach Or Instructor Status 09/16/20 16 1 CLOSED Fetus Data First Name Last Name Admitted to NICU Weight (g) Sex Living Outcome Pediatric Complications Fetus ID Race Codes Race Delivery Type F Full Term 70983 Moses Calculation Initial Moses Date Initial Exam [...] Complications Tubal Sterilization Discharge Date Comments 7 General 40 false Discharge Information Feeding Method Contraceptive Method Maternal HG B and HCT Levels Ob Episode Information Episode Created Date Number of Fetuses Patient Bloodtype Patient rh Status Prepregnancy Weight lbs Domestic Partner Domestic Partner Phone Father Name Horse Riding Coach Or Instructor Status 09/16/20 16 1 CLOSED Fetus Data First Name Last Name Admitted to NICU Weight (g) Sex Living Outcome Pediatric Complications Fetus ID Race Codes Race Delivery Type M Full Term 64120 after attempted Only Moses Calculation Initial Moses Date Initial Exam [...] Complications Tubal Sterilization Discharge Date Comments 3 General 40 false Discharge Information Feeding Method Contraceptive Method Maternal HG B and HCT Levels Ob Episode Information Episode Created Date Number of Fetuses Patient Bloodtype Patient rh Status Prepregnancy Weight lbs Domestic Partner Domestic Partner Phone Father Name Horse Riding Coach Or Instructor Status 09/16/20 16 1 CLOSED Fetus Data First Name Last Name Admitted to NICU Weight (g) Sex Living Outcome Pediatric Complications Fetus ID Race Codes Race Delivery Type M Full Term 71879 Moses Calculation Initial Moses Date Initial Exam [...] Complications Tubal Sterilization Discharge Date Comments 9 General 40 false Discharge Information Feeding Method Contraceptive Method Maternal HG B and HCT Levels
--- OUTSIDE RECORDS SUMMARY | 2025-02-02 10:09 | XMS_ITS | Data Portability ---
Author Organization [facility] Address [address] [place] [address] Care Team Providers Care Belt Sewer Name Role Phone LISSETTEBECKYMARLYS Primary Care Provider Assessment No assessment recorded. Plan of Treatment Reminders Order Date Submit Date Provider Last Modified By Organization Details Last Modified Time Details Appointments None recorded. Lab None recorded. Referral None recorded. Procedures None recorded. Surgeries None recorded. Imaging None recorded. Medication Orders Valtrex 1 gram tablet 2023 024 Formerly [facility] [address], [address] [place] [address], [id number], 4 09:36:21 metronidazo le 0.75 % (37.5 mg/5 gram) vaginal gel 2023 024 [facility] [address], [address] [place] [address], [id number], 4 10:31:47 Patient TargetsNo targets recorded. Patient InstructionsNo instructions recorded. Reason for Referral None Reported. Results Created Date Observation Date Name Description Value Unit Range Abnormal Flag Note LastModifiedBy Organization Detail LastModifiedTime 10/24/1910/24/2023 CT/GC ([facility]) , SWAB chlamydia trachomatis, PCR Negati ve negati ve Not Available [facility] (Lab) [address], [place], [address], 10/27/2023 09:32:40 10/24/19 24 10/24/2023 CT/GC ([facility]) , SWAB neisseria gonorrhoeae, PCR Negati ve negati ve Not Available [facility] (Lab) [address] [facility], [place], [address], 10/27/2023 09:32:40 10/24/19 24 10/24/2023 VAGIN ITIS/ VAGIN OSIS, DNA PROBE nathan sp. detection, direct probe Negati ve negati ve Not Available [facility] (Lab) [address] [facility], [place], [address], 10/27/2023 09:32:41 10/24/19 24 10/24/2023 VAGIN ITIS/ VAGIN OSIS, DNA PROBE gardnerella vag. detection, direct probe Negati ve negati ve Not Available [facility] (Lab) [address] [facility], [place], [address], 10/27/2023 09:32:41 10/24/19 24 10/24/2023 VAGIN ITIS/ VAGIN OSIS, DNA PROBE trichomonas vag. detection, direct probe Negati ve negati ve Not Available [facility] (Lab) [address] [facility], [place], [address], 10/27/2023 09:32:41 11/21/19 24 11/21/2023 CULTU RE: AEROB IC/AN AEROB IC result report SEE RESULT S BELOW abnormal Test: Cultu re: Aerob ic/An aerob ic Speci men Sourc e: Vulva Speci men Type: Micro biolo gy Speci men Speci men Date: 024 10:32 AM Resul t Date: 2023 11:53 AM Resul t Statu s: Final resul t Abnor mal: Yes Eugenio [email or web address] Lab: [facility] [address] [facility] [address] Tel: CULTU RE ----- ----- ----- --- [...] <=8 ug/mL Susce ptibl e Not Available [facility] (Lab) [address] [facility], [place], [address], 11/25/2023 18:05:08 11/21/19 24 11/21/2023 HERPE S SUBTY PE(HS V1/HS V2) RT-PC R, ONESW AB herpes subtype (hsv-1, hsv-2) PCR Negati ve (HSV-1 ,HSV-2 ) Swab- 1 Vulva HSV-1 :Nega tive HSV-2 :Nega tive. Not Available [facility] (Lab) [address] [facility], [place], [address], 12/02/2023 15:03:26 Result Notes None recorded. Procedures Surgical History Date Name Laterality Status Provider Name and Address Organization Details Recorded Time 9 hernia repair completed [facility] 10/24/2023 09:56:06 8 section completed [facility] 10/24/2023 09:56:33 3 section completed [facility] 10/24/2023 09:56:38 1 section completed [facility] 10/24/2023 09:56:27 9 section completed [facility] 10/24/2023 09:56:23 7 section completed [facility] 10/24/2023 09:56:18 Imaging Results None recorded. [...] Updated DateTime 10/24/2023 146.69 cm 29.7 kg/m2 22742.52 g 130 mm[Hg] 85 mm[Hg] Chandrika Mccord [facility] 09:44:30 Date Recorded Body height Body mass index (BMI) Body weight Systolic blood pressure Diastolic blood pressure Provider Name and Address Organization Details Last Updated DateTime 11/21/2023 146.69 cm 29.8 kg/m2 93051.68 g 128 mm[Hg] 85 mm[Hg] Cat Tom [facility] 09:15:45 Social History Question Answer Notes LastModified by Organizat ion Details LastModified Time Tobacco Smoking Status Current Every Day Smoker Chandrika Mccord [facility] 10/24/2023 09:55:11 What Is Your Level Of Alcohol Consumption? Occasional [email or web address] Information not available 10/24/2023 Are You Blind Or Do You Have Difficulty Seeing? No [email or web address] Information not available 10/24/2023 What Is Your Level Of Caffeine Consumption? Moderate [email or web address] Information not available 10/24/2023 In The 14 Days Before Symptom Onset, Have You Had Close Contact With A Laboratory-confir med COVID-19 While That Case Was Ill? No [email or web address] Information not available 10/24/2023 In The 14 Days Before Symptom Onset, Have You Had Close Contact With A Person Who Is Under Investigation For COVID-19 While That Person Was Ill? No Information not available 10/24/2023 Have You Been To An Area Known To Be High Risk For COVID-19? No [email or web address] Information not available 10/24/2023 Are You Deaf Or Do You Have Serious Difficulty Hearing? No Information not available 10/24/2023 What Type Of Diet Are You Following? REGULAR [email or web address] Information not available 10/24/2023 Have You Ever Been Counseled For Unhealthy Alcohol Use? No [email or web address] Information not available 10/24/2023 Do You Use Your Seat Belt Or Car Seat Routinely? Yes [email or web address] Information not available 10/24/2023 Do You Have Smoke And Carbon Monoxide Detectors In Your Home? Yes [email or web address] Information not available 10/24/2023 Do You Feel Stressed (tense, Restless, Nervous, Or Anxious, Or Unable To Sleep At Night)? [id number] [email or web address] Information not available 10/24/2023 Do You Use Any Illicit Or Recreational Drugs? No [email or web address] Information not available 10/24/2023 Do You Use Sunscreen Routinely? Yes [email or web address] Information not available 10/24/2023 Has Tobacco Cessation Counseling Been Provided? No [email or web address] Information not available 10/24/2023 Do You Or Have You Ever Used Any Other Forms Of Tobacco Or Nicotine? No [email or web address] Information not available 10/24/2023 Sex: Unknown Functional Status Question Answer Note LastModified by Organizat ion Details LastModified Time Do you have difficulty walking or climbing stairs? No [email or web address] Information not available 10/24/2023 Are you able to walk? YESWOREST Information not available 10/24/2023 Are you able to care for yourself? Yes [email or web address] Information not available 10/24/2023 Do you have difficulty dressing or bathing? No Information not available 10/24/2023 What is your exercise level? Occasional [email or web address] Information not available 10/24/2023 Mental Status None recorded. Family History Relationship Description Onset Age of this Age Resolved Age Notes LastModified by Organization Details LastModified Time Mother Olga gleason [email or web address] Not available 10/24 09:54:45 Medical History Condition Response Other N Blood Transfusion N Dermatologic Disorders N Gestational Diabetes N Anxiety Disorder N Autoimmune disease N Arthritis N Polyps N Infertility N Acid Reflux (GERD) N Cancer N Varicosities N Stroke N Neurologic/Epilepsy N Fibromyalgia N Headaches N Kidney Disease N Heart Problems N Kidney or Bladder Problems N Eating Disorder N Art (IVF or FET) N Hepatitis/Liver Disease N No Past Medical History N Urinary Tract Infection N Asthma N Trauma/Violence N Thrombophilias N Allergies (Food, seasonal, environmental ) N Breast Cancer N Drug/Latex Allergies/Reactions N Lung Disease N Defects or Inherited Disease N Breast Problem N Hematologic disorders N Anesthesia Complications N History of STI Y Deep Vein Thrombosis N Polycystic ovary syndrome N History of abnormal pap N Endometriosis N High Cholesterol Y Thyroid Problems N GI Problems Y Anemia N Psychiatric Illness N Ovarian Cancer N Diabetes N Pulmonary (TB, Asthma) N Eczema N Abuse/Domestic Violence N Depression/ depression N Heart Disease N Pre-Eclampsia N Hypertension N Osteoporosis Y Gynecological History Statement/Question Response Date of Last [...] SNOMED-CT Code Diagnosis ICD10 Code Diagnosis Note [id number] KYA Tom Turrell [address] [address] 10/24/2023 08:58:09 10/24/2023 10:36:34 Vaginitis [id number] N76.0 Detailed health hx reviewed and obtainedva [...] plan of care. 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 10/24/2023 10:17:54 11/21/2023 text/html 63yo [id number] ents for evaluation of vulvar lesionssymptoms started about 1 week agoblister like lesions, very painful for the first few days. Leaked fluid a few days agosymptoms seems to be resolvinglast SA a few months agoneg discharge/itching/odo rsneg pelvic pain KYA Tom [address], [place], [address], [facility] 11/21/2023 09:45:26 OBGyn Episode Ob Episode Information Episode Created Date Number of Fetuses Patient Bloodtype Patient rh Status Prepregnancy Weight lbs Domestic Partner Domestic Partner Phone Father Name Autobody Technician Status 10/24/19 24 1 CLOSED Fetus Data First Name Last Name Admitted to NICU Weight (g) Sex Living Outcome Pediatric Complications Fetus ID Race Codes Race Delivery Type 3175.14 4 M Full Term 58191 Repeat Moses Calculation Initial Moses Date Initial [...] Domestic Partner Domestic Partner Phone Father Name Autobody Technician Status 10/24/19 24 1 CLOSED Fetus Data First Name Last Name Admitted to NICU Weight (g) Sex Living Outcome Pediatric Complications Fetus ID Race Codes Race Delivery Type 3175.14 4 M Full Term 61872 Repeat Moses Calculation Initial Moses Date Initial [...] Domestic Partner Domestic Partner Phone Father Name Autobody Technician Status 10/24/19 24 1 CLOSED Fetus Data First Name Last Name Admitted to NICU Weight (g) Sex Living Outcome Pediatric Complications Fetus ID Race Codes Race Delivery Type 3175.14 4 F Full Term 55377 Primary Moses Calculation Initial Moses Date Initial [...] Domestic Partner Domestic Partner Phone Father Name Autobody Technician Status 10/24/19 24 1 CLOSED Fetus Data First Name Last Name Admitted to NICU Weight (g) Sex Living Outcome Pediatric Complications Fetus ID Race Codes Race Delivery Type 3175.14 4 F Full Term 63149 Repeat Moses Calculation Initial Moses Date Initial [...] Domestic Partner Domestic Partner Phone Father Name Autobody Technician Status 10/24/19 24 1 CLOSED Fetus Data First Name Last Name Admitted to NICU Weight (g) Sex Living Outcome Pediatric Complications Fetus ID Race Codes Race Delivery Type 3175.14 4 M Full Term 96659 Repeat Moses Calculation Initial Moses Date Initial [...]
--- OUTSIDE RECORDS SUMMARY | 2025-02-02 10:10 | XMS_ITS | Encounter Summary ---
Author Organization [facility] Address [address] [place] [address] Care Team Providers Care Gang Pusher Name Role Phone Mitali Guzman MD Primary Care Provider [phone] Encounter Details Date Type Department Care Team (Late Contact Info) Description 06/09/2018 Nurse Only [facility] [address] [place] [address] Yumiko Brooke, CERT PHARMACY TECH [address] [facility] [address] [place] [address] Social History Tobacco Use Types Packs/Day Years Used Date Smoking Tobacco: Every Day Cigarettes Smokeless Tobacco: Never Alcohol Use Standard Drinks/Week Comments Yes 0 [...] file Not on file Not on file documented as of this encounter Plan of Treatment Upcoming Encounters Date Type Department Care Team ([facility] Contact Info) Description 02/21/2025 7:40 AM CDT Office Visit [facility] [place] [address] [place] [address] documented as of this encounter Visit Diagnoses Not on filedocumented in this encounter Additional Health Concerns Assessment Noted Time PHQ-9 Depression Total Score: 1 04/20/20 18 7:00 AM CDT documented as of this encounter Care Teams Gang Pusher Relationship Specialty Start Date End Date Mitali Guzman MD [address] [place] [phone] PCP - General Internal Medicine 07/29/24 documented as of this encounter
--- OUTSIDE RECORDS SUMMARY | 2025-02-02 10:10 | XMS_ITS | Clinical Summary ---
Author Organization [facility] Address [address] [place] [address] Phone Care Team Providers Care Archeologist Classical Name Role Phone Bryant Anguiano MD Unavailable Allergies No known active allergies Medications nystatin (MYCOSTATIN) [id number] UNIT/GM Cream 07/15/2017 Active raloxifene (EVISTA) 60 MG Tablet Take 1 Tab by mouth daily. 05/08/2017 Active Calcium Citrate-Vitamin D (CITRACAL + D PO) Take 1 Tab by mouth daily. Active Aspirin 81 MG Tablet Take 81 mg by mouth daily. Active Multiple Vitamins-Mineral s (ONE-A-DAY WOMENS 50+ ADVANTAGE PO) Take by mouth. Active Active Problems Problem Noted Date Diagnosed Date Fatigue 08/18/2017 Constipation 08/18/2017 Dysmenorrhea 07/21/2017 Family History Medical History Relation Name Comments No Known Problems Father unknown Arthritis Mother Relation Name Status Comments Father unknown Mother Alive Social History Tobacco Use Types Packs/Day Years Used Date Smoking Tobacco: Every Day Cigarettes Smokeless Tobacco: Never Tobacco Cessation:Ready to Q uit: No; Counseling Given: Yes Alcohol Use Standard Drinks/Week Comments Yes 0 (1 standard drink = 0.6 oz pur e alcohol) a pint a weekend Sexually Active Control Partners Comments Never Comments No Sex and Gender Information Value Date Recorded Sex Assigned at Not on file Legal Sex Female 8:02 AM CDT Gender Identity Not on file Sexual Orientation Not on file Last Filed Vital Signs Vital Sign Reading Time Taken Comments Blood Pressure 110/72 08/18/2017 7:53 AM PRESS LEADER Pulse 72 08/18/2017 7:53 AM PRESS LEADER Temperature 36.3 C (97.4 F) 08/18/2017 7:53 AM PRESS LEADER Respiratory Rate 16 08/18/2017 7:53 AM PRESS LEADER Oxygen Saturation 96% 08/18/2017 7:53 AM PRESS LEADER Inhaled Oxygen Concentration - - Weight 69.3 kg (152 lb 12.8 oz) 08/18/2017 7:53 AM PRESS LEADER Height 149.9 cm (4' 11 ) 08/18/2017 7:53 AM PRESS LEADER Body Mass Index 30.86 08/18/2017 7:53 AM PRESS LEADER Plan of Treatment Health Maintenance Due Date Last Done Comments Hepatitis C Virus (HCV) Screening 1960 TdaP Immunization 1962 Colonoscopy 2007 Colorectal Cancer Screening 2007 Cologuard 2012 Immunochemical Fecal Occult Blood 2012 Pneumococcal Immunization (5 0+ years) (1 of 1 - PCV) 2012 Zoster Immunization (1 of 2) 2012 Influenza Immunization (#1) 2024 SARS-COV-2 Immunization ( - 2023- season) 2024 Respiratory Syncytial Virus (RSV) Immunization (Adult) (1 - 1-dose 75+ series) 2037 Mammogram Discontinued 11/18/2013, 11/12/2012 Cervical Cancer Screening (CCS) Discontinued Pap Smear Discontinued 07/31/2017, 09/16/2016, 07/15/2013 HPV/Cotest Discontinued Hepatitis B Immunization Aged Out No longer eligible based on patient's age to complete this topic Meningococcal Immunization (ACWY) Aged Out No longer eligible based on patient's age to complete this topic Rotavirus Immunization Aged Out No lo nger eligible based on patient's age to complete this topic Procedures Procedure Name Priority Date/Time Associated Diagnosis Comments PATHOLOGY CYTOLOGY SERVICE CENTER TECHNICIAN Routine 09/16/2016 AKUA SCREENING BILATERAL DIGI TEE W CAD Routine 11/18/2013 from Last 3 Months or Most Recently Relevant to Health Maintenance Results * PATHOLOGY CYTOLOGY SERVICE CENTER TECHNICIAN (09/16/2016) Specimen of unknown material (specimen) us Bryant Anguiano MD PATHOLOGY/CYTOLOGY ORD ERABLES Final Result * AKUA SCREENING BILATERAL DIGITAL W CAD (11/18/2013) Anatomical Region Laterality Modality breast Bilateral Mammography Bryant Anguiano MD IMG MAMMO ORDERABLES F inal Result from Last 3 Months or Most Recently Relevant to Health Maintenance Insurance Care Teams Archeologist Classical Relationship Specialty Start Date End Date Bryant Anguiano MD Obstetrics & Gynecology 07/21/17
--- NOTE | 2025-02-02 11:00 | NEURO_ITS ---
Impression: # Complains of right lower extremity pain below the knee. Non- diabetic. ? # Normal Nerve Conduction Study. ? # Normal needle/EMG exam. ? # Clinical correlation recommended. Nerve Conduction Studies Anti Sensory Summary Table ?Stim Site NR Peak (ms) P-T Amp (?V) Site1 Site2 Delta-P (ms) Dist (cm) Ramesh (m/s) Right Sup Fibular Anti Sensory (Ant Lat Mall) 14 cm ? 3.6 18.9 14 cm Ant Lat Mall 3.6 16.0 44 Right Sural Anti Sensory (Lat Mall) Calf ? 3.7 5.4 Calf Lat Mall 3.7 16.0 43 Motor Summary Table ?Stim Site NR Onset (ms) O-P Amp (mV) Site1 Site2 Delta-0 (ms) Dist (cm) Ramesh (m/s) Right Peroneal Motor (Vastus Med) Ankle ? 4.4 3.6 Popit Ankle 8.8 40.0 45 Popit ? 13.2 3.7 Right Tibial Motor (Abd Ochoa Brev) Ankle ? 4.2 2.6 Knee Ankle 7.6 39.0 51 Knee ? 11.8 1.1 F Wave Studies ?NR F-Lat (ms) L-R F-Lat (ms) Right Peroneal (Mrkrs) (EDB) ? 51.60 Right Tibial (Mrkrs) (Abd Hallucis) ? 50.57 EMG ?Side Muscle Nerve Root Ins Act Fibs Amp Dur Recrt Comment Right AntTibialis Dp Br Fibular L4-5 Nml Nml Nml Nml Nml Right Gastroc Tibial S1-2 Nml Nml Nml Nml Nml Right Fibularis Long Sup Br Fibular L5-S1 Nml Nml Nml Nml Nml Right Flex Dig Long Tibial L5-S2 Nml Nml Nml Nml Nml Right Ext Dig Brev Dp Br Fibular L5, S1 Nml Nml Nml Nml Nml Right QuadratusFem QuadFemoris L4-5, S1 Nml Nml Nml Nml Nml MTDD
== END 2025-02-02 09:16 | disposition home or self-care (01) ==
LOC: ANHNEURO 09:18
PROVIDERS: Visit Provider Internal Medicine
DX: M79.604 Pain in right leg (principal)
CPT/HCPCS: 95886; 95908

== ENCOUNTER 2025-02-24 07:43 | Outpatient (CLI) | payer OTHER, SELFPAY ==
--- NOTE | ~2025-02-24 | XR_ITS ---
Lumbosacral Spine: AP and lateral views Clinical History: Pain Findings: The normal lordotic curve is maintained. There is 13 mm anterolisthesis of L4 over L5. No f racture seen. There is advanced facet arthropathy throughout the lumbar spine. The sacroiliac joints are normally outlined. Impression: 13 mm anterolisthesis of L4 over L5. Extensive facet arthropathy. Reviewed, dictated and finalized at location . Impression: 13 mm anterolisthesis of L4 over L5. Extensive facet arthropathy.
--- NOTE | ~2025-02-24 | XR_ITS ---
AP and lateral views of the right hip Clinical history: Pain Findings: No acute fracture or dislocation is seen. Osseous alignment is anatomic. Right hip joint is intact. Soft tissues are unremarkable. Impression: No significant abnormality is seen. Reviewed, dictated and finalized at location M. Impression: No significant abnormality is seen.
--- OUTSIDE RECORDS SUMMARY | 2025-02-24 07:49 | XMS_ITS | Data Portability ---
Author Organization [place] - [employer], Main Office Address [address] [place] [address] Care Team Providers Care Topper Packer Name Role Phone MARLYS MCGARRY Primary Care Provider MARLYS MCGARRY Referring Provider Assessment Encounter Date [...] Lab CBC w/ auto diff [address] (Lab), [address] [facility], [place], [address], 3 08:22:57 lipid panel, serum [address] (Lab), [address] [facility], [place], [address], 3 08:22:57 CMP, serum or plasma [address] (Lab), [address] [facility], [place], [address], 3 08:22:57 Referral physical therapist referral - eval and treat 2023 024 [email or web address] 3 Not available 4 15:43:36 orthopedic surgeon referral 2023 024 [email or web address] Jus Ledezma MD, [address] [facility], [place], [address], 4 08:17:41 Procedures colonoscopy screening (PROC) 2023 024 [email or web address] Bryant Graham MD, [address] [facility] [address], [place], [address], 4 08:37:56 Surgeries None recorded. Imaging XR, knee, 3 view 2023 024 [facility] [place], [address], [place], [address], 4 08:35:39 US, duplex, arterial, lower extremity, complete - no auth required WITH CHAPARRITA 2023 024 [facility], [address], [place], [address], 4 18:25:24 LDCT, chest, for lung cancer screening - auth approved [id number] 2022 023 [facility], [address], [place], [address], 3 18:13:39 MRI, lumbar spine, w/o contrast - No auth required per [place]. 03/14/20232022 023 [facility], [address], [place], [address], 3 09:09:48 Medication Orders Mobic 15 mg tablet [address] [facility], [address] [place] [address], [address], 4 00:19:35 ibuprofen 800 mg tablet 2023 024 [facility], [address] [place] [address], [address], 4 12:42:57 pantoprazol e 40 mg tablet,jamari yed release [address] [facility], [address] [place] [address], [address], 4 15:15:55 pantoprazol e 40 mg tablet,jamari yed release [address] [facility], [address] [place] [address], [address], 4 15:15:55 Patient TargetsNo targets recorded. Patient Instructions Encounter Date Encounter Id Patient Instructions Last Modified By Organization Details Last Modified Time 02/19/2024 [id number] risk assessment* Not availabl e 02/19/2024 17:01:41 [...] SCREENING Not indicated GLUCOSE SCREENING LIPID SCREENING [email or web address] Not available 02/19/2024 15:48:29 Reason for Referral [...] victor m No observ ation record ed. [address], [place], [address], 03/28/2023 11:23:50 03/28/20 23 03/26/2023 MRI, lumba r spine , w/o contr ast No observ ation record ed. [place] [id number] [facility] [address], [place], [address], 03/28/2023 11:23:50 08/01/20 23 08/01/2023 LDXR, tibia [...] compl ete No observ ation record ed. [facility] [address], [place], [address], 05/03/2024 18:25:24 05/11/20 24 XR, knee, 3 view No observ ation record ed. [email or web address] [facility] [address], [place], [address], 05/11/2024 15:24:57 Result Notes None recorded. Problems Name Problem SNOMED Code Status Onset Date Resolution Date Notes Provider Name and Address Organization Details Recorded Time Pain in lower limb 55239442 Completed 202107/09/2022 Not Available [facility] 3 05:58:41 Cellul[employer] s 416163377 Completed 202107/09/2022 Not Available [facility] 3 05:58:41 Mammograp hy abnormal 171293932 Active 2022 Not Available [facility] 4 12:48:49 Abdominal pain 10794823 Completed 202107/09/2022 Not Available [facility] 3 05:58:41 Gastroeso phageal reflux disease 837082733 Active 2018 Not Available [facility] 4 12:48:49 Low back pain 773501727 Active 2021 Not Available [facility] 4 12:48:49 Pain in right arm 887050152 Completed 202107/09/2022 Not Available [facility] 3 05:58:41 Pain in right lower limb 517636131 Completed 202107/09/2022 Marlys Mcgarry MD [address] [facility], [facility], [place], [address] , [facility] [place] [employer] [facility] [employer] [facility] 4 14:27:20 Retinal hemorrhag e 24421022 Completed 202010/16/2022 Not Available [facility] 3 05:58:41 Tendernes s in popliteal fossa 839581867 Completed 202107/09/2022 Not Available [facility] 3 05:58:42 Pain of right hip joint 32426657802 9102 Completed 202107/09/2022 Not Available [facility] 3 05:58:42 Osteoarth ritis 391279578 Active 2022 Not Available [facility] 4 12:48:49 Hyperlipi demia 66105128 Active 2022 Not Available [facility] 4 12:48:49 Osteoporo sis 28788473 Active 2019 Not Available [facility] 4 12:48:49 Smoker 09521638 Active 2022 Not Available [facility] 4 12:48:49 Fatigue 65459931 Active 2021 Not Available [facility] 4 12:48:49 Conjuncti vitis 8860926 Completed 202107/09/2022 Not Available [facility] 3 05:58:42 Pain in lower limb 71643286 Active 2023 Marlys Mcgarry MD [address] [facility], [facility] [address], [place], [address] , [employer] [facility] [employer] 4 15:39:16 Pain in lower limb 88782790 Active 2023 Linette Albarado LPN [facility], [facility] [employer] [facility] 4 15:43:52 Diverticu litis 012878939 Active 2023 Marlys Mcgarry MD [address], [address], [place], [address] , [facility] [place] [employer] [facility] [employer] [facility] 4 14:26:27 Pain in right lower limb 963397909 Active 2023 Marlys Mcgarry MD [address], [address], [place], [address] , [facility] [place] [employer] [facility] [employer] [facility] 4 14:27:20 Synovial cyst of right knee 02451296236 9104 Active 2023 Marlys Mcgarry MD [address], [address], [place], [address] , [employer] [facility] [employer] [facility] 4 14:51:10 Pain of right knee joint 47904932059 4100 Active 2023 Bambi Yu Valerie null, [place] [employer] [facility] [employer] [facility] 4 15:17:11 Problem Notes None recorded. Procedures Surgical History Date Name Laterality Status Provider Name and Address Organization Details Recorded Time completed Not Available [facility] 0 12/11/2022 05:53:22 completed Not Available [facility] 0 12/11/2022 05:53:22 completed Not Available [facility] 0 12/11/2022 05:53:22 Hernia Repair completed Not Available [facility] 12/11/2022 05:53:22 completed Not Available [facility] 0 12/11/2022 05:53:22 completed Not Available [facility] 0 12/11/2022 05:53:22 Imaging Results Imaging Date Name Status LastModified by [facility] Details LastModified Time 03/26/2023 LDCT, chest, for lung cancer screening completed [address], [address], 03/28/2023 11:23:50 03/26/2023 MRI, lumbar spine, w/o contrast completed [address], [address], 03/28/2023 11:23:50 08/01/2023 LDXR, tibia + fibula, 2 view completed [email or web address] Information not available 08/06/2023 13:07:26 08/01/2023 US, duplex, venous, upper extremity completed Information not available 08/06/2023 13:07:27 08/26/2023 CT, abdomen + pelvis, w/ contrast completed [email or web address] Information not available 08/28/2023 09:38:59 02/05/2024 MAMMO, screening, digital, bilateral completed [facility] Information not available 02/06/2024 16:40:30 04/06/2024 US, duplex, arterial, lower extremity, complete completed [facility] [address] [facility] [address] [facility], [place], [address], 05/03/2024 18:25:24 05/11/2024 XR, knee, 3 view completed [email or web address] [facility] [address], [place], [address], 05/11/2024 15:24:57 Procedure Notes None recorded. Medical [...] Updated DateTime 3 149.86 cm 8.6 kg/m2 43412.3 9 g 97.9 [degF] 80 /min 95 % 95 % 118 mm[Hg] 78 mm[Hg] Sue Lou MA [place] [facility] [place] [employer] [facility] 3 12:29:32 Date Recorded Body height Body mass index (BMI) Body weight Body temperature Heart rate Oxygen saturation Oxygen saturation in Arterial blood by Pulse oximetry Systolic blood pressure Diastolic blood pressure Provider Name and Address Organization Details Last Updated DateTime 4 149.86 cm 8.9 kg/m2 75725.0 6 g 97.3 [degF] 72 /min 99 % 99 % 122 mm[Hg] 78 mm[Hg] Eleanor turcios [facility] [employer] [facility] 4 12:22:50 Date Recorded Body height Body mass index (BMI) Body weight Body temperature Heart rate Oxygen saturation Oxygen saturation in Arterial blood by Pulse oximetry Systolic blood pressure Diastolic blood pressure Provider Name and Address Organization Details Last Updated DateTime 4 149.86 cm 28.8 kg/m2 96947.6 3 g 98.6 [degF] 59 /min 99 % 99 % 120 mm[Hg] 72 mm[Hg] Chayo Pierre [facility] [employer] [facility] [employer] [facility] 4 15:21:08 Date Recorded Body height Body mass index (BMI) Body weight Body temperature Heart rate Oxygen saturation Oxygen saturation in Arterial blood by Pulse oximetry Systolic blood pressure Diastolic blood pressure Provider Name and Address Organization Details Last Updated DateTime 4 149.86 cm 28.3 kg/m2 15722.9 3 g 97 [degF] 80 /min 96 % 96 % 136 mm[Hg] 80 mm[Hg] Eleanor turcios [facility] [employer] [facility] 4 14:05:50 Date Recorded Body height Body mass index (BMI) Body weight Pain severity - 0-10 verbal numeric rating [Score] - Reported Provider Name and Address Organization Details Last Updated DateTime 05/11/2024 149.86 cm 28.1 kg/m2 15073.34 g 10 Bambi Yu [facility] [employer] [facility] [employer] [facility] 05/11/2024 15:13:49 Social History Question Answer Notes LastModified by Organizat ion Details LastModified Time Tobacco Smoking Status Current Every Day Smoker Not Available [facility] 12/11/2022 05:53:19 What Is Your Level Of Caffeine Consumption? Moderate [id number] Information not available 12/11/2022 How Much Tobacco Do You Chew? None [id number] Information not available 12/11/2022 What Type Of Diet Are You Following? REGULAR [id number] Information not available 12/11/2022 Which Illicit Or Recreational Drugs Have You Used? None [id number] Information not available 12/11/2022 What Was The Date Of Your Most Recent Tobacco Screening? 05/11/2024 [email or web address] Information not available 05/11/2024 At What Age Did You Start Smoking Tobacco? 19 [id number] Information not available 12/11/2022 How Much Tobacco Do You Smoke? 0.25 PPD [id number] 026 Information not available 12/11/2022 Sex: Unknown Functional Status Question Answer Note LastModified by Organizat ion Details LastModified Time What is your level of alcohol consumption? Occasional [id number] Information not available 12/11/2022 Do you or have you ever used smokeless tobacco? Never used smokeless tobacco [id number] 026 Information not available 12/11/2022 Do you or have you ever used e-cigarettes or vape? Never used electronic cigarettes [id number] Information not available 12/11/2022 What is your exercise level? None [id number] 026 Information not available 12/11/2022 Mental Status None recorded. Family History Relationship Description Onset Age of this Age Resolved Age Notes LastModified by Organization Details LastModified Time Maternal Aunt Essential hypertension [id number] Not available 12/11/2022 05:53:24 Medical History No medical history recorded. Gynecological HistoryNo gynecological history recorded. Obstetrics History GPAL:G 0 P 0 0 0 0 Immunizations Vaccine Type Date Status Note Provider Nam e and Address Organization Details Recorded Time COVID-19, mRNA, LNP-S, PF, 30 mcg/0.3 mL dose 03/23/2021 completed Not Available [facility] 4 12:48:49 COVID-19, mRNA, LNP-S, PF, 30 mcg/0.3 mL dose 03/02/2021 completed Not Available [facility] 4 12:48:49 Past Encounters Encounter ID Performer Location Encounter Start Date Encounter Closed Date Diagnosis/Indication Diagnosis SNOMED-CT Code Diagnosis ICD10 Code Diagnosis Note [id number] Marlys Mcgarry MD [facility] Internal Med [address] [address] 09/14/2021 00:00:00 09/14/2021 13:05:55 [id number] Marlys Mcgarry MD [facility] Internal Med [address] [place] [address] 11/20/2021 00:00:00 11/20/2021 16:03:58 [id number] Marlys Mcgarry MD [facility] [address] [place] [address] 01/03/2022 00:00:00 01/03/2022 16:44:08 [id number] Marlys Mcgarry MD [facility] [address] [place] [address] 01/14/2022 00:00:00 01/14/2022 14:56:57 [id number] MD PORTER H[facility] [address] [facility] [place] [address] 05/15/2022 00:00:00 05/15/2022 16:59:33 [id number] MD PORTER H[facility] [address] [facility] [place] [address] 2022 00:00:00 2022 14:15:23 [id number] MD PORTER H[facility] [address] [facility] [place] [address] 07/08/2022 00:00:00 07/08/2022 16:10:02 [id number] Marlys Mcgarry MD [facility] [address] [facility] [place] [address] 08/09/2022 00:00:00 08/09/2022 15:31:08 [id number] MD KETAN HurtadoS[facility] Internal [facility] [address] [facility] [place] [address] 10/21/2022 00:00:00 10/21/2022 09:47:06 [id number] Marlys Mcgarry MD [facility] [address] [facility] [place] [address] 02/10/2023 11:37:04 02/10/2023 12:28:10 Low back pain 898285404 M54.50 [id number] Marlys Mcgarry MD [facility] Internal [facility] [address] [facility] [place] [address] 03/14/2023 12:16:27 03/14/2023 12:50:16 Gastroesophageal reflux disease 418147345 K21.9 meds prn only Low back pain 667927602 M54.50 meds prn, getting worse, has radiculopa thy symptoms, needs more w/u, may need PT Osteoporosis 31546805 M8 1.0 on meds, Osteoarthritis 849880104 M19.90 ibuprofen prn Adult heal th examination 597599329 Z00.00 Colonoscop y- 02/27/2018 Mammogram- 08/2021 ([facility]), getting it this weekDexa- 10/03FLU- Does not getCOVID- 03/02/21, 03/23/21 Smoker 12034986 F17.200 advised to quit, Hyperlipidemia 92802734 E78.5 under control [id number] Marlys Mcgarry MD [facility] Internal [facility] [address] [facility] [place] [address] 11/07/2023 12:15:33 11/07/2023 12:53:29 Low back pain 742185828 M54.50 stretching exercises demo given, heat Gastroesop hageal reflux disease 599245390 K21.9 meds prn [id number] Marlys Mcgarry MD [facility] Internal [facility] [address] [facility] [place] [address] 02/19/2024 15:15:22 02/19/2024 15:46:21 Adult health examin [id number]|2025-02-24 07:49:00|2025-02-24 07:49:00|XMS_ITS|HILARIO JIM|External Medical Summaries|[id number]|" Data Portability Created on: February 24, 2025 Yarelis Villareal .[id number] : 1960 Sex: Female Author Organization [facility] [place], [address] Address [address] [place] [address] Care Team Providers Care Topper Packer Name Role Phone MARLYS MCGARRY Primary Care Provider Assessment No assessment recorded. Plan of Treatment Reminders Order Date Submit Date Provider Last Modified By Organization Details Last Modified Time Details Appointments None recorded. Lab None recorded. Referral None recorded. Procedures None recorded. Surgeries None recorded. Imaging None recorded. Medication Orders Valtrex 1 gram tablet 2023 024 [facility], [address] [place] [address], [address], 4 09:36:21 metronidazo le 0.75 % (37.5 mg/5 gram) vaginal gel 2023 024 [facility], [address] [place] [address], [address], 4 10:31:47 Patient TargetsNo targets recorded. Patient InstructionsNo instructions recorded. Reason for Referral None Reported. Results Created Date Observation Date Name Description Value Unit Range Abnormal Flag Note LastModifiedBy Organization Detail LastModifiedTime 10/24/19 24 10/24/2023 CT/GC ([facility]) , SWAB chlamydia trachomatis, PCR Negati ve negati ve Not Available [facility] (Lab) [address] [place], [address], 10/27/2023 09:32:40 10/24/19 24 10/24/2023 CT/GC ([facility]) , SWAB neisseria gonorrhoeae, PCR Negati ve negati ve Not Available [facility] (Lab) [address] [place], [address], 10/27/2023 09:32:40 10/24/19 24 10/24/2023 VAGIN ITIS/ VAGIN OSIS, DNA PROBE nathan sp. detection, direct probe Negati ve negati ve Not Available [facility] (Lab) [address] [place], [address], 10/27/2023 09:32:41 10/24/19 24 10/24/2023 VAGIN ITIS/ VAGIN OSIS, DNA PROBE gardnerella vag. detection, direct probe Negati ve negati ve Not Available [facility] (Lab) [address] [place], [address], 10/27/2023 09:32:41 10/24/19 24 10/24/2023 VAGIN ITIS/ VAGIN OSIS, DNA PROBE trichomonas vag. detection, direct probe Negati ve negati ve Not Available [facility] (Lab) [address] [place], [address], 10/27/2023 09:32:41 11/21/19 24 11/21/2023 CULTU RE: AEROB IC/AN AEROB IC result report SEE RESULT S BELOW abnormal Test: Cultu re: Aerob ic/An aerob ic Speci men Sourc e: Vulva Speci men Type: Micro biolo gy Speci men Speci men Date: 024 10:32 AM Resul t Date: 2023 11:53 AM Resul t Statu s: Final resul t Abnor mal: Yes Resul lilliang Lab: [facility] [address] [facility] [address] Tel: CULTU RE ----- ----- ----- --- [...] do not provi de usefu l infor matio n. The anaer obic porti on of this [...] <=8 ug/mL Susce ptibl e Not Available [facility] (Lab) [address] [facility], [place], [address], 11/25/2023 18:05:08 11/21/1911/21/2023 HERPE S SUBTY PE(HS V1/HS V2) RT-PC R, ONESW AB herpes subtype (hsv-1, hsv-2) PCR Negati ve (HSV-1 ,HSV-2 ) Swab- 1 Vulva HSV-1 :Nega tive HSV-2 :Nega tive. Not Available [facility] (Lab) [address] [facility], [place], [address], 12/02/2023 15:03:26 Result Notes None recorded. Procedures Surgical History Date Name Laterality Status Provider Name and Address Organization Details Recorded Time 9 hernia repair [facility] 10/24/2023 09:56:06 8 section [facility] 10/24/2023 09:56:33 3 section completed [facility] 10/24/2023 09:56:38 1 section completed [facility] 10/24/2023 09:56:27 9 section completed [facility] 10/24/2023 09:56:23 7 section completed [facility] 10/24/2023 09:56:18 Imaging Results None recorded. [...] Updated DateTime 10/24/2023 146.69 cm 29.7 kg/m2 90194.52 g 130 mm[Hg] 85 mm[Hg] Chandrika Mccord [facility] 4 09:44:30 Date Recorded Body height Body mass index (BMI) Body weight Systolic blood pressure Diastolic blood pressure Provider Name and Address Organization Details Last Updated DateTime 11/21/2023 146.69 cm 29.8 kg/m2 94041.68 g 128 mm[Hg] 85 mm[Hg] Cat Tom [facility] 4 09:15:45 Social History Question Answer Notes LastModified by Organizat ion Details LastModified Time Tobacco Smoking Status Current Every Day Smoker Chandrika Mccord [facility] 10/24/2023 09:55:11 Are You Blind Or Do You Have Difficulty Seeing? No [email or web address] Information n ot available 10/24/2023 What Is Your Level Of Caffeine Consumption? Moderate [email or web address] Information not available 10/24/2023 In The 14 Days Before Symptom Onset, Have You Had Close Contact With A Laboratory-confirm ed COVID-19 While That Case Was Ill? No [email or web address] Information n ot available 10/24/2023 In The 14 Days Before Symptom Onset, Have You Had Close Contact With A Person Who Is Under Investigation For COVID-19 While That Person Was Ill? No [email or web address] Information not available 10/24/2023 Have You Been To An Area Known To Be High Risk For COVID-19? No [email or web address] Information not available 10/24/2023 Are You Deaf Or Do You Have Serious Difficulty Hearing? No [email or web address] Information not available 10/24/2023 What Type Of Diet Are You Following? REGULAR [email or web address] Information n ot available 10/24/2023 Have You Ever Been Counseled For Unhealthy Alcohol Use? No [email or web address] Information not available 10/24/2023 Do You Use Your Seat Belt Or Car Seat Routinely? Yes [email or web address] Information not available 10/24/2023 Do You Have Smoke And Carbon Monoxide Detectors In Your Home? Yes [email or web address] Information not available 10/24/2023 Do You Use Sunscreen Routinely? Yes [email or web address] Information not available 10/24/2023 Has Tobacco Cessation Counseling Been Provided? No [email or web address] Information not available 10/24/2023 Do You Have Difficulty Walking Or Climbing Stairs? No [email or web address] Information not available 10/24/2023 Sex: Unknown Functional Status Question Answer Note LastModified by Organizat ion Details LastModified Time Do you use any illicit or recreational drugs? No [email or web address] Information not available 10/24/2023 Do you or have you ever used any other forms of tobacco or nicotine? No [email or web address] Information not available 10/24/2023 What is your level of alcohol consumption? Occasional [email or web address] Information not available 10/24/2023 Are you able to walk? YESWOREST [email or web address] Information not available 10/24/2023 Are you able to care for yourself? Yes [email or web address] Information n ot available 10/24/2023 Do you have difficulty dressing or bathing? No [email or web address] Information not available 10/24/2023 What is your exercise level? Occasional [email or web address] Information not available 10/24/2023 Mental Status Question Answer Note LastModified by Organization D etails LastModified Time Do you feel stressed (tense, restless, nervous, or anxious, or unable to sleep at night)? [id number] [email or web address] Information not available 10/24/2023 Family History Relationship Description Onset Age of this Age Resolved Age Notes LastModified by Organization Details LastModified Time Mother Olga gleason [email or web address] Not available 10/24 09:54:45 Medical History Condition Response Allergies (Food, seasonal, environmental ) N Other N Blood Transfusion N Drug/Latex Allergies/Reactions N Breast Cancer N Dermatologic Disorders N Lung Disease N Defects or Inherited Disease N Breast Problem N Gestational Diabetes N Hematologic disorders N Anesthesia Complications N History of STI Y Deep Vein Thrombosis N Polycystic ovary syndrome N Anxiety Disorder N Autoimmune disease N Arthritis N Infertility N Polyps N Acid Reflux (GERD) N History of abnormal pap N Cancer N Stroke N Varicosities N Neurologic/Epilepsy N Endometriosis N High Cholesterol Y Headaches N Fibromyalgia N Kidney Disease N Heart Problems N Kidney or Bladder Problems N Thyroid Problems N GI Problems Y Eating Disorder [...] SNOMED-CT Code Diagnosis ICD10 Code Diagnosis Note [id number] KYA Tom Bruno [address] [address] 10/24/2023 08:58:09 10/24/2023 10:36:34 Vaginitis [id number] N76.0 Detailed health hx reviewed and obtainedva [...] plan of care. 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 No longer with partner, has not had IC since tx.thick/white discharge. No odors. Some mild itching. Using vagisil to cleanse. last pap 09/2023 - normal per ptpostmenopausal since 2016mammogram scheduled for 03/05colonoscopy less than 5 yrs agobone scan 1-2 years ago - on alendronate KYA Tom [address], [place], [address], [facility] 10/24/2023 10:17:54 11/21/2023 text/html 63yo [id number] ents for evaluation of vulvar lesionssymptoms started about 1 week agoblister like lesions, very painful for the first few days. Leaked fluid a few days agosymptoms seems to be resolvinglast SA a few months agoneg discharge/itching/odo rsneg pelvic pain KYA Tom [address], [place], [address], [facility] 11/21/2023 09:45:26 OBGyn Episode Ob Episode Information Episode Created Date Number of Fetuses Patient Bloodtype Patient rh Status Prepregnancy Weight lbs Domestic Partner Domestic Partner Phone Father Name Survey Compiler Status 10/24/19 24 1 CLOSED Fetus Data First Name Last Name Admitted to NICU Weight (g) Sex Living Outcome Pediatric Complications Fetus ID Race Codes Race Delivery Type 3175.14 4 M Full Term 34848 Repeat Moses Calculation Initial Moses Date Initial [...] Domestic Partner Domestic Partner Phone Father Name Survey Compiler Status 10/24/19 24 1 CLOSED Fetus Data First Name Last Name Admitted to NICU Weight (g) Sex Living Outcome Pediatric Complications Fetus ID Race Codes Race Delivery Type 3175.14 4 M Full Term 24964 Repeat Moses Calculation Initial Moses Date Initial [...] Domestic Partner Domestic Partner Phone Father Name Survey Compiler Status 10/24/19 24 1 CLOSED Fetus Data First Name Last Name Admitted to NICU Weight (g) Sex Living Outcome Pediatric Complications Fetus ID Race Codes Race Delivery Type 3175.14 4 F Full Term 86484 Primary Moses Calculation Initial Moses Date Initial [...] Domestic Partner Domestic Partner Phone Father Name Survey Compiler Status 10/24/19 24 1 CLOSED Fetus Data First Name Last Name Admitted to NICU Weight (g) Sex Living Outcome Pediatric Complications Fetus ID Race Codes Race Delivery Type 3175.14 4 F Full Term 88894 Repeat Moses Calculation Initial Moses Date Initial [...] Domestic Partner Domestic Partner Phone Father Name Survey Compiler Status 10/24/19 24 1 CLOSED Fetus Data First Name Last Name Admitted to NICU Weight (g) Sex Living Outcome Pediatric Complications Fetus ID Race Codes Race Delivery Type 3175.14 4 M Full Term 96016 Repeat Moses Calculation Initial Moses Date Initial [...] Method Maternal HG B and HCT Levels "
--- OUTSIDE RECORDS SUMMARY | 2025-02-24 07:49 | XMS_ITS | Clinical Summary ---
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 WORKER Pulse 72 08/18/2017 7:53 AM PACK WORKER Temperature 36.3 C (97.4 F) 08/18/2017 7:53 AM PACK WORKER Respiratory Rate 16 08/18/2017 7:53 AM PACK WORKER Oxygen Saturation 96% 08/18/2017 7:53 AM PACK WORKER Inhaled Oxygen Concentration - - Weight 69.3 kg (152 lb 12.8 oz) 08/18/2017 7:53 AM PACK WORKER Height 149.9 cm (4' 11 ) 08/18/2017 7:53 AM PACK WORKER Body Mass Index 30.86 08/18/2017 7:53 AM PACK WORKER Plan of Treatment Health Maintenance Due Date [...] Priority Date/Time Associated Diagnosis Comments PATHOLOGY CYTOLOGY STILL OPERATOR BATCH OR CONTINUOUS Routine 09/16/2016 AKUA SCREENING BILATERAL DIGI TEE W CAD Routine 11/18/2013 from Last 3 Months or Most Recently Relevant to Health Maintenance Results * PATHOLOGY CYTOLOGY STILL OPERATOR BATCH OR CONTINUOUS (09/16/2016) Specimen of unknown material (specimen) us Bryant Anguiano MD PATHOLOGY/CYTOLOGY ORD ERABLES Final Result * AKUA SCREENING BILATERAL DIGITAL W CAD (11/18/2013) Anatomical Region Laterality Modality breast Bilateral Mammography Bryant Anguiano MD IMG MAMMO ORDERABLES F inal Result from Last 3 Months or Most Recently Relevant to Health Maintenance Insurance Care Teams Editing Internship Relationship Specialty Start Date End Date Bryant Anguiano MD Obstetrics & Gynecology 07/21/17
--- OUTSIDE RECORDS SUMMARY | 2025-02-24 07:49 | XMS_ITS | Data Portability ---
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 Plan of Treatment Reminders Order Date Submit Date Provider Last Modified By Organization Details Last Modified Time Details Appointments None recorded. 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 specimen - bruce 2019 020 [facility] ([facility]), [facility] [place], [address], 0 20:24:51 pap, IG + HPV, cervical 2015 016 DBA_PATCH_2 [id number] [facility], [address] [place] [address], [address], [place], [address], 6 04:32:56 bacterial vaginosis + vaginitis panel, vaginal 2015 016 DBA_PATCH_2 [id number] [facility], [address] [place] [address], [address], [place], [address], 6 04:32:42 HSV (1+2) DNA, qual, PCR, unspecifi ed specimen 2015 016 DBA_PATCH_2 [id number] [facility], [address] [place] [address], [address], [place], [address], 6 04:32:32 culture, vaginal/r ectal, streptoco ccus group B 2015 016 DBA_PATCH_2 [id number] [facility], [address], [address], [place], [address], 6 04:32:56 urinalysi s, dipstick 2015 016 DBA_PATCH_2 [id number] In-Office Order, Internal Use Only DO Not Attach Compendium DO Not Attach Compendium, Do Not Delete/merge, [id number] 6 04:33:00 urinalysi s, dipstick 2014 015 [email or web address] In-Office Order, Internal Use Only DO Not Attach Compendium DO Not Attach Compendium, Do Not Delete/merge, [id number] 5 22:30:03 pap, IG + HPV, cervical 2014 015 JEREMY [facility], [address], [address], [place], [address], 5 06:08:29 HSV (1+2) DNA, qual, PCR, unspecifi ed specimen 2014 015 JEREMY [facility], [address], [address], [place], [address], 5 06:17:45 bacterial vaginosis + vaginitis panel, vaginal 2014 015 JEREMY [facility], [address], [address], [place], [address], 5 06:17:44 culture, vaginal/r ectal, streptoco ccus group B 2014 015 JEREMY [facility], [address], [address], [place], [address], 5 06:17:46 Referral None recorded. Procedures None recorded. Surgeries None recorded. Imaging MAMMO, screening , bilateral 2015 016 DBA_PATCH_2 [id number] [facility], [address], [place] [address], [place], [address], 6 04:33:00 mammogram , screening 2014 015 [email or web address] Not available 5 10:27:07 Medication Orders Brisdelle 7.5 mg capsule 2015 016 DBA_PATCH_2 [id number] [facility] [address], [address], 6 04:32:42 raloxifen e 60 mg tablet 2015 016 DBA_PATCH_2 [id number] [facility] [address], [address], 6 04:32:39 Caltrate plus D 600 mg (carbonat e)-20 mcg (800 unit) chewable tablet 2015 016 DBA_PATCH_2 [id number] [facility] [address], [address], 6 04:32:15 ibuprofen 400 mg tablet 2014 015 [facility] [address], [address], 5 17:47:27 Pepcid 20 mg tablet 2014 015 [facility] [address], [address], 5 17:47:27 Premarin 0.625 mg/gram vaginal cream 2014 015 emanuel [facility] [address] In [facility], [address] [place] [address], [address], 5 18:59:29 Evista 60 mg tablet 2014 015 emanuel [facility] [address], [address], 5 18:59:29 Caltrate plus D 600 mg (carbonat e)-20 mcg (800 unit) chewable tablet 2014 015 emanuel [facility] [address], [address], 5 18:59:29 Flagyl 500 mg tablet 2014 [facility] [address], [address], 5 22:30:03 Patient TargetsNo targets recorded. Patient Instructions Encounter Date Encounter Id Patient Instructions Last Modified By Organization Details Last Modified Time 11/22/2014 [id number] atrophic vaginitis: care instructions [facility] Not available 11/22/2014 18:59:29 fibrocystic breast changes: care instructions [facility] Not available 11/22/2014 18:59:29 06/29/2015 [id number] deciding about using medicines to quit smoking [facility] Not available 06/29/2015 17:47:27 Quitting Tobacco: Care Instructions [facility] Not available 06/29/2015 17:47:27 chronic obstructive pulmonary disease (COPD): care instructions [facility] Not available 06/29/2015 17:47:27 learning about copd and how to prevent lung infections [facility] Not available 06/29/2015 17:47:27 She shall go to ER if she has any concern, she is so instructed, she understood and agreed., and she shall quit the cigarettes smoking. [email or web address] Not available 06/29/2015 17:41:16 09/16/2016 [id number] mammogram: about this test [facility] Not available 09/16/2016 15:06:33 chronic obstructive pulmonary disease (COPD): care instructions Not available 09/16/2016 16:41:11 learning about copd and how to prevent lung infections Not available 09/16/2016 16:41:11 03/01/2020 [id number] Reviewed the following recommendations: -Stay home and [...] DO Not Attach Compendium, Do Not Delete/merge, [id number] 09/16/2016 14:55:40 09/16/20 16 09/16/2016 urina lysis , dipst ick Nitrite negati ve Not Available In-Office Order Internal Use Only DO Not Attach Compendium DO Not Attach Compendium, Do Not Delete/merge, [id number] 09/16/2016 14:55:40 09/16/20 16 09/16/2016 urina lysis , dipst ick Urobilinogen .2 Not Available In-Of fice Order Internal Use Only DO Not Attach Compendium DO Not Attach Compendium, Do Not Delete/merge, [id number] 09/16/2016 14:55:40 09/16/20 16 09/16/2016 urina lysis , dipst ick Protein Negati ve Not Available In-Office Order Internal Use Only DO Not Attach Compendium DO Not Attach Compendium, Do Not Delete/merge, [id number] 09/16/2016 14:55:40 09/16/20 16 09/16/2016 urina lysis , dipst ick pH 6.0 Not Available In-Office Order Internal Use Only DO Not Attach Compendium DO Not Attach Compendium, Do Not Delete/merge, [id number] 09/16/2016 14:55:40 09/16/20 16 09/16/2016 urina lysis , dipst ick Blood Non-He molyze d: Trace Not Available In-Office Order Internal Use Only DO Not Attach Compendium DO Not Attach Compendium, Do Not Delete/merge, [id number] 09/16/2016 14:55:40 09/16/20 16 09/16/2016 urina lysis , dipst ick Specific [place] 1.025 Not Available In-Off ice Order Internal Use Only DO Not Attach Compendium DO Not Attach Compendium, Do Not Delete/merge, [id number] 09/16/2016 14:55:40 09/16/20 16 09/16/2016 urina lysis , dipst ick Ketone Negati ve Not Available In-Office Order Internal Use Only DO Not Attach Compendium DO Not Attach Compendium, Do Not Delete/merge, [id number] 09/16/2016 14:55:40 09/16/20 16 09/16/2016 urina lysis , dipst ick Bilirubin Negati ve Not Available In-Office Order Internal Use Only DO Not Attach Compendium DO Not Attach Compendium, Do Not Delete/merge, [id number] 09/16/2016 14:55:40 09/16/20 16 09/16/2016 urina lysis , dipst ick Glucose Negati ve Not Available In-Office Order Internal Use Only DO Not Attach Compendium DO Not Attach Compendium, Do Not Delete/merge, [id number] 09/16/2016 14:55:40 11/22/19 15 11/22/2014 urina lysis , dipst ick Leukocytes Negati ve Not Available In-Office Order Internal Use Only DO Not Attach Compendium DO Not Attach Compendium, Do Not Delete/merge, [id number] 11/22/2014 12:42:15 11/22/19 15 11/22/2014 urina lysis , dipst ick Nitrite negati ve Not Available In-Office Order Internal Use Only DO Not Attach Compendium DO Not Attach Compendium, Do Not Delete/merge, [id number] 11/22/2014 12:42:15 11/22/19 15 11/22/2014 urina lysis [...] 11/22/1911/22/2014 urina lysis , dipst ick Specific [place] 1.020 Not Available In-Off ice Order Internal [...] NEGATI VE negati ve Not Available [facility] ([facility]) [address] [place], [address], 11/25/2014 06:17:44 11/22/19 15 11/24/2014 bacte rial vagin osis + vagin itis panel , vagin al chlamydia trachomatis, COLIN NEGATI VE negati ve Not Available [facility] ([facility]) [address] [place], [address], 11/25/2014 06:17:44 11/22/19 15 11/24/2014 bacte rial vagin osis + vagin itis panel , vagin al neisseria gonorrhoeae, COLIN NEGATI VE negati ve Not Available [facility] ([facility]) [address] [place], [address], 11/25/2014 06:17:44 11/22/19 15 11/25/2014 bacte rial vagin osis + vagin itis panel , vagin al atopobium vaginae HIGH - 2 score abnormal Not Available [facility] ([facility]) [address] [place], [address], 11/25/2014 06:17:44 11/22/19 15 11/25/2014 bacte rial vagin osis + vagin itis panel , vagin al bvab 2 HIGH - 2 score abnormal Not Available [facility] ([facility]) [address] [place], [address], 11/25/2014 06:17:44 11/22/1911/25/2014 bacte rial vagin osis [...] ERMIN ATE FOR BV. ADDIT IONAL CLINI JIMENA DATA SHOUL D BE EVALU ATED TO ESTAB JACKELYN A DIAGN OSIS. TOTAL SCORE 3-6: INDIC ATES THE PRESE NCE OF BV. . THIS TEST WAS DEVEL OPED AND ITS PERFO RMANC E NUNU CTERI STICS DETER MINED BY [employer]. IT HAS NOT BEEN CLEAR ED OR APPRO CE BY THE FOOD AND DRUG ADMIN ISTRA TION. THE FDA HAS DETER MINED THAT SUCH CLEAR ANCE OR APPRO JEFFERSNO IS NOT NECES DANE. Not Available [facility] ([facility]) [address] [place], [address], 11/25/2014 06:17:44 11/22/1911/25/2014 bacte rial vagin osis + vagin itis panel , vagin al nathan albicans, COLIN POSITI VE negati ve abnormal Not Available [facility] ([facility]) [address] [place], [address], 11/25/2014 06:17:44 11/22/1911/25/2014 bacte rial vagin osis + vagin itis panel , vagin al nathan glabrata, COLIN NEGATI VE negati ve THIS TEST WAS DEVEL OPED AND ITS PERFO RMANC E NUNU CTERI STICS DETER MINED BY [employer]. IT HAS NOT BEEN CLEAR ED OR APPRO CE BY THE FOOD AND DRUG ADMIN ISTRA TION. THE FDA HAS DETER MINED THAT SUCH CLEAR ANCE OR APPRO JEFFERSON IS NOT NECES DANE. Not Available [facility] ([facility]) [address] [place], [address], 11/25/2014 06:17:44 11/22/1911/24/2014 HSV (1+2) DNA, qual, PCR, unspe cifie d speci men hsv 1 COLIN NEGATI VE negati ve Not Available [facility] ([facility]) [address] [place], [address], 11/25/2014 06:17:45 11/22/1911/24/2014 HSV (1+2) DNA, qual, PCR, unspe cifie d speci men hsv 2 COLIN NEGATI VE negati ve Not Available [facility] ([facility]) [address] [facility], [place], [address], 11/25/2014 06:17:45 11/22/19 15 11/24/2014 cultu re, [...] NOTED . (CDC GUIDE LINES , MMWR, 2009) Not Available [facility] ([facility]) [address] [facility], [place], [address], 11/25/2014 06:17:46 11/22/19 15 11/25/2014 pap, IG + HPV, cervi jimena diagnosis: COMMEN T NEGAT CRIS FOR INTRA EPITH ELIAL LESIO N AND DENIS HARDEN . FUNGA L ORGAN ISMS MORPH OLOGI CODY CONSI STENT WITH LYLE DA SPECI ES ARE PRESE NT. Not Available [facility] ([facility]) [address] [facility], [place], [address], 11/26/2014 06:08:29 11/22/19 15 11/25/2014 pap, IG + HPV, cervi jimena specimen adequacy: COMMEN T SATIS FACTO RY FOR EVALU ATION . ENDOC ERVIC AL AND/O R SQUAM OUS METAP LASTI C CELLS (ENDO CERVI JIMENA COMPO NENT) ARE PRESE NT. Not Available [facility] ([facility]) [address] [facility], [place], [address], 11/26/2014 06:08:29 11/22/19 15 11/25/2014 pap, IG + HPV, cervi jimena clinician provided ICD9: FIGUEROA Smith 041.9 ; BACTE RIAL INFEC TION, UNSPE CIFIE D, IN CONDI TIONS CLASS IFIED ELSEW HERE AND OF UNSPE CIFIE D SITE Not Available [facility] ([facility]) [address] [facility], [place], [address], 11/26/2014 06:08:29 11/22/19 15 11/25/2014 pap, IG + HPV, cervi jimena performed by: FIGUEROA Nye, DANIEL Smith (ASCP ) Not Available [facility] ([facility]) [address] [place], [address], 11/26/2014 06:08:29 11/22/1911/25/2014 pap, IG + HPV, cervi jimena . . Not Available [facility] ([facility]) [address] [place], [address], 11/26/2014 06:08:29 11/22/1911/25/2014 pap, IG + HPV, cervi jimena note: FIGUEROA Smith THE PAP SMEAR IS A SCREE VICTOR M TEST DESIG BIA TO AID IN THE DETEC TION OF DEEPAK LIGNA NT AND MALIG NANT CONDI TIONS OF THE UTERI NE CERVI X. IT IS NOT A DIAGN OSTIC PROCE DURE AND SHOUL D NOT BE USED THE SOLE MEANS OF DETEC TING CERVI JIMENA CANCE R. BOTH FALSE -POSI TIVE AND FALSE -NEGA TIVE REPOR TS DO OCCUR . . Not Available [facility] ([facility]) [address] [place], [address], 11/26/2014 06:08:29 11/22/19 15 11/25/2014 pap, IG + HPV, cervi jimena test methodology: COMMEN T THIS LIQUI D BASED THINP REP(R ) PAP TEST WAS JEAN THOMAS WITH THE USE OF AN IMAGE GUIDE Rochelle Avila Not Available [facility] ([facility]) [address] [place], [address], 11/26/2014 06:08:29 11/22/19 15 11/25/2014 pap, IG + HPV, cervi jimena HPV aptima NEGATI VE negati ve THIS TEST DETEC TS FOURT EEN HIGH- RISK HPV TYPES (16/1 8/31/ 33/35 /39/4 5/ 51/52 /56/5 8/59/ 66/68 ) WITHO UT DIFFE TAZ ATION . Not Available [facility] ([facility]) [address] [place], [address], 11/26/2014 06:08:29 09/16/20 16 09/18/2016 bacte rial vagin osis + vagin itis panel , vagin al trich vag by COLIN NEGATI VE negati ve Not Available [facility] ([facility]) [address] [place], [address], 09/19/2016 14:13:41 09/16/20 16 09/18/2016 bacte rial vagin osis + vagin itis panel , vagin al chlamydia trachomatis, COLIN NEGATI VE negati ve Not Available [facility] ([facility]) [address] [place], [address], 09/19/2016 14:13:41 09/16/20 16 09/18/2016 bacte rial vagin osis + vagin itis panel , vagin al neisseria gonorrhoeae, COLIN NEGATI VE negati ve Not Available [facility] ([facility]) [address] [place], [address], 09/19/2016 14:13:41 09/16/20 16 09/19/2016 bacte rial vagin osis + vagin itis panel , vagin al atopobium vaginae MODERA TE - 1 score Not Available [facility] ([facility]) [address] [facility], [place], [address], 09/19/2016 14:13:41 09/16/20 16 09/19/2016 bacte rial vagin osis + vagin itis panel , vagin al bvab 2 LOW - 0 score Not Available [facility] ([facility]) [address] [facility], [place], [address], 09/19/2016 14:13:41 09/16/20 16 09/19/2016 bacte rial [...] ERMIN ATE FOR BV. ADDIT IONAL CLINI JIMENA DATA SHOUL D BE EVALU ATED TO [...] IS NOT NECES DANE. Not Available [facility] ([facility]) [address] [facility], [place], [address], 09/19/2016 14:13:41 09/16/20 16 09/19/2016 bacte rial vagin osis + vagin itis panel , vagin al nathan albicans, COLIN NEGATI VE negati ve Not Available [facility] ([facility]) [address] [facility], [place], [address], 09/19/2016 14:13:41 09/16/20 16 09/19/2016 bacte rial vagin osis + vagin itis panel , vagin al nathan glabrata, COLIN NEGATI VE negati ve THIS TEST WAS BERHANE RENEE AND ITS PERFO EMILIA E NUNU OSUNA STICS DETER MINED BY [facility]. IT HAS NOT BEEN CLEAR ED OR APPRO CE BY THE FOOD AND DRUG ADMIN ISTRA TION. THE FDA HAS DETER MINED THAT SUCH CLEAR ANCE OR APPRO JEFFERSON IS NOT NECES DANE. Not Available [facility] ([facility]) [address] [facility], [place], [address], 09/19/2016 14:13:41 09/16/20 16 09/19/2016 HSV (1+2) DNA, qual, PCR, unspe cifie d speci men hsv 1 COLIN NEGATI VE negati ve Not Available [facility] ([facility]) [address] [place], [address], 09/19/2016 14:13:42 09/16/20 16 09/19/2016 HSV (1+2) DNA, qual, PCR, unspe cifie d speci men hsv 2 COLIN NEGATI VE negati ve Not Available [facility] ([facility]) [address] [facility], [place], [address], 09/19/2016 14:13:42 09/16/20 16 09/18/2016 cultu re, vagin al/re ctal, strep tococ cus group B strep gp B COLIN POSITI VE negati ve abnormal CENTE RS FOR DISEA SE CONTR OL AND PREVE NTION (CDC) AND AMERI CAN CONGR ESS OF OBSTE TRICI ANS AND GYNEC OLOGI STS (ACOG ) GUIDE LINES FOR PREVE NTION OF PERIN ATAL GROUP B STREP TOCOC JIMENA (GBS) DISEA SE SPECI FY CO-CO LLECT [...] N IS NOTED . 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 This testi ng was perfo rmed in the [facility] [place] [address] (CLIA Licen se #[id number] 61238 5, CAP #[id number], AU-ID #[id number]). 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 covidcom6 Facts heet for healt hcare provi ders: https ://ww [employer] .gov/ media /1362 56/do wnloa d Facts heet for patie nts: https ://[employer] .gov/ media /1362 57/do wnloa d Not Available [facility] (Lab) [address] [place], [address], 03/02/2020 20:24:51 09/12/20 16 11/12/2012 MAMMO , [...] Address Organization Details Recorded Time Bacterial vaginosis 778846926 Active Raymond flores [facility] 5 06:40:02 Vaginal discharge problem 833617882 Active Raymond flores [place] [facility] [place] 5 18:59:28 Menopausal syndrome 135486034 Carisa flores, [facility] 5 18:59:28 Fibrocystic disease of breast 67378246 Carisa flores, [facility] 5 18:59:28 Atrophic vaginitis 29767232 Carisa flores, [facility] 5 18:59:28 Candidiasis 85478144 Carisa flores, [facility] 5 19:26:31 Non-cardiac chest pain 907906490 Active Zen Jean MA null, [facility] 5 17:44:10 Chronic obstructive pulmonary disease 23554432 Active Zen Jean MA null, [facility] 5 17:44:10 Tobacco dependence syndrome 20327151 Active Zen Jean MA null, [facility] 5 17:44:10 Problem Notes None recorded. Procedures Surgical History Date Name Laterality Status Provider Name and Address Organization Details Recorded Time 5 Date of Last Pap Smear completed Melissa Mena ARI [facility] 09/16/2016 14:28:46 3 Most Recent Mammogram completed Melissa MenaARI [facility] 11/22/2014 12:42:15 Tubal Ligation completed Melissa Mena ARI [facility] 09/16/2016 14:27:50 Hernia Repair completed Melissa Mena ARI [facility] 09/16/2016 14:51:08 Imaging Results Imaging Date [...] DAILY active Not Available Not Available No [id number]|2025-02-24 07:49:00|2025-02-24 07:48:00|XMS_ITS|HILARIO JIM|External Medical Summaries|[id number]|" Clinical Summary Created on: February 24, 2025 Ana Villareal : 1960 Sex: Female Author Organization [facility] [place] Address [address] [place] [address] [place] [address] Care Team Providers Care Senior Manufacturing Engineer Name Role Phone Mitali Guzman MD Primary Care Provider [phone] Allergies No known active allergies Medications MULTIVIT,CALC,VA NS/IRON/FOLIC (ONE-A-DAY WOMENS FORMULA ORAL) Take by mouth daily. Active cholecalciferol, Vitamin D3, 125 mcg (5,000 unit) Capsule Take by mouth. 11/02/19 Active POTASSIUM CITRATE ORAL POTASSIUM CITRATE CAPSULE [...] min Active fluticasone propionate (FLONASE) 50 mcg/spray [place], Suspension nasal inhalerIndicatio ns:Nasal congestion Administer 2 [...] daily. 30 Tablet 2 12/18/19 25 Active clopidogreL (PLAVIX) 75 mg Tablet Take 1 Tablet by mouth daily. 01/22/20 25 Active ergocalciferol (VITAMIN D2) 50,000 unit capsule TAKE 1 CAPSULE BY MOUTH ONCE EVERY MONTH 01/31/20 25 Active ferrous sulfate 325 mg (65 mg iron) tablet Take 1 Tablet by mouth daily. 01/31/20 25 Active traMADol (ULTRAM) 50 mg tablet Take 1 Tablet by mouth 2 times daily. 01/22/20 25 Active Active Problems Problem Noted Date Diagnosed Date Nephrolithiasis 07/16/2024 Menopausal syndrome 01/26/2021 Retinal hemorrhage 11/17/2020 Osteoporosis 05/31/2020 Elevated LDL cholesterol level 09/24/2019 Fibrocystic disease of breast 07/23/2019 Atrophic vaginitis 07/23/2019 Gastroesophageal reflux disease 02/12/2019 Tobacco use 04/20/2018 Resolved Problems Problem Noted Date Diagnosed Date Resolved Date Candidiasis 01/26/2021 10/10/2023 Bacterial vaginosis 07/23/2019 02/17/20 Chronic obstructive lung disease 07/23/2019 04/09/2021 Problematic vaginal discharge 07/23/2019 02/17/2024 Constipation 08/18/2017 02/17/2024 Fatigue 08/18/2017 02/17/2024 Dysmenorrhea 07/21/2017 10/10/2023 Cough 07/26/2016 10/10/2023 Tobacco dependence syndrome 07/26/2016 02/17/2024 Encounters Date Type Department Care Team Description 02/24/2025 Results Follow-Up [facility] at [address] [phone] Bambi Dumont, KUNAL TSH, LIPID PANEL, COMPREHENSIVE METABOLIC PANEL, CBC WITH DIFFERENTIAL 02/22/2025 11:00 AM CDT Office Visit [facility] at [facility] [address] [place] [id number] Mitali Guzman MD Pain of right lower extremity (Primary Dx); Paresthesia of foot, unspecified laterality 02/21/2025 7:40 AM CDT Office Visit [facility] at [facility] [address] [place] [address] Screening for condition (Primary Dx) 02/16/2025 Results Follow-Up [facility] at [facility] [address] [place] [id number] Mitali Guzman MD EMG WITH NERVE CONDUCTION 02/14/2025 Orders Only [facility] at [facility] [address] [place] [address] Ember Rios Pain of right lower extremity 01/11/2025 External Device Data STL ABSTRACTION Provider, Abstract 12/29/2024 External Device Data STL ABSTRACTION Provider, Abstract 12/22/2024 External Device Data STL ABSTRACTION Provider, Abstract 12/21/2024 External Device Data STL ABSTRACTION Provider, Abstract 12/20/2024 External Device Data STL ABSTRACTION Provider, Abstract 12/18/2024 External Device Data STL ABSTRACTION Provider, Abstract 12/18/2024 External Device Data STL ABSTRACTION Provider, Abstract 12/17/2024 8:00 AM FOOD SERVICE LEAD Office Visit [facility] at [facility] [place] [address] [place] [address] Mitali Guzman MD Pain of right lower extremity (Primary Dx); Gastroesophageal reflux disease, unspecified whether esophagitis present; Age-related osteoporosis without current pathological fracture 12/17/2024 Telephone [facility] at [facility] [place] [address] [place] [address] Mitali Guzman MD Gabapentin 12/15/2024 External Device Data STL ABSTRACTION Provider, Abstract 12/13/2024 1:00 PM FOOD SERVICE LEAD Office Visit [facility] at [facility] [employer] [place] [address] [place] [id number] Bambi Lynch ANP Nasal congestion (Primary Dx); Acute cough; Generalized body aches 12/01/2024 External Device Data STL ABSTRACTION Provider, Abstract from Last 3 Months Immunizations Immunization Administration Dates Next Due (ADACEL/BOOSTRIX)(10 YR UP) TDAP VACCINE, 0.5ML, IM 10/13/2016 (PFIZER)(12 YR UP) COVID-19 VACCINE - EMERGENCY USE AUTHORIZATION, MRNA, [id number](PF) 30 MCG/0.3 ML IM SUSP 03/23/2021,03/02/2021 (SHINGRIX)(50 [...] Sign Reading Time Taken Comments Blood Pressure 128/82 02/22/2025 10:48 AM CDT Pulse 85 02/22/2025 10:48 AM CDT Temperature 36.6 C (97.9 F) 02/22/2025 10:48 AM CDT Respiratory Rate 18 02/22/2025 10:48 AM CDT Oxygen Saturation 99% 02/22/2025 10:48 AM CDT Inhaled Oxygen Concentration - - Weight 63 kg (139 lb) 02/22/2025 10:48 AM CDT Height 149.9 cm (4' 11 ) 02/22/2025 10:48 AM CDT Body Mass Index 28.07 02/22/2025 10:48 AM CDT Plan of Treatment Upcoming Encounters Date Type Department Care Team (Late st Contact Info) Description 03/10/2025 10:00 AM CDT Office Visit [facility] at Work [employer] [address] [place] [address] Mitali Guzman MD [address] [place] [address] Health Maintenance Due Date Last [...] Procedure Name Priority Date/Time Associated Diagnosis Comments CBC WITH DIFFERENTIAL Routine 02/21/2025 7:33 AM CDT Screening for condition COMPREHENSIVE METABOLIC PANEL Routine 02/21/2025 7:33 AM CDT Screening for condition LIPID PANEL Routine 02/21/2025 7:33 AM CDT Screening for condition TSH Routine 02/21/2025 7:33 AM CDT Screening for condition EMG WITH NERVE CONDUCTION Routine 02/02/2025 Pain of right lower extremity POC INFLUENZA A/B AND COVID-19 ANTIGENS Routine 12/13/2024 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 Acute cough Generalized body aches MAMMO 3D [...] Recently Relevant to Health Maintenance Results * (ABNORMAL) CBC WITH DIFFERENTIAL (02/21/2025 7:33 AM CDT) WBC 3.7(L) 3.8 - 10.8 Thousand/ uL [facility] RBC 4.77 3.80 - 5.10 Million/u L [facility] HEMOGLOBIN 12.2 11.7 - 15.5 g/dL [facility] HEMATOCRIT 39.4 35.0 - 45.0 % [facility] MCV 82.6 80.0 - 100.0 fL [facility] MCH 25.6(L) 27.0 - 33.0 pg [facility] MCHC 31.0(L) 32.0 - 36.0 g/dL [facility] Comment: For adults, a slight decrease in the calculated MCHC value (in the range of 30 to 32 g/dL) is most likely not clinically significant; however, it should be interpreted with caution in correlation with other red cell parameters and the patient's clinical condition. RDW 16.6(H) 11.0 - 15.0 % [facility] PLATELETS 207 140 - 400 Thousand/ uL [facility] MPV 12.3 7.5 - 12.5 fL [facility] NEUTROPHIL ABSOLUTE 1,610 1,500 - 7,800 cells/uL [facility] LYMPHOCYTE ABSOLUTE 1,517 850 - 3,900 cells/uL [facility] MONOCYTE ABSOLUTE 496 200 - 950 cells/uL [facility] EOSINOPHIL ABSOLUTE 30 15 - 500 cells/uL [facility] BASOPHILS ABSOLUTE 48 0 - 200 cells/uL [facility] NEUTROPHIL 43.5 % [facility] LYMPHOCYTES 41.0 % [facility] MONOCYTE 13.4 % [facility] EOSINOPHILS 0.8 % [facility] BASOPHILS 1.3 % [facility] Comment: Test Performed at: [place] [address] [address] [phone] [facility] Th[facility] Vo Blood 02/21/2025 7:33 AM CDT 02/22/2025 3:56 AM CDT Bambi Dumont DISTILLERY LABORER HEMATOLOGY ORDERABLES Fin al Result [facility] [phone] [place] [address] [place] [address] * TSH (02/21/2025 7:33 AM CDT) TSH 0.78 0.40 - 4.50 mIU/L [facility] Comment: Test Performed at: [place] [address] [place] [address] [facility] 02/21/2025 7:33 AM CDT 02/22/2025 3:56 AM CDT Bambi Dumont DISTILLERY LABORER CHEMISTRY ORDERABLES Monie l Result [facility] [phone] [place] [address] [address] [phone] * LIPID PANEL (02/21/2025 7:33 AM CDT) CHOLESTEROL 174 <200 mg/dL [facility] HDL 73 > OR = 50 mg/dL [facility] TRIGLYCERIDE 54 <150 mg/dL [facility] LDL CALCULATED 87 mg/dL (calc) [facility] Comment: Reference range: <100 Desirable range <100 mg/dL for primary prevention; <70 mg/dL for patients with CHD or diabetic patients with > or = 2 CHD risk factors. LDL-C is now calculated using the Jemima calculation, which is a validated novel method providing better accuracy than the Friedewald equation in the estimation of LDL-C. Lele SS et al. MINE. 2013;310(93): 2585-9162 (http://education.DoublePositive/faq/IJC591) CHOL/HDL RATIO 2.4 <5.0 (calc) [facility] NON-HDL CHOLESTEROL 101 <130 mg/dL (calc) [facility] Comment: For patients with diabetes plus 1 major ASCVD risk factor, treating to a non-HDL-C goal of <100 mg/dL (LDL-C of <70 mg/dL) is considered a therapeutic option. Test Performed at: [place] [address] [address] [address] Jason Emanuel Blood 02/21/2025 7:33 AM CDT 02/22/2025 3:56 AM CDT Bambi Dumont DISTILLERY LABORER CHEMISTRY ORDERABLES Monie mendoza Result [facility] [phone] [facility] [place] [address] [address] [address] * COMPREHENSIVE METABOLIC PANEL (02/21/2025 7:33 AM CDT) GLUCOSE 86 65 - 99 mg/dL [facility] Comment: Fasting reference interval BUN 19 7 - 25 mg/dL [facility] CREATININE 0.72 0.50 - 1.05 mg/dL [facility] GFR 94 > OR = 60 mL/min/1. 73m2 [facility] BUN/CREAT RATIO SEE NOTE: 6 - 22 (calc) [facility] Comment: Not Reported: BUN and Creatinine are within reference range. SODIUM 140 135 - 146 mmol/L [facility] POTASSIUM 4.4 3.5 - 5.3 mmol/L [facility] CHLORIDE 104 98 - 110 mmol/L [facility] CO2 27 20 - 32 mmol/L [facility] CALCIUM 9.0 8.6 - 10.4 mg/dL [email or web address] TOTAL PROTEIN 6.6 6.1 - 8.1 g/dL [facility] ALBUMIN 4.4 3.6 - 5.1 g/dL [facility] GLOBULIN 2.2 1.9 - 3.7 g/dL (calc) [facility] ALBUMIN/GLOBULIN RATIO 2.0 1.0 - 2.5 (calc) [facility] BILIRUBIN TOTAL 0.8 0.2 - 1.2 mg/dL [facility] ALKALINE PHOSPHATASE 68 37 - 153 U/L [facility] AST 18 10 - 35 U/L [facility] ALT 15 6 - 29 U/L [facility] Comment: Test Performed at: [place] [address] [place] [address] Jason Emanuel Blood 02/21/2025 7:33 AM CDT 02/22/2025 3:56 AM CDT us Bambi Dumont DISTILLERY LABORER CHEMISTRY ORDERABLES Monie l Result [facility] [phone] [place] [address] [address] [phone] * EMG WITH NERVE CONDUCTION (02/02/2025) us Mitali Guzman MD NEUROLOGY ORDERABLES Final Res ult Performing Organization Address City/[facility]/ZIP Co de Phone Number [facility] CLIA# [id number] [address] [place] [address] * POC INFLUENZA A/B AND COVID-19 ANTIGENS (12/13/2024 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) INFLUENZA A AG POC Not Detected Not Detected [facility] INFLUENZA B AG POC Not Detected Not Detected [facility] COVID-19 ANTIGEN POC Presumptively Negative Presumptively Negative [facility] INTERNAL KIT QC POC Pass Pass [facility] KIT LOT NUMBER POC 15,579 [facility] KIT EXP DATE POC 05/30/25 [facility] Upper Respiratory 12/13/2024 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 Bambi Lynch ANP POINT OF CARE TESTING Final Result [facility] CLIA# [id number] [address] [address] * MAMMO 3D SALIMA SCREEN BILAT W OR WO CAD (02/05/2024) Anatomical Region Laterality Modality Breast Bilateral Mammography Bambi Lynch ANP MAMMO ORDERABLES Final Resul t * HEMOGLOBIN A1C (07/25/2022 8:02 AM CDT) HEMOGLOBIN A1C 5.1 <5.7 % of total Hgb [facility] Comment: For the purpose of screening for the presence of diabetes: <5.7% Consistent with the absence of diabetes 5.7-6.4% Consistent with increased risk for diabetes (prediabetes) > or =6.5% Consistent with diabetes This assay result is consistent with a decreased risk of diabetes. Currently, no consensus exists regarding use of hemoglobin A1c for diagnosis of diabetes in children. According to [place] Diabetes Association (ADA) guidelines, hemoglobin A1c <7.0% represents optimal control in non- diabetic patients. Different metrics may apply to specific patient populations. Standards of Medical Care in Diabetes(ADA). ESTIMATED AVERAGE GLUCOSE (MG/DL) 100 mg/dL [facility] ESTIMATED AVERAGE GLUCOSE (MMOL/L) 5.5 mmol/L [facility] Comment: Test Performed at: [facility] [address] [phone] Noel Davidson D.O., MPH Blood 07/25/2022 8:02 AM CDT 07/26/2022 4:24 AM CDT Verenice Selby FAMILY DENTIST CHEMISTRY ORDERABLES F inal Result [facility] [phone] [facility] [address] [address] * CERV/VAG CYTO SCREEN PAP W/O HPV (07/29/2019 7:56 AM CDT) DIAGNOSIS (PAP): Comment [facility] Comment:NEGATIVE FOR INTRAEP ITHELIAL LESION OR MALIGNANCY. ADEQUACY: Comment [facility] Comment: Satisfactory for evaluation. Endocervical and/or squamous metaplastic cells (endocervical component) are present. CLINICIAN PROVIDED ICD10 Comment [facility] Comment:Z12.4 PERFORMED BY (PAP): Comment [facility] Comment:Chandrika Rhodes, Cyto technologist (ASCP) RESULT (PAP): . [facility] SEE NOTE (PAP): Comment [facility] Comment: The Pap smear is a screening test designed to aid in the detection of premalignant and malignant conditions of the uterine cervix. It is not a diagnostic procedure and should not be used as the sole means of detecting cervical cancer. Both false-positive and false-negative reports do occur. CYTOLOGY CSW METHODOLOGY Comment [facility] Comment: This liquid based ThinPrep(R) pap test was screened with the use of an image guided system. Genital SWAB OF ENDOCERVIX / Unknown 07/29/2019 7:56 AM CDT 07/29/2019 Narrative [facility] - 08/02/2019 2:35 PM CDT Performed at: [address] [place] [id number] Outboard Motor Inspector: Dea Cristina MD, Phone: [phone] Specimen Comment: No. of containers..01 ThinPrep Vial us Yumiko Brooke NP PATHOLOGY/CYTOLOGY LINA FAY Final Result [facility] [phone] * (ABNORMAL) POC OCCULT BLOOD 1 CARD (07/29/2019 7:54 AM CDT) OCCULT BLOOD 1 CARD POC Positive(A ) Negative [facility] [place] INTERNAL K[place] QC Pass Pass [facility] [place] CARD [place] NUMBER POC 50,471 [facility] [place] EXPIR[place] DATE POC 12/2019 [facility] [place] DEVELOPER LOT NUMBER POC [id number] [facility] [place] EXPIRATION DATE POC 02/2020 [facility] [place] Stool STOOL SPECIMEN / Unknown 07/29/2019 7:54 AM CDT us Yumiko Brooke DISTILLERY LABORER POINT OF CARE TESTING F inal Result [facility] CLIA# [id number] [address] [place] [address] from Last 3 Months or Most Recently Relevant to Health Maintenance Insurance ALLEGIANCE ALLEGIANCE * Guarantor: [employer] Account Type Relation to Patient Date of Phone Billing Address Corporate Employer ATTN: FLORIN CRUZ [address] [address] Care Teams Senior Manufacturing Engineer Relationship Specialty Start Date End Date Mitali Guzman MD [address] [place] [address] [place] [address] PCP - General Internal Medicine 07/29/24 "
--- OUTSIDE RECORDS SUMMARY | 2025-02-24 07:49 | XMS_ITS | Encounter Summary ---
Author Organization [facility] Address [address] [place] [address] Care Team Providers Care Computer Applications Developer Name Role Phone Mitali Guzman MD Primary Care Provider [phone] Encounter Details Date Type Department Care Team (Late Contact Info) Description 06/09/[address] [facility] [employer] [address] [place] [address] Yumiko Brooke, COMB MACHINE OPERATOR [address] [facility] [address] [place] [address] Social History Tobacco Use Types [...] Upcoming Encounters Date Type Department Care Team ([facility] Contact Info) Description 03/10/2025 10:00 AM CDT Office Visit [facility] [place] [address] [place] [address] Mitali Guzman MD [address] [address] documented as of this encounter Visit Diagnoses Not on filedocumented in this encounter Additional Health Concerns Assessment Noted Time PHQ-9 Depression Total Score: 1 04/20/20 18 7:00 AM CDT documented as of this encounter Care Teams Computer Applications Developer Relationship Specialty Start Date End Date Mitali Guzman MD [address] [place] [phone] PCP - General Internal Medicine 07/29/24 documented as of this encounter
--- OUTSIDE RECORDS SUMMARY | 2025-02-24 07:49 | XMS_ITS | Encounter Summary ---
Author Organization [facility] Address [address] [place] [address] Care Team Providers Care Pan Reclaim Processor Name Role Phone Mitali Guzman MD Primary Care Provider [phone] Encounter Details Date Type Department Care Team (Latest Contact Info) Description 02/24/2025 Results Follow-Up [facility] at [facility] [employer] [place] [address] [place] [address] Bambi Dumont NP [address] [place] [address] TSH, LIPID PANEL, COMPREHENSIVE METABOLIC PANEL, CBC WITH DIFFERENTIAL Social History Tobacco Use Types Packs/Day Years [...] on file documented as of this encounter Miscellaneous Notes * Result Encounter Note - Bambi Dumont NP - 02/24/2025 7:49 AM CDT Comprehensive metabolic panel demonstrates normal glucose, electrolytes, kidney function and liver enzymes. Complete blood count with low WBC and abnormal MCH, MCHC and RDW. Thyroid stimulating hormone is within normal range. Cholesterol levels are at goal. Please offer patient an appointment to review labs. documented in this encounter Plan of Treatment Upcoming Encounters Date Type Department Care Team (Late st Contact Info) Description 03/10/2025 10:00 AM CDT Office Visit [facility] at Work [employer] [place] [address] [place] [address] Mitali Guzman MD [address] [place] [address] documented as of this encounter Visit Diagnoses Not on filedocumented in this encounter Care Teams Pan Reclaim Processor Relationship Specialty Start Date End Date Mitali Guzman MD [address] [place] [address] PCP - General Internal Medicine 07/29/24 documented as of this encounter
== END 2025-02-24 07:44 | disposition home or self-care (01) ==
PROVIDERS: PCP Internal Medicine; Visit Provider Internal Medicine
DX: M79.604 Pain in right leg (principal); M43.16 Spondylolisthesis, lumbar region; M47.816 Spondylosis without myelopathy or radiculopathy, lumbar region
CPT/HCPCS: 72100; 73502

== ENCOUNTER 2025-03-14 07:41 | Outpatient (CLI) | payer OTHER, SELFPAY ==
--- NOTE | ~2025-03-14 | MR_ITS ---
MRI of the lumbar spine Clinical History: Right radiculopathy Technique: Axial T2-weighted images, and sagittal T1-weighted, T2-weighted, and T2 fat-sat images wer e acquired. COMPARISON: 03/26/2023 Findings: No acute fracture seen. 5 mm anterolisthesis of L4 over L5 is again present. No bone marrow signal abnormality seen. At L1-L2, L2-L3, L3-L4, there is no disc bulge or herniation. No spinal canal stenosis or neural fora taylor narrowing at these levels. At L4-L5, there is disc bulge/uncovering with severe facet arthropathy. There is mild central canal s tenosis. There is mild bilateral neural foraminal narrowing, right worse than left. At L5-S1, there is minimal disc bulge. No spinal canal stenosis. There is moderate bilateral neural f oraminal narrowing. Paravertebral soft tissues are unremarkable. Impression: 5 mm anterolisthesis of L4-L5. Moderate degenerative spondylosis at L4-L5 and L5-S1, as detailed above. Reviewed, dictated and finalized at location . Impression: 5 mm anterolisthesis of L4-L5. Moderate degenerative spondylosis at L4-L5 and L5-S1, as detailed above.
== END 2025-03-14 07:42 | disposition home or self-care (01) ==
LOC: MICIMG 07:42
PROVIDERS: PCP Internal Medicine; Visit Provider Internal Medicine
DX: M47.26 Other spondylosis with radiculopathy, lumbar region (principal)
CPT/HCPCS: 72148

== ENCOUNTER 2025-05-27 08:05 | Outpatient (CLI) | payer OTHER, SELFPAY ==
--- NOTE | ~2025-05-27 | CT_ITS ---
CT Scan of the Chest without Contrast: Clinical Indication: Lung cancer screening, nicotine dependence Technique: Contiguous sections were acquired throughout the chest without intravenous contrast. Dose reduction technique was used on this scan by utilizing automated exposure control and iterative recon struction technique. The dose-length product (DLP) was 37.32 mGy-cm. COMPARISON: 09/21/2024 Findings: There is no evidence of any significant mediastinal, hilar or axillary lymphadenopathy. Small calcifi ed mediastinal and left hilar lymph nodes are present. The mediastinal soft tissues appear normal. There is no evidence of pleural or pericardial effusion. The lungs are clear, aside from calcified left upper lobe granuloma. Images through the upper abdomen reveal no abnormalities. Impression: Lung RADS 1: Negative. 12 month follow-up screening CT advised. Reviewed, dictated and finalized at [facility]. Impression: Lung RADS 1: Negative. 12 month follow-up screening CT advised.
== END 2025-05-27 08:06 | disposition home or self-care (01) ==
LOC: MICIMG 08:05
PROVIDERS: PCP Internal Medicine; Visit Provider Internal Medicine
DX: Z12.2 Encounter for screening for malignant neoplasm of respiratory organs (principal); F17.210 Nicotine dependence, cigarettes, uncomplicated
CPT/HCPCS: 71271